=== PATIENT | female | born 1950 | race Caucasian/White ===

== ENCOUNTER 2020-07-08 12:17 | Emergency (ER) | payer MEDICARE, MEDICAID, SELFPAY ==
--- NOTE | 2020-07-08 14:44 | ED.SOB ---
HPI - SOB/Dyspnea General Chief Complaint: Dyspnea Stated Complaint: copd,sob Time Seen by Provider: 07/08/20 14:43 Source: patient and site interpreter Mode of arrival: ambulatory Limitations: no limitations History of Present Illness MD elicited complaint: shortness of breath Pertinent past history: COPD (3L NC O2 dependent) Onset (ago): week(s) (2) Timing: constant Severity: moderate Exacerbating factors: exertion and coughing Relieving factors: oxygen, rest and bronchodilators Known history of: COPD Associated symptoms: cough and wheezing Treatment prior to arrival: oxygen, bronchodilator and other (20mg prednisone) Related Data Allergies Allergy/AdvReac Type Severity Reaction Status Date / Time lisinopril [LISINOPRIL] Allergy Unknown UNK Unverified 06/11/20 19:02 Review of Systems Review of Systems: Constitutional : No Fever, No Chills ENT/Mouth : No sore throat, No Rhinorrhea, No Swallowing Difficulty Eyes: No Eye Pain, No Swelling, No Redness Cardiovascular : No Chest Pain, positive SOB, No Orthopnea, positive Edema Respiratory : positive Cough, No Sputum, positive Wheezing, positive dyspnea Gastrointestinal : No Nausea, No Vomiting, No Diarrhea, No abdominal Pain, No Hematochezia, No Melena Genitourinary : No Dysuria, No Urinary Frequency, No Hematuria Musculoskeletal : No joint pain, No Myalgias Skin : No Skin Lesions, No rash Neuro : No Weakness, No Numbness, No Dizziness, No Headache Psych : No Anxiety/Panic, No Depression All other systems reviewed and are negative PMFSH Past Medical History Medical History Asthma CHF (congestive heart failure) COPD (chronic obstructive pulmonary disease) Diabetes GERD (gastroesophageal reflux disease) HTN (hypertension) Hyperlipemia Hypothyroidism Social History Social History (Updated 07/08/20 @ 14:46 by Shabnam Ang DO) Alcohol intake: never Smoking Status: Never smoker Use of substances other than those prescribed or required for medical reasons: No Advance Directives: No Advance Directives Information Provided: No Physical Exam Vital Signs: Vital Signs: Vital Signs Temp Pulse Resp BP Pulse Ox 07/08/20 14:53 98.7 F 85 18 204/93 H 98 Body Mass Index 37.9 Appearance: Alert. Oriented X3. No acute distress. Eyes: Pupils equal, round and reactive to light. ENT: Pharynx normal. Neck: Normal inspection. Neck supple. CVS: Normal heart rate and rhythm. Pulses normal. Respiratory: No respiratory distress. Breath sounds diminished with wheezes Abdomen: Soft and nontender. Skin: Skin warm and dry. Normal skin color. Normal skin turgor. Extremities: bilateral 1+ pitting extremity edema. No calf ttp Neuro: Oriented X 3. No motor deficit. No sensory deficit. Course Course Course Narrative: patient seems improved, no hypoxia will sign out to Dr. Villalpando pending recheck and observation MDM - SOB/Dyspnea MDM Narrative Medical decision making narrative: 70 yo female COPD O2 dependent here with 2 weeks of cough, shortness of breath on 20mg prednisone daily states she is very short of breath and her transcribing machine operator sent her here, will need labs, CXR, 5mg neb, IV steroids, dispo per results and findings Lab Data Result diagrams: 07/08/20 15:26 07/08/20 15:26 Labs: Lab Results 07/08/20 07/08/20 07/08/20 Range/Units 15:26 15:26 15:26 WBC 8.2 (4.8-10.8) X10*3/uL RBC 4.95 (4.20-5.50) X10*6/uL Hgb 13.5 (12.0-16.0) g/dl Hct 44.9 (37-47) % MCV 90.7 (80-98) fL MCH 27.3 (27.0-33.0) pg MCHC 30.1 L (31.0-35.0) g/dl RDW 15.7 (11.0-16.0) % Plt Count 220 (160-400) X10*3/uL MPV 11.4 (9.4-12.3) fL Immature Gran % (Auto) 0.2 (0.0-0.4) % Neut % (Auto) 70.9 (45-73) % Lymph % (Auto) 18.6 L (20-40) % [place] % (Auto) 7.6 (2-11) % Eos % (Auto) 2.3 (0-4) % Baso % (Auto) 0.4 (0-2) % Lymph # (Auto) 1.5 (1.2-4.9) X10*3/uL [place] # (Auto) 0.6 (0.1-1.2) X10*3/uL Eos # (Auto) 0.2 (0.0-0.4) X10*3/uL Baso # (Auto) 0.0 (0.0-0.2) X10*3/uL Abs Immat Gran (auto) 0.02 (0.00-0.03) X10*3/uL Absolute Neuts (auto) 5.8 (2.0-8.3) X10*3/uL Absolute Nucleated RBC 0.000 (0.0-0.012) X10*3/uL Nucleated RBC % (auto) 0.0 (0.0-0.2) /100WBC Lactic Acid 1.0 (0.5-2.0) mmol/L Troponin I High Sens 9.6 (<3.5-17.0) ng/L B-Natriuretic Peptide 204 H (<100) pg/mL ECG Data Attestation: I personally reviewed and interpreted this ECG as follows: ECG interpretation date: 07/08/20 ECG interpretation time: 15:53 Prior ECG tracings: available for review Interpretation: Rate: 73 Rhythm: NSR Quinter: normal Normal P waves. Normal ART. Normal QRS complex. ST T wave : inverted t waves 1 AvL V6 qTC: normal prior studies: no change The study has been interpreted contemporaneously by me. .
[2020-07-08 14:53] VITALS: BP 204/93; PULSE 85; RESP 18; TEMP 37.1; O2SAT 98; BMI 37.9
--- NOTE | 2020-07-08 15:00 | ECG_ITS ---
Test Reason : SHORTNESS OF BREATH Blood Pressure : / mmHG Vent. Rate : 073 BPM Atrial Rate : 073 BPM P-R Int : 146 ms QRS Dur : 084 ms QT Int : 410 ms P-R-T Axes : -07 009 104 degrees QTc Int : 451 ms Normal sinus rhythm T wave abnormality, consider lateral ischemia Abnormal ECG When compared with ECG of 15-DEC-2019 11:00, No significant changes seen Referred By: Shabnam Ang Electronically Signed By:DORA GONZALEZ MD
--- NOTE | 2020-07-08 15:01 | XR_ITS ---
EXAMINATION: XR CHEST CLINICAL INFORMATION: Dyspnea COMPARISON: Multiple prior studies. Most recent is a Chest x-ray 12/15/2019 TECHNIQUE: Frontal portable view of the chest was obtained. 3:45 PM FINDINGS: Heart size is mildly enlarged. There are calcifications of aorta. There is mild central pulmonary vascular congestion with increased lung markings that is been seen on multiple prior exams appears chronic. There is no overt pulmonary edema. There is no pleural effusion. IMPRESSION: Cardiomegaly. Chronic mild central pulmonary vascular congestion without overt pulmonary edema.
[2020-07-08] MEDS: Albuterol Sulfate (0.083%) 2.5 MG/3 ML VIAL.NEB 5 MG INHALE (15:11)
--- NOTE | 2020-07-08 15:16 | PC.NURSE ---
resp therapy at bedside for tx, ekg completed.
[2020-07-08 15:38] LABS: MANUAL DIFF FLAG NO
[2020-07-08] MEDS: methylPREDNISolone Sod Succ/PF 125 MG/2 ML VIAL 60 MG IVPUSH (15:38)
[2020-07-08 15:41] LABS: Basophils Percent Auto 0.4 % (0-2); Eosinophils Absolute Auto 0.2 X10*3/uL (0.0-0.4); Eosinophils Percent Auto 2.3 % (0-4); Hematocrit 44.9 % (37-47); Hemoglobin 13.5 g/dl (12.0-16.0); Imm Gran Abs Auto 0.02 X10*3/uL (0.00-0.03); Imm Gran Pct Auto 0.2 % (0.0-0.4); Lymphocytes Absolute Auto 1.5 X10*3/uL (1.2-4.9); Lymphocytes Percent Auto 18.6 % (20-40); Mean Corpuscular HGB Conc 30.1 g/dl (31.0-35.0); Mean Corpuscular Hemoglobin 27.3 pg (27.0-33.0); Mean Corpuscular Volume 90.7 fL (80-98); Mean Platelet Volume 11.4 fL (9.4-12.3); Monocytes Absolute Auto 0.6 X10*3/uL (0.1-1.2); Monocytes Percent Auto 7.6 % (2-11); Neutrophils Absolute Auto 5.8 X10*3/uL (2.0-8.3); Neutrophils Percent Auto 70.9 % (45-73); Platelet Count 220 X10*3/uL (160-400); Red Blood Count 4.95 X10*6/uL (4.20-5.50); Red Cell Distribution Width 15.7 % (11.0-16.0); White Blood Count 8.2 X10*3/uL (4.8-10.8)
[2020-07-08 16:31] LABS: B Type Natriuretic Peptide 204 pg/mL (<100); Troponin-I High Sensitivity 9.6 ng/L (<3.5-17.0)
--- NOTE | 2020-07-08 17:53 | CT_ITS ---
EXAMINATION: CT ANGIOGRAM OF THE CHEST WITH CONTRAST (CT PULMONARY ANGIOGRAM FOR PE) CLINICAL INFORMATION: Left-sided back pain. Chronic obstructive pulmonary disease. COMPARISON: CXR from 07/08/2020. Chest CT from 09/05/2019. TECHNIQUE: Prior to contrast administration, noncontrast localization images were obtained. Subsequently, multidetector volumetric imaging was performed from the thoracic inlet to below the diaphragms following the administration of 71 mL Omnipaque 350 intravenous contrast. No contrast reaction reported. Sagittal, coronal, and MIP oblique sagittal reformatted images were obtained on the CT workstation, uploaded to PACS, and reviewed. This CT examination was performed using dose optimization techniques as appropriate, variously including the following: *Automated exposure control *Adjustment of mA and/or kV according to patient size (this includes techniques or standardized protocols for targeted exams where dose is matched to indication/reason for exam; i.e. extremities or head) *Use of iterative reconstruction technique DLP: Total exam dose-length product 439 mGy-cm FINDINGS: LUNGS AND PLEURA: Trachea and central airways are widely patent and normal in caliber. Mild thickening of peribronchial interstitium. Also, interlobular septal thickening is noted in the upper and lower lobes. These findings are new compared to 09/05/2019 and are consistent with mild edema. No focal consolidation. No pleural effusion or pneumothorax. Scattered opacities of subsegmental atelectasis. QUALITY OF STUDY/CONTRAST BOLUS: Poor. CARDIOVASCULAR: Cardiac chambers are normal in size. Atherosclerotic calcification of coronary arteries and thoracic aorta. No aortic aneurysm. No pericardial effusion. No large emboli are identified within the main pulmonary vessels. Peripheral vessels cannot be diagnostically evaluated due to the suboptimal contrast bolus. MEDIASTINUM/LOWER NECK: The esophagus has normal wall thickness. No mediastinal mass. The visualized portion of the thyroid gland is unremarkable. LYMPHATICS: No pathologic sized axillary, hilar or mediastinal lymph nodes. UPPER ABDOMEN: No contrast reflux into the inferior vena cava. No acute findings in the visualized portion of the upper abdomen. Mildly enlarged spleen is 14.5 cm AP dimension, unchanged compared to 09/05/2019. OSSEOUS STRUCTURES: No acute or suspicious osseous abnormality. IMPRESSION: * Mild interstitial pulmonary edema without pleural effusion. * Scattered opacities of subsegmental atelectasis in middle lobe, lingula and lower lobes. * No evidence of a large, central embolus. Due to the suboptimal contrast bolus, unable to evaluate the more peripheral pulmonary arteries. * Mild splenomegaly is stable compared to 09/05/2019. The negative test result for PE -- but suboptimal contrast bolus -- was discussed with Dr. Villalpando at 8:07 pm on 07/08/2020 and it was ascertained that the pretest probability was low, and no repeat contrast injection will be performed at this time.
--- NOTE | 2020-07-08 18:43 | PC.NURSE ---
PT PERSISTENT ABOUT HAVING SOMETHING TO EAT. PT GLUCOSE STILL PENDING, AWAITING CTA SO PROVIDER NOT INDICATING PT EATING ATT.
[2020-07-08 18:55] LABS: Anion Gap 12 (12-20); Blood Urea Nitrogen 12 mg/dL (9-16); Calcium 8.4 mg/dL (8.4-10.2); Carbon Dioxide 35 mmol/L (22-29); Chloride 97 mmol/L (96-108); Creatinine Clr Calc Pharmacy 74.6; Estimated Glomerular Filt Rate > 60; Glucose Random 335 mg/dL (60-115); Potassium 4.9 mmol/l (3.3-5.1); Sodium 139 mmol/L (135-145)
[2020-07-08] MEDS: iohexoL 350 MG/ML 100 ML INFUS..BTL IV (19:46)
[2020-07-08] MEDS: oxyCODONE HCl Immed Release 5 MG TABLET 10 MG PO (20:03)
--- NOTE | 2020-07-08 20:04 | PC.NURSE ---
Pt medicated with pain with Oxycodone per EMAR. Pt sitting upright in bed, eating/drinking. Pt aware of plan to await final results and DC home. Continue to monitor.
[2020-07-08 20:28] VITALS: BP 177/79; PULSE 104; RESP 16; O2SAT 95
== END 2020-07-08 20:37 | disposition home or self-care (01) ==
PROVIDERS: Emergency Provider Emergency Medicine; PCP Internal Medicine Geriatric Medicine
DX: J44.9 Chronic obstructive pulmonary disease, unspecified (principal); Z99.81 Dependence on supplemental oxygen; I10 Essential (primary) hypertension; Z79.899 Other long term (current) drug therapy
CPT/HCPCS: 36415; 71045; 71275; 80048; 80076; 83605; 83735; 83880; 84484; 85025; 87040; 87147; 93005; 99284; J2930

== ENCOUNTER 2020-08-11 13:16 | Outpatient (REF) | payer MEDICARE, MEDICAID, SELFPAY ==
[2020-08-11 14:28] LABS: MANUAL DIFF FLAG NO
[2020-08-11 14:34] LABS: Basophils Percent Auto 0.4 % (0-2); Eosinophils Absolute Auto 0.3 X10*3/uL (0.0-0.4); Eosinophils Percent Auto 3.4 % (0-4); Hematocrit 46.2 % (37-47); Hemoglobin 14.1 g/dl (12.0-16.0); Imm Gran Abs Auto 0.03 X10*3/uL (0.00-0.03); Imm Gran Pct Auto 0.4 % (0.0-0.4); Lymphocytes Absolute Auto 1.3 X10*3/uL (1.2-4.9); Lymphocytes Percent Auto 18.1 % (20-40); Mean Corpuscular HGB Conc 30.5 g/dl (31.0-35.0); Mean Corpuscular Volume 91.8 fL (80-98); Mean Platelet Volume 11.2 fL (9.4-12.3); Monocytes Absolute Auto 0.6 X10*3/uL (0.1-1.2); Monocytes Percent Auto 7.6 % (2-11); Neutrophils Absolute Auto 5.2 X10*3/uL (2.0-8.3); Neutrophils Percent Auto 70.1 % (45-73); Platelet Count 168 X10*3/uL (160-400); Red Blood Count 5.03 X10*6/uL (4.20-5.50); Red Cell Distribution Width 15.9 % (11.0-16.0); White Blood Count 7.4 X10*3/uL (4.8-10.8)
[2020-08-11 15:16] LABS: Alanine Aminotransferase 14 U/L (0-31); Albumin Level 3.5 g/dL (3.5-5.0); Alkaline Phosphatase 124 U/L (39-117); Aspartate Amino Transferase 17 U/L (5-31); Bilirubin Direct < 0.2 mg/dL (0.0-0.5); Bilirubin Total 0.3 mg/dL (0.0-1.0); Total Protein 6.9 g/dL (6.5-8.0)
[2020-08-11 15:19] LABS: Erythrocyte Sedimentation Rate 30 MM/HR (0-20)
[2020-08-12 09:16] LABS: EBV-NA IgG Index >600.00 U/mL; EBV-VCA IgG Ab >750.00 U/mL; EBV-VCA IgM Ab <36.00 U/mL
== END 2020-08-11 13:17 | disposition home or self-care (01) ==
LOC: HO.LAB 13:16
PROVIDERS: PCP Internal Medicine Geriatric Medicine; Referring Provider Internal Medicine Geriatric Medicine; Visit Provider Hospitalist
DX: G47.33 Obstructive sleep apnea (adult) (pediatric) (principal); R16.1 Splenomegaly, not elsewhere classified; R59.0 Localized enlarged lymph nodes; J44.9 Chronic obstructive pulmonary disease, unspecified
CPT/HCPCS: 36415; 80076; 85025; 85652; 86664; 86665; 99212

== ENCOUNTER → 2020-08-26 20:03 | Outpatient (REF) | payer MEDICARE, MEDICAID, SELFPAY | LOC: HO.SL 20:03 | PROVIDERS: Visit Provider Hospitalist | DX: G47.33 Obstructive sleep apnea (adult) (pediatric) (principal) | CPT/HCPCS: 95811 ==

== ENCOUNTER 2020-09-04 14:03 | Outpatient (REF) | payer MEDICARE, MEDICAID, SELFPAY ==
--- NOTE | 2020-09-04 14:05 | CT_ITS ---
EXAMINATION: CT HEAD WITH/WITHOUT CONTRAST CLINICAL INFORMATION: Chronic occular pain left eye. Headache COMPARISON: None TECHNIQUE: Contiguous axial imaging was performed from the skull base to vertex before and after the administration of 85 mL of Omnipaque [address] examination was performed using dose optimization techniques as appropriate, variously including the following: *Automated exposure control *Adjustment of mA and/or kV according to patient size (this includes techniques or standardized protocols for targeted exams where dose is matched to indication/reason for exam; i.e. extremities or head) *Use of iterative reconstruction technique DLP: 1591 mGy-cm FINDINGS: There is no evidence of acute intracranial hemorrhage or territorial infarction. No abnormal mass effect or midline shift is seen. There is a punctate hypodensity in right posterior parietal lobe likely focal encephalomalacia from previous intervention on axial image 21/2. Broderick to white matter differentiation is well preserved. No extra-axial fluid collections are identified. There is no abnormal enhancement. The lateral ventricles are symmetrical in size but enlarged. There is diffuse periventricular hypodensity in both cerebral hemispheres without mass effect. There is a right parietal craniotomy defect from previous intervention. The mastoid air cells and visualized portions of the paranasal sinuses are well aerated. CT/CT head/brain wo/w con IMPRESSION: No acute intracranial process seen.
[2020-09-04] MEDS: iohexoL 350 MG/ML 100 ML INFUS..BTL 85 ML IV (15:06)
--- NOTE | 2020-09-10 14:19 | MHC.HEMONC ---
CT GUIDED BX - T/C to radiology dept. @1903. I spoke w Naomi. Request for CT guided bx of L Inguinal Lymph Node. DX: Enlarged bilateral lymphnodes (these were seen on CT of Abd/Pel from [facility]. Per Dr. Taylor she has already spoken w Dr. Roman regarding this and he has reviewed CT. Per Esther Capellan, the codes are - CPT 50030 and ICD R59.9. Written order faxed to Naomi @ [phone] and entered into [employer]. Per Naomi this order will be placed in pending and will be reviewed by Vaishnavi when she returns to the office tomorrow. Written Order returned to Esther Rea for filing.
== END 2020-09-04 14:04 | disposition home or self-care (01) ==
LOC: HO.CT 14:03
PROVIDERS: Visit Provider Internal Medicine Geriatric Medicine
DX: R51.9 Headache, unspecified (principal); H57.12 Ocular pain, left eye; G89.29 Other chronic pain
CPT/HCPCS: 70470; Q9967

== ENCOUNTER 2020-09-11 13:24 | Outpatient (REF) | payer MEDICARE, MEDICAID, SELFPAY ==
--- NOTE | 2020-09-11 13:43 | XR_ITS ---
EXAMINATION: BILATERAL KNEE AND LUMBAR SPINE. CLINICAL INFORMATION: Pain. COMPARISON: None TECHNIQUE: 5 views lumbar spine 4 views each knee. FINDINGS: LUMBAR SPINE: There is normal lumbar lordosis. The vertebral heights, alignment and disc heights are normal. No visible acute fracture, dislocation or lytic process seen. There is mild ventral spondylosis of lumbar spine. There is no pars defect or listhesis. No lytic process seen. RIGHT KNEE: The tricompartment joints is maintained. No bony erosive changes seen. There is minimal superior patellar spurring and anterior superior patellar enthesophyte. The soft tissues are normal. LEFT KNEE: There is mild reduction in medial and patellofemoral compartment joint space with minimal periarticular spurring. The lateral compartment joint space is maintained. This mild suprapatellar joint effusion. XR/XR knee LT 4V IMPRESSION: Mild ventral spondylosis lumbar spine. No acute fracture, dislocation or lytic process seen. There is no spondylolisthesis or pars defect. Minimal superior patellar spurring right knee. Otherwise unremarkable. Mild degenerative changes medial and patellofemoral compartment left knee without acute fracture or dislocation. Mild suprapatellar joint effusion is noted.
--- NOTE | 2020-09-11 13:43 | XR_ITS ---
EXAMINATION: BILATERAL KNEE AND LUMBAR SPINE. CLINICAL INFORMATION: Pain. COMPARISON: None TECHNIQUE: 5 views lumbar spine 4 views each knee. FINDINGS: LUMBAR SPINE: There is normal lumbar lordosis. The vertebral heights, alignment and disc heights are normal. No visible acute fracture, dislocation or lytic process seen. There is mild ventral spondylosis of lumbar spine. There is no pars defect or listhesis. No lytic process seen. RIGHT KNEE: The tricompartment joints is maintained. No bony erosive changes seen. There is minimal superior patellar spurring and anterior superior patellar enthesophyte. The soft tissues are normal. LEFT KNEE: There is mild reduction in medial and patellofemoral compartment joint space with minimal periarticular spurring. The lateral compartment joint space is maintained. This mild suprapatellar joint effusion. XR/XR lumbar spine 4V min IMPRESSION: Mild ventral spondylosis lumbar spine. No acute fracture, dislocation or lytic process seen. There is no spondylolisthesis or pars defect. Minimal superior patellar spurring right knee. Otherwise unremarkable. Mild degenerative changes medial and patellofemoral compartment left knee without acute fracture or dislocation. Mild suprapatellar joint effusion is noted.
--- NOTE | 2020-09-11 13:43 | XR_ITS ---
EXAMINATION: BILATERAL KNEE AND LUMBAR SPINE. CLINICAL INFORMATION: Pain. COMPARISON: None TECHNIQUE: 5 views lumbar spine 4 views each knee. FINDINGS: LUMBAR SPINE: There is normal lumbar lordosis. The vertebral heights, alignment and disc heights are normal. No visible acute fracture, dislocation or lytic process seen. There is mild ventral spondylosis of lumbar spine. There is no pars defect or listhesis. No lytic process seen. RIGHT KNEE: The tricompartment joints is maintained. No bony erosive changes seen. There is minimal superior patellar spurring and anterior superior patellar enthesophyte. The soft tissues are normal. LEFT KNEE: There is mild reduction in medial and patellofemoral compartment joint space with minimal periarticular spurring. The lateral compartment joint space is maintained. This mild suprapatellar joint effusion. XR/XR knee RT 4V IMPRESSION: Mild ventral spondylosis lumbar spine. No acute fracture, dislocation or lytic process seen. There is no spondylolisthesis or pars defect. Minimal superior patellar spurring right knee. Otherwise unremarkable. Mild degenerative changes medial and patellofemoral compartment left knee without acute fracture or dislocation. Mild suprapatellar joint effusion is noted.
[2020-09-11 14:57] LABS: Anion Gap 9 (12-20); Blood Urea Nitrogen 14 mg/dL (9-16); Calcium 8.8 mg/dL (8.4-10.2); Carbon Dioxide 37 mmol/L (22-29); Chloride 101 mmol/L (96-108); Estimated Glomerular Filt Rate > 60; Glucose Random 40 mg/dL (60-115); Potassium 3.9 mmol/l (3.3-5.1); Sodium 143 mmol/L (135-145)
[2020-09-11 15:25] LABS: Erythrocyte Sedimentation Rate 30 MM/HR (0-20)
== END 2020-09-11 13:25 | disposition home or self-care (01) ==
LOC: HO.LAB 13:24
PROVIDERS: Visit Provider Internal Medicine Geriatric Medicine
DX: H57.12 Ocular pain, left eye (principal); I10 Essential (primary) hypertension; R51.9 Headache, unspecified; M25.561 Pain in right knee; M25.562 Pain in left knee; M54.5 Low back pain
CPT/HCPCS: 36415; 72110; 73564; 80048; 85652

== ENCOUNTER 2020-10-02 11:49 | Emergency (ER) | payer MEDICARE, MEDICAID, SELFPAY ==
[2020-10-02 11:53] VITALS: BP 184/77; PULSE 80; RESP 22; TEMP 36.7; O2SAT 96; BMI 37.5
--- NOTE | 2020-10-02 12:04 | XR_ITS ---
EXAMINATION: XR CHEST CLINICAL INFORMATION: Low O2. History of COPD. COMPARISON: None TECHNIQUE: Frontal view of the chest was obtained. FINDINGS: The lungs are well-expanded and clear. The heart size and pulmonary vascularity is normal. No gross bony abnormality seen. XR/XR chest 1V IMPRESSION: Unremarkable chest exam.
--- NOTE | 2020-10-02 12:21 | ED.GENADULT ---
HPI - General Adult General Chief complaint: Dyspnea Stated complaint: Hypoxia Time Seen by Provider: 10/02/20 11:54 Source: patient Mode of arrival: wheelchair Limitations: no limitations History of Present Illness HPI narrative: Patient comes to the emergency room from Dr. Taylor's office. Patient is known to have splenomegaly. Patient states she went to see Dr. Taylor this morning for follow-up with splenomegaly and for worsening right upper quadrant pain. Dr. Taylor called the emergency room, let us know that the patient's oxygen saturation was 83% on 3 L which is patient's home dose. Patient is on oxygen for COPD. On arrival to the emergency room, patient complaining of worsening right upper quadrant pain. Patient denies any trauma. Patient states she has been having increased abdominal pain over the last 4 months, but this morning was the worst day. Patient states that she does not feel short of breath or any different than any other day at this time, patient states that she had shortness of breath at Dr. Taylor office, states it was because of the pain. Patient states she has had intermittent episodes of sharp right upper quadrant pain. Patient denies nausea vomiting or diarrhea. MD complaint: Low O2, right upper quadrant pain Related Data Home Medications Medication Instructions Recorded Confirmed acetaminophen 325 mg PO Q8H PRN 07/08/20 08/11/20 albuterol sulfate 2.5 mg INHALATION Q4H PRN 07/08/20 08/11/20 albuterol sulfate [ProAir HFA] 2 puff INHALATION Q4-6H PRN 07/08/20 08/11/20 amlodipine 10 mg PO DAILY 07/08/20 08/11/20 aspirin 81 mg PO DAILY 07/08/20 08/11/20 atorvastatin 40 mg PO DAILY 07/08/20 08/11/20 fluticasone furoate-vilanterol 1 inh INHALATION DAILY 07/08/20 08/11/20 [Breo Ellipta] fluticasone propionate [Flovent 1 puff INHALATION BID 07/08/20 08/11/20 HFA] furosemide 40 mg PO Q OTHER DAY 07/08/20 08/11/20 hydralazine 100 mg PO BID 07/08/20 08/11/20 insulin glargine [Lantus Solostar 30 unit SUBCUT BID 07/08/20 08/11/20 U-100 Insulin] insulin lispro [Humalog KwikPen See Protocol SUBCUT TIDAC 07/08/20 08/11/20 Insulin] levothyroxine 100 mcg PO DAILY 07/08/20 08/11/20 losartan 50 mg PO DAILY 07/08/20 08/11/20 lubiprostone [Amitiza] 24 mcg PO BID 07/08/20 08/11/20 metformin 1,000 mg PO BID 07/08/20 08/11/20 omega-3 fatty acids [Fish Oil 1,000 mg PO DAILY 07/08/20 08/11/20 Concentrate] omeprazole 20 mg PO DAILY 07/08/20 08/11/20 oxycodone-acetaminophen 1 tab PO Q8H PRN 07/08/20 08/11/20 quetiapine 200 mg PO BEDTIME 07/08/20 08/11/20 risperidone [Risperdal] 6 mg PO BEDTIME 07/08/20 08/11/20 sumatriptan succinate 25 mg tablet 0 mg PO DIRECTED 08/11/20 08/11/20 Allergies Allergy/AdvReac Type Severity Reaction Status Date / Time lisinopril [LISINOPRIL] Allergy Severe Dizziness Verified 08/11/20 23:11 Review of Systems Review of Systems: Constitutional : No Weight loss, No Fever, No Chills, No Night Sweats, No Fatigue, No Malaise ENT/Mouth : No Hearing loss, No Ear Pain, No Nasal Congestion, No Sinus Pain, No Hoarseness, No sore throat, No Rhinorrhea, No Swallowing Difficulty Eyes: No Eye Pain, No Swelling, No Redness, No Foreign Body, No Discharge, No Vision Changes Cardiovascular : No Chest Pain, No SOB, No Dyspnea on Exertion, No Orthopnea, No Edema, No Palpitations Respiratory : No Cough, No Sputum, No Wheezing, No Smoke Exposure, No Dyspnea at this time, patient on 3 L at baseline Gastrointestinal : No Nausea, No Vomiting, No Diarrhea, No Constipation, Now complaining of worsening right upper quadrant pain, No Hematochezia, No Melena Genitourinary : no irregular bleeding, No Dysuria, No Urinary Frequency, No Hematuria, No Urinary Incontinence, No Urgency, No Flank Pain, No Urinary Flow Changes, No Hesitancy Musculoskeletal : No joint pain, No Myalgias, No Joint Swelling Skin : No Skin Lesions, No rash Neuro : No Weakness, No Numbness, No Paresthesias, No Loss of Consciousness, No Dizziness, No Headache Psych : No Anxiety/Panic, No Depression, No SI/HI/AH/VH, No Social Issues, Heme/Lymph: No Bruising, No Bleeding,No Lymphadenopathy Endocrine : No Polyuria, No Polydipsia, No Temperature Intolerance [facility] Past Medical History Medical History Asthma CHF (congestive heart failure) COPD (chronic obstructive pulmonary disease) Diabetes GERD (gastroesophageal reflux disease) HTN (hypertension) Hyperlipemia Hypothyroidism Lymphadenopathy, abdominal KATIUSKA (obstructive sleep apnea) Splenomegaly Surgical History (Updated 09/01/20 @ 14:33 by Eliceo Taylor MD) H/O section History of cholecystectomy Hx of tubal ligation Social History Social History (Updated 09/01/20 @ 14:25 by Jennifer Garcia RN) Alcohol intake: never Smoking Status: Former smoker Advance Directives: No Advance Directives Information Provided: No Physical Exam Vital Signs: Vital Signs: Last Vital Signs Temp 98.1 F 10/02/20 11:53 Pulse 80 10/02/20 11:53 Resp 22 H 10/02/20 11:53 BP 184/77 H 10/02/20 11:53 Pulse Ox 96 10/02/20 11:53 Body Mass Index 37.5 Appearance: Alert. Oriented X3. No acute distress. Eyes: Pupils equal, round and reactive to light. ENT: Pharynx normal. Neck: Normal inspection. Neck supple. No lymph nodes noted. No crepitus CVS: Normal heart rate and rhythm. Pulses normal. Normal S1 and S2 Respiratory: No respiratory distress. Mild bilateral wheezing, no crackles, on 3 L at baseline, oxygen saturation 97% Abdomen: Complaining of right upper quadrant pain on palpation Skin: Skin warm and dry. Normal skin color. Normal skin turgor. Extremities: No lower extremity edema. No lower extremity edema. No Lacerations. No Rash Neuro: Oriented X 3. No motor deficit. No sensory deficit. Moving all extermities. No slurred speech. Course Course Course Narrative: Patient's oxygen saturation remains 97% on 3 L. patient's CTA shows no PE, CT scan shows that the spleen is unremarkable. Patient feeling better, patient will be discharged home. Patient's blood sugar corrected, initially 433, now 268 Medical Decision Making Lab Data Result diagrams: 10/02/20 12:34 10/02/20 12:34 Labs: Lab Results 10/02/20 10/02/20 10/02/20 Range/Units 12:34 12:34 12:34 WBC 7.1 (4.8-10.8) X10*3/uL RBC 5.07 (4.20-5.50) X10*6/uL Hgb 14.3 (12.0-16.0) g/dl Hct 46.5 (37-47) % MCV 91.7 (80-98) fL MCH 28.2 (27.0-33.0) pg MCHC 30.8 L (31.0-35.0) g/dl RDW 14.6 (11.0-16.0) % Plt Count 201 (160-400) X10*3/uL MPV 11.2 (9.4-12.3) fL Immature Gran % (Auto) 0.3 (0.0-0.4) % Neut % (Auto) 69.5 (45-73) % Lymph % (Auto) 20.9 (20-40) % [place] % (Auto) 7.3 (2-11) % Eos % (Auto) 1.7 (0-4) % Baso % (Auto) 0.3 (0-2) % Lymph # (Auto) 1.5 (1.2-4.9) X10*3/uL [place] # (Auto) 0.5 (0.1-1.2) X10*3/uL Eos # (Auto) 0.1 (0.0-0.4) X10*3/uL Baso # (Auto) 0.0 (0.0-0.2) X10*3/uL Abs Immat Gran (auto) 0.02 (0.00-0.03) X10*3/uL Absolute Neuts (auto) 4.9 (2.0-8.3) X10*3/uL Absolute Nucleated RBC 0.000 (0.0-0.012) X10*3/uL Nucleated RBC % (auto) 0.0 (0.0-0.2) /100WBC Sodium 138 (135-145) mmol/L Potassium 4.7 (3.3-5.1) mmol/l Chloride 96 (96-108) mmol/L Carbon Dioxide 35 H (22-29) mmol/L Anion Gap 12 (12-20) BUN 13 (9-16) mg/dL Creatinine 0.78 (0.5-1.4) mg/dL Estim Creat Clear Calc 73.3 Estimated GFR > 60 POC Glucose (60-115) mg/dL Random Glucose 433 H* (60-115) mg/dL Lactic Acid (0.5-2.0) mmol/L Calcium 8.9 (8.4-10.2) mg/dL Total Bilirubin 0.3 (0.0-1.0) mg/dL Direct Bilirubin < 0.2 (0.0-0.5) mg/dL AST 13 (5-31) U/L ALT 11 (0-31) U/L Alkaline Phosphatase 121 H (39-117) U/L B-Natriuretic Peptide 663 H (<100) pg/mL Total Protein 6.5 (6.5-8.0) g/dL Albumin 3.1 L (3.5-5.0) g/dL 10/02/20 10/02/20 Range/Units 12:34 14:11 WBC (4.8-10.8) X10*3/uL RBC (4.20-5.50) X10*6/uL Hgb (12.0-16.0) g/dl Hct (37-47) % MCV (80-98) fL MCH (27.0-33.0) pg MCHC (31.0-35.0) g/dl RDW (11.0-16.0) % Plt Count (160-400) X10*3/uL MPV (9.4-12.3) fL Immature Gran % (Auto) (0.0-0.4) % Neut % (Auto) (45-73) % Lymph % (Auto) (20-40) % [place] % (Auto) (2-11) % Eos % (Auto) (0-4) % Baso % (Auto) (0-2) % Lymph # (Auto) (1.2-4.9) X10*3/uL [place] # (Auto) (0.1-1.2) X10*3/uL Eos # (Auto) (0.0-0.4) X10*3/uL Baso # (Auto) (0.0-0.2) X10*3/uL Abs Immat Gran (auto) (0.00-0.03) X10*3/uL Absolute Neuts (auto) (2.0-8.3) X10*3/uL Absolute Nucleated RBC (0.0-0.012) X10*3/uL Nucleated RBC % (auto) (0.0-0.2) /100WBC Sodium (135-145) mmol/L Potassium (3.3-5.1) mmol/l Chloride (96-108) mmol/L Carbon Dioxide (22-29) mmol/L Anion Gap (12-20) BUN (9-16) mg/dL Creatinine (0.5-1.4) mg/dL Estim Creat Clear Calc Estimated GFR POC Glucose 268 H (60-115) mg/dL Random Glucose (60-115) mg/dL Lactic Acid 0.9 (0.5-2.0) mmol/L Calcium (8.4-10.2) mg/dL Total Bilirubin (0.0-1.0) mg/dL Direct Bilirubin (0.0-0.5) mg/dL AST (5-31) U/L ALT (0-31) U/L Alkaline Phosphatase (39-117) U/L B-Natriuretic Peptide (<100) pg/mL Total Protein (6.5-8.0) g/dL Albumin (3.5-5.0) g/dL Imaging Data Chest x-ray: Radiologist's impression: The lungs are well-expanded and clear. The heart size and pulmonary vascularity is normal. No gross bony abnormality seen. XR/XR chest 1V IMPRESSION: Unremarkable chest exam. CT for PE and abdominal CT: Radiologist's impression: Chest: There is good opacification of the pulmonary arteries. No evidence of pulmonary embolism is seen. There is scarring or subsegmental atelectasis in the lingula and left lower lobe. The lungs are otherwise clear. The heart is slightly enlarged. There is no pericardial effusion. The thoracic aorta is normal in caliber. There is mild coronary artery calcification. There are no enlarged hilar or mediastinal lymph nodes. The visualized thyroid gland is unremarkable. No chest wall mass or enlarged axillary lymph nodes are seen. There is no pleural effusion or pleural thickening. There are degenerative changes of the thoracic spine. Abdomen and pelvis: The liver is unremarkable. The gallbladder is not identified. There is no biliary duct dilatation. The spleen is unremarkable. The pancreas is unremarkable. The adrenal glands and kidneys are unremarkable. The bladder is unremarkable. The uterus and adnexa are unremarkable. There is stool throughout the colon questionable for constipation. Small and large bowel is otherwise unremarkable. The appendix is not identified. There are no inflammatory changes seen in the right lower quadrant. The stomach is unremarkable. There is a small umbilical hernia containing fat. There are slightly prominent bilateral retroperitoneal pelvic lymphadenopathy and inguinal lymphadenopathy. Largest lymph node is a left external iliac lymph node measuring 1.2 x 2.5 cm. Lymph nodes have fatty samra and may be reactive. These are similar to previous exam There are small upper abdominal retroperitoneal lymph nodes. There is no ascites. There is evidence of atherosclerotic disease. No aneurysm is seen. There are mild degenerative changes of the spine and hip joints. CT/CT angio chest PE protocol IMPRESSION: Chest: No evidence of pulmonary embolism. Enlarged heart. Subsegmental atelectasis or scarring in the lingula and left lower lobe. Abdomen and pelvis: No acute findings. Stool throughout the colon questionable for constipation. Atherosclerotic disease. Prominent bilateral pelvic retroperitoneal lymph nodes and inguinal lymph nodes similar to previous exam. Discharge Plan Discharge Clinical Impression: Acute hyperglycemia Abdominal pain Qualifiers: Abdominal location: left upper quadrant Qualified Code(s): R10.12 - Left upper quadrant pain Patient Disposition: Home, Self-Care Instructions: Diabetic Hyperglycemia (ED), Chronic Abdominal Pain (ED) Additional Instructions: Please follow-up with Dr. Taylor. Please follow-up with your primary care physician tomorrow. If you have any worsening or new symptoms, please return to the emergency room or call 911 Prescriptions: No Action furosemide 40 mg Tablet 40 mg PO Q OTHER DAY RF: 0 atorvastatin 40 mg Tablet 40 mg PO DAILY RF: 0 acetaminophen 325 mg Tablet 325 mg PO Q8H PRN (Reason: Pain (Scale Score 1-3)) RF: 0 albuterol sulfate 2.5 mg /3 mL (0.083 %) Solution For Nebulization 2.5 mg INHALATION Q4H PRN (Reason: Shortness Of Breath) RF: 0 quetiapine 200 mg Tablet 200 mg PO BEDTIME RF: 0 aspirin 81 mg Tablet,Delayed Release (Dr/Ec) 81 mg PO DAILY RF: 0 risperidone [Risperdal] 3 mg Tablet 6 mg PO BEDTIME RF: 0 levothyroxine 100 mcg Tablet 100 mcg PO DAILY RF: 0 amlodipine 10 mg Tablet 10 mg PO DAILY RF: 0 hydralazine 100 mg Tablet 100 mg PO BID RF: 0 metformin 1,000 mg Tablet 1,000 mg PO BID RF: 0 oxycodone-acetaminophen 7.5-325 mg Tablet 1 tab PO Q8H PRN (Reason: Pain (Scale Score 4-6)) RF: 0 insulin lispro [Humalog KwikPen Insulin] 100 unit/mL Insulin Pen See Protocol unit SUBCUT TIDAC RF: 0 Amitiza 24 mcg Capsule 24 mcg PO BID RF: 0 Lantus Solostar U-100 Insulin 100 unit/mL (3 mL) Insulin Pen 30 unit SUBCUT BID RF: 0 losartan 50 mg Tablet 50 mg PO DAILY RF: 0 omeprazole 20 mg Capsule,Delayed Release(Dr/Ec) 20 mg PO DAILY RF: 0 omega-3 fatty acids [Fish Oil Concentrate] 1,000 mg Capsule 1,000 mg PO DAILY RF: 0 Flovent HFA 110 mcg/actuation Hfa Aerosol Inhaler 1 puff INHALATION BID RF: 0 albuterol sulfate [ProAir HFA] 90 mcg/actuation Hfa Aerosol Inhaler 2 puff INHALATION Q4-6H PRN (Reason: Shortness Of Breath) RF: 0 Breo Ellipta 100-25 mcg/dose Blister With Device 1 inh INHALATION DAILY RF: 0 sumatriptan succinate 25 mg tablet 0 mg PO DIRECTED RF: 0
--- NOTE | 2020-10-02 12:32 | CT_ITS ---
EXAMINATION: CTA CHEST and CT of the abdomen and pelvis with IV contrast CLINICAL INFORMATION: Hypoxia COMPARISON: Previous chest x-ray from earlier the same day and outside CT scan of the abdomen and pelvis from [facility] June 2020 TECHNIQUE: Axial images through the chest, abdomen and pelvis following 90 mL Omnipaque 350 intravenous contrast and oral contrast for combined CT of the chest, abdomen and pelvis. Sagittal coronal and mid reconstructions on the technologist workstation were performed. Combined dose 7 3 5 mg/cm. This CT examination was performed using dose optimization techniques as appropriate, variously including the following: *Automated exposure control *Adjustment of mA and/or kV according to patient size (this includes techniques or standardized protocols for targeted exams where dose is matched to indication/reason for exam; i.e. extremities or head) *Use of iterative reconstruction technique FINDINGS: Chest: There is good opacification of the pulmonary arteries. No evidence of pulmonary embolism is seen. There is scarring or subsegmental atelectasis in the lingula and left lower lobe. The lungs are otherwise clear. The heart is slightly enlarged. There is no pericardial effusion. The thoracic aorta is normal in caliber. There is mild coronary artery calcification. There are no enlarged hilar or mediastinal lymph nodes. The visualized thyroid gland is unremarkable. No chest wall mass or enlarged axillary lymph nodes are seen. There is no pleural effusion or pleural thickening. There are degenerative changes of the thoracic spine. Abdomen and pelvis: The liver is unremarkable. The gallbladder is not identified. There is no biliary duct dilatation. The spleen is unremarkable. The pancreas is unremarkable. The adrenal glands and kidneys are unremarkable. The bladder is unremarkable. The uterus and adnexa are unremarkable. There is stool throughout the colon questionable for constipation. Small and large bowel is otherwise unremarkable. The appendix is not identified. There are no inflammatory changes seen in the right lower quadrant. The stomach is unremarkable. There is a small umbilical hernia containing fat. There are slightly prominent bilateral retroperitoneal pelvic lymphadenopathy and inguinal lymphadenopathy. Largest lymph node is a left external iliac lymph node measuring 1.2 x 2.5 cm. Lymph nodes have fatty samra and may be reactive. These are similar to previous exam There are small upper abdominal retroperitoneal lymph nodes. There is no ascites. There is evidence of atherosclerotic disease. No aneurysm is seen. There are mild degenerative changes of the spine and hip joints. CT/CT angio chest PE protocol IMPRESSION: Chest: No evidence of pulmonary embolism. Enlarged heart. Subsegmental atelectasis or scarring in the lingula and left lower lobe. Abdomen and pelvis: No acute findings. Stool throughout the colon questionable for constipation. Atherosclerotic disease. Prominent bilateral pelvic retroperitoneal lymph nodes and inguinal lymph nodes similar to previous exam.
[2020-10-02 12:43] LABS: MANUAL DIFF FLAG NO
[2020-10-02 12:48] LABS: Basophils Percent Auto 0.3 % (0-2); Eosinophils Absolute Auto 0.1 X10*3/uL (0.0-0.4); Eosinophils Percent Auto 1.7 % (0-4); Hematocrit 46.5 % (37-47); Hemoglobin 14.3 g/dl (12.0-16.0); Imm Gran Abs Auto 0.02 X10*3/uL (0.00-0.03); Imm Gran Pct Auto 0.3 % (0.0-0.4); Lymphocytes Absolute Auto 1.5 X10*3/uL (1.2-4.9); Lymphocytes Percent Auto 20.9 % (20-40); Mean Corpuscular HGB Conc 30.8 g/dl (31.0-35.0); Mean Corpuscular Hemoglobin 28.2 pg (27.0-33.0); Mean Corpuscular Volume 91.7 fL (80-98); Mean Platelet Volume 11.2 fL (9.4-12.3); Monocytes Absolute Auto 0.5 X10*3/uL (0.1-1.2); Monocytes Percent Auto 7.3 % (2-11); Neutrophils Absolute Auto 4.9 X10*3/uL (2.0-8.3); Neutrophils Percent Auto 69.5 % (45-73); Platelet Count 201 X10*3/uL (160-400); Red Blood Count 5.07 X10*6/uL (4.20-5.50); Red Cell Distribution Width 14.6 % (11.0-16.0); White Blood Count 7.1 X10*3/uL (4.8-10.8)
[2020-10-02 13:02] LABS: Lactic Acid 0.9 mmol/L (0.5-2.0)
[2020-10-02 13:12] LABS: B Type Natriuretic Peptide 663 pg/mL (<100)
[2020-10-02] MEDS: Insulin Regular, Human 100 UNIT/ML 3 ML VIAL 10 UNIT IVPUSH (13:21)
[2020-10-02] MEDS: 0.9 % Sodium Chloride 1,000 ML 999 ML IVCONT (13:21)
[2020-10-02] MEDS: Morphine Sulfate 4 MG/ML CARTRIDGE IVPUSH (13:21)
[2020-10-02] MEDS: iohexoL 350 MG/ML 100 ML INFUS..BTL IV (13:41)
[2020-10-02 13:45] LABS: Alanine Aminotransferase 11 U/L (0-31); Albumin Level 3.1 g/dL (3.5-5.0); Alkaline Phosphatase 121 U/L (39-117); Anion Gap 12 (12-20); Aspartate Amino Transferase 13 U/L (5-31); Bilirubin Direct < 0.2 mg/dL (0.0-0.5); Bilirubin Total 0.3 mg/dL (0.0-1.0); Blood Urea Nitrogen 13 mg/dL (9-16); Calcium 8.9 mg/dL (8.4-10.2); Carbon Dioxide 35 mmol/L (22-29); Chloride 96 mmol/L (96-108); Creatinine Clr Calc Pharmacy 73.3; Estimated Glomerular Filt Rate > 60; Glucose Random 433 mg/dL (60-115); Potassium 4.7 mmol/l (3.3-5.1); Sodium 138 mmol/L (135-145); Total Protein 6.5 g/dL (6.5-8.0)
[2020-10-02 14:23] LABS: Glucose, Whole Blood 268 mg/dL (60-115)
== END 2020-10-02 15:41 | disposition home or self-care (01) ==
PROVIDERS: Emergency Provider Emergency Medicine
DX: E11.65 Type 2 diabetes mellitus with hyperglycemia (principal); R10.11 Right upper quadrant pain; R06.00 Dyspnea, unspecified; Z79.899 Other long term (current) drug therapy; Z87.891 Personal history of nicotine dependence
CPT/HCPCS: 36415; 71045; 71275; 74177; 80048; 80076; 82947; 83605; 83880; 85025; 96361; 96374; 96375; 99284; J2270; Q9967

== ENCOUNTER → 2020-10-22 10:48 | Outpatient (BNVA) | payer MEDICARE, MEDICAID, SELFPAY | PROVIDERS: PCP Internal Medicine Geriatric Medicine; Visit Provider Physician Assistant ==

== ENCOUNTER 2020-10-22 11:13 | Emergency (ER) | payer MEDICARE, MEDICAID, SELFPAY ==
[2020-10-22 11:28] VITALS: BP 184/77; PULSE 83; RESP 20; TEMP 36.9; O2SAT 96; BMI 39.1
--- NOTE | 2020-10-22 12:00 | ED.GENADULT ---
HPI - General Adult General Chief complaint: General Medical Stated complaint: HIGH BLOOD PRESSURE Time Seen by Provider: 10/22/20 11:53 Source: patient Mode of arrival: ambulatory History of Present Illness HPI narrative: 70-year-old Female with a past medical history asthma, CHF, COPD on 3 L NC, DM, GERD, HTN, HLD, hypothyroid, KATIUSKA, splenomegaly, sent in by a gastroenterology for elevated BP in office today. Reports blood pressure is elevated secondary to abdominal pain, did not take morning BP medications today. Patient admits to left-sided flank pain x a couple months, was evaluated in the ED on 10/02, had negative CTAP and CTA, was discharged to follow-up with GI. Admits pain is unchanged from then. Reports chronic SOB, and abdominal pain radiating to chest. Denies fever, chills, cough, hematuria, dysuria, headache, weakness Related Data Home Medications Medication Instructions Recorded Confirmed acetaminophen 325 mg PO Q8H PRN 07/08/20 10/06/20 albuterol sulfate 2.5 mg INHALATION Q4H PRN 07/08/20 10/06/20 albuterol sulfate [ProAir HFA] 2 puff INHALATION Q4-6H PRN 07/08/20 10/06/20 amlodipine 10 mg PO DAILY 07/08/20 10/06/20 aspirin 81 mg PO DAILY 07/08/20 10/06/20 atorvastatin 40 mg PO DAILY 07/08/20 10/06/20 fluticasone furoate-vilanterol 1 inh INHALATION DAILY 07/08/20 10/06/20 [Breo Ellipta] fluticasone propionate [Flovent 1 puff INHALATION BID 07/08/20 10/06/20 HFA] furosemide 40 mg PO Q OTHER DAY 07/08/20 10/06/20 hydralazine 100 mg PO BID 07/08/20 10/06/20 insulin glargine [Lantus Solostar 30 unit SUBCUT BID 07/08/20 10/06/20 U-100 Insulin] insulin lispro [Humalog KwikPen See Protocol SUBCUT TIDAC 07/08/20 10/06/20 Insulin] levothyroxine 100 mcg PO DAILY 07/08/20 10/06/20 losartan 50 mg PO DAILY 07/08/20 10/06/20 lubiprostone [Amitiza] 24 mcg PO BID 07/08/20 10/06/20 metformin 1,000 mg PO BID 07/08/20 10/06/20 omega-3 fatty acids [Fish Oil 1,000 mg PO DAILY 07/08/20 10/06/20 Concentrate] omeprazole 20 mg PO DAILY 07/08/20 10/06/20 oxycodone-acetaminophen 1 tab PO Q8H PRN 07/08/20 10/06/20 quetiapine 200 mg PO BEDTIME 07/08/20 10/06/20 risperidone [Risperdal] 6 mg PO BEDTIME 07/08/20 10/06/20 sumatriptan succinate 25 mg tablet 0 mg PO DIRECTED 08/11/20 08/11/20 Previous Rx's Medication Instructions Recorded dicyclomine 20 mg PO QID PRN #14 tab 10/22/20 polyethylene glycol 3350 [Miralax] 17 g PO DAILY PRN #30 ea 10/22/20 Allergies Allergy/AdvReac Type Severity Reaction Status Date / Time lisinopril [LISINOPRIL] Allergy Severe Dizziness Verified 08/11/20 23:11 Review of Systems Review of Systems: Constitutional: No Weight loss, No Fever, No Chills, No Night Sweats Cardiovascular: + Chest Pain, +chronic SOB, No Dyspnea on Exertion, No Edema Respiratory: No Cough, No Dyspnea Gastrointestinal: No Nausea, No Vomiting, No Diarrhea, No Constipation, +Abdominal pain Genitourinary: No irregular bleeding, No Dysuria, No Urinary Frequency, No Hematuria, +Flank Pain, No Urinary Flow Changes, No Hesitancy Musculoskeletal: No joint pain, No Myalgias, No Joint Swelling Skin: No Skin Lesions, No rash Neuro: No Weakness, No Numbness, No Dizziness, No Headache Yes all other systems are reviewed and are negative [facility] Past Medical History Attestation statement: The following information was validated with the patient. Medical History Asthma CHF (congestive heart failure) COPD (chronic obstructive pulmonary disease) Diabetes GERD (gastroesophageal reflux disease) HTN (hypertension) Hyperlipemia Hypothyroidism Lymphadenopathy, abdominal KATIUSKA (obstructive sleep apnea) Splenomegaly Surgical History H/O section History of cholecystectomy Hx of tubal ligation Social History Social History (Updated 09/01/20 @ 14:25 by Jennifer Garcia RN) Alcohol intake: never Smoking Status: Former smoker Smoked in Last 30 Days: No Use of substances other than those prescribed or required for medical reasons: No Advance Directives: No Advance Directives Information Provided: No Physical Exam Vital Signs: Vital Signs: Last Vital Signs Temp 98.7 F 10/22/20 13:17 Pulse 75 10/22/20 13:27 Resp 14 10/22/20 13:28 BP 184/72 H 10/22/20 13:27 Pulse Ox 100 10/22/20 13:17 Body Mass Index 39.1 Const: General: cooperative, healthy appearing, comfortable and awake Orientation/consciousness: patient oriented x3 Limitations: no limitations HENMT: Head: Yes normal to inspection Ears: hearing grossly normal bilaterally General nose exam: Normal external nose present Face and sinus: Yes normal facial exam Eyes: General: appearance normal, both eyes and all related structures EOM: EOMs intact bilaterally Neck: Neck: Yes normal visual inspection Resp: Effort & Inspection: normal respiratory effort Auscultation: clear to auscultation bilaterally, no rhonchi and no wheezes Cardio: Rate: regular rate Heart sounds: S1 normal heart sound present and S2 normal heart sound present GI: Inspection: Yes normal to inspection Palpation (GI): Soft to palpation, Tenderness to palpation present (GI) in the RUQ, no guarding and not rigid : General: Yes CVA tenderness on the left Skin: Rashes: no rashes Wounds: no wounds Neuro: General: patient oriented x3, tone normal and moves all extremities Cognition (Neuro): normal cognition Extrem: General: Yes normal to inspection Course Course Course Narrative: Labs at patient's baseline. Glucose 242, no anion gap. Troponin 36.2 > will obtain 3 hour repeat. BNP chronically elevated US abdomen complete IMPRESSION: Borderline enlarged spleen. No focal lesion. When compared to the prior CT, this does not appear to be abnormally enlarged. Otherwise, unremarkable abdominal ultrasound. 1541- XR KUB IMPRESSION: Nonobstructive bowel gas pattern. Moderate colonic stool burden. Repeat troponin equivocal, VT unlikely. Results discussed with patient with motor brakeman. Discussion needs to follow up with Gastroenterology for further evaluation of her abdominal pain. She verbalized understanding and feels safe for discharge home Medical Decision Making [facility] Narrative Medical decision making narrative: 70-year-old Female with a past medical history asthma, CHF, COPD on 3 L NC, DM, GERD, HTN, HLD, hypothyroid, KATIUSKA, splenomegaly, sent in by a gastroenterology for elevated BP in office today. On exam mildly hypertensive 184/77, appears in pain, physical exam as above. Low concern for hypertensive urgency/emergency, elevated BP likely from not taking BP medications/pain. Of note patient seen in ED on 10/02 for similar symptoms, had full workup that did not find acute pathology explaining patient's pain. Concern for UTI/pyelo or renal stone vs GERD. Unlikely PE with recent negative CTA or diverticulitis Plan: EKG, labs, UA, abdomen ultrasound, pain medication, re-evaluate Lab Data Result diagrams: 10/22/20 13:05 10/22/20 13:05 Labs: Lab Results 10/22/20 10/22/20 10/22/20 Range/Units 13:05 13:05 13:05 WBC 6.6 (4.8-10.8) X10*3/uL RBC 4.40 (4.20-5.50) X10*6/uL Hgb 12.5 (12.0-16.0) g/dl Hct 41.6 (37-47) % MCV 94.5 (80-98) fL MCH 28.4 (27.0-33.0) pg MCHC 30.0 L (31.0-35.0) g/dl RDW 15.1 (11.0-16.0) % Plt Count 187 (160-400) X10*3/uL MPV 11.3 (9.4-12.3) fL Immature Gran % (Auto) 0.5 H (0.0-0.4) % Neut % (Auto) 68.9 (45-73) % Lymph % (Auto) 20.6 (20-40) % [place] % (Auto) 7.1 (2-11) % Eos % (Auto) 2.6 (0-4) % Baso % (Auto) 0.3 (0-2) % Lymph # (Auto) 1.4 (1.2-4.9) X10*3/uL [place] # (Auto) 0.5 (0.1-1.2) X10*3/uL Eos # (Auto) 0.2 (0.0-0.4) X10*3/uL Baso # (Auto) 0.0 (0.0-0.2) X10*3/uL Abs Immat Gran (auto) 0.03 (0.00-0.03) X10*3/uL Absolute Neuts (auto) 4.6 (2.0-8.3) X10*3/uL Absolute Nucleated RBC 0.000 (0.0-0.012) X10*3/uL Nucleated RBC % (auto) 0.0 (0.0-0.2) /100WBC Hold Blue Top SEE NOTE Sodium 140 (135-145) mmol/L Potassium 4.5 (3.3-5.1) mmol/l Chloride 95 L (96-108) mmol/L Carbon Dioxide 39 H (22-29) mmol/L Anion Gap 11 L (12-20) BUN 10 (9-16) mg/dL Creatinine 0.70 (0.5-1.4) mg/dL Estim Creat Clear Calc 90.0 Estimated GFR > 60 Random Glucose 242 H D (60-115) mg/dL Calcium 8.6 (8.4-10.2) mg/dL Magnesium 1.8 (1.6-2.6) mg/dL Total Bilirubin 0.6 (0.0-1.0) mg/dL Direct Bilirubin 0.2 (0.0-0.5) mg/dL AST 16 (5-31) U/L ALT 20 (0-31) U/L Alkaline Phosphatase 122 H (39-117) U/L Troponin I High Sens (<3.5-17.0) ng/L B-Natriuretic Peptide (<100) pg/mL Total Protein 6.8 (6.5-8.0) g/dL Albumin 3.2 L (3.5-5.0) g/dL Lipase 25 (8-78) U/L Urine Color Urine Appearance Urine pH (5.0-8.0) Ur Specific [place] (1.005-1.025) Urine Protein (NEG-TRACE) MG/DL Urine Glucose (UA) (NEG) MG/DL Urine Ketones (NEG) MG/DL Urine Blood (NEG) Urine Nitrite (NEG) Ur Leukocyte Esterase (NEG) Urine RBC (0) /HPF Urine WBC (0-4) /HPF Ur Squamous Epith Cells /LPF Urine Bacteria /LPF 10/22/20 10/22/20 10/22/20 Range/Units 13:05 15:43 15:46 WBC (4.8-10.8) X10*3/uL RBC (4.20-5.50) X10*6/uL Hgb (12.0-16.0) g/dl Hct (37-47) % MCV (80-98) fL MCH (27.0-33.0) pg MCHC (31.0-35.0) g/dl RDW (11.0-16.0) % Plt Count (160-400) X10*3/uL MPV (9.4-12.3) fL Immature Gran % (Auto) (0.0-0.4) % Neut % (Auto) (45-73) % Lymph % (Auto) (20-40) % [place] % (Auto) (2-11) % Eos % (Auto) (0-4) % Baso % (Auto) (0-2) % Lymph # (Auto) (1.2-4.9) X10*3/uL [place] # (Auto) (0.1-1.2) X10*3/uL Eos # (Auto) (0.0-0.4) X10*3/uL Baso # (Auto) (0.0-0.2) X10*3/uL Abs Immat Gran (auto) (0.00-0.03) X10*3/uL Absolute Neuts (auto) (2.0-8.3) X10*3/uL Absolute Nucleated RBC (0.0-0.012) X10*3/uL Nucleated RBC % (auto) (0.0-0.2) /100WBC Hold Blue Top Sodium (135-145) mmol/L Potassium (3.3-5.1) mmol/l Chloride (96-108) mmol/L Carbon Dioxide (22-29) mmol/L Anion Gap (12-20) BUN (9-16) mg/dL Creatinine (0.5-1.4) mg/dL Estim Creat Clear Calc Estimated GFR Random Glucose (60-115) mg/dL Calcium (8.4-10.2) mg/dL Magnesium (1.6-2.6) mg/dL Total Bilirubin (0.0-1.0) mg/dL Direct Bilirubin (0.0-0.5) mg/dL AST (5-31) U/L ALT (0-31) U/L Alkaline Phosphatase (39-117) U/L Troponin I High Sens 36.2 H D 35.9 H (<3.5-17.0) ng/L B-Natriuretic Peptide 276 H (<100) pg/mL Total Protein (6.5-8.0) g/dL Albumin (3.5-5.0) g/dL Lipase (8-78) U/L Urine Color YELLOW Urine Appearance CLEAR Urine pH 5.5 (5.0-8.0) Ur Specific [place] >= 1.030 H (1.005-1.025) Urine Protein 2+ H (NEG-TRACE) MG/DL Urine Glucose (UA) 250 H (NEG) MG/DL Urine Ketones NEG (NEG) MG/DL Urine Blood NEG (NEG) Urine Nitrite NEG (NEG) Ur Leukocyte Esterase NEG (NEG) Urine RBC 0 (0) /HPF Urine WBC 1-4 (0-4) /HPF Ur Squamous Epith Cells 2+ /LPF Urine Bacteria NONE /LPF ECG Data Attestation: I personally reviewed and interpreted this ECG as follows: Prior ECG tracings: available for review Interpretation: EKG normal sinus rhythm. Rate of 73. New T-wave inversions in V4 and V5. Old T-wave inversions in leads 1, 2, and aVL Discharge Plan Discharge Clinical Impression: Abdominal pain Patient Disposition: Home, Self-Care Instructions: Abdominal Pain (ED) Additional Instructions: Your blood work is reassuring. Your ultrasound did not show anything new. Your x-ray showed constipation, but no obstruction. Relax will help with her stool burden. You need to follow-up with a chief client officer specialist for evaluation of your abdominal pain. If it persists or worsens, becomes unbearable, your unable to eat or drink return to the ED. continue to take home prescribed medication, do not miss doses MiraLax to help with her constipation. Bentyl help with fair abdominal cramping, take both as needed Brooks an?lisis de jim es reconfortante. Brooks ultrasonido no mostr? nada nuevo. Brooks radiograf?a mostr? estre?imiento, hai no obstrucci?n. Relax le ayudar? con la carga de delmar heces. Debe hacer un seguimiento con un gastroenter?logo para evaluar brooks dolor abdominal. Si persiste o empeora, se vuelve insoportable, brooks incapacidad para comer o beber regresa al servicio de urgencias. contin?e llev?ndose a casa los medicamentos recetados, no se pierda dosis MiraLax para ayudar con brooks estre?imiento. Bentyl ayuda con los calambres abdominales justos, tome ambos seg?n sea necesario Prescriptions: New polyethylene glycol 3350 [Miralax] 17 gram powder in packet 17 g PO DAILY PRN (Reason: constipation) Qty: 30 RF: 0 dicyclomine 20 mg tablet 20 mg PO QID PRN (Reason: abdominal pain) Qty: 14 RF: 0 No Action furosemide 40 mg Tablet 40 mg PO Q OTHER DAY RF: 0 atorvastatin 40 mg Tablet 40 mg PO DAILY RF: 0 acetaminophen 325 mg Tablet 325 mg PO Q8H PRN (Reason: Pain (Scale Score 1-3)) RF: 0 albuterol sulfate 2.5 mg /3 mL (0.083 %) Solution For Nebulization 2.5 mg INHALATION Q4H PRN (Reason: Shortness Of Breath) RF: 0 quetiapine 200 mg Tablet 200 mg PO BEDTIME RF: 0 aspirin 81 mg Tablet,Delayed Release (Dr/Ec) 81 mg PO DAILY RF: 0 risperidone [Risperdal] 3 mg Tablet 6 mg PO BEDTIME RF: 0 levothyroxine 100 mcg Tablet 100 mcg PO DAILY RF: 0 amlodipine 10 mg Tablet 10 mg PO DAILY RF: 0 hydralazine 100 mg Tablet 100 mg PO BID RF: 0 metformin 1,000 mg Tablet 1,000 mg PO BID RF: 0 oxycodone-acetaminophen 7.5-325 mg Tablet 1 tab PO Q8H PRN (Reason: Pain (Scale Score 4-6)) RF: 0 insulin lispro [Humalog KwikPen Insulin] 100 unit/mL Insulin Pen See Protocol unit SUBCUT TIDAC RF: 0 Amitiza 24 mcg Capsule 24 mcg PO BID RF: 0 Lantus Solostar U-100 Insulin 100 unit/mL (3 mL) Insulin Pen 30 unit SUBCUT BID RF: 0 losartan 50 mg Tablet 50 mg PO DAILY RF: 0 omeprazole 20 mg Capsule,Delayed Release(Dr/Ec) 20 mg PO DAILY RF: 0 omega-3 fatty acids [Fish Oil Concentrate] 1,000 mg Capsule 1,000 mg PO DAILY RF: 0 Flovent HFA 110 mcg/actuation Hfa Aerosol Inhaler 1 puff INHALATION BID RF: 0 albuterol sulfate [ProAir HFA] 90 mcg/actuation Hfa Aerosol Inhaler 2 puff INHALATION Q4-6H PRN (Reason: Shortness Of Breath) RF: 0 Breo Ellipta 100-25 mcg/dose Blister With Device 1 inh INHALATION DAILY RF: 0 sumatriptan succinate 25 mg tablet 0 mg PO DIRECTED RF: 0 Referrals: Tisha,MD Chucky [Primary Care Provider] - 2 days Alexander Chavez [Physician] - 2 days
--- NOTE | 2020-10-22 12:11 | ECG_ITS ---
Test Reason : SOB Blood Pressure : / mmHG Vent. Rate : 073 BPM Atrial Rate : 073 BPM P-R Int : 146 ms QRS Dur : 082 ms QT Int : 404 ms P-R-T Axes : 031 018 161 degrees QTc Int : 445 ms Normal sinus rhythm Septal infarct , age undetermined T wave abnormality, consider lateral ischemia Abnormal ECG When compared with ECG of 08-JUL-2020 15:13, No significant change was found Referred By: Dacia Mahan Electronically Signed By:Alan Correia
--- NOTE | 2020-10-22 12:13 | US_ITS ---
EXAMINATION: US ABDOMEN COMPLETE CLINICAL INFORMATION: Left flank pain. COMPARISON: CT 10/02/2020 TECHNIQUE: Real-time imaging of the abdominal viscera. FINDINGS: PANCREAS: Normal. ABDOMINAL AORTA: The proximal, mid, and distal segments are normal in caliber. INFERIOR VENA CAVA: Visualized portions are normal. LIVER: Normal. The liver is normal in size. The liver contour is normal. Parenchymal echogenicity is normal. No focal hepatic lesion. There is no intrahepatic biliary duct dilatation seen. GALLBLADDER: Surgically absent. COMMON BILE DUCT: Normal in caliber measuring 0.7 cm in diameter. RIGHT KIDNEY: Normal. No hydronephrosis. No renal calculi or focal parenchymal lesions. The kidney measures 10.3 cm in maximum dimension. LEFT KIDNEY: Normal. No hydronephrosis. No renal calculi or focal parenchymal lesions. The kidney measures 12 cm in maximum dimension. SPLEEN: Borderline enlarged. The spleen measures 14 cm in maximum dimension. FREE FLUID: None. US/US abdomen complete IMPRESSION: Borderline enlarged spleen. No focal lesion. When compared to the prior CT, this does not appear to be abnormally enlarged. Otherwise, unremarkable abdominal ultrasound.
--- NOTE | 2020-10-22 12:30 | PC.NURSE ---
pt's daughter kalen ([phone]) [place] [facility] [place]'s status.
[2020-10-22 13:12] LABS: MANUAL DIFF FLAG NO
[2020-10-22 13:15] LABS: Basophils Percent Auto 0.3 % (0-2); Eosinophils Absolute Auto 0.2 X10*3/uL (0.0-0.4); Eosinophils Percent Auto 2.6 % (0-4); Hematocrit 41.6 % (37-47); Hemoglobin 12.5 g/dl (12.0-16.0); Imm Gran Abs Auto 0.03 X10*3/uL (0.00-0.03); Imm Gran Pct Auto 0.5 % (0.0-0.4); Lymphocytes Absolute Auto 1.4 X10*3/uL (1.2-4.9); Lymphocytes Percent Auto 20.6 % (20-40); Mean Corpuscular Hemoglobin 28.4 pg (27.0-33.0); Mean Corpuscular Volume 94.5 fL (80-98); Mean Platelet Volume 11.3 fL (9.4-12.3); Monocytes Absolute Auto 0.5 X10*3/uL (0.1-1.2); Monocytes Percent Auto 7.1 % (2-11); Neutrophils Absolute Auto 4.6 X10*3/uL (2.0-8.3); Neutrophils Percent Auto 68.9 % (45-73); Platelet Count 187 X10*3/uL (160-400); Red Cell Distribution Width 15.1 % (11.0-16.0); White Blood Count 6.6 X10*3/uL (4.8-10.8)
[2020-10-22 13:17] VITALS: BP 184/72; PULSE 74; RESP 14; TEMP 37.1; O2SAT 100
[2020-10-22 13:27] VITALS: BP 184/72; PULSE 75
[2020-10-22] MEDS: carvediloL 6.25 MG TABLET PO (13:27)
[2020-10-22 13:28] VITALS: RESP 14
[2020-10-22] MEDS: Morphine Sulfate 2 MG/ML CARTRIDGE IVPUSH (13:28)
[2020-10-22 13:44] LABS: Alanine Aminotransferase 20 U/L (0-31); Albumin Level 3.2 g/dL (3.5-5.0); Alkaline Phosphatase 122 U/L (39-117); Anion Gap 11 (12-20); Aspartate Amino Transferase 16 U/L (5-31); Bilirubin Direct 0.2 mg/dL (0.0-0.5); Bilirubin Total 0.6 mg/dL (0.0-1.0); Blood Urea Nitrogen 10 mg/dL (9-16); Calcium 8.6 mg/dL (8.4-10.2); Carbon Dioxide 39 mmol/L (22-29); Chloride 95 mmol/L (96-108); Estimated Glomerular Filt Rate > 60; Glucose Random 242 mg/dL (60-115); Lipase 25 U/L (8-78); Magnesium 1.8 mg/dL (1.6-2.6); Potassium 4.5 mmol/l (3.3-5.1); Sodium 140 mmol/L (135-145); Total Protein 6.8 g/dL (6.5-8.0)
[2020-10-22 14:00] LABS: B Type Natriuretic Peptide 276 pg/mL (<100); Troponin-I High Sensitivity 36.2 ng/L (<3.5-17.0)
--- NOTE | 2020-10-22 14:22 | XR_ITS ---
EXAMINATION: XR ABDOMEN KUB CLINICAL INDICATION: Rule out small bowel obstruction COMPARISON: None TECHNIQUE: AP view of the abdomen. FINDINGS: Nonobstructive bowel gas pattern. No dilated loops of bowel. Gas and stool throughout the colon with moderate stool burden. Stool is mostly present in the right hemicolon. The visualized left lung base is clear. No suspicious calcifications. Mild degenerative changes in the spine. Soft tissue calcification adjacent to the right femoral lesser trochanter. XR/XR KUB IMPRESSION: Nonobstructive bowel gas pattern. Moderate colonic stool burden.
[2020-10-22] MEDS: Ketorolac Tromethamine 15 MG/ML VIAL IVPUSH (15:58)
[2020-10-22 16:00] LABS: Glucose Urine UA 250 MG/DL (NEG); Leukocyte Esterase Urine NEG (NEG); Nitrite Urine NEG (NEG); PH 5.5 (5.0-8.0); Specific Gravity - Urine >= 1.030 (1.005-1.025); Urine Blood NEG (NEG); Urine Ketones NEG (NEG); Urine Protein 2+ MG/DL (NEG-TRACE)
[2020-10-22 16:01] LABS: Appearance Urine CLEAR; Color Urine YELLOW
[2020-10-22 16:10] LABS: RBC Urine 0 /HPF (0); Squamous Epithelial Cell Urine 2+ /LPF
[2020-10-22 16:32] LABS: Troponin-I High Sensitivity 35.9 ng/L (<3.5-17.0)
[2020-10-22 16:48] VITALS: BP 164/66; PULSE 67; RESP 18; TEMP 36.7; O2SAT 98
== END 2020-10-22 17:03 | disposition home or self-care (01) ==
PROVIDERS: Physician Assistant; Emergency Provider Emergency Medicine; PCP Internal Medicine Geriatric Medicine
DX: R10.9 Unspecified abdominal pain (principal); I11.0 Hypertensive heart disease with heart failure; I50.9 Heart failure, unspecified; E11.9 Type 2 diabetes mellitus without complications; J44.9 Chronic obstructive pulmonary disease, unspecified; K21.9 Gastro-esophageal reflux disease without esophagitis; Z79.4 Long term (current) use of insulin; Z79.899 Other long term (current) drug therapy
CPT/HCPCS: 36415; 74018; 76700; 80048; 80076; 81001; 81003; 83690; 83735; 83880; 84484; 85025; 93005; 96374; 96375; 99284; J1885; J2270

== ENCOUNTER → 2020-10-27 14:24 | Outpatient (BNVA) | payer MEDICARE, MEDICAID, SELFPAY | PROVIDERS: PCP Internal Medicine Geriatric Medicine; Visit Provider Physician Assistant | DX: Z13.89 Encounter for screening for other disorder (principal) | CPT/HCPCS: Q3014 ==

== ENCOUNTER → 2020-11-23 13:14 | Outpatient (BNVA) | payer MEDICARE, MEDICAID, SELFPAY | PROVIDERS: PCP Internal Medicine Geriatric Medicine; Visit Provider Hospitalist | DX: G47.33 Obstructive sleep apnea (adult) (pediatric) (principal); J45.40 Moderate persistent asthma, uncomplicated; R59.0 Localized enlarged lymph nodes | CPT/HCPCS: 99212 ==

== ENCOUNTER 2021-01-15 16:20 | Emergency (ER) | payer MEDICARE, MEDICAID, SELFPAY ==
--- NOTE | ~2021-01-15 | XR_ITS ---
EXAMINATION: XR CHEST CLINICAL INFORMATION: Pneumonia. COMPARISON: Chest CT and CXR from 10/02/2020. TECHNIQUE: Frontal view of the chest was obtained. FINDINGS: Lungs are well expanded. There appears to be chronic, mild thickening of bronchial arreola. There is a new streaky opacity from atelectasis or infectious infiltrate in the left upper lobe. No pleural effusion or pneumothorax. Cardiac silhouette is normal in size for an AP portable chest radiograph. The hilar contours are normal. The visualized bones are intact. XR/XR chest 1V IMPRESSION: Linear, streaky opacity from atelectasis or infectious infiltrate is present in the left upper lobe.
[2021-01-15 17:49] VITALS: BP 202/82; PULSE 76; RESP 18; TEMP 37.1; O2SAT 98; BMI 36.6
--- NOTE | 2021-01-15 17:54 | ED_ITS ---
HPI - General Adult General Chief complaint: Abdominal Pain Stated complaint: diff breathing Time Seen by Provider: 01/15/21 17:53 Source: patient and family Mode of arrival: ambulatory Limitations: no limitations History of Present Illness HPI narrative: Patient history of COPD sleep apnea on home oxygen and CPAP [place] at home was admitted to [facility] on 01/12 for pneumonia? and [place] [id number] started on Zosyn patient was getting better last night patient was given Seroquel became obtunded had to be placed on BiPAP in ICU. patient family was not happy and brought the patient against medical advise at this time patient is alert awake x3 on 2 L of oxygen saturating 98% has received her Zosyn morning labs done today showed WBC count of 12.1 hemoglobin 14 creatinine 0.9 BUN 43. Patient had ABG done at 01:00 last night which showed pH of 7.15 pCO2 was more than 106 PO2 of 78 patient was transferred to ICU until morning for hypercapnia Related Data Home Medications Medication Instructions Recorded Confirmed acetaminophen 325 mg PO Q8H PRN 07/08/20 11/23/20 albuterol sulfate 2.5 mg INHALATION Q4H PRN 07/08/20 11/23/20 albuterol sulfate [ProAir HFA] 2 puff INHALATION Q4-6H PRN 07/08/20 11/23/20 amlodipine 10 mg PO DAILY 07/08/20 11/23/20 aspirin 81 mg PO DAILY 07/08/20 11/23/20 atorvastatin 40 mg PO DAILY 07/08/20 11/23/20 fluticasone furoate-vilanterol 1 inh INHALATION DAILY 07/08/20 11/23/20 [Breo Ellipta] fluticasone propionate [Flovent 1 puff INHALATION BID 07/08/20 11/23/20 HFA] furosemide 40 mg PO Q OTHER DAY 07/08/20 11/23/20 hydralazine 100 mg PO BID 07/08/20 11/23/20 insulin glargine [Lantus Solostar 30 unit SUBCUT BID 07/08/20 11/23/20 U-100 Insulin] insulin lispro [Humalog KwikPen See Protocol SUBCUT TIDAC 07/08/20 11/23/20 Insulin] levothyroxine 100 mcg PO DAILY 07/08/20 11/23/20 losartan 50 mg PO DAILY 07/08/20 11/23/20 lubiprostone [Amitiza] 24 mcg PO BID 07/08/20 11/23/20 metformin 1,000 mg PO BID 07/08/20 11/23/20 omega-3 fatty acids [Fish Oil 1,000 mg PO DAILY 07/08/20 11/23/20 Concentrate] omeprazole 20 mg PO DAILY 07/08/20 11/23/20 oxycodone-acetaminophen 1 tab PO Q8H PRN 07/08/20 11/23/20 quetiapine 200 mg PO BEDTIME 07/08/20 11/23/20 risperidone [Risperdal] 6 mg PO BEDTIME 07/08/20 11/23/20 sumatriptan succinate 25 mg tablet 0 mg PO DIRECTED 08/11/20 11/23/20 Previous Rx's Medication Instructions Recorded dicyclomine 20 mg PO QID PRN #14 tab 10/22/20 polyethylene glycol 3350 [Miralax] 17 g PO DAILY PRN #30 ea 10/22/20 simethicone [Phazyme] 180 mg PO BID PRN #60 cap 11/10/20 amoxicillin-pot clavulanate 1 tab PO BID #20 tab 01/15/21 [Augmentin] cefpodoxime 200 mg PO BID #20 tab 01/15/21 Allergies Allergy/AdvReac Type Severity Reaction Status Date / Time lisinopril [LISINOPRIL] Allergy Severe Dizziness Verified 11/23/20 16:59 Review of Systems Review of Systems: Constitutional : No Weight loss, No Fever, No Chills ENT/Mouth : No sore throat, No Rhinorrhea Eyes: No Eye Pain, No Swelling Cardiovascular : No Chest Pain, no palpitations Respiratory : No Cough, No Sputum, no shortness of breath Gastrointestinal : no Nausea, No Vomiting, No Diarrhea, + abdominal Pain, no black stools Genitourinary : No Dysuria, No Urinary Frequency Musculoskeletal : No joint pain, No Myalgias, No Joint Swelling Skin : No Skin Lesions, No rash Neuro : No Weakness, No Numbness, No Dizziness, No Headache Psych : No Anxiety/Panic, No Depression Heme/Lymph: No Bruising, No Lymphadenopathy Endocrine : No Polyuria, No Polydipsia All other systems reviewed and are negative [facility] Past Medical History Medical History Asthma CHF (congestive heart failure) Chronic constipation COPD (chronic obstructive pulmonary disease) Diabetes GERD (gastroesophageal reflux disease) HTN (hypertension) Hyperlipemia Hypothyroidism Lymphadenopathy, abdominal [place]KA (obstructive sleep apnea) Sleep apnea Splenomegaly Surgical History H/O section History of cholecystectomy Hx of tubal ligation Social History Social History Household Members: None Alcohol intake: never Smoking Status: Never smoker Use of substances other than those prescribed or required for medical reasons: No Advance Directives: No Advance Directives Information Provided: Yes Current occupational status: disabled Physical Exam Vital Signs: Vital Signs: Last Vital Signs Temp 98.9 F 01/15/21 17:55 Pulse 78 01/15/21 20:13 Resp 16 01/15/21 20:13 BP 205/75 H 01/15/21 20:13 Pulse Ox 98 01/15/21 20:13 Oxygen Flow Rate 2 01/15/21 17:55 Body Mass Index 40.3 Appearance: Alert. Oriented X3. No acute distress. Eyes: Pupils equal, round and reactive to light. ENT: Pharynx normal. Neck: Normal inspection. Neck supple. CVS: Normal heart rate and rhythm. Pulses normal. Respiratory: No respiratory distress. Prolonged expiration occasional basal crackles Abdomen: Soft and nontender. Bowel sounds are present, no mass palpable, no CVA tenderness Skin: Skin warm and dry. Normal skin color. Normal skin turgor. Extremities: No lower extremity edema. No calf tenderness Neuro: Oriented X 3. No motor deficit. No sensory deficit. Medical Decision Making MDM Narrative Medical decision making narrative: Patient with left pneumonia with UTI with Gram-negative bacteremia growing H influenzae and Klebsiella sensitive to cephalosporins repeat blood culture on 01/13 was negative patient is afebrile now WBC count 10.9 urine is not infected chest x-ray without any significant infiltrate patient has stable vitals at this time patient family would like to take the patient home will continue on antibiotics cefpodoxime and Augmentin a dvised to follow-up with PCP and report to the ER if not feeling better Lab Data Lab results reviewed: Yes I reviewed the patient's lab results. Result diagrams: 01/15/21 18:19 01/15/21 18:19 Labs: Lab Results 01/15/21 01/15/21 01/15/21 Range/Units 18:19 18:19 18:20 WBC 10.9 H (4.8-10.8) X10*3/uL RBC 4.69 (4.20-5.50) X10*6/uL Hgb 13.1 (12.0-16.0) g/dl Hct 44.7 (37-47) % MCV 95.3 (80-98) fL MCH 27.9 (27.0-33.0) pg MCHC 29.3 L (31.0-35.0) g/dl RDW 17.4 H (11.0-16.0) % Plt Count 177 (160-400) X10*3/uL MPV 11.3 (9.4-12.3) fL Immature Gran % (Auto) 0.5 H (0.0-0.4) % Neut % (Auto) 92.1 H (45-73) % Lymph % (Auto) 3.5 L (20-40) % [place] % (Auto) 3.8 (2-11) % Eos % (Auto) 0.0 (0-4) % Baso % (Auto) 0.1 (0-2) % Lymph # (Auto) 0.4 L (1.2-4.9) X10*3/uL [place] # (Auto) 0.4 (0.1-1.2) X10*3/uL Eos # (Auto) 0.0 (0.0-0.4) X10*3/uL Baso # (Auto) 0.0 (0.0-0.2) X10*3/uL Abs Immat Gran (auto) 0.06 H (0.00-0.03) X10*3/uL Absolute Neuts (auto) 10.1 H (2.0-8.3) X10*3/uL Absolute Nucleated RBC 0.000 (0.0-0.012) X10*3/uL Nucleated RBC % (auto) 0.0 (0.0-0.2) /100WBC Smear Tech's Comments VERIFIED VBG pH 7.45 H (7.32-7.43) VBG pCO2 55 mmHg VBG pO2 109 mmHg VBG HCO3 39 H (22-26) mmol/L VBG O2 Saturation 99.0 % VBG Base Excess 13.0 mmol/L Sodium 139 (135-145) mmol/L Potassium 5.1 (3.3-5.1) mmol/L Chloride 97 (96-108) mmol/L Carbon Dioxide 35 H (22-29) mmol/L Anion Gap 12 (12-20) BUN 37 H D (9-16) mg/dL Creatinine 1.41 H (0.5-1.4) mg/dL Estim Creat Clear Calc 41.6 Estimated GFR 37 POC Glucose (60-115) mg/dL Random Glucose 475 H* (60-115) mg/dL Calcium 8.5 D (8.4-10.2) mg/dL Urine Color Urine Appearance Urine pH (5.0-8.0) Ur Specific [place] (1.005-1.025) Urine Protein (NEG-TRACE) MG/DL Urine Glucose (UA) (NEG) MG/DL Urine Ketones (NEG) MG/DL Urine Blood (NEG) Urine Nitrite (NEG) Ur Leukocyte Esterase (NEG) Urine RBC (0) /HPF Urine WBC (0-4) /HPF Ur Squamous Epith Cells /LPF Urine Bacteria /LPF 01/15/21 01/15/21 Range/Units 19:15 20:47 WBC (4.8-10.8) X10*3/uL RBC (4.20-5.50) X10*6/uL Hgb (12.0-16.0) g/dl Hct (37-47) % MCV (80-98) fL MCH (27.0-33.0) pg MCHC (31.0-35.0) g/dl RDW (11.0-16.0) % Plt Count (160-400) X10*3/uL MPV (9.4-12.3) fL Immature Gran % (Auto) (0.0-0.4) % Neut % (Auto) (45-73) % Lymph % (Auto) (20-40) % [place] % (Auto) (2-11) % Eos % (Auto) (0-4) % Baso % (Auto) (0-2) % Lymph # (Auto) (1.2-4.9) X10*3/uL [place] # (Auto) (0.1-1.2) X10*3/uL Eos # (Auto) (0.0-0.4) X10*3/uL Baso # (Auto) (0.0-0.2) X10*3/uL Abs Immat Gran (auto) (0.00-0.03) X10*3/uL Absolute Neuts (auto) (2.0-8.3) X10*3/uL Absolute Nucleated RBC (0.0-0.012) X10*3/uL Nucleated RBC % (auto) (0.0-0.2) /100WBC Smear Tech's Comments VBG pH (7.32-7.43) VBG pCO2 mmHg VBG pO2 mmHg VBG HCO3 (22-26) mmol/L VBG O2 Saturation % VBG Base Excess mmol/L Sodium (135-145) mmol/L Potassium (3.3-5.1) mmol/L Chloride (96-108) mmol/L Carbon Dioxide (22-29) mmol/L Anion Gap (12-20) BUN (9-16) mg/dL Creatinine (0.5-1.4) mg/dL Estim Creat Clear Calc Estimated GFR POC Glucose 372 H* (60-115) mg/dL Random Glucose (60-115) mg/dL Calcium (8.4-10.2) mg/dL Urine Color YELLOW Urine Appearance CLEAR Urine pH 5.5 (5.0-8.0) Ur Specific [place] 1.010 (1.005-1.025) Urine Protein 1+ H (NEG-TRACE) MG/DL Urine Glucose (UA) 500 H (NEG) MG/DL Urine Ketones NEG (NEG) MG/DL Urine Blood 1+ H (NEG) Urine Nitrite NEG (NEG) Ur Leukocyte Esterase NEG (NEG) Urine RBC 0-2 (0) /HPF Urine WBC 0-2 (0-4) /HPF Ur Squamous Epith Cells TRACE /LPF Urine Bacteria NONE /LPF Discharge Plan Discharge Clinical Impression: Urinary tract infection, Pneumonia Patient Disposition: Home, Self-Care Instructions: Bacterial Pneumonia (ED), Urinary Tract Infection in Older Adults (ED) Additional Instructions: Continue antibiotics as prescribed. Use CPAP machine the night Drink plenty of fluids. Report to the ER if high fever not feeling good Prescriptions: New cefpodoxime 200 mg tablet 200 mg PO BID Qty: 20 RF: 0 amoxicillin-pot clavulanate [Augmentin] 875-125 mg tablet 1 tab PO BID Qty: 20 RF: 0 No Action polyethylene glycol 3350 [Miralax] 17 gram powder in packet 17 g PO DAILY PRN (Reason: constipation) Qty: 30 RF: 0 dicyclomine 20 mg tablet 20 mg PO QID PRN (Reason: abdominal pain) Qty: 14 RF: 0 furosemide 40 mg Tablet 40 mg PO Q OTHER DAY RF: 0 atorvastatin 40 mg Tablet 40 mg PO DAILY RF: 0 acetaminophen 325 mg Tablet 325 mg PO Q8H PRN (Reason: Pain (Scale Score 1-3)) RF: 0 albuterol sulfate 2.5 mg /3 mL (0.083 %) Solution For Nebulization 2.5 mg INHALATION Q4H PRN (Reason: Shortness Of Breath) RF: 0 quetiapine 200 mg Tablet 200 mg PO BEDTIME RF: 0 aspirin 81 mg Tablet,Delayed Release (Dr/Ec) 81 mg PO DAILY RF: 0 risperidone [Risperdal] 3 mg Tablet 6 mg PO BEDTIME RF: 0 levothyroxine 100 mcg Tablet 100 mcg PO DAILY RF: 0 amlodipine 10 mg Tablet 10 mg PO DAILY RF: 0 hydralazine 100 mg Tablet 100 mg PO BID RF: 0 metformin 1,000 mg Tablet 1,000 mg PO BID RF: 0 oxycodone-acetaminophen 7.5-325 mg Tablet 1 tab PO Q8H PRN (Reason: Pain (Scale Score 4-6)) RF: 0 insulin lispro [Humalog KwikPen Insulin] 100 unit/mL Insulin Pen See Protocol unit SUBCUT TIDAC RF: 0 lubiprostone [Amitiza] 24 mcg Capsule 24 mcg PO BID RF: 0 Lantus Solostar U-100 Insulin 100 unit/mL (3 mL) Insulin Pen 30 unit SUBCUT BID RF: 0 losartan 50 mg Tablet 50 mg PO DAILY RF: 0 omeprazole 20 mg Capsule,Delayed Release(Dr/Ec) 20 mg PO DAILY RF: 0 omega-3 fatty acids [Fish Oil Concentrate] 1,000 mg Capsule 1,000 mg PO DAILY RF: 0 Flovent HFA 110 mcg/actuation Hfa Aerosol Inhaler 1 puff INHALATION BID RF: 0 albuterol sulfate [ProAir HFA] 90 mcg/actuation Hfa Aerosol Inhaler 2 puff INHALATION Q4-6H PRN (Reason: Shortness Of Breath) RF: 0 Breo Ellipta 100-25 mcg/dose Blister With Device 1 inh INHALATION DAILY RF: 0 simethicone [Phazyme] 180 mg Capsule 180 mg PO BID PRN (Reason: Gastrointestinal Spasms Or Cramping) Qty: 60 RF: 3 sumatriptan succinate 25 mg tablet 0 mg PO DIRECTED RF: 0 Interventions: ED Discharge Assessment Last Done: 01/15/21 22:28 Discharge Date/Time: 01/15/21 22:30
[2021-01-15 17:55] VITALS: BP 197/67; PULSE 74; RESP 18; TEMP 37.2; O2SAT 98; BMI 40.3
[2021-01-15 18:24] LABS: Venous Blood Gas Refer to POC result
[2021-01-15 18:27] LABS: VBG HCO3 39 mmol/L (22-26); VBG pCO2 55 mmHg; VBG pH 7.45 (7.32-7.43); VBG pO2 109 mmHg
[2021-01-15 18:34] LABS: Basophils Percent Auto 0.1 % (0-2); Hematocrit 44.7 % (37-47); Hemoglobin 13.1 g/dl (12.0-16.0); Imm Gran Abs Auto 0.06 X10*3/uL (0.00-0.03); Imm Gran Pct Auto 0.5 % (0.0-0.4); Lymphocytes Absolute Auto 0.4 X10*3/uL (1.2-4.9); Lymphocytes Percent Auto 3.5 % (20-40); MANUAL DIFF FLAG SCAN; Mean Corpuscular HGB Conc 29.3 g/dl (31.0-35.0); Mean Corpuscular Hemoglobin 27.9 pg (27.0-33.0); Mean Corpuscular Volume 95.3 fL (80-98); Mean Platelet Volume 11.3 fL (9.4-12.3); Monocytes Absolute Auto 0.4 X10*3/uL (0.1-1.2); Monocytes Percent Auto 3.8 % (2-11); Neutrophils Absolute Auto 10.1 X10*3/uL (2.0-8.3); Neutrophils Percent Auto 92.1 % (45-73); Platelet Count 177 X10*3/uL (160-400); Red Blood Count 4.69 X10*6/uL (4.20-5.50); Red Cell Distribution Width 17.4 % (11.0-16.0); SCAN SMEAR FLAG 1; White Blood Count 10.9 X10*3/uL (4.8-10.8)
[2021-01-15 18:56] LABS: Anion Gap 12 (12-20); Blood Urea Nitrogen 37 mg/dL (9-16); Calcium 8.5 mg/dL (8.4-10.2); Carbon Dioxide 35 mmol/L (22-29); Chloride 97 mmol/L (96-108); Creatinine Clr Calc Pharmacy 41.6; Estimated Glomerular Filt Rate 37; Glucose Random 475 mg/dL (60-115); Potassium 5.1 mmol/L (3.3-5.1); SLIDE REVIEW VERIFIED; Sodium 139 mmol/L (135-145)
[2021-01-15 19:33] LABS: Glucose Urine UA 500 MG/DL (NEG); Leukocyte Esterase Urine NEG (NEG); Nitrite Urine NEG (NEG); PH 5.5 (5.0-8.0); Urine Blood 1+ (NEG); Urine Ketones NEG (NEG); Urine Protein 1+ MG/DL (NEG-TRACE)
[2021-01-15 19:34] LABS: Appearance Urine CLEAR; Color Urine YELLOW
[2021-01-15 19:45] LABS: RBC Urine 0-2 /HPF (0); WBC Urine 0-2 /HPF (0-4)
[2021-01-15 19:46] LABS: Squamous Epithelial Cell Urine TRACE /LPF
[2021-01-15] MEDS: Insulin Lispro 100 UNIT/ML 3 ML VIAL 14 UNIT SUBCUT (20:00)
[2021-01-15 20:13] VITALS: BP 205/75; PULSE 78; RESP 16; O2SAT 98
[2021-01-15 20:50] LABS: Glucose, Whole Blood 372 mg/dL (60-115)
[2021-01-15] MEDS: Piperacillin Sodium/Tazobactam 3.375 GM in 0.9 % Sodium Chloride 50 ML IV (21:29)
== END 2021-01-15 22:30 | disposition home or self-care (01) ==
PROVIDERS: Emergency Provider Internal Medicine; PCP Internal Medicine Geriatric Medicine
DX: J15.9 Unspecified bacterial pneumonia (principal); R78.81 Bacteremia; N39.0 Urinary tract infection, site not specified; I11.0 Hypertensive heart disease with heart failure; I50.9 Heart failure, unspecified; E11.9 Type 2 diabetes mellitus without complications; J44.9 Chronic obstructive pulmonary disease, unspecified; K21.9 Gastro-esophageal reflux disease without esophagitis; E78.5 Hyperlipidemia, unspecified; Z79.899 Other long term (current) drug therapy; Z79.4 Long term (current) use of insulin; Z79.02 Long term (current) use of antithrombotics/antiplatelets; Z79.82 Long term (current) use of aspirin; Z90.49 Acquired absence of other specified parts of digestive tract
CPT/HCPCS: 36415; 71045; 80048; 81001; 82947; 85025; 96365; 99284; 99285; J2543

== ENCOUNTER 2021-01-30 09:04 | Emergency (ER) | payer MEDICARE, MEDICAID, SELFPAY ==
--- NOTE | ~2021-01-30 | CT_ITS ---
EXAMINATION: CT HEAD WITHOUT CONTRAST CLINICAL INFORMATION: Lump on head. COMPARISON: CT scan of the head 09/04/2020. TECHNIQUE: Contiguous axial imaging was performed from the skull base to vertex without intravenous administration of contrast. This CT examination was performed using dose optimization techniques as appropriate, variously including the following: *Automated exposure control *Adjustment of mA and/or kV according to patient size (this includes techniques or standardized protocols for targeted exams where dose is matched to indication/reason for exam; i.e. extremities or head) *Use of iterative reconstruction technique DLP: 1784 mGy-cm (including abdomen and pelvis) FINDINGS: There are chronic postoperative changes of a right parietal craniectomy and cranioplasty reconstruction of the calvarial defect. There is a small suspected hematoma involving the left parietal scalp near the vertex best illustrated on axial image 8 of 34 series 5. There is a small focus of cortical encephalomalacia involving the right parietal lobe. Broderick-white matter differentiation is otherwise preserved and there is no evidence of acute territorial infarct. The skull base is intact. No mastoid or middle ear effusion. No active paranasal sinus disease. CT/CT head/brain wo con IMPRESSION: There is a small suspected hematoma involving the left parietal scalp near the vertex. This finding is new when compared to recent prior CT imaging from 09/04/2020. Chronic changes a right parietal craniectomy are noted. There is a small focus of cortical encephalomalacia underneath the craniotomy site. Otherwise no acute intracranial finding. No evidence of acute territorial infarct or hemorrhage.
--- NOTE | ~2021-01-30 | CT_ITS ---
EXAMINATION: CT ABDOMEN AND PELVIS WITH CONTRAST CLINICAL INFORMATION: Nausea, vomiting and abdominal pain COMPARISON: CT abdomen and pelvis with contrast 10/02/2020 TECHNIQUE: Multidetector volumetric images were obtained from the superior aspect of the liver through the pubic symphysis following administration 85 mL of Omnipaque 350 intravenous contrast. Sagittal and coronal reformatted images were obtained on the technologist's workstation. Oral contrast: No This CT examination was performed using dose optimization techniques as appropriate, variously including the following: *Automated exposure control *Adjustment of mA and/or kV according to patient size (this includes techniques or standardized protocols for targeted exams where dose is matched to indication/reason for exam; i.e. extremities or head) *Use of iterative reconstruction technique DLP: 1784 mGy-cm FINDINGS: LUNG BASES: Minimal atelectatic changes seen in both lung bases. LIVER, GALLBLADDER, AND BILIARY TREE: The liver is normal in size, shape, and mildly attenuated. No focal hepatic lesion or biliary ductal dilatation is present. The gallbladder is not visualized. It is contracted or surgically removed. PANCREAS: Unremarkable. SPLEEN: Unremarkable. ADRENAL GLANDS: Unremarkable. KIDNEYS AND URETERS: The kidneys are normal in size, shape, and attenuation. No hydronephrosis, hydroureter, or calculi seen. No perinephric stranding. There is a punctate hypodensity in the upper pole left kidney. BLADDER: Unremarkable. GASTROINTESTINAL TRACT: There is scattered stool, gas seen in the colon without distention. The small bowel loops are normal caliber. No inflammatory process seen in the abdomen. ABDOMINAL WALL: There is mild abdominal wall edema. A small umbilical hernia containing fat is noted. LYMPH NODES: Normal. VASCULAR: There is atherosclerotic calcification of abdominal aorta without aneurysmal dilatation. PELVIC VISCERA: Unremarkable. OSSEOUS STRUCTURES: No lytic or sclerotic process seen. CT/CT abdomen pelvis w con IMPRESSION: No acute intra-abdominal process seen Mild constipation. The gallbladder is not visualized likely contracted or removed. The appendix has been surgically removed. Small umbilical hernia containing fat.
--- NOTE | ~2021-01-30 | XR_ITS ---
EXAMINATION: XR CHEST CLINICAL INFORMATION: Lump on the head/chest discomfort. COMPARISON: None TECHNIQUE: 2 views of the chest were obtained. FINDINGS: The lungs are somewhat expanded with prominent interstitial markings but no infiltrate. Previously seen left basilar infiltrate has resolved. Heart size and pulmonary vascularity is normal. No pleural pleural effusion seen. There is mild spondylosis dorsal spine. No lytic process. XR/XR chest 2V IMPRESSION: No acute pneumonic process. Mild prominence of interstitial markings. Previously visualized left upper lobe infiltrate has resolved.
[2021-01-30 09:13] VITALS: BP 154/63; PULSE 68; RESP 18; TEMP 37.2; O2SAT 100; BMI 40.2
[2021-01-30 09:28] VITALS: BP 167/62; PULSE 69
[2021-01-30 09:30] VITALS: BP 155/65; PULSE 70
[2021-01-30 09:31] VITALS: BP 161/66; PULSE 71
--- NOTE | 2021-01-30 09:45 | ECG_ITS ---
Test Reason : DIZZINESS Blood Pressure : / mmHG Vent. Rate : 068 BPM Atrial Rate : 068 BPM P-R Int : 154 ms QRS Dur : 082 ms QT Int : 436 ms P-R-T Axes : 037 008 162 degrees QTc Int : 463 ms Normal sinus rhythm T wave abnormality, consider lateral ischemia Abnormal ECG When compared with ECG of 22-OCT-2020 13:07, No significant change was found Referred By: Marly Charles Electronically Signed By:MARLENE BARRON
--- NOTE | 2021-01-30 09:50 | ED_ITS ---
HPI - Dizziness General Chief Complaint: Dizziness Stated Complaint: headache Time Seen by Provider: 01/30/21 09:09 Source: patient and family Mode of arrival: ambulatory Limitations: language barrier (Kyrgyz-speaking) History of Present Illness HPI Narrative: 71-year-old female with a past medical history of asthma, COPD on 3 L of nasal cannula oxygen, CHF, diabetes, hypertension, hyperlipidemia, hypothyroidism, GERD, obstructive sleep apnea, splenomegaly who was recently admitted at [facility] on 01/12/2021 for pneumonia/sepsis/UTI then left against medical advice and was seen here and her and the family decided they wanted to be discharged and continue antibiotics while at home presenting to the ED today with complaints of a lump to the back of her head that is painful that she noticed approximately 3 days with associated dizziness. Reports she does not remember injuring her head where she has the lump. She denies any falls. She also reports that she has has had bilious nausea/vomiting with associated abdominal pain. Also reports anterior chest wall discomfort for the past 3 days as well. Denies any falls, fevers, headaches, changes in vision, black or bloody emesis, worsening shortness of breath from her baseline, needing to increase her nasal cannula oxygen, back pain, constipation, diarrhea, black or bloody stools, hematuria, abnormal vaginal discharge, dysuria, palpitations or any other symptoms at this time. Related Data Home Medications Medication Instructions Recorded Confirmed acetaminophen 325 mg PO Q8H PRN 07/08/20 11/23/20 albuterol sulfate 2.5 mg INHALATION Q4H PRN 07/08/20 11/23/20 albuterol sulfate [ProAir HFA] 2 puff INHALATION Q4-6H PRN 07/08/20 11/23/20 amlodipine 10 mg PO DAILY 07/08/20 11/23/20 aspirin 81 mg PO DAILY 07/08/20 11/23/20 atorvastatin 40 mg PO DAILY 07/08/20 11/23/20 fluticasone furoate-vilanterol 1 inh INHALATION DAILY 07/08/20 11/23/20 [Breo Ellipta] fluticasone propionate [Flovent 1 puff INHALATION BID 07/08/20 11/23/20 HFA] furosemide 40 mg PO Q OTHER DAY 07/08/20 11/23/20 hydralazine 100 mg PO BID 07/08/20 11/23/20 insulin glargine [Lantus Solostar 30 unit SUBCUT BID 07/08/20 11/23/20 U-100 Insulin] insulin lispro [Humalog KwikPen See Protocol SUBCUT TIDAC 07/08/20 11/23/20 Insulin] levothyroxine 100 mcg PO DAILY 07/08/20 11/23/20 losartan 50 mg PO DAILY 07/08/20 11/23/20 lubiprostone [Amitiza] 24 mcg PO BID 07/08/20 11/23/20 metformin 1,000 mg PO BID 07/08/20 11/23/20 omega-3 fatty acids [Fish Oil 1,000 mg PO DAILY 07/08/20 11/23/20 Concentrate] omeprazole 20 mg PO DAILY 07/08/20 11/23/20 oxycodone-acetaminophen 1 tab PO Q8H PRN 07/08/20 11/23/20 quetiapine 200 mg PO BEDTIME 07/08/20 11/23/20 risperidone [Risperdal] 6 mg PO BEDTIME 07/08/20 11/23/20 sumatriptan succinate 25 mg tablet 0 mg PO DIRECTED 08/11/20 11/23/20 Previous Rx's Medication Instructions Recorded dicyclomine 20 mg PO QID PRN #14 tab 10/22/20 polyethylene glycol 3350 [Miralax] 17 g PO DAILY PRN #30 ea 10/22/20 simethicone [Phazyme] 180 mg PO BID PRN #60 cap 11/10/20 amoxicillin-pot clavulanate 1 tab PO BID #20 tab 01/15/21 [Augmentin] cefpodoxime 200 mg PO BID #20 tab 01/15/21 lubiprostone [Amitiza] 24 mcg PO DAILY #20 cap 01/30/21 tramadol 50 mg PO BID PRN #14 tab 01/30/21 Allergies Allergy/AdvReac Type Severity Reaction Status Date / Time lisinopril [LISINOPRIL] Allergy Severe Dizziness Verified 11/23/20 16:59 Review of Systems Review of Systems: Constitutional : No Weight loss, No Fever, No Chills, No Night Sweats, No Fatigue, No Malaise ENT/Mouth : No Hearing loss, No Ear Pain, No Nasal Congestion, No Sinus Pain, No Hoarseness, No sore throat, No Rhinorrhea, No Swallowing Difficulty Eyes: No Eye Pain, No Swelling, No Redness, No Foreign Body, No Discharge, No Vision Changes Cardiovascular : Positive Chest Pain, No SOB, No Dyspnea on Exertion, No Orthopnea, No Edema, No Palpitations Respiratory : No Cough, No Sputum, No Wheezing, No Smoke Exposure, No Dyspnea Gastrointestinal : Positive nausea/vomiting, positive abdominal pain, No Diarrhea, No Constipation, No Hematochezia, No Melena Genitourinary : no irregular bleeding, No Dysuria, No Urinary Frequency, No Hematuria, No Urinary Incontinence, No Urgency, No Flank Pain, No Urinary Flow Changes, No Hesitancy Musculoskeletal : Positive Lump to scalp, No joint pain, No Myalgias, No Joint Swelling Skin : No Skin Lesions, No rash Neuro : Positive dizziness, No Weakness, No Numbness, No Paresthesias, No Loss of Consciousness, No Headache Psych : No Anxiety/Panic, No Depression, No SI/HI/AH/VH, No Social Issues, Heme/Lymph: No Bruising, No Bleeding,No Lymphadenopathy Endocrine : No Polyuria, No Polydipsia, No Temperature Intolerance Yes all other systems are reviewed and are negative [facility] Past Medical History Attestation statement: The following information was validated with the patient. Medical History Asthma CHF (congestive heart failure) Chronic constipation COPD (chronic obstructive pulmonary disease) Diabetes GERD (gastroesophageal reflux disease) HTN (hypertension) Hyperlipemia Hypothyroidism Lymphadenopathy, abdominal KATIUSKA (obstructive sleep apnea) Sleep apnea Splenomegaly Surgical History H/O section History of cholecystectomy Hx of tubal ligation Social History Social History Household Members: None Alcohol intake: never Smoking Status: Never smoker Advance Directives: No Advance Directives Information Provided: No Current occupational status: disabled Physical Exam Vital Signs: Vital Signs: Last Vital Signs Temp 98.9 F 01/30/21 14:24 Pulse 71 01/30/21 14:24 Resp 18 01/30/21 14:24 BP 189/79 H 01/30/21 14:24 Pulse Ox 100 01/30/21 14:24 Oxygen Flow Rate 3 01/30/21 09:13 Body Mass Index 40.2 Vital signs have been reviewed as normal and appeared to be correct. Blood pressure hypertensive at 154/63. Heart rate normal. Respiration rate normal. Temperature normal. Oxygen saturation normal. Appearance: Alert. Oriented X3. No acute distress. Head: Normal external exam. Normocephalic. Atraumatic. Able to rotate head bilaterally. Eyes: PERRLA. EOMI. No nystagmus noted. Conjunctiva and sclera normal. Eyelids normal. Corneal reflex normal. ENT: EAC normal. TM's Normal. Hearing normal. Pharynx normal. Uvula midline. tongue midline. Moist mucous membranes. No trismus noted. No drooling noted. No muffled voice noted. No nystagmus noted. Neck: Normal inspection. Neck supple. FROM. No adenopathy. Trachea midline. Thyroid Normal. No meningeal signs. No neck mass noted. CVS: Normal heart rate and rhythm. Heart sound normal. No murmurs noted. Pulses normal throughout. Respiratory: No respiratory distress. Painless inspiration. Breath sounds normal. No wheezes/rales/rhonchi noted. Chest nontender. No accessory muscle usage noted or decreased air movement noted. Abdomen: Soft and mild tenderness to palpation diffusely. Bowel sounds normal in all 4 quadrants. No distention noted. No organomegaly noted. No visible injury noted. Back: No CVA tenderness. Full range of motion noted. Skin: Skin warm and dry. Normal skin color. Normal skin turgor. No rashes/lesions/lacerations noted. Extremities: Patient with bilateral pitting edema. No calf tenderness is noted. No signs of infection of lower extremity noted. Extremities exhibit normal range of motion. Extremities nontender. Able to shrug shoulders bilaterally and keep up against resistance. Neuro: Oriented X 3. No motor deficit. No sensory deficit. Reflexes normal. Moving all extremities. No focal motor deficits. Cranial nerves II-XI intact bilaterally. Facial strength normal. Normal cognition. Speech normal. Gait normal. Strength 5/5 throughout. No pronator drift. No tremor noted. No fasciculations noted. No rigidity noted. Muscle tone normal throughout. No asterixis noted. [id number] test normal. Heel to wolfe test normal. Tandem gait normal. Does not sway with eyes open. Romberg test negative. Rapid alternating movement upper extremity normal. Rapid alternating movement lower extremity normal. Hand drop from overhead Misses face. NIHSS score 0. NIH Stroke Scale Internal: Initial- Upon Arrival Time: 09:45 Level of Consciousness: Alert Level of Consciousness Questions: Answers both questions correctly Level of Consciousness Commands: Performs both tasks correctly Best Gaze: Normal Visual: No visual loss Facial Palsy: Normal Motor Arm (Right): No drift Motor Arm (Left): No drift Motor Leg (Right): No drift Motor Leg (Left): No drift Limb Ataxia: Absent Sensory: Normal Best Language: No aphasia Dysarthia: Normal Extinction and Inattention: No abnormality Score: 0 Course Course Course Narrative: 14:50am - labs reviewed and patient with mild elevation in AST/ALT/alkaline phosphate at 60/81/166. Troponin elevated at 10.6-delta or repeat after 3 hours was 12.2. BNP is 424 although this is similar and improved when compared to prior. All other labs are within normal limits. UA with 2+ protein otherwise no evidence of UTI. Patient negative for COVID/RSV/flu. CT scan of brain revealed small suspected hematoma otherwise no other acute processes were noted. CT scan of abdomen pelvis revealed chronic changes no acute processes are noted. EKG was normal sinus rhythm it is similar when compared to prior. Chest x-ray negative for any acute processes and the pneumonia she had was resolved. - therefore I performed a needle aspiration to the left parietal scalp possible hematoma and no purulent drainage was noted only blood therefore most likely with hematoma. - will DC home with constipation medications and symptomatic treatment instructions return if any new or worsening symptoms to follow up with primary care provider. Patient understands agrees with this plan. MDM - Dizziness MDM Narrative Medical decision making narrative: 9:45am - 71-year-old female with a past medical history of asthma, COPD on 3 L of nasal cannula oxygen, CHF, diabetes, hypertension, hyperlipidemia, hypothyroidism, GERD, obstructive sleep apnea, splenomegaly who was recently admitted at [facility] on 01/12/2021 for pneumonia/sepsis/UTI then left against medical advice and was seen here and her and the family decided they wanted to be discharged and continue antibiotics while at home presenting to the ED today with complaints of a lump to the back of her head that is painful that she noticed approximately 3 days with associated dizziness. Reports she does not remember injuring her head where she has the lump. She denies any falls. She also reports that she has has had bilious nausea/vomiting with associated abdominal pain. Also reports anterior chest wall discomfort for the past 3 days as well. - on exam patient is alert and oriented x3. Not in any acute distress. Vital signs reviewed and patient mildly hypertensive at 154/63 otherwise all other vitals are within normal limits. Patient does not have any focal neuro deficits noted. She is not a tPA candidate as she has non disabling symptoms and her symptoms started approximately 3 days ago and has been constant. Lungs clear to auscultation. CV RRR. Mild tenderness to palpation diffusely throughout the a bdomen no point tenderness is noted. No CVA tenderness is noted. Patient with bilateral pitting edema of lower extremity. No calf tenderness is noted. +2 distal pedal pulses. - Plan: Labs, EKG, CT scan of brain, chest x-ray, CT scan of abdomen and pelvis with IV contrast then re-evaluate. Medical Records Attestation: I reviewed the patient's medical records. Lab Data Attestation: I reviewed the patient's lab results. Result diagrams: 01/30/21 10:16 01/30/21 11:16 Labs: Lab Results 01/30/21 01/30/21 01/30/21 Range/Units 10:16 10:16 10:16 WBC 7.8 (4.8-10.8) X10*3/uL RBC 4.17 L (4.20-5.50) X10*6/uL Hgb 11.7 L (12.0-16.0) g/dl Hct 38.1 (37-47) % MCV 91.4 (80-98) fL MCH 28.1 (27.0-33.0) pg MCHC 30.7 L (31.0-35.0) g/dl RDW 16.7 H (11.0-16.0) % Plt Count 260 D (160-400) X10*3/uL MPV 11.9 (9.4-12.3) fL Immature Gran % (Auto) 0.4 (0.0-0.4) % Neut % (Auto) 68.5 (45-73) % Lymph % (Auto) 19.2 L (20-40) % Crockett % (Auto) 10.1 (2-11) % Eos % (Auto) 1.5 (0-4) % Baso % (Auto) 0.3 (0-2) % Lymph # (Auto) 1.5 (1.2-4.9) X10*3/uL [place]ckett # (Auto) 0.8 (0.1-1.2) X10*3/uL Eos # (Auto) 0.1 (0.0-0.4) X10*3/uL Baso # (Auto) 0.0 (0.0-0.2) X10*3/uL Abs Immat Gran (auto) 0.03 (0.00-0.03) X10*3/uL Absolute Neuts (auto) 5.4 (2.0-8.3) X10*3/uL Absolute Nucleated RBC 0.000 (0.0-0.012) X10*3/uL Nucleated RBC % (auto) 0.0 (0.0-0.2) /100WBC PT Cancelled 13.2 H INR Cancelled 1.1 APTT 32.9 (24.1-38.0) SEC Sodium (135-145) mmol/L Potassium (3.3-5.1) mmol/L Chloride (96-108) mmol/L Carbon Dioxide (22-29) mmol/L Anion Gap (12-20) BUN (9-16) mg/dL Creatinine (0.5-1.4) mg/dL Estim Creat Clear Calc Estimated GFR POC Glucose (60-115) mg/dL Random Glucose (60-115) mg/dL Calcium (8.4-10.2) mg/dL Magnesium (1.6-2.6) mg/dL Total Bilirubin (0.0-1.0) mg/dL AST (5-31) U/L ALT (0-31) U/L Alkaline Phosphatase (39-117) U/L Troponin I High Sens (<3.5-17.0) ng/L B-Natriuretic Peptide (<100) pg/mL Total Protein (6.5-8.0) g/dL Albumin (3.5-5.0) g/dL Lipase (8-78) U/L Urine Color Urine Appearance Urine pH (5.0-8.0) Ur Specific [place] (1.005-1.025) Urine Protein (NEG-TRACE) MG/DL Urine Glucose (UA) (NEG) MG/DL Urine Ketones (NEG) MG/DL Urine Blood (NEG) Urine Nitrite (NEG) Ur Leukocyte Esterase (NEG) Urine RBC (0) /HPF Urine WBC (0-4) /HPF Ur Squamous Epith Cells /LPF Urine Bacteria /LPF Coronavirus (PCR) (Negative) Influenza Type A (PCR) (Negative) Influenza Type B (PCR) (Negative) RSV RNA Qual (PCR) (Negative) 01/30/21 01/30/21 01/30/21 Range/Units 10:16 10:16 11:16 WBC (4.8-10.8) X10*3/uL RBC (4.20-5.50) X10*6/uL Hgb (12.0-16.0) g/dl Hct (37-47) % MCV (80-98) fL MCH (27.0-33.0) pg MCHC (31.0-35.0) g/dl RDW (11.0-16.0) % Plt Count (160-400) X10*3/uL MPV (9.4-12.3) fL Immature Gran % (Auto) (0.0-0.4) % Neut % (Auto) (45-73) % Lymph % (Auto) (20-40) % Crockett % (Auto) (2-11) % Eos % (Auto) (0-4) % Baso % (Auto) (0-2) % Lymph # (Auto) (1.2-4.9) X10*3/uL [place]ett # (Auto) (0.1-1.2) X10*3/uL Eos # (Auto) (0.0-0.4) X10*3/uL Baso # (Auto) (0.0-0.2) X10*3/uL Abs Immat Gran (auto) (0.00-0.03) X10*3/uL Absolute Neuts (auto) (2.0-8.3) X10*3/uL Absolute Nucleated RBC (0.0-0.012) X10*3/uL Nucleated RBC % (auto) (0.0-0.2) /100WBC PT INR APTT (24.1-38.0) SEC Sodium (135-145) mmol/L Potassium (3.3-5.1) mmol/L Chloride (96-108) mmol/L Carbon Dioxide (22-29) mmol/L Anion Gap (12-20) BUN (9-16) mg/dL Creatinine (0.5-1.4) mg/dL Estim Creat Clear Calc Estimated GFR POC Glucose (60-115) mg/dL Random Glucose (60-115) mg/dL Calcium (8.4-10.2) mg/dL Magnesium 2.0 (1.6-2.6) mg/dL Total Bilirubin (0.0-1.0) mg/dL AST (5-31) U/L ALT (0-31) U/L Alkaline Phosphatase (39-117) U/L Troponin I High Sens 10.6 D (<3.5-17.0) ng/L B-Natriuretic Peptide 424 H (<100) pg/mL Total Protein (6.5-8.0) g/dL Albumin (3.5-5.0) g/dL Lipase (8-78) U/L Urine Color Urine Appearance Urine pH (5.0-8.0) Ur Specific [place] (1.005-1.025) Urine Protein (NEG-TRACE) MG/DL Urine Glucose (UA) (NEG) MG/DL Urine Ketones (NEG) MG/DL Urine Blood (NEG) Urine Nitrite (NEG) Ur Leukocyte Esterase (NEG) Urine RBC (0) /HPF Urine WBC (0-4) /HPF Ur Squamous Epith Cells /LPF Urine Bacteria /LPF Coronavirus (PCR) NEGATIVE (Negative) Influenza Type A (PCR) NEGATIVE (Negative) Influenza Type B (PCR) NEGATIVE (Negative) RSV RNA Qual (PCR) NEGATIVE (Negative) 01/30/21 01/30/21 01/30/21 Range/Units 11:16 11:16 13:11 WBC (4.8-10.8) X10*3/uL RBC (4.20-5.50) X10*6/uL Hgb (12.0-16.0) g/dl Hct (37-47) % MCV (80-98) fL MCH (27.0-33.0) pg MCHC (31.0-35.0) g/dl RDW (11.0-16.0) % Plt Count (160-400) X10*3/uL MPV (9.4-12.3) fL Immature Gran % (Auto) (0.0-0.4) % Neut % (Auto) (45-73) % Lymph % (Auto) (20-40) % Crockett % (Auto) (2-11) % Eos % (Auto) (0-4) % Baso % (Auto) (0-2) % Lymph # (Auto) (1.2-4.9) X10*3/uL [place] # (Auto) (0.1-1.2) X10*3/uL Eos # (Auto) (0.0-0.4) X10*3/uL Baso # (Auto) (0.0-0.2) X10*3/uL Abs Immat Gran (auto) (0.00-0.03) X10*3/uL Absolute Neuts (auto) (2.0-8.3) X10*3/uL Absolute Nucleated RBC (0.0-0.012) X10*3/uL Nucleated RBC % (auto) (0.0-0.2) /100WBC PT INR APTT (24.1-38.0) SEC Sodium 136 (135-145) mmol/L Potassium 4.4 (3.3-5.1) mmol/L Chloride 97 (96-108) mmol/L Carbon Dioxide 33 H (22-29) mmol/L Anion Gap 10 L (12-20) BUN 12 D (9-16) mg/dL Creatinine 0.71 (0.5-1.4) mg/dL Estim Creat Clear Calc 82.5 Estimated GFR > 60 POC Glucose 157 H (60-115) mg/dL Random Glucose 169 H D (60-115) mg/dL Calcium 8.8 (8.4-10.2) mg/dL Magnesium (1.6-2.6) mg/dL Total Bilirubin 0.4 (0.0-1.0) mg/dL AST 60 H (5-31) U/L ALT 81 H (0-31) U/L Alkaline Phosphatase 166 H D (39-117) U/L Troponin I High Sens (<3.5-17.0) ng/L B-Natriuretic Peptide (<100) pg/mL Total Protein 7.2 (6.5-8.0) g/dL Albumin 3.2 L (3.5-5.0) g/dL Lipase 38 (8-78) U/L Urine Color YELLOW Urine Appearance HAZY Urine pH 6.0 (5.0-8.0) Ur Specific [place] 1.025 (1.005-1.025) Urine Protein 2+ H (NEG-TRACE) MG/DL Urine Glucose (UA) NEG (NEG) MG/DL Urine Ketones NEG (NEG) MG/DL Urine Blood 1+ H (NEG) Urine Nitrite NEG (NEG) Ur Leukocyte Esterase NEG (NEG) Urine RBC 1-4 (0) /HPF Urine WBC 0-2 (0-4) /HPF Ur Squamous Epith Cells 3+ /LPF Urine Bacteria NONE /LPF Coronavirus (PCR) (Negative) Influenza Type A (PCR) (Negative) Influenza Type B (PCR) (Negative) RSV RNA Qual (PCR) (Negative) 01/30/21 Range/Units 13:25 WBC (4.8-10.8) X10*3/uL RBC (4.20-5.50) X10*6/uL Hgb (12.0-16.0) g/dl Hct (37-47) % MCV (80-98) fL MCH (27.0-33.0) pg MCHC (31.0-35.0) g/dl RDW (11.0-16.0) % Plt Count (160-400) X10*3/uL MPV (9.4-12.3) fL Immature Gran % (Auto) (0.0-0.4) % Neut % (Auto) (45-73) % Lymph % (Auto) (20-40) % Crockett % (Auto) (2-11) % Eos % (Auto) (0-4) % Baso % (Auto) (0-2) % Lymph # (Auto) (1.2-4.9) X10*3/uL [place] # (Auto) (0.1-1.2) X10*3/uL Eos # (Auto) (0.0-0.4) X10*3/uL Baso # (Auto) (0.0-0.2) X10*3/uL Abs Immat Gran (auto) (0.00-0.03) X10*3/uL Absolute Neuts (auto) (2.0-8.3) X10*3/uL Absolute Nucleated RBC (0.0-0.012) X10*3/uL Nucleated RBC % (auto) (0.0-0.2) /100WBC PT INR APTT (24.1-38.0) SEC Sodium (135-145) mmol/L Potassium (3.3-5.1) mmol/L Chloride (96-108) mmol/L Carbon Dioxide (22-29) mmol/L Anion Gap (12-20) BUN (9-16) mg/dL Creatinine (0.5-1.4) mg/dL Estim Creat Clear Calc Estimated GFR POC Glucose (60-115) mg/dL Random Glucose (60-115) mg/dL Calcium (8.4-10.2) mg/dL Magnesium (1.6-2.6) mg/dL Total Bilirubin (0.0-1.0) mg/dL AST (5-31) U/L ALT (0-31) U/L Alkaline Phosphatase (39-117) U/L Troponin I High Sens 12.2 (<3.5-17.0) ng/L B-Natriuretic Peptide (<100) pg/mL Total Protein (6.5-8.0) g/dL Albumin (3.5-5.0) g/dL Lipase (8-78) U/L Urine Color Urine Appearance Urine pH (5.0-8.0) Ur Specific [place] (1.005-1.025) Urine Protein (NEG-TRACE) MG/DL Urine Glucose (UA) (NEG) MG/DL Urine Ketones (NEG) MG/DL Urine Blood (NEG) Urine Nitrite (NEG) Ur Leukocyte Esterase (NEG) Urine RBC (0) /HPF Urine WBC (0-4) /HPF Ur Squamous Epith Cells /LPF Urine Bacteria /LPF Coronavirus (PCR) (Negative) Influenza Type A (PCR) (Negative) Influenza Type B (PCR) (Negative) RSV RNA Qual (PCR) (Negative) Imaging Data Chest x-ray: Attestation: I personally reviewed and interpreted this imaging study as follows: Radiologist's impression: FINDINGS: The lungs are somewhat expanded with prominent interstitial markings but no infiltrate. Previously seen left basilar infiltrate has resolved. Heart size and pulmonary vascularity is normal. No pleural pleural effusion seen. There is mild spondylosis dorsal spine. No lytic process. XR/XR chest 2V IMPRESSION: No acute pneumonic process. Mild prominence of interstitial markings. Previously visualized left upper lobe infiltrate has resolved. CT scan of brain without contrast: Attestation: I personally reviewed and interpreted this imaging study as follows: Radiologist's impression: FINDINGS: There are chronic postoperative changes of a right parietal craniectomy and cranioplasty reconstruction of the calvarial defect. There is a small suspected hematoma involving the left parietal scalp near the vertex best illustrated on axial image 8 of 34 series 5. There is a small focus of cortical encephalomalacia involving the right parietal lobe. Broderick-white matter differentiation is otherwise preserved and there is no evidence of acute territorial infarct. The skull base is intact. No mastoid or middle ear effusion. No active paranasal sinus disease. CT/CT head/brain wo con IMPRESSION: There is a small suspected hematoma involving the left parietal scalp near the vertex. This finding is new when compared to recent prior CT imaging from 09/04/2020. Chronic changes a right parietal craniectomy are noted. There is a small focus of cortical encephalomalacia underneath the craniotomy site. Otherwise no acute intracranial finding. No evidence of acute territorial infarct or hemorrhage. CT scan of abdomen and pelvis with IV contrast: Attestation: I personally reviewed and interpreted this imaging study as follows: Radiologist's impression: FINDINGS: LUNG BASES: Minimal atelectatic changes seen in both lung bases. LIVER, GALLBLADDER, AND BILIARY TREE: The liver is normal in size, shape, and mildly attenuated. No focal hepatic lesion or biliary ductal dilatation is present. The gallbladder is not visualized. It is contracted or surgically removed. PANCREAS: Unremarkable. SPLEEN: Unremarkable. ADRENAL GLANDS: Unremarkable. KIDNEYS AND URETERS: The kidneys are normal in size, shape, and attenuation. No hydronephrosis, hydroureter, or calculi seen. No perinephric stranding. There is a punctate hypodensity in the upper pole left kidney. BLADDER: Unremarkable. GASTROINTESTINAL TRACT: There is scattered stool, gas seen in the colon without distention. The small bowel loops are normal caliber. No inflammatory process seen in the abdomen. ABDOMINAL WALL: There is mild abdominal wall edema. A small umbilical hernia containing fat is noted. LYMPH NODES: Normal. VASCULAR: There is atherosclerotic calcification of abdominal aorta without aneurysmal dilatation. PELVIC VISCERA: Unremarkable. OSSEOUS STRUCTURES: No lytic or sclerotic process seen. CT/CT abdomen pelvis w con IMPRESSION: No acute intra-abdominal process seen Mild constipation. The gallbladder is not visualized likely contracted or removed. The appendix has been surgically removed. Small umbilical hernia containing fat. ECG Data Attestation: I personally reviewed and interpreted this ECG as follows: ECG interpretation date: 01/30/21 Interpretation: Normal sinus rhythm with ventricular rate of 68 with nonspecific T-wave abnormalities no acute ischemic changes are noted at this time. Similar when compared to prior EKG 10/22/2020 Critical Care Time Critical Care Time Critical Care Time: Yes Total Critical Care Time: 60 Attestation: I personally attest to this time spent taking care of the patient Discharge Plan Discharge Clinical Impression: Hematoma of left parietal scalp, Constipation, Hernia, umbilical Patient Disposition: Home, Self-Care Instructions: Constipation (ED), Umbilical Hernia (ED), Hematoma (ED) Prescriptions: New tramadol 50 mg tablet 50 mg PO BID PRN (Reason: pain) Qty: 14 RF: 0 lubiprostone [Amitiza] 24 mcg capsule 24 mcg PO DAILY Qty: 20 RF: 0 No Action polyethylene glycol 3350 [Miralax] 17 gram powder in packet 17 g PO DAILY PRN (Reason: constipation) Qty: 30 RF: 0 dicyclomine 20 mg tablet 20 mg PO QID PRN (Reason: abdominal pain) Qty: 14 RF: 0 furosemide 40 mg Tablet 40 mg PO Q OTHER DAY RF: 0 atorvastatin 40 mg Tablet 40 mg PO DAILY RF: 0 acetaminophen 325 mg Tablet 325 mg PO Q8H PRN (Reason: Pain (Scale Score 1-3)) RF: 0 albuterol sulfate 2.5 mg /3 mL (0.083 %) Solution For Nebulization 2.5 mg INHALATION Q4H PRN (Reason: Shortness Of Breath) RF: 0 quetiapine 200 mg Tablet 200 mg PO BEDTIME RF: 0 aspirin 81 mg Tablet,Delayed Release (Dr/Ec) 81 mg PO DAILY RF: 0 risperidone [Risperdal] 3 mg Tablet 6 mg PO BEDTIME RF: 0 levothyroxine 100 mcg Tablet 100 mcg PO DAILY RF: 0 amlodipine 10 mg Tablet 10 mg PO DAILY RF: 0 hydralazine 100 mg Tablet 100 mg PO BID RF: 0 metformin 1,000 mg Tablet 1,000 mg PO BID RF: 0 oxycodone-acetaminophen 7.5-325 mg Tablet 1 tab PO Q8H PRN (Reason: Pain (Scale Score 4-6)) RF: 0 insulin lispro [Humalog KwikPen Insulin] 100 unit/mL Insulin Pen See Protocol unit SUBCUT TIDAC RF: 0 lubiprostone [Amitiza] 24 mcg Capsule 24 mcg PO BID RF: 0 Lantus Solostar U-100 Insulin 100 unit/mL (3 mL) Insulin Pen 30 unit SUBCUT BID RF: 0 losartan 50 mg Tablet 50 mg PO DAILY RF: 0 omeprazole 20 mg Capsule,Delayed Release(Dr/Ec) 20 mg PO DAILY RF: 0 omega-3 fatty acids [Fish Oil Concentrate] 1,000 mg Capsule 1,000 mg PO DAILY RF: 0 Flovent HFA 110 mcg/actuation Hfa Aerosol Inhaler 1 puff INHALATION BID RF: 0 albuterol sulfate [ProAir HFA] 90 mcg/actuation Hfa Aerosol Inhaler 2 puff INHALATION Q4-6H PRN (Reason: Shortness Of Breath) RF: 0 Breo Ellipta 100-25 mcg/dose Blister With Device 1 inh INHALATION DAILY RF: 0 simethicone [Phazyme] 180 mg Capsule 180 mg PO BID PRN (Reason: Gastrointestinal Spasms Or Cramping) Qty: 60 RF: 3 cefpodoxime 200 mg tablet 200 mg PO BID Qty: 20 RF: 0 amoxicillin-pot clavulanate [Augmentin] 875-125 mg tablet 1 tab PO BID Qty: 20 RF: 0 sumatriptan succinate 25 mg tablet 0 mg PO DIRECTED RF: 0 Referrals: Chris Mnedoza MD [Physician] - 2 days (You can follow-up outpatient for your umbilical hernia) Name,MD Chucky [Primary Care Provider] - 2 days Print Language: Kyrgyz
--- NOTE | 2021-01-30 10:21 | PC.NURSE ---
Orthos, EKG, and labs obtained. IV inserted. Pt awaiting imaging studies
[2021-01-30 10:23] LABS: MANUAL DIFF FLAG NO
[2021-01-30 10:32] LABS: INTERNATIONAL NORM RATIO 1.1 (0.9-1.1); Prothrombin Time 13.2 SEC (10.8-13.0)
[2021-01-30 10:35] LABS: Partial Thromboplastin Time 32.9 SEC (24.1-38.0)
[2021-01-30 10:39] LABS: Basophils Percent Auto 0.3 % (0-2); Eosinophils Absolute Auto 0.1 X10*3/uL (0.0-0.4); Eosinophils Percent Auto 1.5 % (0-4); Hematocrit 38.1 % (37-47); Hemoglobin 11.7 g/dl (12.0-16.0); Imm Gran Abs Auto 0.03 X10*3/uL (0.00-0.03); Imm Gran Pct Auto 0.4 % (0.0-0.4); Lymphocytes Absolute Auto 1.5 X10*3/uL (1.2-4.9); Lymphocytes Percent Auto 19.2 % (20-40); Mean Corpuscular HGB Conc 30.7 g/dl (31.0-35.0); Mean Corpuscular Hemoglobin 28.1 pg (27.0-33.0); Mean Corpuscular Volume 91.4 fL (80-98); Mean Platelet Volume 11.9 fL (9.4-12.3); Monocytes Absolute Auto 0.8 X10*3/uL (0.1-1.2); Monocytes Percent Auto 10.1 % (2-11); Neutrophils Absolute Auto 5.4 X10*3/uL (2.0-8.3); Neutrophils Percent Auto 68.5 % (45-73); Platelet Count 260 X10*3/uL (160-400); Red Blood Count 4.17 X10*6/uL (4.20-5.50); Red Cell Distribution Width 16.7 % (11.0-16.0); White Blood Count 7.8 X10*3/uL (4.8-10.8)
[2021-01-30 11:07] LABS: Influenza A PCR NEGATIVE (Negative); Influenza B PCR NEGATIVE (Negative); Resp Syncy Virus RNA Qual PCR NEGATIVE (Negative); SARS COV2 PCR INHOUSE NEGATIVE (Negative)
[2021-01-30 11:16] LABS: B Type Natriuretic Peptide 424 pg/mL (<100); Troponin-I High Sensitivity 10.6 ng/L (<3.5-17.0)
[2021-01-30 11:30] LABS: Glucose Urine UA NEG (NEG); Leukocyte Esterase Urine NEG (NEG); Nitrite Urine NEG (NEG); Specific Gravity - Urine 1.025 (1.005-1.025); Urine Blood 1+ (NEG); Urine Ketones NEG (NEG); Urine Protein 2+ MG/DL (NEG-TRACE)
[2021-01-30 11:31] LABS: Appearance Urine HAZY; Color Urine YELLOW
[2021-01-30 11:39] LABS: Squamous Epithelial Cell Urine 3+ /LPF; WBC Urine 0-2 /HPF (0-4)
[2021-01-30 11:47] LABS: Alanine Aminotransferase 81 U/L (0-31); Albumin Level 3.2 g/dL (3.5-5.0); Alkaline Phosphatase 166 U/L (39-117); Anion Gap 10 (12-20); Aspartate Amino Transferase 60 U/L (5-31); Bilirubin Total 0.4 mg/dL (0.0-1.0); Blood Urea Nitrogen 12 mg/dL (9-16); Calcium 8.8 mg/dL (8.4-10.2); Carbon Dioxide 33 mmol/L (22-29); Chloride 97 mmol/L (96-108); Creatinine Clr Calc Pharmacy 82.5; Estimated Glomerular Filt Rate > 60; Glucose Random 169 mg/dL (60-115); Potassium 4.4 mmol/L (3.3-5.1); Sodium 136 mmol/L (135-145); Total Protein 7.2 g/dL (6.5-8.0)
[2021-01-30 12:17] LABS: Lipase 38 U/L (8-78)
[2021-01-30] MEDS: iohexoL 350 MG/ML 100 ML INFUS..BTL IV (13:10)
[2021-01-30 13:15] LABS: Glucose, Whole Blood 157 mg/dL (60-115)
[2021-01-30 13:20] VITALS: BP 153/51; PULSE 67; RESP 18; TEMP 36.4; O2SAT 100
--- NOTE | 2021-01-30 13:24 | PC.NURSE ---
Pt resting in bed. VSS. Repeat troponin being drawn at this time.
[2021-01-30 13:55] LABS: Troponin-I High Sensitivity 12.2 ng/L (<3.5-17.0)
[2021-01-30 14:24] VITALS: BP 189/79; PULSE 71; RESP 18; TEMP 37.2; O2SAT 100
== END 2021-01-30 15:10 | disposition home or self-care (01) ==
PROVIDERS: Physician Assistant Medical; Emergency Provider Emergency Medicine; PCP Internal Medicine Geriatric Medicine
DX: S00.03XA Contusion of scalp, initial encounter (principal); X58.XXXA Exposure to other specified factors, initial encounter; K59.00 Constipation, unspecified; K42.9 Umbilical hernia without obstruction or gangrene; Z20.822 Contact with and (suspected) exposure to COVID-19; I11.0 Hypertensive heart disease with heart failure; I50.9 Heart failure, unspecified; E78.5 Hyperlipidemia, unspecified; J44.9 Chronic obstructive pulmonary disease, unspecified; Y93.9 Activity, unspecified; Y92.9 Unspecified place or not applicable; Y99.9 Unspecified external cause status; Z99.81 Dependence on supplemental oxygen; Z87.01 Personal history of pneumonia (recurrent); Z87.440 Personal history of urinary (tract) infections; Z79.899 Other long term (current) drug therapy; Z79.82 Long term (current) use of aspirin; Z79.02 Long term (current) use of antithrombotics/antiplatelets; Z79.4 Long term (current) use of insulin; Z90.49 Acquired absence of other specified parts of digestive tract; Z98.51 Tubal ligation status
CPT/HCPCS: 0241U; 36415; 70450; 71046; 74177; 80053; 81001; 82947; 83690; 83735; 83880; 84484; 85025; 85610; 85730; 93005; 99284; 99291; Q9967

== ENCOUNTER → 2021-02-02 13:52 | Outpatient (BNVA) | payer OTHER, SELFPAY | PROVIDERS: PCP Internal Medicine Geriatric Medicine; Visit Provider Hospitalist ==

== ENCOUNTER 2021-02-11 18:33 | Emergency (ER) | payer MEDICARE, SELFPAY ==
--- NOTE | ~2021-02-11 | XR_ITS ---
EXAMINATION: XR HIP, RIGHT CLINICAL INFORMATION: Pain COMPARISON: None TECHNIQUE: AP upright, AP supine, and frog-leg lateral views of the right hip. FINDINGS: Both femoral heads are well-seated within their respected acetabula. There is no evidence for acute fracture or dislocation. Well-corticated ossification medial to the lesser trochanter of the right hip is incidentally noted and seen in the prior CT scan as well. Extensive vascular calcification noted. Unremarkable bowel gas pattern XR/XR hip RT w PEL1V IMPRESSION: Chronic appearing changes but no acute fracture or dislocation.
--- NOTE | ~2021-02-11 | US_ITS ---
EXAMINATION: US VENOUS ULTRASOUND WITH DOPPLER LOWER EXTREMITY, RIGHT CLINICAL INFORMATION: Pain and swelling COMPARISON: None TECHNIQUE: Ultrasound of the deep veins is performed from the hip to the calf with compression sonography and color and pulse Doppler assessment. Spectral analysis with color-flow imaging is performed. FINDINGS: There is normal venous compression and respiratory variation and augmented flow. The visualized common femoral vein, superficial femoral vein, profunda femoral vein, popliteal vein, and the trifurcation region shows no evidence of deep venous thrombosis. There is no significant popliteal fossa cyst. If the patient's symptoms persist, followup ultrasound in 5 days 7 days might be of value to exclude proximal propagation from a non-visualized calf vein. US/US venous duplex LE RT IMPRESSION: No DVT demonstrated in the right lower extremity.
[2021-02-11 18:43] VITALS: BP 180/58; PULSE 92; RESP 16; TEMP 37.1; O2SAT 96; BMI 36.3
[2021-02-11 21:25] VITALS: BP 175/73; PULSE 87; RESP 17; TEMP 36.9; O2SAT 97
--- NOTE | 2021-02-11 21:37 | ED_ITS ---
HPI - General Adult General Chief complaint: General Medical Stated complaint: leg pain Time Seen by Provider: 02/11/21 21:21 Source: patient Mode of arrival: other Limitations: no limitations History of Present Illness HPI narrative: Patient comes to emergency room complaining right-sided hip pain. Patient states the pain started 5 days ago, states that throughout the last 5 days, the pain has worsened. Today the pain is throughout his whole leg. Patient states that her feet feel numb tingly, states she is known to have neuropathy but the pain is getting worse. Patient states that the pain is much worse whenever she abducts her legs. Related Data Home Medications Medication Instructions Recorded Confirmed acetaminophen 325 mg PO Q8H PRN 07/08/20 02/03/21 albuterol sulfate 2.5 mg INHALATION Q4H PRN 07/08/20 02/03/21 albuterol sulfate [ProAir HFA] 2 puff INHALATION Q4-6H PRN 07/08/20 02/03/21 amlodipine 10 mg PO DAILY 07/08/20 02/03/21 aspirin 81 mg PO DAILY 07/08/20 02/03/21 atorvastatin 40 mg PO DAILY 07/08/20 02/03/21 fluticasone furoate-vilanterol 1 inh INHALATION DAILY 07/08/20 02/03/21 [Breo Ellipta] fluticasone propionate [Flovent 1 puff INHALATION BID 07/08/20 02/03/21 HFA] furosemide 40 mg PO Q OTHER DAY 07/08/20 02/03/21 hydralazine 100 mg PO BID 07/08/20 02/03/21 insulin glargine [Lantus Solostar 30 unit SUBCUT BID 07/08/20 02/03/21 U-100 Insulin] insulin lispro [Humalog KwikPen See Protocol SUBCUT TIDAC 07/08/20 02/03/21 Insulin] levothyroxine 100 mcg PO DAILY 07/08/20 02/03/21 losartan 50 mg PO DAILY 07/08/20 02/03/21 lubiprostone [Amitiza] 24 mcg PO BID 07/08/20 02/03/21 metformin 1,000 mg PO BID 07/08/20 02/03/21 omega-3 fatty acids [Fish Oil 1,000 mg PO DAILY 07/08/20 02/03/21 Concentrate] omeprazole 20 mg PO DAILY 07/08/20 02/03/21 oxycodone-acetaminophen 1 tab PO Q8H PRN 07/08/20 02/03/21 quetiapine 200 mg PO BEDTIME 07/08/20 02/03/21 risperidone [Risperdal] 6 mg PO BEDTIME 07/08/20 02/03/21 sumatriptan succinate 25 mg tablet 0 mg PO DIRECTED 08/11/20 02/05/21 prednisone 20 mg PO BID 02/05/21 02/05/21 Previous Rx's Medication Instructions Recorded dicyclomine 20 mg PO QID PRN #14 tab 10/22/20 polyethylene glycol 3350 [Miralax] 17 g PO DAILY PRN #30 ea 10/22/20 simethicone [Phazyme] 180 mg PO BID PRN #60 cap 11/10/20 amoxicillin-pot clavulanate 1 tab PO BID #20 tab 01/15/21 [Augmentin] cefpodoxime 200 mg PO BID #20 tab 01/15/21 lubiprostone [Amitiza] 24 mcg PO DAILY #20 cap 01/30/21 doxycycline hyclate 100 mg capsule 100 mg PO BID 10 Days #20 cap 02/02/21 ibuprofen 400 mg PO TID PRN #10 tab 02/11/21 prednisone 20 mg PO DAILY #5 tab 02/11/21 Allergies Allergy/AdvReac Type Severity Reaction Status Date / Time lisinopril [LISINOPRIL] Allergy Severe Dizziness Verified 02/03/21 20:20 Review of Systems Review of Systems: Constitutional : No Weight loss, No Fever, No Chills, No Night Sweats, No Fatigue, No Malaise ENT/Mouth : No Hearing loss, No Ear Pain, No Nasal Congestion, No Sinus Pain, No Hoarseness, No sore throat, No Rhinorrhea, No Swallowing Difficulty Eyes: No Eye Pain, No Swelling, No Redness, No Foreign Body, No Discharge, No Vision Changes Cardiovascular : No Chest Pain, No SOB, No Dyspnea on Exertion, No Orthopnea, No Edema, No Palpitations Respiratory : No Cough, No Sputum, No Wheezing, No Smoke Exposure, No Dyspnea Gastrointestinal : No Nausea, No Vomiting, No Diarrhea, No Constipation, No abdominal Pain, No Hematochezia, No Melena Genitourinary : no irregular bleeding, No Dysuria, No Urinary Frequency, No Hematuria, No Urinary Incontinence, No Urgency, No Flank Pain, No Urinary Flow Changes, No Hesitancy Musculoskeletal complaining of right-sided hip pain and right lower extremity pain Skin : No Skin Lesions, No rash Neuro : No Weakness, No Numbness, No Paresthesias, No Loss of Consciousness, No Dizziness, No Headache Psych : No Anxiety/Panic, No Depression, No SI/HI/AH/VH, No Social Issues, Heme/Lymph: No Bruising, No Bleeding,No Lymphadenopathy Endocrine : No Polyuria, No Polydipsia, No Temperature Intolerance [facility] Past Medical History Medical History Asthma CHF (congestive heart failure) Chronic constipation Chronic respiratory failure COPD (chronic obstructive pulmonary disease) Diabetes GERD (gastroesophageal reflux disease) HTN (hypertension) Hyperlipemia Hypothyroidism Lymphadenopathy, abdominal KATIUSKA (obstructive sleep apnea) KATIUSKA on CPAP Sleep apnea Splenomegaly Surgical History H/O section History of cholecystectomy Hx of tubal ligation Social History Social History Household Members: None Alcohol intake: never Smoking Status: Never smoker Advance Directives: No Advance Directives Information Provided: Yes Current occupational status: disabled Physical Exam Vital Signs: Vital Signs: Last Vital Signs Temp 98.4 F 02/11/21 21:25 Pulse 87 02/11/21 21:25 Resp 17 02/11/21 21:25 BP 175/73 H 02/11/21 21:25 Pulse Ox 97 02/11/21 21:25 Oxygen Flow Rate 3 02/11/21 18:43 Body Mass Index 36.3 Appearance: Alert. Oriented X3. No acute distress. Eyes: Pupils equal, round and reactive to light. ENT: Pharynx normal. Neck: Normal inspection. Neck supple. No lymph nodes noted. No crepitus CVS: Normal heart rate and rhythm. Pulses normal. Normal S1 and S2 Respiratory: No respiratory distress. Breath sounds normal mild bilateral wheezing, good air movement, on 2 L of oxygen. No rales Abdomen: Soft and nontender. No rigidity. No distention. good BS x4 Skin: Skin warm and dry. Normal skin color. Normal skin turgor. Extremities: +1 bilateral nonpitting edema, pain to palpation on the entire left leg, pain in the hip with flexion and extension Neuro: Oriented X 3. No motor deficit. No sensory deficit. Moving all extermities. No slurred speech. Patient is ambulatory, came in walking, uses a walker at baseline Course Course Course Narrative: I discussed the ultrasound and the x-rays with the patient, no acute findings. Patient requesting ibuprofen/prednisone for outpatient treatment. Patient will follow-up with her primary care physician. Medical Decision Making Imaging Data Venous US: Radiologist's impression: There is normal venous compression and respiratory variation and augmented flow. The visualized common femoral vein, superficial femoral vein, profunda femoral vein, popliteal vein, and the trifurcation region shows no evidence of deep venous thrombosis. There is no significant popliteal fossa cyst. If the patient's symptoms persist, followup ultrasound in 5 days 7 days might be of value to exclude proximal propagation from a non-visualized calf vein. US/US venous duplex LE RT IMPRESSION: No DVT demonstrated in the right lower extremity. Hip pain: Radiologist's impression: Both femoral heads are well-seated within their respected acetabula. There is no evidence for acute fracture or dislocation. Well-corticated ossification medial to the lesser trochanter of the right hip is incidentally noted and seen in the prior CT scan as well. Extensive vascular calcification noted. Unremarkable bowel gas pattern XR/XR hip RT w PEL1V IMPRESSION: Chronic appearing changes but no acute fracture or dislocation. Discharge Plan Discharge Clinical Impression: Hip pain, right, Leg pain, right Patient Disposition: Home, Self-Care Instructions: Hip Pain (ED) Additional Instructions: Please follow-up with your primary care physician tomorrow. If you have any worsening or new symptoms, please return to the emergency room or call 911 Prescriptions: New ibuprofen 400 mg tablet 400 mg PO TID PRN (Reason: pain) Qty: 10 RF: 0 prednisone 20 mg tablet 20 mg PO DAILY Qty: 5 RF: 0 No Action polyethylene glycol 3350 [Miralax] 17 gram powder in packet 17 g PO DAILY PRN (Reason: constipation) Qty: 30 RF: 0 dicyclomine 20 mg tablet 20 mg PO QID PRN (Reason: abdominal pain) Qty: 14 RF: 0 furosemide 40 mg Tablet 40 mg PO Q OTHER DAY RF: 0 atorvastatin 40 mg Tablet 40 mg PO DAILY RF: 0 acetaminophen 325 mg Tablet 325 mg PO Q8H PRN (Reason: Pain (Scale Score 1-3)) RF: 0 albuterol sulfate 2.5 mg /3 mL (0.083 %) Solution For Nebulization 2.5 mg INHALATION Q4H PRN (Reason: Shortness Of Breath) RF: 0 quetiapine 200 mg Tablet 200 mg PO BEDTIME RF: 0 aspirin 81 mg Tablet,Delayed Release (Dr/Ec) 81 mg PO DAILY RF: 0 risperidone [Risperdal] 3 mg Tablet 6 mg PO BEDTIME RF: 0 levothyroxine 100 mcg Tablet 100 mcg PO DAILY RF: 0 amlodipine 10 mg Tablet 10 mg PO DAILY RF: 0 hydralazine 100 mg Tablet 100 mg PO BID RF: 0 metformin 1,000 mg Tablet 1,000 mg PO BID RF: 0 oxycodone-acetaminophen 7.5-325 mg Tablet 1 tab PO Q8H PRN (Reason: Pain (Scale Score 4-6)) RF: 0 insulin lispro [Humalog KwikPen Insulin] 100 unit/mL Insulin Pen See Protocol unit SUBCUT TIDAC RF: 0 lubiprostone [Amitiza] 24 mcg Capsule 24 mcg PO BID RF: 0 Lantus Solostar U-100 Insulin 100 unit/mL (3 mL) Insulin Pen 30 unit SUBCUT BID RF: 0 losartan 50 mg Tablet 50 mg PO DAILY RF: 0 omeprazole 20 mg Capsule,Delayed Release(Dr/Ec) 20 mg PO DAILY RF: 0 omega-3 fatty acids [Fish Oil Concentrate] 1,000 mg Capsule 1,000 mg PO DAILY RF: 0 Flovent HFA 110 mcg/actuation Hfa Aerosol Inhaler 1 puff INHALATION BID RF: 0 albuterol sulfate [ProAir HFA] 90 mcg/actuation Hfa Aerosol Inhaler 2 puff INHALATION Q4-6H PRN (Reason: Shortness Of Breath) RF: 0 Breo Ellipta 100-25 mcg/dose Blister With Device 1 inh INHALATION DAILY RF: 0 simethicone [Phazyme] 180 mg Capsule 180 mg PO BID PRN (Reason: Gastrointestinal Spasms Or Cramping) Qty: 60 RF: 3 prednisone 20 mg Tablet 20 mg PO BID RF: 0 cefpodoxime 200 mg tablet 200 mg PO BID Qty: 20 RF: 0 amoxicillin-pot clavulanate [Augmentin] 875-125 mg tablet 1 tab PO BID Qty: 20 RF: 0 lubiprostone [Amitiza] 24 mcg capsule 24 mcg PO DAILY Qty: 20 RF: 0 sumatriptan succinate 25 mg tablet 0 mg PO DIRECTED RF: 0 doxycycline hyclate 100 mg capsule 100 mg PO BID 10 Days Qty: 20 RF: 0
== END 2021-02-11 23:00 | disposition home or self-care (01) ==
PROVIDERS: Emergency Provider Emergency Medicine; PCP Internal Medicine Geriatric Medicine
DX: M25.551 Pain in right hip (principal); M79.604 Pain in right leg; R60.0 Localized edema; R20.0 Anesthesia of skin; E11.9 Type 2 diabetes mellitus without complications; I11.0 Hypertensive heart disease with heart failure; I50.9 Heart failure, unspecified; E78.5 Hyperlipidemia, unspecified; Z79.02 Long term (current) use of antithrombotics/antiplatelets; Z79.4 Long term (current) use of insulin; Z79.899 Other long term (current) drug therapy
CPT/HCPCS: 73502; 93971; 99283; 99284

== ENCOUNTER 2021-03-15 10:08 | Inpatient (IN) | payer MEDICARE, MEDICAID, SELFPAY ==
[2021-03-15] VITALS (8 sets, daily range): BP systolic 160–200; BP diastolic 64–87; PULSE 73–90; RESP 18; TEMP 36.8–37; O2SAT 94–99; BMI 38.9; BMI 40.3
--- NOTE | ~2021-03-15 | XR_ITS ---
EXAMINATION: XR HIP, RIGHT CLINICAL INFORMATION: Right hip pain COMPARISON: CT of abdomen and pelvis 03/15/2021, 01/30/2021, 07/23/2020 TECHNIQUE: Two views of the right hip. FINDINGS: There is a focal radiolucent lesion involving the inferior pubic ramus measuring about 1 cm in diameter. This is a healing fracture with callus formation. This is better seen on the CT study. No fracture or dislocation of the femur. There is a small spur of the acetabulum at the superior lateral acetabular rim. There is a soft tissue calcification inferior to the right hip measuring about 3 cm. This may be posttraumatic, myositis ossificans. This is unchanged since CAT scan 07/23/2020 There are vascular calcifications in the thigh. XR/XR hip RT min 2V IMPRESSION: 1. Healing right inferior pubic ramus fracture. 2. No acute osseous abnormality.
--- NOTE | ~2021-03-15 | XR_ITS ---
EXAMINATION: XR CHEST CLINICAL INFORMATION: Dyspnea. COMPARISON: Chest 01/30/2021. TECHNIQUE: Frontal view of the chest was obtained. FINDINGS: The lungs are fairly well expanded without acute consolidation. Heart size is borderline normal. There is prominent interstitial markings in both lungs. No pleural effusion. The heart size and pulmonary vascularity is normal. There is mild spondylosis dorsal spine. No lytic process. XR/XR chest 1V IMPRESSION: Cardiomegaly with mild prominence of interstitial markings question pneumonitis versus scarring. Similar findings were seen on previous exam 01/30/2021. Heart size is borderline normal.
--- NOTE | ~2021-03-15 | CT_ITS ---
EXAMINATION: CT ABDOMEN AND PELVIS WITHOUT CONTRAST CLINICAL INFORMATION: Lower quadrant pain and right-sided pain. COMPARISON: Radiographs right hip 02/11/2021, right lower extremity venous ultrasound 02/11/2021, CT abdomen and pelvis with contrast 01/30/2021 TECHNIQUE: Multidetector volumetric imaging was performed from the superior aspect of the liver through the pubic symphysis. Sagittal and coronal reformatted images were obtained on the technologist's workstation. No oral or intravenous contrast. This CT examination was performed using dose optimization techniques as appropriate, variously including the following: *Automated exposure control *Adjustment of mA and/or kV according to patient size (this includes techniques or standardized protocols for targeted exams where dose is matched to indication/reason for exam; i.e. extremities or head) *Use of iterative reconstruction technique DLP: 840 mGy-cm FINDINGS: LUNG BASES: The visualized lung bases are unremarkable. LIVER, GALLBLADDER, AND BILIARY TREE: The liver is normal in size and smooth in contour. No focal hepatic parenchymal lesion or intrahepatic ductal dilatation. Gallbladder not visualized. Gallbladder not seen on prior exam as well. Common duct stable 1.0 cm diameter, normal for a postcholecystectomy patient. No visible ductal calculus. PANCREAS: Unremarkable. SPLEEN: Homogeneous, sagittal dimension stable at 15.2 cm. ADRENAL GLANDS: Unremarkable. KIDNEYS AND URETERS: The kidneys are normal in size, shape, and attenuation. No hydronephrosis, hydroureter, or calculi seen. No perinephric stranding. BLADDER: Mild uniform bladder thickening which may be related to underdistention. No focal thickening or bladder calculus or debris. GASTROINTESTINAL TRACT: No bowel obstruction or focal inflammatory changes in bowel or mesentery. Appendix not visualized. No inflammatory changes around the terminal ileum or cecum. No ascites or fluid collection. No pneumatosis or free air. ABDOMINAL WALL: Small stable fat-containing umbilical hernia under 3 cm. Mild circumferential edema are in the subcutaneous soft tissues. No fluid collection. LYMPH NODES: Normal. VASCULAR: Unremarkable. PELVIC VISCERA: Unremarkable. OSSEOUS STRUCTURES: Unremarkable. CT/CT abdomen pelvis wo con IMPRESSION: 1. Generalized circumferential subcutaneous edema/anasarca. No ascites or fluid collection. 2. No inflammatory changes in bowel or mesentery. 3. Gallbladder not visualized, similar to prior exam. Common duct stable. No intrahepatic ductal dilatation. 4. No hydronephrosis, calculi, or perinephric stranding. Mild bladder wall thickening likely related to underdistention.
--- NOTE | ~2021-03-15 | XR_ITS ---
EXAMINATION: XR KNEE, RIGHT CLINICAL INFORMATION: Right hip pain COMPARISON: None TECHNIQUE: Four views of the right knee. FINDINGS: Bones and soft tissues are normal. No fracture or joint effusion. Alignment is anatomic. Joint spaces are well maintained. No abnormal soft tissue calcification. XR/XR knee RT 3V IMPRESSION: Normal right knee.
--- NOTE | 2021-03-15 10:21 | ED_ITS ---
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 Mode of arrival: ambulatory Limitations: no limitations History of Present Illness HPI Narrative: 71 yo female hx of COPD and asthma KATIUSKA on CPAP and home O2, CHF on lasix, diabetes, HTN, HLD reports compliance with her medications c/o LE swelling, pain, chest pain, [place] and orthopnea since yesterday, no increased salt this weekend, no other changes per her report, also notes her abdomen feels tight and painful with some nausea MD elicited complaint: shortness of breath and chest pain Pertinent past history: COPD, asthma, congestive heart failure and diabetes Onset (ago): day(s) (1) Timing: constant and progressively worsening Severity: moderate Exacerbating factors: lying flat, exertion and coughing Relieving factors: oxygen, rest and upright position Associated symptoms: chest pain, cough, nausea/vomiting and abdominal pain Treatment prior to arrival: oxygen Related Data Home Medications Medication Instructions Recorded Confirmed acetaminophen 325 mg PO Q8H PRN 07/08/20 03/15/21 albuterol sulfate 2.5 mg INHALATION Q4H PRN 07/08/20 03/15/21 albuterol sulfate [ProAir HFA] 2 puff INHALATION Q4-6H PRN 07/08/20 03/15/21 amlodipine 10 mg PO DAILY 07/08/20 03/15/21 aspirin 81 mg PO DAILY 07/08/20 03/15/21 atorvastatin 40 mg PO DAILY 07/08/20 03/15/21 fluticasone furoate-vilanterol 1 inh INHALATION DAILY 07/08/20 02/03/21 [Breo Ellipta] fluticasone propionate [Flovent 1 puff INHALATION BID 07/08/20 02/03/21 HFA] furosemide 40 mg PO DAILY 07/08/20 03/15/21 hydralazine 100 mg PO TID 07/08/20 03/15/21 insulin glargine [Lantus Solostar 30 unit SUBCUT BEDTIME 07/08/20 03/15/21 U-100 Insulin] insulin lispro [Humalog KwikPen See Protocol SUBCUT TIDAC 07/08/20 03/15/21 Insulin] levothyroxine 100 mcg PO DAILY 07/08/20 03/15/21 losartan 50 mg PO DAILY 07/08/20 02/03/21 lubiprostone [Amitiza] 24 mcg PO BID 07/08/20 03/15/21 metformin 1,000 mg PO BID 07/08/20 03/15/21 omega-3 fatty acids [Fish Oil 1,000 mg PO DAILY 07/08/20 03/15/21 Concentrate] omeprazole 20 mg PO DAILY 07/08/20 02/03/21 quetiapine 200 mg PO BEDTIME 07/08/20 03/15/21 sumatriptan succinate 25 mg tablet 0 mg PO DIRECTED 08/11/20 03/15/21 gabapentin 100 mg PO TID 03/15/21 03/15/21 oxycodone-acetaminophen 1 tab PO TID PRN 03/15/21 03/15/21 Previous Rx's Medication Instructions Recorded polyethylene glycol 3350 [Miralax] 17 g PO DAILY PRN #30 ea 10/22/20 ibuprofen 400 mg PO TID PRN #10 tab 02/11/21 Allergies Allergy/AdvReac Type Severity Reaction Status Date / Time lisinopril [LISINOPRIL] Allergy Severe Dizziness Verified 02/03/21 20:20 Review of Systems Review of Systems: Constitutional : No Fever, No Chills ENT/Mouth : No sore throat, No Rhinorrhea, No Swallowing Difficulty Eyes: No Eye Pain, No Swelling, No Redness Cardiovascular : pos Chest Pain, positive SOB, No Orthopnea, positive Edema Respiratory : pos Cough, No Sputum, No Wheezing, positive dyspnea Gastrointestinal : pos Nausea, No Vomiting, No Diarrhea, pos abdominal Pain, No Hematochezia, No Melena Genitourinary : No Dysuria, No Urinary Frequency, No Hematuria Musculoskeletal : No joint pain, No Myalgias Skin : No Skin Lesions, No rash Neuro : No Weakness, No Numbness, No Dizziness, No Headache Psych : No Anxiety/Panic, No Depression Heme/Lymph: No Bruising, No Lymphadenopathy Endocrine : No Polyuria, No Polydipsia All other systems reviewed and are negative [facility] Past Medical History Attestation statement: The following information was validated with the patient. Medical History Asthma CHF (congestive heart failure) Chronic constipation Chronic respiratory failure COPD (chronic obstructive pulmonary disease) Diabetes GERD (gastroesophageal reflux disease) HTN (hypertension) Hyperlipemia Hypothyroidism Lymphadenopathy, abdominal KATIUSKA (obstructive sleep apnea) KATIUSKA on CPAP Sleep apnea Splenomegaly Surgical History H/O section History of cholecystectomy Hx of tubal ligation Social History Social History (Updated 03/15/21 @ 10:36 by Shabnam Ang DO) Household Members: None Alcohol intake: never Patient Tobacco Use Status: Former Tobacco user Advance Directives: No Advance Directives Information Provided: Yes Current occupational status: disabled Physical Exam Vital Signs: Vital Signs: Last Vital Signs Temp 98.5 F 03/15/21 10:23 Pulse 76 03/15/21 12:06 Resp 18 03/15/21 12:06 BP 183/74 H 03/15/21 12:06 Pulse Ox 98 03/15/21 12:06 Oxygen Flow Rate 3 03/15/21 10:23 Body Mass Index 38.9 Appearance: Alert. Oriented X3. No acute distress. Eyes: Pupils equal, round and reactive to light. ENT: Pharynx normal. Neck: Normal inspection. Neck supple. CVS: Normal heart rate and rhythm. Pulses normal. Respiratory: No respiratory distress. Breath sounds wheezes in upper back, diminished with rales in bases Abdomen: Soft and distended with pitting edema and mild ttp in epigastric area no rebound or guarding Skin: Skin warm and dry. Normal skin color. Normal skin turgor. Extremities: 3 to 3+ pitting lower extremity edema up to thighs into abdomen. No calf ttp Neuro: Oriented X 3. No motor deficit. No sensory deficit. Course Course Course Narrative: plan to admit for CHF and IV diuresis MDM - SOB/Dyspnea MDM Narrative Medical decision making narrative: 71 yo female hx of COPD and asthma KATIUSKA on CPAP and home O2, CHF on lasix, diabetes, HTN, HLD reports compliance with her medications c/o LE swelling, pain, chest pain, [place] and orthopnea since yesterday, no increased salt this weekend, no other changes per her report, also notes her abdomen feels tight and painful with some nausea at this time will need labs, CT scan of abdomen for obstruction, neb treatment and steroids for asthma, the patient is also fluid overloaded with anasarca IV lasix and chu ordered, suspect she is in CHF exacerbation at this time, likely admit Lab Data Result diagrams: 03/15/21 10:43 03/15/21 10:43 Labs: Lab Results 03/15/21 03/15/21 03/15/21 Range/Units 10:43 10:43 10:43 WBC 9.6 (4.8-10.8) X10*3/uL RBC 4.35 (4.20-5.50) X10*6/uL Hgb 12.6 (12.0-16.0) g/dl Hct 42.1 (37-47) % MCV 96.8 (80-98) fL MCH 29.0 (27.0-33.0) pg MCHC 29.9 L (31.0-35.0) g/dl RDW 15.9 (11.0-16.0) % Plt Count 167 (160-400) X10*3/uL MPV 11.6 (9.4-12.3) fL Immature Gran % (Auto) 0.4 (0.0-0.4) % Neut % (Auto) 75.3 H (45-73) % Lymph % (Auto) 14.3 L (20-40) % [place] % (Auto) 8.1 (2-11) % Eos % (Auto) 1.6 (0-4) % Baso % (Auto) 0.3 (0-2) % Lymph # (Auto) 1.4 (1.2-4.9) X10*3/uL [place] # (Auto) 0.8 (0.1-1.2) X10*3/uL Eos # (Auto) 0.2 (0.0-0.4) X10*3/uL Baso # (Auto) 0.0 (0.0-0.2) X10*3/uL Abs Immat Gran (auto) 0.04 H (0.00-0.03) X10*3/uL Absolute Neuts (auto) 7.3 (2.0-8.3) X10*3/uL Absolute Nucleated RBC 0.000 (0.0-0.012) X10*3/uL Nucleated RBC % (auto) 0.0 (0.0-0.2) /100WBC PT (10.8-13.0) SEC INR (0.9-1.1) APTT (24.1-38.0) SEC Sodium 143 (135-145) mmol/L Potassium 4.4 (3.3-5.1) mmol/L Chloride 99 (96-108) mmol/L Carbon Dioxide 39 H (22-29) mmol/L Anion Gap 9 L (12-20) BUN 15 (9-16) mg/dL Creatinine 0.73 (0.5-1.4) mg/dL Estim Creat Clear Calc 81.9 Estimated GFR > 60 Random Glucose 116 H D (60-115) mg/dL Calcium 8.8 (8.4-10.2) mg/dL Magnesium (1.6-2.6) mg/dL Total Bilirubin (0.0-1.0) mg/dL Direct Bilirubin (0.0-0.5) mg/dL AST (5-31) U/L ALT (0-31) U/L Alkaline Phosphatase (39-117) U/L Troponin I High Sens (<3.5-17.0) ng/L B-Natriuretic Peptide 549 H (<100) pg/mL Total Protein (6.5-8.0) g/dL Albumin (3.5-5.0) g/dL Lipase (8-78) U/L COVID-19 (ABHI) (Negative) COVID-19 Clin Com 03/15/21 03/15/21 03/15/21 Range/Units 10:43 10:43 10:43 WBC (4.8-10.8) X10*3/uL RBC (4.20-5.50) X10*6/uL Hgb (12.0-16.0) g/dl Hct (37-47) % MCV (80-98) fL MCH (27.0-33.0) pg MCHC (31.0-35.0) g/dl RDW (11.0-16.0) % Plt Count (160-400) X10*3/uL MPV (9.4-12.3) fL Immature Gran % (Auto) (0.0-0.4) % Neut % (Auto) (45-73) % Lymph % (Auto) (20-40) % [place] % (Auto) (2-11) % Eos % (Auto) (0-4) % Baso % (Auto) (0-2) % Lymph # (Auto) (1.2-4.9) X10*3/uL [place] # (Auto) (0.1-1.2) X10*3/uL Eos # (Auto) (0.0-0.4) X10*3/uL Baso # (Auto) (0.0-0.2) X10*3/uL Abs Immat Gran (auto) (0.00-0.03) X10*3/uL Absolute Neuts (auto) (2.0-8.3) X10*3/uL Absolute Nucleated RBC (0.0-0.012) X10*3/uL Nucleated RBC % (auto) (0.0-0.2) /100WBC PT 13.5 H (10.8-13.0) SEC INR 1.1 (0.9-1.1) APTT 32.6 (24.1-38.0) SEC Sodium (135-145) mmol/L Potassium (3.3-5.1) mmol/L Chloride (96-108) mmol/L Carbon Dioxide (22-29) mmol/L Anion Gap (12-20) BUN (9-16) mg/dL Creatinine (0.5-1.4) mg/dL Estim Creat Clear Calc Estimated GFR Random Glucose (60-115) mg/dL Calcium (8.4-10.2) mg/dL Magnesium 1.9 (1.6-2.6) mg/dL Total Bilirubin 0.4 (0.0-1.0) mg/dL Direct Bilirubin 0.2 (0.0-0.5) mg/dL AST 41 H D (5-31) U/L ALT 43 H (0-31) U/L Alkaline Phosphatase 133 H (39-117) U/L Troponin I High Sens (<3.5-17.0) ng/L B-Natriuretic Peptide (<100) pg/mL Total Protein 6.6 (6.5-8.0) g/dL Albumin 3.4 L (3.5-5.0) g/dL Lipase 73 (8-78) U/L COVID-19 (ABHI) Negative (Negative) COVID-19 Clin Com See Note 03/15/21 Range/Units 10:43 WBC (4.8-10.8) X10*3/uL RBC (4.20-5.50) X10*6/uL Hgb (12.0-16.0) g/dl Hct (37-47) % MCV (80-98) fL MCH (27.0-33.0) pg MCHC (31.0-35.0) g/dl RDW (11.0-16.0) % Plt Count (160-400) X10*3/uL MPV (9.4-12.3) fL Immature Gran % (Auto) (0.0-0.4) % Neut % (Auto) (45-73) % Lymph % (Auto) (20-40) % [place] % (Auto) (2-11) % Eos % (Auto) (0-4) % Baso % (Auto) (0-2) % Lymph # (Auto) (1.2-4.9) X10*3/uL [place] # (Auto) (0.1-1.2) X10*3/uL Eos # (Auto) (0.0-0.4) X10*3/uL Baso # (Auto) (0.0-0.2) X10*3/uL Abs Immat Gran (auto) (0.00-0.03) X10*3/uL Absolute Neuts (auto) (2.0-8.3) X10*3/uL Absolute Nucleated RBC (0.0-0.012) X10*3/uL Nucleated RBC % (auto) (0.0-0.2) /100WBC PT (10.8-13.0) SEC INR (0.9-1.1) APTT (24.1-38.0) SEC Sodium (135-145) mmol/L Potassium (3.3-5.1) mmol/L Chloride (96-108) mmol/L Carbon Dioxide (22-29) mmol/L Anion Gap (12-20) BUN (9-16) mg/dL Creatinine (0.5-1.4) mg/dL Estim Creat Clear Calc Estimated GFR Random Glucose (60-115) mg/dL Calcium (8.4-10.2) mg/dL Magnesium (1.6-2.6) mg/dL Total Bilirubin (0.0-1.0) mg/dL Direct Bilirubin (0.0-0.5) mg/dL AST (5-31) U/L ALT (0-31) U/L Alkaline Phosphatase (39-117) U/L Troponin I High Sens 12.9 (<3.5-17.0) ng/L B-Natriuretic Peptide (<100) pg/mL Total Protein (6.5-8.0) g/dL Albumin (3.5-5.0) g/dL Lipase (8-78) U/L COVID-19 (ABHI) (Negative) COVID-19 Clin Com ECG Data Attestation: I personally reviewed and interpreted this ECG as follows: ECG interpretation date: 03/15/21 ECG interpretation time: 10:33 Interpretation: Rate: 78 Rhythm: NSR [place]: normal Normal P waves. Normal ART. Normal QRS complex. ST T wave : t wave inversions I and aVL, II, V3-V6 no MARIA R elevation qTC: normal prior studies: no change from January 2021 The study has been interpreted contemporaneously by me. . Discharge Plan Discharge Clinical Impression: Asthma, CHF (congestive heart failure) Patient Disposition: Admitted As Inpatient Prescriptions: No Action polyethylene glycol 3350 [Miralax] 17 gram powder in packet 17 g PO DAILY PRN (Reason: constipation) Qty: 30 RF: 0 oxycodone-acetaminophen 7.5-325 mg Tablet 1 tab PO TID PRN (Reason: Pain (Scale Score 4-6)) RF: 0 gabapentin 100 mg Capsule 100 mg PO TID RF: 0 furosemide 40 mg Tablet 40 mg PO DAILY RF: 0 atorvastatin 40 mg Tablet 40 mg PO DAILY RF: 0 acetaminophen 325 mg Tablet 325 mg PO Q8H PRN (Reason: Pain (Scale Score 1-3)) RF: 0 albuterol sulfate 2.5 mg /3 mL (0.083 %) Solution For Nebulization 2.5 mg INHALATION Q4H PRN (Reason: Shortness Of Breath) RF: 0 quetiapine 200 mg Tablet 200 mg PO BEDTIME RF: 0 aspirin 81 mg Tablet,Delayed Release (Dr/Ec) 81 mg PO DAILY RF: 0 levothyroxine 100 mcg Tablet 100 mcg PO DAILY RF: 0 amlodipine 10 mg Tablet 10 mg PO DAILY RF: 0 hydralazine 100 mg Tablet 100 mg PO TID RF: 0 metformin 1,000 mg Tablet 1,000 mg PO BID RF: 0 insulin lispro [Humalog KwikPen Insulin] 100 unit/mL Insulin Pen See Protocol unit SUBCUT TIDAC RF: 0 lubiprostone [Amitiza] 24 mcg Capsule 24 mcg PO BID RF: 0 Lantus Solostar U-100 Insulin 100 unit/mL (3 mL) Insulin Pen 30 unit SUBCUT BEDTIME RF: 0 losartan 50 mg Tablet 50 mg PO DAILY RF: 0 omeprazole 20 mg Capsule,Delayed Release(Dr/Ec) 20 mg PO DAILY RF: 0 omega-3 fatty acids [Fish Oil Concentrate] 1,000 mg Capsule 1,000 mg PO DAILY RF: 0 Flovent HFA 110 mcg/actuation Hfa Aerosol Inhaler 1 puff INHALATION BID RF: 0 albuterol sulfate [ProAir HFA] 90 mcg/actuation Hfa Aerosol Inhaler 2 puff INHALATION Q4-6H PRN (Reason: Shortness Of Breath) RF: 0 Breo Ellipta 100-25 mcg/dose Blister With Device 1 inh INHALATION DAILY RF: 0 ibuprofen 400 mg tablet 400 mg PO TID PRN (Reason: pain) Qty: 10 RF: 0 sumatriptan succinate 25 mg tablet 0 mg PO DIRECTED RF: 0
--- NOTE | 2021-03-15 10:26 | ECG_ITS ---
Test Reason : CHEST PAIN Blood Pressure : / mmHG Vent. Rate : 078 BPM Atrial Rate : 078 BPM P-R Int : 134 ms QRS Dur : 080 ms QT Int : 374 ms P-R-T Axes : 047 013 149 degrees QTc Int : 426 ms Normal sinus rhythm T wave abnormality, consider lateral ischemia Abnormal ECG When compared with ECG of 30-JAN-2021 09:50, No significant change was found Referred By: Shabnam Ang Electronically Signed By:Alan Correia
[2021-03-15] MEDS: Albuterol Sulfate (0.083%) 2.5 MG/3 ML VIAL.NEB INHALE (10:41)
[2021-03-15 10:52] LABS: Basophils Percent Auto 0.3 % (0-2); Eosinophils Absolute Auto 0.2 X10*3/uL (0.0-0.4); Eosinophils Percent Auto 1.6 % (0-4); Hematocrit 42.1 % (37-47); Hemoglobin 12.6 g/dl (12.0-16.0); Imm Gran Abs Auto 0.04 X10*3/uL (0.00-0.03); Imm Gran Pct Auto 0.4 % (0.0-0.4); Lymphocytes Absolute Auto 1.4 X10*3/uL (1.2-4.9); Lymphocytes Percent Auto 14.3 % (20-40); MANUAL DIFF FLAG NO; Mean Corpuscular HGB Conc 29.9 g/dl (31.0-35.0); Mean Corpuscular Volume 96.8 fL (80-98); Mean Platelet Volume 11.6 fL (9.4-12.3); Monocytes Absolute Auto 0.8 X10*3/uL (0.1-1.2); Monocytes Percent Auto 8.1 % (2-11); Neutrophils Absolute Auto 7.3 X10*3/uL (2.0-8.3); Neutrophils Percent Auto 75.3 % (45-73); Platelet Count 167 X10*3/uL (160-400); Red Blood Count 4.35 X10*6/uL (4.20-5.50); Red Cell Distribution Width 15.9 % (11.0-16.0); White Blood Count 9.6 X10*3/uL (4.8-10.8)
[2021-03-15 11:08] LABS: INTERNATIONAL NORM RATIO 1.1 (0.9-1.1); Prothrombin Time 13.5 SEC (10.8-13.0)
[2021-03-15 11:09] LABS: COVID-19 Test Negative (Negative)
[2021-03-15 11:11] LABS: Partial Thromboplastin Time 32.6 SEC (24.1-38.0)
[2021-03-15 11:19] LABS: Alanine Aminotransferase 43 U/L (0-31); Albumin Level 3.4 g/dL (3.5-5.0); Alkaline Phosphatase 133 U/L (39-117); Aspartate Amino Transferase 41 U/L (5-31); Bilirubin Direct 0.2 mg/dL (0.0-0.5); Bilirubin Total 0.4 mg/dL (0.0-1.0); Lipase 73 U/L (8-78); Magnesium 1.9 mg/dL (1.6-2.6); Total Protein 6.6 g/dL (6.5-8.0)
[2021-03-15 11:21] LABS: Blood Urea Nitrogen 15 mg/dL (9-16); Calcium 8.8 mg/dL (8.4-10.2); Creatinine Clr Calc Pharmacy 81.9; Estimated Glomerular Filt Rate > 60; Glucose Random 116 mg/dL (60-115); Troponin-I High Sensitivity 12.9 ng/L (<3.5-17.0)
[2021-03-15 11:32] LABS: Anion Gap 9 (12-20); B Type Natriuretic Peptide 549 pg/mL (<100); Carbon Dioxide 39 mmol/L (22-29); Chloride 99 mmol/L (96-108); Potassium 4.4 mmol/L (3.3-5.1); Sodium 143 mmol/L (135-145)
[2021-03-15] MEDS: oxyCODONE HCl Immed Release 5 MG TABLET PO (11:45)
[2021-03-15] MEDS: methylPREDNISolone Sod Succ 125 MG/2 ML VIAL IVPUSH (11:45)
[2021-03-15] MEDS: Furosemide 40 MG/4 ML VIAL IVPUSH ×2 (11:45→17:32)
[2021-03-15] MEDS: Nitroglycerin 2 % Oint 1 GM Packet 0.5 INCH TRANSDERMA (12:57)
--- NOTE | 2021-03-15 15:25 | HE.PHANOTE ---
MED REC COMPLETE. ONE ISSUE, THE PATIENT HAS NOT FILLED CARVEDILOL IN A LONG TIME, HOWEVER IT IS LISTED ON HER DOCTORS OFFICE NOTE. i DID NOT INCLUDE IT IN HER MED LIST
--- NOTE | 2021-03-15 16:52 | P.HPHOSP_ITS ---
History of Present Illness Date of Service: 03/15/21 Chief Complaint: dyspnea History taken in [place]ese from this patient, who is a 71 yo F with hx of HFpEF [grade 2 diastolic dysfunction on TTE 07/05/19], asthma/COPD and KATIUSKA with chronic hypoxia on home O2 [2L via NC], HTN, HLD, DM2, and hypothyroidism who comes in to the ED with worsening dyspnea for the past week or so. She notes vague chest discomfort. She also complaints of leg and abdominal swelling that is somewhat painful. She notes a nearly 30 pound weight gain over the last 32 months. She endorses orthopnea and exertional dyspnea. She endorses some wheezing. She denies fever, cough, or sputum production. She denies medication non-compliance or dietary indiscretions. She also notes approximately 1 week history of R lateral hip pain. In the ED, she was given 40 mg of IV furosemide and a Guerrero catheter was placed. She was also given a 2.5 mg albuterol nebulization along with 125 mg of IV methylprednisolone. CXR showed cardiomegaly with interstitial prominence. EKG showed NSR with T wave inversions that were present on prior EKG in January. Initial hs-Tn-I was 12.[address] of the abdomen and pelvis showed generalized anasarca. Review of Systems Review of Systems: Yes all other systems are reviewed and are negative [facility] Medical History Asthma CHF (congestive heart failure) Chronic constipation Chronic respiratory failure COPD (chronic obstructive pulmonary disease) Diabetes GERD (gastroesophageal reflux disease) HTN (hypertension) Hyperlipemia Hypothyroidism Lymphadenopathy, abdominal KATIUSKA (obstructive sleep apnea) KATIUSKA on CPAP Sleep apnea Splenomegaly Pertinent family history: HTN Surgical History H/O section History of cholecystectomy Hx of tubal ligation Social History Household Members: None Alcohol intake: never Patient Tobacco Use Status: Former Tobacco user Advance Directives: No Advance Directives Information Provided: Yes Current occupational status: disabled Meds Allergies Allergy/AdvReac Type Severity Reaction Status Date / Time lisinopril [LISINOPRIL] Allergy Severe Dizziness Verified 02/03/21 20:20 Active Medications: Current Medications Generic Name Dose Route Start Last Admin Trade Name [place] PRN Reason Stop Dose Admin Acetaminophen 650 mg 03/15/21 16:38 Acetaminophen 325 Mg Tablet PO Q6H PRN Pain, Mild (Pain Scale 1-3) Al Hydroxide/Mg Hydroxide 30 ml 03/15/21 16:38 Magnesium Hydrox/Alum Hydrox 30 Ml Oral.Susp PO Q4H PRN Heartburn/Nausea Albuterol Sulfate 2.5 mg 03/15/21 16:44 Albuterol Sulfate (0.083%) 2.5 Mg/3 Ml Vial.Neb INHALE Q4H PRN Shortness Of Breath Albuterol Sulfate 2 puff 03/15/21 16:44 Albuterol Sulfate 90 Mcg 8 Gm Inhaler INHALE Q4H PRN Shortness Of Breath Amlodipine Besylate 10 mg 03/16/21 09:00 Amlodipine Besylate 10 Mg Tablet PO DAILY [facility] Protocol Aspirin 81 mg 03/16/21 09:00 Aspirin Enteric Coated 81 Mg Tablet.Dr PO DAILY [facility] Atorvastatin Calcium 40 mg 03/16/21 09:00 Atorvastatin Calcium 40 Mg Tablet PO DAILY [facility] Docusate Sodium 100 mg 03/15/21 16:38 Docusate Sodium 100 Mg Capsule PO BID PRN constipation Enoxaparin Sodium 40 mg 03/15/21 16:45 Enoxaparin Sodium 40 Mg/0.4 Ml Syringe SUBCUT Q24H [facility] Fluticasone/Vilanterol 1 puff 03/16/21 09:00 Fluticasone/Vilanterol 100/25 Blst.W.Dev INHALE DAILY [facility] Gabapentin 100 mg 03/15/21 21:00 Gabapentin 100 Mg Capsule PO TID [facility] Hydralazine HCl 100 mg 03/15/21 21:00 Hydralazine Hcl 50 Mg Tablet PO TID [facility] Protocol Insulin Glargine 30 unit 03/15/21 21:00 Insulin Glargine,Hum.Rec.Anlog 100 Unit/Ml 10 Ml Vial SUBCUT BEDTIME [facility] Insulin Human Lispro 0 unit 03/16/21 07:30 Insulin Lispro 100 Unit/Ml 3 Ml Vial SUBCUT TIDAC [facility] Protocol Levothyroxine Sodium 100 mcg 03/16/21 09:00 Levothyroxine Sodium 100 Mcg Tablet PO DAILY [facility] Non-Formulary Medication 1 tab 03/15/21 16:44 Oxycodone-Acetaminophen PO TID PRN Pain (Scale Score 4-6) Ondansetron HCl 4 mg 03/15/21 16:38 Ondansetron Hcl 4 Mg/2 Ml Vial IVPUSH Q8H PRN Nausea and Vomiting Pharmacy Consult 1 each 03/15/21 10:26 Consult Rx Perform Med Rec MISCELLANE ONCE PRN Consult order Polyethylene Glycol 17 gm 03/15/21 16:44 Polyethylene Glycol 3350 17 Gm Powd.Pack PO DAILY PRN constipation Risperidone 1 mg 03/15/21 21:00 Risperidone 1 Mg Tablet PO BEDTIME [facility] Sodium Chloride 3 ml 03/16/21 00:00 0.9 % Sodium Chloride Flush 3 Ml [facility] Medication Instructions Recorded Confirmed Last Taken Type acetaminophen 325 mg PO Q8H PRN 07/08/20 03/15/21 Unknown History albuterol sulfate 2.5 mg INHALATION Q4H PRN 07/08/20 03/15/21 Unknown History albuterol sulfate [ProAir HFA] 2 puff INHALATION Q4-6H PRN 07/08/20 03/15/21 Unknown History amlodipine 10 mg PO DAILY 07/08/20 03/15/21 Unknown History aspirin 81 mg PO DAILY 07/08/20 03/15/21 Unknown History atorvastatin 40 mg PO DAILY 07/08/20 03/15/21 Unknown History fluticasone furoate-vilanterol 1 inh INHALATION DAILY 07/08/20 03/15/21 Unknown History [Breo Ellipta] fluticasone propionate [Flovent 1 puff INHALATION BID 07/08/20 03/15/21 Unknown History HFA] furosemide 40 mg PO DAILY 07/08/20 03/15/21 Unknown History hydralazine 100 mg PO TID 07/08/20 03/15/21 Unknown History insulin glargine [Lantus Solostar 30 unit SUBCUT BEDTIME 07/08/20 03/15/21 03/14/21 History U-100 Insulin] insulin lispro [Humalog KwikPen See Protocol SUBCUT TIDAC 07/08/20 03/15/21 Unknown History Insulin] levothyroxine 100 mcg PO DAILY 07/08/20 03/15/21 Unknown History lubiprostone [Amitiza] 24 mcg PO BID 07/08/20 03/15/21 Unknown History metformin 1,000 mg PO BID 07/08/20 03/15/21 Unknown History omega-3 fatty acids [Fish Oil 1,000 mg PO DAILY 07/08/20 03/15/21 Unknown History Concentrate] quetiapine 200 mg PO BEDTIME 07/08/20 03/15/21 Unknown History sumatriptan succinate 25 mg tablet 0 mg PO DIRECTED 08/11/20 03/15/21 Unknown History gabapentin 100 mg PO TID 03/15/21 03/15/21 Unknown History oxycodone-acetaminophen 1 tab PO TID PRN 03/15/21 03/15/21 Unknown History risperidone [Risperdal] 1 mg PO BEDTIME 03/15/21 03/15/21 Unknown History Physical Exam Vital Signs and Narrative: Vital Signs: Last Vital Signs Temp 98.6 F 03/15/21 15:11 Pulse 73 03/15/21 15:11 Resp 18 03/15/21 15:11 BP 182/70 H 03/15/21 15:11 Pulse Ox 97 03/15/21 15:11 Oxygen Flow Rate 3 03/15/21 10:23 Body Mass Index 38.9 Gen: in no acute distress HEENT: sclera anicteric, moist mucus membranes Neck: supple Lungs: diminished bilaterally, no wheezing present Heart: regular rate and rhythm, no murmurs, JVD present Abd: obese, edematous, mildly tender, no rebound/guarding : Guerrero draining clear urine Ext: 2+ pitting edema bilateral legs Skin: warm/well-perfused Neuro: alert and oriented x3, no focal findings Psych: appropriate affect Results Labs CBC and Chem 7: 03/15/21 10:43 03/15/21 10:43 Labs: Laboratory Results - last 24 hr 03/15/21 03/15/21 03/15/21 10:43 10:43 10:43 MCV 96.8 MCH 29.0 MCHC 29.9 L RDW 15.9 Plt Count 167 MPV 11.6 Immature Gran % (Auto) 0.4 Neut % (Auto) 75.3 H Lymph % (Auto) 14.3 L [place] % (Auto) 8.1 Eos % (Auto) 1.6 Baso % (Auto) 0.3 Lymph # (Auto) 1.4 [place] # (Auto) 0.8 Eos # (Auto) 0.2 Baso # (Auto) 0.0 Abs Immat Gran (auto) 0.04 H Absolute Neuts (auto) 7.3 Absolute Nucleated RBC 0.000 Nucleated RBC % (auto) 0.0 PT INR APTT Anion Gap 9 L Estim Creat Clear Calc 81.9 Estimated GFR > 60 Random Glucose 116 H D Calcium 8.8 Magnesium Total Bilirubin Direct Bilirubin AST ALT Alkaline Phosphatase Troponin I High Sens B-Natriuretic Peptide 549 H Total Protein Albumin Lipase COVID-19 (ABHI) COVID-19 Clin Com 03/15/21 03/15/21 03/15/21 10:43 10:43 10:43 MCV MCH MCHC RDW Plt Count MPV Immature Gran % (Auto) Neut % (Auto) Lymph % (Auto) [place] % (Auto) Eos % (Auto) Baso % (Auto) Lymph # (Auto) [place] # (Auto) Eos # (Auto) Baso # (Auto) Abs Immat Gran (auto) Absolute Neuts (auto) Absolute Nucleated RBC Nucleated RBC % (auto) PT 13.5 H INR 1.1 APTT 32.6 Anion Gap Estim Creat Clear Calc Estimated GFR Random Glucose Calcium Magnesium 1.9 Total Bilirubin 0.4 Direct Bilirubin 0.2 AST 41 H D ALT 43 H Alkaline Phosphatase 133 H Troponin I High Sens B-Natriuretic Peptide Total Protein 6.6 Albumin 3.4 L Lipase 73 COVID-19 (ABHI) Negative COVID-19 Clin Com See Note 03/15/21 10:43 MCV MCH MCHC RDW Plt Count MPV Immature Gran % (Auto) Neut % (Auto) Lymph % (Auto) [place] % (Auto) Eos % (Auto) Baso % (Auto) Lymph # (Auto) [place] # (Auto) Eos # (Auto) Baso # (Auto) Abs Immat Gran (auto) Absolute Neuts (auto) Absolute Nucleated RBC Nucleated RBC % (auto) PT INR APTT Anion Gap Estim Creat Clear Calc Estimated GFR Random Glucose Calcium Magnesium Total Bilirubin Direct Bilirubin AST ALT Alkaline Phosphatase Troponin I High Sens 12.9 B-Natriuretic Peptide Total Protein Albumin Lipase COVID-19 (ABHI) COVID-19 Clin Com Imaging Radiologist's Impressions: Impressions Abdomen/Pelvis CT 03/15/21 10:26 IMPRESSION: 1. Generalized circumferential subcutaneous edema/anasarca. No ascites or fluid collection. 2. No inflammatory changes in bowel or mesentery. 3. Gallbladder not visualized, similar to prior exam. Common duct stable. No intrahepatic ductal dilatation. 4. No hydronephrosis, calculi, or perinephric stranding. Mild bladder wall thickening likely related to underdistention. Chest X-Ray 03/15/21 10:27 IMPRESSION: Cardiomegaly with mild prominence of interstitial markings question pneumonitis versus scarring. Similar findings were seen on previous exam 01/30/2021. Heart size is borderline normal. Assessment and Plan (1) Acute exacerbation of CHF (congestive heart failure): Status: Acute 71 yo F with hx of HFpEF [grade 2 diastolic dysfunction on TTE 07/05/19], asthma/COPD and KATIUSKA with chronic hypoxia on home O2 [2L via [place]], HTN, HLD, DM2 and hypothyroidism presenting with subacute chest discomfort, exertional dyspnea, and orthopnea along with 30 lb weight gain over the last 2 months, likely due to decompensated heart failure. # ADHF # acute/chronic HFpEF - admit to [facility], consult Cardiology, obtain updated TTE, diurese with IV furosemide 40 mg bid, monitor I/O + daily weights + BNP + BMP + Mg, restrict sodium - repeat hs-Tn-I though likely indeterminate range due to CHF # R hip pain - plain films of hip + knee # HTN - continue amlodipine + hydralazine # HLD - continue atorvastatin # COPD/asthma overlap - continue ICS/LABA, prn FATNASMA. I do not believe she is having an acute exacerbation; her dyspnea is due to the CHF # DM2 - basal/bolus insulin # hypothyroidism - continue LT4 # chronic constipation - lubiprostone, bowel regimen # VTE ppx - LMWH + SCDs # code - FULL Quality Stroke Does the patient have a stroke diagnosis?: No VTE Prior VTE?: No VTE Risk Level:: Medical - moderate - high VTE Device Contraindication: N/A - Device Ordered VTE Drug Contraindication: N/A - Med Ordered
[2021-03-15] MEDS: Enoxaparin Sodium 40 MG/0.4 ML SYRINGE SUBCUT (17:32)
[2021-03-15] MEDS: polyethylene glycoL 3350 17 GM POWD.PACK PO (17:32)
[2021-03-15 18:07] LABS: Troponin-I High Sensitivity 10.6 ng/L (<3.5-17.0)
[2021-03-15] MEDS: Gabapentin 100 MG CAPSULE PO (20:34)
[2021-03-15] MEDS: Insulin Glargine,Hum.rec.anlog 100 UNIT/ML 10 ML VIAL 30 UNIT SUBCUT (20:34)
[2021-03-15] MEDS: risperiDONE 1 MG TABLET PO (20:34)
[2021-03-15] MEDS: Sennosides 8.6 MG TABLET 17.2 MG PO (20:34)
[2021-03-15] MEDS: Insulin Lispro 100 UNIT/ML 3 ML VIAL SUBCUT (20:35)
[2021-03-15] MEDS: hydrALAZINE HCl 50 MG TABLET 100 MG PO (20:35)
[2021-03-15] MEDS: 0.9 % Sodium Chloride Flush 3 ML SYRINGE IVFLUSH (20:35)
[2021-03-15 20:36] LABS: Glucose, Whole Blood 567 mg/dL (60-115)
[2021-03-15 20:36] LABS: Glucose, Whole Blood 578 mg/dL (60-115)
[2021-03-15 21:45] LABS: Blood Urea Nitrogen 25 mg/dL (9-16); Calcium 8.9 mg/dL (8.4-10.2); Estimated Glomerular Filt Rate 44
[2021-03-15 21:57] LABS: Anion Gap 17 (12-20); Carbon Dioxide 34 mmol/L (22-29); Chloride 89 mmol/L (96-108); Potassium 5.2 mmol/L (3.3-5.1); Sodium 135 mmol/L (135-145)
[2021-03-15 22:00] LABS: Glucose Random 669 mg/dL (60-115)
[2021-03-15 22:08] LABS: Glucose, Whole Blood 518 mg/dL (60-115)
[2021-03-15] MEDS: Insulin Regular, Human 100 UNIT/ML 3 ML VIAL IVPUSH (23:14)
[2021-03-16] VITALS (11 sets, daily range): BP systolic 112–169; BP diastolic 48–87; PULSE 70–91; RESP 12–22; TEMP 36.4–37.1; O2SAT 90–98; BMI 40.1
[2021-03-16 00:27] LABS: Glucose, Whole Blood 481 mg/dL (60-115)
[2021-03-16] MEDS: Insulin Regular, Human 100 UNIT/ML 3 ML VIAL IVPUSH (00:58)
[2021-03-16 02:09] LABS: Glucose, Whole Blood 381 mg/dL (60-115)
[2021-03-16 02:38] LABS: Glucose, Whole Blood 338 mg/dL (60-115)
--- NOTE | 2021-03-16 02:41 | PC.NURSE ---
Pt [address] Muller notified. 10 units humalog and 30 units lantus ordered and administered. Poc rechecked q2hr still above 400, 5 units regular insulin administered x2. Last poc [phone]. No new orders at this time.
[2021-03-16] MEDS: Levothyroxine Sodium 100 MCG TABLET PO (05:20)
[2021-03-16 07:22] LABS: B Type Natriuretic Peptide 691 pg/mL (<100)
--- NOTE | 2021-03-16 07:30 | CA_ITS ---
Transthoracic Echocardiogram Patient (Last, First, Middle): Lulu Chavez, Gender: Female Date of : 1950 Age: 71 Procedure Date: 03/16/2021 Procedure Type: Transthoracic Echocardiogram [place] [facility] [place] Height: 160.02 cm Weight: 102.51 kg BSA: 2.04 m2 Heart Rate: bpm BP: 151 / 67 mmHg Event Host: Referring MD: Grover Priest MD Symptoms: ADHF Study Quality: Good ECG Rhythm: Sinus Conclusions: - Normal left ventricular size and systolic function. - There is a flattened septum in diastole ( D shaped left ventricle) consistent with right ventricular volume overload. - E/E prime ratio is >15, consistent with elevated filling pressures. - There is moderate to severe left ventricular wall thickness. - Moderately increased right ventricular cavity size. There is mildly decreased right ventricular systolic function. - There is moderate tricuspid valve regurgitation. Significantly elevated right atrial pressure. Severe pulmonary hypertension is present. Findings Left Ventricle Normal left ventricular size and systolic function. The visually estimated ejection fraction is between 60-65%. There is no evidence of regional wall motion abnormalities. There is a flattened septum in diastole ( D shaped left ventricle) consistent with right ventricular volume overload. Abnormal diastolic function is noted. Spectral Doppler is indicative of a pseudonormal filling pattern. E/E prime ratio is >15, consistent with elevated filling pressures. There is moderate to severe left ventricular wall thickness. Right Ventricle Moderately increased right ventricular cavity size. There is mildly decreased right ventricular systolic function. Atria The left atrium is moderately dilated. Aortic Valve The aortic valve was not well visualized. Mitral Valve Normal mitral valve structure and function. There is trace mitral valve regurgitation. There is no mitral valve stenosis. Pulmonic Valve Normal pulmonic valve structure and function. There is trace pulmonic valve regurgitation. Tricuspid Valve There is moderate tricuspid valve regurgitation. Significantly elevated right atrial pressure. Severe pulmonary hypertension is present. Great Vessels There is mild dilatation of the ascending aorta. Venous The inferior vena cava is dilated and does not collapse with inspiration. Pericardium/Pleural There is no evidence of pericardial effusion. Prior Study Comparison Significant changes compared to prior study dated: 07/06/2019. Moderately dilated RV, moderate TR, severely elevated RA pressures, severe pulmonary hypertension. Measurements 2D Linear Measurements IVSd: 1.44 0.6-0.9/0.6-1.0 cm LVIDd: 4.30 3.9-5.3/4.2-5.9 cm LVIDd Index: 2.11 2.4-3.2/2.2-3.1 cm/m2 LVIDs: 2.72 2.0-3.6 cm LVPWd: 1.36 0.7-1.1 cm Ao Root: 3.10 2.1-3.5 cm LA Diam: 3.80 2.7-3.8/3.0-4.0 cm LAIDs Index: 1.86 1.5-2.3 cm/m2 LV Mass: 289.54 67-162/88-224 g LV Mass Index: 141.93 43-95/49-115 g/m2 LVOT Diam: 2.00 3.0+(-)1.3 cm 2D Systolic Function EF 4C: 60.70 >55% EF 2C: 44.00 >55% Mitral Valve MV Pk E: 1.18 MV PK A: 0.98 MV Decel Time: 207.00 E/A: 1.20 E'Lateral: 10.20 E'Medial: 4.68 E/E' Med: 25.20 E/E' Lat: 11.60 PHT: 61.00 MVA PHT: 3.61 Decel Bell: 5.69 Aortic Valve AoV Pk Felix: 1.46 AoV Mn Felix: 1.00 AoV VTI: 0.38 AoV Pk Grad: 9.00 Aov Mn Grad: 5.00 HOMER Cont.VTI: 1.91 LVOT LVOT Pk Felix: 0.86 LVOT Mn Felix: 0.54 LVOT VTI: 0.23 LVOT Pk Grad: 3.00 LVOT Mn Grad: 1.00 LVOT Diam: 2.00 LVOT Area: 3.14 Diastolic Function MV Pk E: 1.18 MV Pk A: 0.98 E/A: 1.20 E'Medial: 4.68 E/E' Med: 25.20 E' Laterial: 10.20 E/E' Lat: 11.60 Tricuspid Valve TR Pk Felix: 3.45 TR Pk Grad: 48.00 RA Press: 15.00 RVSP: 65.00 Great Vessels Aorta Ao Root-2D: 3.10 2.0-3.7 cm Ao Asc: 3.40 2.1-3.4 cm Pulmonary Valve PV Pk Felix: 0.92 Peak PV Grad: 3.00 Updated in Other Vendor System with Status of Final Alan Correia MD electronically signed on 03/16/2021 1:37:13 PM with status of Final
[2021-03-16 07:35] LABS: Anion Gap 15 (12-20); Blood Urea Nitrogen 27 mg/dL (9-16); Calcium 8.8 mg/dL (8.4-10.2); Carbon Dioxide 34 mmol/L (22-29); Chloride 92 mmol/L (96-108); Estimated Glomerular Filt Rate > 60; Glucose Random 405 mg/dL (60-115); Magnesium 1.9 mg/dL (1.6-2.6); Potassium 4.8 mmol/L (3.3-5.1); Sodium 136 mmol/L (135-145)
[2021-03-16] MEDS: Insulin Lispro 100 UNIT/ML 3 ML VIAL SUBCUT ×3 (07:45→20:14)
[2021-03-16 07:55] LABS: Glucose, Whole Blood 357 mg/dL (60-115)
[2021-03-16 08:34] LABS: Acetone, serum QL Negative (Negative)
--- NOTE | 2021-03-16 08:48 | MHC.CM.PN ---
CM met with Patient at bedside and also spoke with Patient's Daughter/HCP/Nini @ [phone] (Patient was receiving care)and addressed IMM,providing them with the original and placing a copy on the chart.Patient lives alone in an apartment with daily family support, O2 from [facility] and 40 hours/week of [facility] services. Patient has a cane and is being fitted for a w/c. Patient's goal for dc is to return home/resume services and CM has initiated and will follow for dc planning. PCP is Dr. Chucky Giles.
[2021-03-16] MEDS: amLODIPine Besylate 10 MG TABLET PO (08:56)
[2021-03-16] MEDS: Gabapentin 100 MG CAPSULE PO ×3 (08:56→20:15)
[2021-03-16] MEDS: Aspirin Enteric Coated 81 MG TABLET.DR PO (08:56)
[2021-03-16] MEDS: hydrALAZINE HCl 50 MG TABLET 100 MG PO ×3 (08:56→20:17)
[2021-03-16] MEDS: Furosemide 40 MG/4 ML VIAL IVPUSH ×2 (08:57→17:01)
[2021-03-16] MEDS: 0.9 % Sodium Chloride Flush 3 ML SYRINGE IVFLUSH ×3 (08:57→20:15)
[2021-03-16] MEDS: polyethylene glycoL 3350 17 GM POWD.PACK PO (09:01)
[2021-03-16] MEDS: Fluticasone/Vilanterol 100/25 BLST.W.DEV 1 PUFF INHALE (09:12)
[2021-03-16 11:30] LABS: Glucose, Whole Blood 298 mg/dL (60-115)
--- NOTE | 2021-03-16 12:00 | P.CONCA_ITS ---
History of Present Illness History of Present Illness Date of Service: 03/16/21 Requesting physician: Grover Priest Chief complaint: CHF Exac Narrative: 71-year-old female with background history of diastolic heart failure, asthma/COPD and obstructive sleep apnea. She has hypertension, hyperlipidemia, diabetes and hypothyroidism. She is presenting with shortness of breath and weight gain. She is complaining of lower extremity edema and abdominal distension. At the time of interview she was very sleepy and seemed encephalopathic. She was unable to continue the conversation without going back to sleep after few seconds. She had asterixis on exam. History was somewhat limited despite using the financial service rep. [facility] Past Medical History Medical History Asthma CHF (congestive heart failure) Chronic constipation Chronic respiratory failure COPD (chronic obstructive pulmonary disease) Diabetes GERD (gastroesophageal reflux disease) HTN (hypertension) Hyperlipemia Hypothyroidism Lymphadenopathy, abdominal KATIUSKA (obstructive sleep apnea) KATIUSKA on CPAP Sleep apnea Splenomegaly Surgical History Surgical History H/O section History of cholecystectomy Hx of tubal ligation Social History Social History Household Members: Family Housing: House Do you presently have visiting nurse or other home services: Yes ([employer]PER[employer]) Alcohol intake: never Patient Tobacco Use Status: Former Tobacco user Use of substances other than those prescribed or required for medical reasons: No Currently Displaying Signs/Symptoms of Drug Intoxication Withdrawal: No Have you been hit, kicked, punched, or otherwise hurt by someone within the past year? If so, by whom?: No Do you feel safe in your current relationship?: No Current Relationship Is there a partner from a previous relationship who is making you feel unsafe now?: No Are you made to feel afraid or neglected: No Advance Directives: No Advance Directives Information Provided: Yes Do you have thoughts of harming others: None Do you have a plan to hurt others: No Plan Recently lost weight without trying: No Nutrition Risks: No Nutritional Risk Patient : No : No Poor oral hygiene: No service: No Current occupational status: disabled Meds Allergies Allergy/AdvReac Type Severity Reaction Status Date / Time lisinopril [LISINOPRIL] Allergy Severe Dizziness Verified 02/03/21 20:20 Active Medications: Current Medications Generic Name Dose Route Start Last Admin Trade Name Freq PRN Reason Stop Dose Admin Acetaminophen 650 mg 03/15/21 16:38 Acetaminophen 325 Mg Tablet PO Q6H PRN Pain, Mild (Pain Scale 1-3) Al Hydroxide/Mg Hydroxide 30 ml 03/15/21 16:38 Magnesium Hydrox/Alum Hydrox 30 Ml Oral.Susp PO Q4H PRN Heartburn/Nausea Albuterol Sulfate 2.5 mg 03/15/21 16:44 Albuterol Sulfate (0.083%) 2.5 Mg/3 Ml Vial.Neb INHALE Q4H PRN Shortness Of Breath Albuterol Sulfate 2 puff 03/15/21 16:44 Albuterol Sulfate 90 Mcg 8 Gm Inhaler INHALE Q4H PRN Shortness Of Breath Amlodipine Besylate 10 mg 03/16/21 09:00 03/16/21 08:56 Amlodipine Besylate 10 Mg Tablet PO 10 mg DAILY DIAZ Administration Protocol Aspirin 81 mg 03/16/21 09:00 03/16/21 08:56 Aspirin Enteric Coated 81 Mg Tablet. PO 81 mg DAILY DIAZ Administration Atorvastatin Calcium 40 mg 03/16/21 21:00 Atorvastatin Calcium 40 Mg Tablet PO BEDTIME DIAZ Dextrose 25 gm 03/15/21 20:22 Dextrose 50 % 25 Gm/50 Ml Vial IVPUSH ONCE PRN Hypoglycemia Docusate Sodium 100 mg 03/15/21 16:38 Docusate Sodium 100 Mg Capsule PO BID PRN constipation Enoxaparin Sodium 40 mg 03/15/21 16:45 03/15/21 17:32 Enoxaparin Sodium 40 Mg/0.4 Ml Syringe SUBCUT 40 mg Q24H DIAZ Administration Fluticasone/Vilanterol 1 puff 03/16/21 08:00 03/16/21 09:12 Fluticasone/Vilanterol 100/25 Blst.W.Dev INHALE 1 puff RDAILY DIAZ Administration Furosemide 40 mg 03/15/21 18:00 03/16/21 08:57 Furosemide 40 Mg/4 Ml Vial IVPUSH 40 mg BID@0900,1800 DIAZ Administration Protocol Gabapentin 100 mg 03/15/21 21:00 03/16/21 08:56 Gabapentin 100 Mg Capsule PO 100 mg TID DIAZ Administration Hydralazine HCl 100 mg 03/15/21 21:00 03/16/21 08:56 Hydralazine Hcl 50 Mg Tablet PO 100 mg TID [facility] Administration Protocol Insulin Glargine 40 unit 03/16/21 21:00 Insulin Glargine,Hum.Rec.Anlog 100 Unit/Ml 10 Ml Vial SUBCUT BEDTIME DIAZ Insulin Human Lispro 0 unit 03/15/21 21:00 03/16/21 11:54 Insulin Lispro 100 Unit/Ml 3 Ml Vial SUBCUT 12 unit QIDACHS [facility] Administration Protocol Levothyroxine Sodium 100 mcg 03/16/21 06:00 03/16/21 05:20 Levothyroxine Sodium 100 Mcg Tablet PO 100 mcg DAILY@0600 [facility] Administration Non-Formulary Medication 24 mcg 03/15/21 21:00 Lubiprostone PO BID DIAZ Ondansetron HCl 4 mg 03/15/21 16:38 Ondansetron Hcl 4 Mg/2 Ml Vial IVPUSH Q8H PRN Nausea and Vomiting Oxycodone HCl 7.5 mg 03/15/21 17:01 Oxycodone Hcl Immed Release 5 Mg Tablet PO TID PRN Pain (Scale Score 4-6) Pharmacy Consult 1 each 03/15/21 10:26 Consult Rx Perform Med Rec MISCELLANE ONCE PRN Consult order Polyethylene Glycol 17 gm 03/15/21 16:44 Polyethylene Glycol 3350 17 Gm Powd.Pack PO DAILY PRN constipation Polyethylene Glycol 17 gm 03/15/21 17:15 03/16/21 09:01 Polyethylene Glycol 3350 17 Gm Powd.Pack PO 17 gm DAILY DIAZ Administration Risperidone 1 mg 03/15/21 21:00 03/15/21 20:34 Risperidone 1 Mg Tablet PO 1 mg BEDTIME DIAZ Administration Senna 17.2 mg 03/15/21 21:00 03/15/21 20:34 Sennosides 8.6 Mg Tablet PO 17.2 mg BEDTIME DIAZ Administration Sodium Chloride 3 ml 03/16/21 00:00 03/16/21 08:57 0.9 % Sodium Chloride Flush 3 Ml Syringe IVFLUSH 3 ml QSHIFT DIAZ Administration Home Medications Medication Instructions Recorded Confirmed Last Taken Type acetaminophen 325 mg PO Q8H PRN 07/08/20 03/15/21 Unknown History albuterol sulfate 2.5 mg INHALATION Q4H PRN 07/08/20 03/15/21 Unknown History albuterol sulfate [ProAir HFA] 2 puff INHALATION Q4-6H PRN 07/08/20 03/15/21 Unknown History amlodipine 10 mg PO DAILY 07/08/20 03/15/21 Unknown History aspirin 81 mg PO DAILY 07/08/20 03/15/21 Unknown History atorvastatin 40 mg PO DAILY 07/08/20 03/15/21 Unknown History fluticasone furoate-vilanterol 1 inh INHALATION DAILY 07/08/20 03/15/21 Unknown History [Breo Ellipta] fluticasone propionate [Flovent 1 puff INHALATION BID 07/08/20 03/15/21 Unknown History HFA] furosemide 40 mg PO DAILY 07/08/20 03/15/21 Unknown History hydralazine 100 mg PO TID 07/08/20 03/15/21 Unknown History insulin glargine [Lantus Solostar 30 unit SUBCUT BEDTIME 07/08/20 03/15/21 03/14/21 History U-100 Insulin] insulin lispro [Humalog KwikPen See Protocol SUBCUT TIDAC 07/08/20 03/15/21 Unknown History Insulin] levothyroxine 100 mcg PO DAILY 07/08/20 03/15/21 Unknown History lubiprostone [Amitiza] 24 mcg PO BID 07/08/20 03/15/21 Unknown History metformin 1,000 mg PO BID 07/08/20 03/15/21 Unknown History omega-3 fatty acids [Fish Oil 1,000 mg PO DAILY 07/08/20 03/15/21 Unknown History Concentrate] quetiapine 200 mg PO BEDTIME 07/08/20 03/15/21 Unknown History sumatriptan succinate 25 mg tablet 0 mg PO DIRECTED 08/11/20 03/15/21 Unknown History gabapentin 100 mg PO TID 03/15/21 03/15/21 Unknown History oxycodone-acetaminophen 1 tab PO TID PRN 03/15/21 03/15/21 Unknown History risperidone [Risperdal] 1 mg PO BEDTIME 03/15/21 03/15/21 Unknown History Physical Exam Vital Signs: Vital Signs: Last Vital Signs Temp 97.5 F 03/16/21 11:09 Pulse 73 03/16/21 11:09 Resp 22 H 03/16/21 11:09 BP 126/58 L 03/16/21 11:09 Pulse Ox 96 03/16/21 11:09 Oxygen Flow Rate 3 03/15/21 10:23 Body Mass Index 40.1 GENERAL APPEARANCE: in no acute distress, somnolent. SKIN: no suspicious lesions, warm and dry. HEART: no murmurs, regular rate and rhythm. LUNGS: clear to auscultation bilaterally. ABDOMEN: soft, nontender. EXTREMITIES: 1+ edema. PERIPHERAL PULSES: equal. NEUROLOGIC: Somnolent but arousable. Asterixis + Results Labs and Meds Result diagrams: 03/15/21 10:43 03/16/21 05:48 Lab results: Laboratory Results - last 24 hr 03/15/21 03/15/21 03/15/21 17:27 20:10 20:12 Sodium Potassium Chloride Carbon Dioxide Anion Gap BUN Creatinine Estim Creat Clear Calc Estimated GFR POC Glucose 567 H* 578 H* Random Glucose Calcium Magnesium Troponin I High Sens 10.6 B-Natriuretic Peptide Acetone, Qual 03/15/21 03/15/21 03/16/21 20:49 22:03 00:20 Sodium 135 Potassium 5.2 H Chloride 89 L Carbon Dioxide 34 H Anion Gap 17 BUN 25 H D Creatinine 1.22 Estim Creat Clear Calc 50.0 Estimated GFR 44 POC Glucose 518 H* 481 H* Random Glucose 669 H* Calcium 8.9 Magnesium Troponin I High Sens B-Natriuretic Peptide Acetone, Qual 03/16/21 03/16/21 03/16/21 02:05 02:34 05:48 Sodium 136 Potassium 4.8 Chloride 92 L Carbon Dioxide 34 H Anion Gap 15 BUN 27 H Creatinine 0.80 Estim Creat Clear Calc 76.0 Estimated GFR > 60 POC Glucose 381 H* 338 H Random Glucose 405 H* Calcium 8.8 Magnesium 1.9 Troponin I High Sens B-Natriuretic Peptide Acetone, Qual 03/16/21 03/16/21 03/16/21 05:48 07:33 08:03 Sodium Potassium Chloride Carbon Dioxide Anion Gap BUN Creatinine Estim Creat Clear Calc Estimated GFR POC Glucose 357 H* Random Glucose Calcium Magnesium Troponin I High Sens B-Natriuretic Peptide 691 H Acetone, Qual Negative 03/16/21 11:12 Sodium Potassium Chloride Carbon Dioxide Anion Gap BUN Creatinine Estim Creat Clear Calc Estimated GFR POC Glucose 298 H Random Glucose Calcium Magnesium Troponin I High Sens B-Natriuretic Peptide Acetone, Qual Imaging Radiologist's impression: Impressions Chest X-Ray 03/15/21 10:27 IMPRESSION: Cardiomegaly with mild prominence of interstitial markings question pneumonitis versus scarring. Similar findings were seen on previous exam 01/30/2021. Heart size is borderline normal. Hip X-Ray 03/15/21 17:19 IMPRESSION: 1. Healing right inferior pubic ramus fracture. 2. No acute osseous abnormality. Knee X-Ray 03/15/21 17:19 IMPRESSION: Normal right knee. Assessment and Plan (1) Acute exacerbation of CHF (congestive heart failure): Status: Acute (2) KATIUSKA on CPAP: Status: Acute (3) HTN (hypertension): Status: Acute (4) Chronic respiratory failure: Qualifiers: Respiratory failure complication: hypoxia Qualified Code(s): J96.11 - Chronic respiratory failure with hypoxia Status: Acute 71-year-old female here for shortness of breath and weight gain. Clinically she is in heart failure. Agree with IV diuretics. She has somnolence right now with some signs of encephalopathy likely due to her underlying COPD. I think she should get blood gas and get BiPAP for few hours. Please be careful with narcotic use in her. I think the likely cause for her heart failure is uncontrolled blood pressures. BP control looks better this morning but her blood pressure was significantly elevated. I think we should closely follow her blood pressure and adjust medications accordingly. Right now I agree with diuretics and current regimen of antihypertensive therapy. We will follow along with you. Thank you for allowing me to participate in the care of your patient. Please feel free to contact me if you have any questions. Procedures Date of Service Date of Service: 03/16/21
[2021-03-16 12:08] LABS: ABG HCO3 47 mmol/L (22-26); ABG pCO2 79 mmHg (32-45); ABG pCO2 TC 77 mmHg (32-45); ABG pH 7.38 (7.35-7.45); ABG pH TC 7.39 (7.35-7.45); ABG pO2 91 mmHg (83-108); ABG pO2 TC 87 (83-108)
[2021-03-16 12:51] LABS: ABG Refer to POC result
[2021-03-16] MEDS: oxyCODONE HCl Immed Release 5 MG TABLET 7.5 MG PO ×2 (12:51→22:39)
--- NOTE | 2021-03-16 15:14 | P.PNIM_ITS ---
Subjective Subjective Date of Service: 03/16/21 Interval History: History taken in Mauritanian from the pt Sleepy but readily awakens Dyspnea improved Still c/o abdominal and leg swelling Physical Exam Vital Signs: Vital Signs: Last Vital Signs Temp 98.1 F 03/16/21 15:07 Pulse 72 03/16/21 15:07 Resp 20 03/16/21 15:07 BP 116/53 L 03/16/21 15:07 Pulse Ox 95 03/16/21 15:07 Oxygen Flow Rate 3 03/15/21 10:23 Body Mass Index 40.1 Gen: in no acute distress HEENT: sclera anicteric, moist mucus membranes Neck: supple Lungs: diminished bilaterally, no wheezing present Heart: regular rate and rhythm, no murmurs, JVD present Abd: obese, edematous, mildly tender, no rebound/guarding : [place]errero draining clear urine Ext: 2+ pitting edema bilateral legs Skin: warm/well-perfused Neuro: alert and oriented x3, no focal findings Psych: appropriate affect Objective Data Current Medications Generic Name Dose Route Start Last Admin Trade Name Krystianq PRN Reason Stop Dose Admin Acetaminophen 650 mg 03/15/21 16:38 Acetaminophen 325 Mg Tablet PO Q6H PRN Pain, Mild (Pain Scale 1-3) Al Hydroxide/Mg Hydroxide 30 ml 03/15/21 16:38 Magnesium Hydrox/Alum Hydrox 30 Ml Oral.Susp PO Q4H PRN Heartburn/Nausea Albuterol Sulfate 2.5 mg 03/15/21 16:44 Albuterol Sulfate (0.083%) 2.5 Mg/3 Ml Vial.Neb INHALE Q4H PRN Shortness Of Breath Albuterol Sulfate 2 puff 03/15/21 16:44 Albuterol Sulfate 90 Mcg 8 Gm Inhaler INHALE Q4H PRN Shortness Of Breath Amlodipine Besylate 10 mg 03/16/21 09:00 03/16/21 08:56 Amlodipine Besylate 10 Mg Tablet PO 10 mg DAILY DIAZ Administration Protocol Aspirin 81 mg 03/16/21 09:00 03/16/21 08:56 Aspirin Enteric Coated 81 Mg Tablet. PO 81 mg DAILY DIAZ Administration Atorvastatin Calcium 40 mg 03/16/21 21:00 Atorvastatin Calcium 40 Mg Tablet PO BEDTIME DIAZ Dextrose 25 gm 03/15/21 20:22 Dextrose 50 % 25 Gm/50 Ml Vial IVPUSH ONCE PRN Hypoglycemia Docusate Sodium 100 mg 03/15/21 16:38 Docusate Sodium 100 Mg Capsule PO BID PRN constipation Enoxaparin Sodium 40 mg 03/15/21 16:45 03/15/21 17:32 Enoxaparin Sodium 40 Mg/0.4 Ml Syringe SUBCUT 40 mg Q24H DIAZ Administration Fluticasone/Vilanterol 1 puff 03/16/21 08:00 03/16/21 09:12 Fluticasone/Vilanterol 100/25 Blst.W.Dev INHALE 1 puff RDAILY [facility] Administration Furosemide 40 mg 03/15/21 18:00 03/16/21 08:57 Furosemide 40 Mg/4 Ml Vial IVPUSH 40 mg BID@0900,1800 [facility] Administration Protocol Gabapentin 100 mg 03/15/21 21:00 03/16/21 08:56 Gabapentin 100 Mg Capsule PO 100 mg TID [facility] Administration Hydralazine HCl 100 mg 03/15/21 21:00 03/16/21 08:56 Hydralazine Hcl 50 Mg Tablet PO 100 mg TID [facility] Administration Protocol Insulin Glargine 40 unit 03/16/21 21:00 Insulin Glargine,Hum.Rec.Anlog 100 Unit/Ml 10 Ml Vial SUBCUT BEDTIME [facility] Insulin Human Lispro 0 unit 03/15/21 21:00 03/16/21 11:54 Insulin Lispro 100 Unit/Ml 3 Ml Vial SUBCUT 12 unit QIDACHS [facility] Administration Protocol Levothyroxine Sodium 100 mcg 03/16/21 06:00 03/16/21 05:20 Levothyroxine Sodium 100 Mcg Tablet PO 100 mcg DAILY@0600 [facility] Administration Non-Formulary Medication 24 mcg 03/15/21 21:00 Lubiprostone PO BID [facility] Ondansetron HCl 4 mg 03/15/21 16:38 Ondansetron Hcl 4 Mg/2 Ml Vial IVPUSH Q8H PRN Nausea and Vomiting Oxycodone HCl 7.5 mg 03/15/21 17:01 03/16/21 12:51 Oxycodone Hcl Immed Release 5 Mg Tablet PO 7.5 mg TID PRN Administration Pain (Scale Score 4-6) Pharmacy Consult 1 each 03/15/21 10:26 Consult Rx Perform Med Rec MISCELLANE ONCE PRN Consult order Polyethylene Glycol 17 gm 03/15/21 16:44 Polyethylene Glycol 3350 17 Gm Powd.Pack PO DAILY PRN constipation Polyethylene Glycol 17 gm 03/15/21 17:15 03/16/21 09:01 Polyethylene Glycol 3350 17 Gm Powd.Pack PO 17 gm DAILY DIAZ Administration Risperidone 1 mg 03/15/21 21:00 03/15/21 20:34 Risperidone 1 Mg Tablet PO 1 mg BEDTIME DIAZ Administration Senna 17.2 mg 03/15/21 21:00 03/15/21 20:34 Sennosides 8.6 Mg Tablet PO 17.2 mg BEDTIME DIAZ Administration Sodium Chloride 3 ml 03/16/21 00:00 03/16/21 08:57 0.9 % Sodium Chloride Flush 3 Ml Syringe IVFLUSH 3 ml QSHIFT DIAZ Administration Labs CBC & Chem 7: 03/15/21 10:43 03/16/21 05:48 Labs: Laboratory Results - last 24 hr 03/15/21 03/15/21 03/15/21 17:27 20:10 20:12 O2 Saturation ABG pH at Pt Temp ABG pH (Temp Correct) ABG pCO2 at Pt Temp ABG pCO2 (Temp Corrct ABG pO2 at Pt Temp ABG pO2 (Temp Correct ABG HCO3 ABG Base Excess (Actual) Sodium Potassium Chloride Carbon Dioxide Anion Gap BUN Creatinine Estim Creat Clear Calc Estimated GFR POC Glucose 567 H* 578 H* Random Glucose Calcium Magnesium Troponin I High Sens 10.6 B-Natriuretic Peptide Acetone, Qual 03/15/21 03/15/21 03/16/21 20:49 22:03 00:20 O2 Saturation ABG pH at Pt Temp ABG pH (Temp Correct) ABG pCO2 at Pt Temp ABG pCO2 (Temp Corrct ABG pO2 at Pt Temp ABG pO2 (Temp Correct ABG HCO3 ABG Base Excess (Actual) Sodium 135 Potassium 5.2 H Chloride 89 L Carbon Dioxide 34 H Anion Gap 17 BUN 25 H D Creatinine 1.22 Estim Creat Clear Calc 50.0 Estimated GFR 44 POC Glucose 518 H* 481 H* Random Glucose 669 H* Calcium 8.9 Magnesium Troponin I High Sens B-Natriuretic Peptide Acetone, Qual 03/16/21 03/16/21 03/16/21 02:05 02:34 05:48 O2 Saturation ABG pH at Pt Temp ABG pH (Temp Correct) ABG pCO2 at Pt Temp ABG pCO2 (Temp Corrct ABG pO2 at Pt Temp ABG pO2 (Temp Correct ABG HCO3 ABG Base Excess (Actual) Sodium 136 Potassium 4.8 Chloride 92 L Carbon Dioxide 34 H Anion Gap 15 BUN 27 H Creatinine 0.80 Estim Creat Clear Calc 76.0 Estimated GFR > 60 POC Glucose 381 H* 338 H Random Glucose 405 H* Calcium 8.8 Magnesium 1.9 Troponin I High Sens B-Natriuretic Peptide Acetone, Qual 03/16/21 03/16/21 03/16/21 05:48 07:33 08:03 O2 Saturation ABG pH at Pt Temp ABG pH (Temp Correct) ABG pCO2 at Pt Temp ABG pCO2 (Temp Corrct ABG pO2 at Pt Temp ABG pO2 (Temp Correct ABG HCO3 ABG Base Excess (Actual) Sodium Potassium Chloride Carbon Dioxide Anion Gap BUN Creatinine Estim Creat Clear Calc Estimated GFR POC Glucose 357 H* Random Glucose Calcium Magnesium Troponin I High Sens B-Natriuretic Peptide 691 H Acetone, Qual Negative 03/16/21 03/16/21 11:12 12:01 O2 Saturation 97.0 ABG pH at Pt Temp 7.38 ABG pH (Temp Correct) 7.39 ABG pCO2 at Pt Temp 79 H* ABG pCO2 (Temp Corrct 77 H* ABG pO2 at Pt Temp 91 ABG pO2 (Temp Correct 87 ABG HCO3 47 H ABG Base Excess (Actual) 18.0 Sodium Potassium Chloride Carbon Dioxide Anion Gap BUN Creatinine Estim Creat Clear Calc Estimated GFR POC Glucose 298 H Random Glucose Calcium Magnesium Troponin I High Sens B-Natriuretic Peptide Acetone, Qual TTE (03/16/21) - Normal left ventricular size and systolic function. - There is a flattened septum in diastole ( D shaped left ventricle) consistent with right ventricular volume overload. - E/E prime ratio is >15, consistent with elevated filling pressures. - There is moderate to severe left ventricular wall thickness. - Moderately increased right ventricular cavity size. There is mildly decreased right ventricular systolic function. - There is moderate tricuspid valve regurgitation. Significantly elevated right atrial pressure. Severe pulmonary hypertension is present. Quality Stroke Does the patient have a stroke diagnosis?: No VTE Prior VTE?: No VTE Risk Level:: Medical - moderate - high VTE Device Contraindication: N/A - Device Ordered VTE Drug Contraindication: N/A - Med Ordered Assessment and Plan (1) Acute exacerbation of CHF (congestive heart failure): Status: Acute Assessment and Plan: hospital d#2 71yo F with HFpEF asthma/COPD and KATIUSKA with chronic hypoxia on home O2 [2L via [place]], HTN, HLD, DM2 and hypothyroidism presenting with subacute chest discomfort, exertional dyspnea, and orthopnea along with 30 lb weight gain over the last 2 months, likely due to decompensated heart failure. # acute/chronic HFpEF - continue diuresis with IV furosemide 40 mg bid; negative 4.4L so far; monitor I/O + daily weights + BNP + BMP + Mg, restrict sodium - repeat hs-Tn-I indeterminate, flat, due to CHF # R hip pain - likely due to old R inferior pubic ramus fx, nonoperative. PT eval. # HTN - continue amlodipine + hydralazine # HLD - continue atorvastatin # COPD/asthma overlap - continue ICS/LABA, prn FANTASMA # chronic hypoxic/hypercarbic respiratory failure - on home O2 2L via [place]. pCO2 79 but pH 7.39, metabolically compensated # DM2 - increase basal/bolus insulin, check A1c # hypothyroidism - continue LT4 # chronic constipation - lubiprostone, bowel regimen # VTE ppx - LMWH
[2021-03-16 15:57] LABS: Glucose, Whole Blood 145 mg/dL (60-115)
[2021-03-16] MEDS: Enoxaparin Sodium 40 MG/0.4 ML SYRINGE SUBCUT (17:02)
[2021-03-16 20:09] LABS: Glucose, Whole Blood 313 mg/dL (60-115)
[2021-03-16] MEDS: Insulin Glargine,Hum.rec.anlog 100 UNIT/ML 10 ML VIAL 40 UNIT SUBCUT (20:14)
[2021-03-16] MEDS: risperiDONE 1 MG TABLET PO (20:15)
[2021-03-16] MEDS: Atorvastatin Calcium 40 MG TABLET PO (20:15)
[2021-03-16] MEDS: Sennosides 8.6 MG TABLET 17.2 MG PO (20:15)
[2021-03-17] VITALS (8 sets, daily range): BP systolic 110–169; BP diastolic 43–71; PULSE 73–83; RESP 17–22; TEMP 36.3–37.1; O2SAT 90–94; BMI 40.8
[2021-03-17] MEDS: Levothyroxine Sodium 100 MCG TABLET PO (05:27)
[2021-03-17 07:10] LABS: Glucose, Whole Blood 190 mg/dL (60-115)
[2021-03-17 07:37] LABS: Anion Gap 12 (12-20); Blood Urea Nitrogen 38 mg/dL (9-16); Calcium 8.6 mg/dL (8.4-10.2); Carbon Dioxide 36 mmol/L (22-29); Chloride 93 mmol/L (96-108); Creatinine Clr Calc Pharmacy 72.2; Estimated Glomerular Filt Rate > 60; Glucose Random 238 mg/dL (60-115); Potassium 4.7 mmol/L (3.3-5.1); Sodium 136 mmol/L (135-145)
[2021-03-17 07:39] LABS: B Type Natriuretic Peptide 178 pg/mL (<100)
[2021-03-17] MEDS: Insulin Lispro 100 UNIT/ML 3 ML VIAL SUBCUT ×4 (07:41→20:55)
[2021-03-17] MEDS: 0.9 % Sodium Chloride Flush 3 ML SYRINGE IVFLUSH ×2 (07:42→15:44)
[2021-03-17 07:51] LABS: Estimated Average Glucose 223 mg/dL; Hemoglobin A1c % 9.4 %
[2021-03-17] MEDS: Fluticasone/Vilanterol 100/25 BLST.W.DEV 1 PUFF INHALE (07:57)
[2021-03-17] MEDS: amLODIPine Besylate 10 MG TABLET PO (08:13)
[2021-03-17] MEDS: polyethylene glycoL 3350 17 GM POWD.PACK PO (08:13)
[2021-03-17] MEDS: Aspirin Enteric Coated 81 MG TABLET.DR PO (08:14)
[2021-03-17] MEDS: Furosemide 40 MG/4 ML VIAL IVPUSH (08:14)
[2021-03-17] MEDS: Gabapentin 100 MG CAPSULE PO ×3 (08:14→20:53)
[2021-03-17] MEDS: hydrALAZINE HCl 50 MG TABLET 100 MG PO ×3 (08:14→20:53)
--- NOTE | 2021-03-17 11:13 | MHC.CM.PN ---
Per ROUNDS discussion, Patient is not yet medically cleared for dc (5L O2, Diuresing/IV Lasix).HOME/resume [employer]OUNTANT [employer]UDIT[employer] services is the goal for dc and CM will follow for possible need to adjust the dc plan.
[2021-03-17 11:43] LABS: Glucose, Whole Blood 235 mg/dL (60-115)
--- NOTE | 2021-03-17 12:02 | P.PNCA_ITS ---
Subjective Subjective Date of Service: 03/17/21 Interval history: Short of breath. Wants to go home. More awake today. Physical Exam Vital Signs: Last Vital Signs Temp 98 F 03/17/21 11:20 Pulse 77 03/17/21 11:20 Resp 20 03/17/21 11:20 BP 169/71 H 03/17/21 11:20 Pulse Ox 90 L 03/17/21 11:20 Oxygen Flow Rate 3 03/15/21 10:23 Body Mass Index 40.8 GENERAL APPEARANCE: in no acute distress SKIN: no suspicious lesions, warm and dry. HEART: no murmurs, regular rate and rhythm. LUNGS: Bilateral crackles. ABDOMEN: soft, nontender. EXTREMITIES: 1+ edema. PERIPHERAL PULSES: equal. NEUROLOGIC: Alert oriented. No focal deficits. Results Labs and Meds Result diagrams: 03/15/21 10:43 03/17/21 05:56 Lab results: Laboratory Results - last 24 hr 03/16/21 03/16/21 03/16/21 12:01 15:35 20:03 O2 Saturation 97.0 ABG pH at Pt Temp 7.38 ABG pH (Temp Correct) 7.39 ABG pCO2 at Pt Temp 79 H* ABG pCO2 (Temp Corrct 77 H* ABG pO2 at Pt Temp 91 ABG pO2 (Temp Correct 87 ABG HCO3 47 H ABG Base Excess (Actual) 18.0 Sodium Potassium Chloride Carbon Dioxide Anion Gap BUN Creatinine Estim Creat Clear Calc Estimated GFR POC Glucose 145 H 313 H Random Glucose Estimat Average Glucose Hemoglobin A1c % Calcium Magnesium B-Natriuretic Peptide 03/17/21 03/17/21 03/17/21 05:56 05:56 05:56 O2 Saturation ABG pH at Pt Temp ABG pH (Temp Correct) ABG pCO2 at Pt Temp ABG pCO2 (Temp Corrct ABG pO2 at Pt Temp ABG pO2 (Temp Correct ABG HCO3 ABG Base Excess (Actual) Sodium 136 Potassium 4.7 Chloride 93 L Carbon Dioxide 36 H Anion Gap 12 BUN 38 H Creatinine 0.85 Estim Creat Clear Calc 72.2 Estimated GFR > 60 POC Glucose Random Glucose 238 H D Estimat Average Glucose 223 Hemoglobin A1c % 9.4 Calcium 8.6 Magnesium 2.0 B-Natriuretic Peptide 178 H 03/17/21 03/17/21 06:58 10:59 O2 Saturation ABG pH at Pt Temp ABG pH (Temp Correct) ABG pCO2 at Pt Temp ABG pCO2 (Temp Corrct ABG pO2 at Pt Temp ABG pO2 (Temp Correct ABG HCO3 ABG Base Excess (Actual) Sodium Potassium Chloride Carbon Dioxide Anion Gap BUN Creatinine Estim Creat Clear Calc Estimated GFR POC Glucose 190 H 235 H Random Glucose Estimat Average Glucose Hemoglobin A1c % Calcium Magnesium B-Natriuretic Peptide Progress Note: A&P Assessment and plan (1) Acute exacerbation of CHF (congestive heart failure): Status: Acute (2) Sleep apnea: Status: Acute (3) RVF (right ventricular failure): Status: Acute (4) Pulmonary hypertension: Status: Acute Assessment and Plan: 71-year-old female with diastolic heart failure, COPD and sleep apnea presenting for congestive heart failure with significant volume overload. Echocardiography is showing moderate right ventricular dilation with at least mild dysfunction as well as severe pulmonary hypertension. I think her hypertension is multifactorial due to her COPD, sleep apnea and diastolic heart failure. she is congested on exam and I think she has further diuretics. I am increasing the the diuretics to 80 mg twice a day. She should comply with BiPAP whenever she sleeps. She was confused yesterday and her pCO2 was elevated. Adding Imdur 30 mg once a day as blood pressure control is poor and this may help her filling pressures. Thank you for allowing me to participate in the care of your patient. Please feel free to contact me if you have any questions. Fall Risk Details Current Medications: Current Medications Generic Name Dose Route Start Last Admin Trade Name Freq PRN Reason Stop Dose Admin Acetaminophen 650 mg 03/15/21 16:38 Acetaminophen 325 Mg Tablet PO Q6H PRN Pain, Mild (Pain Scale 1-3) Al Hydroxide/Mg Hydroxide 30 ml 03/15/21 16:38 Magnesium Hydrox/Alum Hydrox 30 Ml Oral.Susp PO Q4H PRN Heartburn/Nausea Albuterol Sulfate 2.5 mg 03/15/21 16:44 Albuterol Sulfate (0.083%) 2.5 Mg/3 Ml Vial.Neb INHALE Q4H PRN Shortness Of Breath Albuterol Sulfate 2 puff 03/15/21 16:44 Albuterol Sulfate 90 Mcg 8 Gm Inhaler INHALE Q4H PRN Shortness Of Breath Amlodipine Besylate 10 mg 03/16/21 09:00 03/17/21 08:13 Amlodipine Besylate 10 Mg Tablet PO 10 mg DAILY DIAZ Administration Protocol Aspirin 81 mg 03/16/21 09:00 03/17/21 08:14 Aspirin Enteric Coated 81 Mg Tablet.Dr PO 81 mg DAILY DIAZ Administration Atorvastatin Calcium 40 mg 03/16/21 21:00 03/16/21 20:15 Atorvastatin Calcium 40 Mg Tablet PO 40 mg BEDTIME DIAZ Administration Dextrose 25 gm 03/15/21 20:22 Dextrose 50 % 25 Gm/50 Ml Vial IVPUSH ONCE PRN Hypoglycemia Docusate Sodium 100 mg 03/15/21 16:38 Docusate Sodium 100 Mg Capsule PO BID PRN constipation Enoxaparin Sodium 40 mg 03/15/21 16:45 03/16/21 17:02 Enoxaparin Sodium 40 Mg/0.4 Ml Syringe SUBCUT 40 mg Q24H DIAZ Administration Fluticasone/Vilanterol 1 puff 03/16/21 08:00 03/17/21 07:57 Fluticasone/Vilanterol 100/25 Blst.W.Dev INHALE 1 puff RDAILY DIAZ Administration Furosemide 80 mg 03/17/21 16:00 Furosemide 40 Mg/4 Ml Vial IVPUSH BID@0900,1800 [facility] Protocol Gabapentin 100 mg 03/15/21 21:00 03/17/21 08:14 Gabapentin 100 Mg Capsule PO 100 mg TID DIAZ Administration Hydralazine HCl 100 mg 03/15/21 21:00 03/17/21 08:14 Hydralazine Hcl 50 Mg Tablet PO 100 mg TID [facility] Administration Protocol Insulin Glargine 40 unit 03/16/21 21:00 03/16/21 20:14 Insulin Glargine,Hum.Rec.Anlog 100 Unit/Ml 10 Ml Vial SUBCUT 40 unit BEDTIME DIAZ Administration Insulin Human Lispro 0 unit 03/15/21 21:00 03/17/21 07:41 Insulin Lispro 100 Unit/Ml 3 Ml Vial SUBCUT 5 unit QIDACHS [facility] Administration Protocol Isosorbide Mononitrate 30 mg 03/17/21 12:00 Isosorbide Mononitrate 30 Mg Tab.Er.24h PO DAILY [facility] Protocol Levothyroxine Sodium 100 mcg 03/16/21 06:00 03/17/21 05:27 Levothyroxine Sodium 100 Mcg Tablet PO 100 mcg DAILY@0600 DIAZ Administration Non-Formulary Medication 24 mcg 03/15/21 21:00 Lubiprostone PO BID DIAZ Ondansetron HCl 4 mg 03/15/21 16:38 Ondansetron Hcl 4 Mg/2 Ml Vial IVPUSH Q8H PRN Nausea and Vomiting Oxycodone HCl 7.5 mg 03/15/21 17:01 03/16/21 22:39 Oxycodone Hcl Immed Release 5 Mg Tablet PO 7.5 mg TID PRN Administration Pain (Scale Score 4-6) Pharmacy Consult 1 each 03/15/21 10:26 Consult Rx Perform Med Rec MISCELLANE ONCE PRN Consult order Polyethylene Glycol 17 gm 03/15/21 16:44 Polyethylene Glycol 3350 17 Gm Powd.Pack PO DAILY PRN constipation Polyethylene Glycol 17 gm 03/15/21 17:15 03/17/21 08:13 Polyethylene Glycol 3350 17 Gm Powd.Pack PO 17 gm DAILY DIAZ Administration Risperidone 1 mg 03/15/21 21:00 03/16/21 20:15 Risperidone 1 Mg Tablet PO 1 mg BEDTIME DIAZ Administration Senna 17.2 mg 03/15/21 21:00 03/16/21 20:15 Sennosides 8.6 Mg Tablet PO 17.2 mg BEDTIME DIAZ Administration Sodium Chloride 3 ml 03/16/21 00:00 03/17/21 07:42 0.9 % Sodium Chloride Flush 3 Ml Syringe IVFLUSH 3 ml QSHIFT DIAZ Administration Time Spent With Patient Time: Total time spent is greater than 50% in coordination of care (as documented) at patient's floor/unit and/or counseling patient: Time with patient: 15 - 24 minutes Progress Note: Quality Stroke Does the patient have a stroke diagnosis?: No Procedures Date of Service Date of Service: 03/17/21
[2021-03-17] MEDS: Isosorbide Mononitrate 30 MG TAB.ER.24H PO (12:24)
--- NOTE | 2021-03-17 14:58 | PC.NURSE ---
Skin assessment completed today. No open areas found. Patient has bilateral lower extremity edema.
[2021-03-17] MEDS: Furosemide 40 MG/4 ML VIAL 80 MG IVPUSH (15:44)
--- NOTE | 2021-03-17 15:47 | P.PNIM_ITS ---
Subjective Subjective Date of Service: 03/17/21 Interval History: hx taken in [place] from pt dyspnea improved still has leg + abd swelling eating well no chest pain Physical Exam Vital Signs: Vital Signs: Last Vital Signs Temp 98 F 03/17/21 11:20 Pulse 76 03/17/21 15:43 Resp 20 03/17/21 11:20 BP 124/43 L 03/17/21 15:43 Pulse Ox 90 L 03/17/21 11:20 Oxygen Flow Rate 3 03/15/21 10:23 Body Mass Index 40.8 Gen: in no acute distress HEENT: sclera anicteric, moist mucus membranes Neck: supple Lungs: diminished bilaterally, no wheezing present Heart: regular rate and rhythm, no murmurs, JVD present Abd: obese, edematous, mildly tender, no rebound/guarding : [place]ro draining clear urine Ext: 2+ pitting edema bilateral legs Skin: warm/well-perfused Neuro: alert and oriented x3, no focal findings Psych: appropriate affect Objective Data Current Medications Generic Name Dose Route Start Last Admin Trade Name Bakari PRN Reason Stop Dose Admin Acetaminophen 650 mg 03/15/21 16:38 Acetaminophen 325 Mg Tablet PO Q6H PRN Pain, Mild (Pain Scale 1-3) Al Hydroxide/Mg Hydroxide 30 ml 03/15/21 16:38 Magnesium Hydrox/Alum Hydrox 30 Ml Oral.Susp PO Q4H PRN Heartburn/Nausea Albuterol Sulfate 2.5 mg 03/15/21 16:44 Albuterol Sulfate (0.083%) 2.5 Mg/3 Ml Vial.Neb INHALE Q4H PRN Shortness Of Breath Albuterol Sulfate 2 puff 03/15/21 16:44 Albuterol Sulfate 90 Mcg 8 Gm Inhaler INHALE Q4H PRN Shortness Of Breath Amlodipine Besylate 10 mg 03/16/21 09:00 03/17/21 08:13 Amlodipine Besylate 10 Mg Tablet PO 10 mg DAILY DIAZ Administration Protocol Aspirin 81 mg 03/16/21 09:00 03/17/21 08:14 Aspirin Enteric Coated 81 Mg Tablet. PO 81 mg DAILY DIAZ Administration Atorvastatin Calcium 40 mg 03/16/21 21:00 03/16/21 20:15 Atorvastatin Calcium 40 Mg Tablet PO 40 mg BEDTIME DIAZ Administration Dextrose 25 gm 03/15/21 20:22 Dextrose 50 % 25 Gm/50 Ml Vial IVPUSH ONCE PRN Hypoglycemia Docusate Sodium 100 mg 03/15/21 16:38 Docusate Sodium 100 Mg Capsule PO BID PRN constipation Enoxaparin Sodium 40 mg 03/15/21 16:45 03/16/21 17:02 Enoxaparin Sodium 40 Mg/0.4 Ml Syringe SUBCUT 40 mg Q24H DIAZ Administration Fluticasone/Vilanterol 1 puff 03/16/21 08:00 03/17/21 07:57 Fluticasone/Vilanterol 100/25 Blst.W.Dev INHALE 1 puff RDAILY [facility] Administration Furosemide 80 mg 03/17/21 16:00 03/17/21 15:44 Furosemide 40 Mg/4 Ml Vial IVPUSH 80 mg BID@0900,1800 [facility] Administration Protocol Gabapentin 100 mg 03/15/21 21:00 03/17/21 15:43 Gabapentin 100 Mg Capsule PO 100 mg TID [facility] Administration Hydralazine HCl 100 mg 03/15/21 21:00 03/17/21 15:43 Hydralazine Hcl 50 Mg Tablet PO 100 mg TID [facility] Administration Protocol Insulin Glargine 40 unit 03/16/21 21:00 03/16/21 20:14 Insulin Glargine,Hum.Rec.Anlog 100 Unit/Ml 10 Ml Vial SUBCUT 40 unit BEDTIME [facility] Administration Insulin Human Lispro 0 unit 03/15/21 21:00 03/17/21 12:04 Insulin Lispro 100 Unit/Ml 3 Ml Vial SUBCUT 9 unit QIDACHS [facility] Administration Protocol Isosorbide Mononitrate 30 mg 03/17/21 12:00 03/17/21 12:24 Isosorbide Mononitrate 30 Mg Tab.Er.24h PO 30 mg DAILY [facility] Administration Protocol Levothyroxine Sodium 100 mcg 03/16/21 06:00 03/17/21 05:27 Levothyroxine Sodium 100 Mcg Tablet PO 100 mcg DAILY@0600 [facility] Administration Non-Formulary Medication 24 mcg 03/15/21 21:00 Lubiprostone PO BID [facility] Ondansetron HCl 4 mg 03/15/21 16:38 Ondansetron Hcl 4 Mg/2 Ml Vial IVPUSH Q8H PRN Nausea and Vomiting Oxycodone HCl 7.5 mg 03/15/21 17:01 03/16/21 22:39 Oxycodone Hcl Immed Release 5 Mg Tablet PO 7.5 mg TID PRN Administration Pain (Scale Score 4-6) Pharmacy Consult 1 each 03/15/21 10:26 Consult Rx Perform Med Rec MISCELLANE ONCE PRN Consult order Polyethylene Glycol 17 gm 03/15/21 16:44 Polyethylene Glycol 3350 17 Gm Powd.Pack PO DAILY PRN constipation Polyethylene Glycol 17 gm 03/15/21 17:15 03/17/21 08:13 Polyethylene Glycol 3350 17 Gm Powd.Pack PO 17 gm DAILY DIAZ Administration Risperidone 1 mg 03/15/21 21:00 03/16/21 20:15 Risperidone 1 Mg Tablet PO 1 mg BEDTIME DIAZ Administration Senna 17.2 mg 03/15/21 21:00 03/16/21 20:15 Sennosides 8.6 Mg Tablet PO 17.2 mg BEDTIME DIAZ Administration Sodium Chloride 3 ml 03/16/21 00:00 03/17/21 15:44 0.9 % Sodium Chloride Flush 3 Ml Syringe IVFLUSH 3 ml QSHIFT DIAZ Administration Labs CBC & Chem 7: 03/15/21 10:43 03/17/21 05:56 Labs: Laboratory Results - last 24 hr 03/16/21 03/16/21 03/17/21 15:35 20:03 05:56 Sodium 136 Potassium 4.7 Chloride 93 L Carbon Dioxide 36 H Anion Gap 12 BUN 38 H Creatinine 0.85 Estim Creat Clear Calc 72.2 Estimated GFR > 60 POC Glucose 145 H 313 H Random Glucose 238 H D Estimat Average Glucose Hemoglobin A1c % Calcium 8.6 Magnesium 2.0 B-Natriuretic Peptide 03/17/21 03/17/21 03/17/21 05:56 05:56 06:58 Sodium Potassium Chloride Carbon Dioxide Anion Gap BUN Creatinine Estim Creat Clear Calc Estimated GFR POC Glucose 190 H Random Glucose Estimat Average Glucose 223 Hemoglobin A1c % 9.4 Calcium Magnesium B-Natriuretic Peptide 178 H 03/17/21 10:59 Sodium Potassium Chloride Carbon Dioxide Anion Gap BUN Creatinine Estim Creat Clear Calc Estimated GFR POC Glucose 235 H Random Glucose Estimat Average Glucose Hemoglobin A1c % Calcium Magnesium B-Natriuretic Peptide TTE (03/16/21) - Normal left ventricular size and systolic function. - There is a flattened septum in diastole ( D shaped left ventricle) consistent with right ventricular volume overload. - E/E prime ratio is >15, consistent with elevated filling pressures. - There is moderate to severe left ventricular wall thickness. - Moderately increased right ventricular cavity size. There is mildly decreased right ventricular systolic function. - There is moderate tricuspid valve regurgitation. Significantly elevated right atrial pressure. Severe pulmonary hypertension is present. Quality Stroke Does the patient have a stroke diagnosis?: No VTE Prior VTE?: No VTE Risk Level:: Medical - moderate - high VTE Device Contraindication: N/A - Device Ordered VTE Drug Contraindication: N/A - Med Ordered Assessment and Plan (1) Acute exacerbation of CHF (congestive heart failure): Status: Acute Assessment and Plan: hospital d#3 71yo F with HFpEF asthma/COPD and KATIUSKA with chronic hypoxia on home O2 [2L via NC] + CPAP, HTN, HLD, DM2 and hypothyroidism presenting with subacute chest discomfort, exertional dyspnea, and orthopnea along with 30 lb weight gain over the last 2 months, likely due to decompensated heart failure. # acute/chronic HFpEF # severe pulmonary HTN - HF due to diastolic HF and pHTN from KATIUSKA/COPD - needs better control of BP as below - CPAP adherence counseled - continue diuresis with IV furosemide increased to 80 mg bid; negative 5.1L so far; monitor I/O + daily weights + BNP + BMP + Mg, restrict sodium - repeat hs-Tn-I indeterminate, flat, due to CHF # HTN - continue amlodipine + hydralazine; also started Imdur per Cardiology # R hip pain - likely due to old R inferior pubic ramus fx, nonoperative. # HLD - continue atorvastatin # COPD/asthma overlap - continue ICS/LABA, prn FANTASMA # chronic hypoxic/hypercarbic respiratory failure - on home O2 2L via NC. pCO2 79 but pH 7.39, metabolically compensated # KATIUSKA - CPAP # DM2, A1c 9.4 - continue basal/bolus insulin # hypothyroidism - continue LT4 # chronic constipation - lubiprostone, bowel regimen # VTE ppx - LMWH # dispo - pending further diuresis
[2021-03-17 16:52] LABS: Glucose, Whole Blood 286 mg/dL (60-115)
[2021-03-17] MEDS: Enoxaparin Sodium 40 MG/0.4 ML SYRINGE SUBCUT (16:54)
[2021-03-17 20:45] LABS: Glucose, Whole Blood 230 mg/dL (60-115)
[2021-03-17] MEDS: risperiDONE 1 MG TABLET PO (20:53)
[2021-03-17] MEDS: Sennosides 8.6 MG TABLET 17.2 MG PO (20:54)
[2021-03-17] MEDS: Insulin Glargine,Hum.rec.anlog 100 UNIT/ML 10 ML VIAL 40 UNIT SUBCUT (20:54)
[2021-03-17] MEDS: Atorvastatin Calcium 40 MG TABLET PO (20:54)
[2021-03-17] MEDS: oxyCODONE HCl Immed Release 5 MG TABLET 7.5 MG PO (21:55)
[2021-03-18] VITALS (25 sets, daily range): BP systolic 100–161; BP diastolic 47–68; PULSE 70–95; RESP 12–35; TEMP 36.3–37.1; O2SAT 87–94; BMI 39.6
[2021-03-18] MEDS: 0.9 % Sodium Chloride Flush 3 ML SYRINGE IVFLUSH ×3 (01:47→16:56)
[2021-03-18 05:54] LABS: ABG Base Excess 23.9 mmol/L; ABG HCO3 56 mmol/L (22-26); ABG pCO2 106 mmHg (32-45); ABG pCO2 TC 105 mmHg (32-45); ABG pH 7.33 (7.35-7.45); ABG pH TC 7.33 (7.35-7.45); ABG pO2 63 mmHg (83-108); ABG pO2 TC 62 (83-108)
[2021-03-18 05:56] LABS: ABG Refer to POC result
--- NOTE | 2021-03-18 06:15 | PM.EVENT ---
Event Note Date of Service: 03/18/21 Event Note: Hypercapnic respiratory failure: Patient has CO2 retention; patient is drowsy and lethargic. Responds to verbal stimuli. On supplemental oxygen. Spoke to RN to give the goal saturation 93%. Patient ABG showed of 7.3 CO2 retention of 106-likely causing CO2 narcosis Spoke to ICU for Rescue BiPAP. spoke daughter Nini Purdy [phone]; Who mentions that pt's psych med Risperidal is Causing her Drowsy and asking to stop it; she mentioned that she spoke to pts Psychiatrist and decided to Stop it. reports when riasperidal was started a month ago; pt became drowsy and was intubated at [facility].
[2021-03-18 06:21] LABS: Glucose, Whole Blood 69 mg/dL (60-115)
--- NOTE | 2021-03-18 06:36 | MHC.PIE ---
p - spoke with dtr via telephone who voiced her concern to this rn that asking if psych meds were on hold because at [facility] 1 mo ago after receiving psych meds requiring intubation for co2 retention. review of meds given including reisperdal 1mg po given @ 2052 as she had the previous night and at home per med rec. @ 2149. pt oob to bsc to void and is screaming in pain, nsg supv beto ku rn present. pt states she has 10/10 pain in legs and requesting pain meds. low dose roxicodone 7.5mg po given at 2152, pt sleeping on reassessment. at bedside. given roxicodone 7.5 mg po , pt sleeping on reassessment resps easy/reg. rang for assist oob to bsc to void @ 2229 with 1 assist tolerated well. vss @ 0000 & 0400. this am [address] Muller for AMS/lethargic. opens eyes to name, but then back to sleep. held levothyroid med. suspecting co2 retention, abg's drawn as ordered. high critical pc02 reported 106 r.t. & nsg supv paged for bipap, poc taken bs [address] Muller, 1 amp d50% iv 25G given as ordered. bipap placed on pt by r.t.. and purewick external catheter placed after education (pt more alert & following some commands). Dr. Muller spoke to family members & ICU aircraft navigator up to evaluate pt for icu transfer, family aware. resperidal listed as allergy. pt transferred to icu by icu team by 0700
[2021-03-18 07:45] LABS: Glucose, Whole Blood 109 mg/dL (60-115)
[2021-03-18 07:47] LABS: B Type Natriuretic Peptide 235 pg/mL (<100)
[2021-03-18 08:20] LABS: VBG Base Excess 29.9 mmol/L; VBG HCO3 59 mmol/L (22-26); VBG pCO2 78 mmHg; VBG pH 7.48 (7.32-7.43); VBG pO2 200 mmHg
[2021-03-18 08:23] LABS: Venous Blood Gas Refer to POC result
[2021-03-18 08:36] LABS: Anion Gap 9 (12-20); Blood Urea Nitrogen 31 mg/dL (9-16); Calcium 8.8 mg/dL (8.4-10.2); Carbon Dioxide 44 mmol/L (22-29); Chloride 94 mmol/L (96-108); Creatinine Clr Calc Pharmacy 85.1; Estimated Glomerular Filt Rate > 60; Glucose Random 68 mg/dL (60-115); Magnesium 2.1 mg/dL (1.6-2.6); Potassium 4.3 mmol/L (3.3-5.1); Sodium 143 mmol/L (135-145)
[2021-03-18] MEDS: acetaZOLAMIDE sodium 500 MG VIAL 375 MG IVPUSH ×2 (09:00→21:00)
[2021-03-18] MEDS: Albumin Human 25 % 100 ML IV ×3 (09:02→20:57)
[2021-03-18] MEDS: Furosemide 200 MG in 0.9 % Sodium Chloride 80 ML IVCONT (09:55)
[2021-03-18] MEDS: oxyCODONE HCl Immed Release 5 MG TABLET 7.5 MG PO (10:18)
[2021-03-18] MEDS: Isosorbide Mononitrate 30 MG TAB.ER.24H PO (10:20)
[2021-03-18] MEDS: hydrALAZINE HCl 50 MG TABLET 100 MG PO (10:21)
[2021-03-18] MEDS: amLODIPine Besylate 10 MG TABLET PO (10:21)
[2021-03-18] MEDS: Gabapentin 100 MG CAPSULE PO (10:21)
[2021-03-18] MEDS: Aspirin Enteric Coated 81 MG TABLET.DR PO (10:22)
[2021-03-18] MEDS: polyethylene glycoL 3350 17 GM POWD.PACK PO (10:22)
--- NOTE | 2021-03-18 10:29 | P.PNCC_ITS ---
Subjective Subjective Date of Service: 03/18/21 Interval History: 71-year-old lady with underlying history of chronic diastolic congestive heart failure, asthma/COPD, KATIUSKA poorly compliant with CPAP, on home supplemental oxygen 2-3 L, hypertension, diabetes mellitus hypothyroidism admitted on 03/15/2021 with progressive dyspnea and lower extremity edema. She has been treated with diuretic for exacerbation of her underlying chronic diastolic congestive heart failure. Overnight 03/17-03/18 has received opioids for back pain. She was poorly compliant with her nocturnal noninvasive positive pressure ventilation, hyperoxic, and she was noted to be lethargic early in a.m.. Her arterial blood gas demonstrated acute uncompensated hypercapnia and she was transferred to intensive care unit for rescue BiPAP therapy. Now titrated off BiPAP to baseline nasal cannula 2-3 L. Critical Care Time (minutes): 45 Physical Exam Vital Signs: Vital Signs: Last Vital Signs Temp 97.4 F 03/18/21 08:00 Pulse 71 03/18/21 10:21 Resp 12 03/18/21 08:00 BP 160/65 H 03/18/21 10:21 Pulse Ox 92 03/18/21 08:00 Oxygen Flow Rate 3 03/15/21 10:23 Body Mass Index 39.6 Const: General: no acute distress, alert and awake Nutritional Appearance: obese Eyes: Sclerae: sclerae normal EOM: EOMs intact bilaterally Neck: Neck: Yes no lymphadenopathy, Yes trachea midline and Yes supple Resp: Effort & Inspection: normal respiratory effort and no respiratory distress Auscultation: clear to auscultation bilaterally Cardio: Rate: regular rate Rhythm: regular rhythm Heart sounds: no gallops, no murmurs and no rubs GI: Palpation (GI): Soft to palpation and Other GI palpation findings present ( Nontender) Auscultation: normal bowel sounds Extrem: General: No clubbing, No cyanosis and Yes pedal edema (1+ bilateral) Objective Data Labs CBC & Chem 7: 03/15/21 10:43 03/18/21 05:51 Labs: Laboratory Results - last 24 hr 03/17/21 03/17/21 03/17/21 10:59 16:43 20:26 O2 Saturation ABG pH at Pt Temp ABG pH (Temp Correct) ABG pCO2 at Pt Temp ABG pCO2 (Temp Corrct ABG pO2 at Pt Temp ABG pO2 (Temp Correct ABG HCO3 ABG Base Excess (Actual) VBG pH VBG pCO2 VBG pO2 VBG HCO3 VBG O2 Saturation VBG Base Excess Sodium Potassium Chloride Carbon Dioxide Anion Gap BUN Creatinine Estim Creat Clear Calc Estimated GFR POC Glucose 235 H 286 H 230 H Random Glucose Calcium Magnesium B-Natriuretic Peptide 03/18/21 03/18/21 03/18/21 05:46 05:51 05:51 O2 Saturation 88.0 ABG pH at Pt Temp 7.33 L ABG pH (Temp Correct) 7.33 L ABG pCO2 at Pt Temp 106 H* ABG pCO2 (Temp Corrct 105 H* ABG pO2 at Pt Temp 63 L ABG pO2 (Temp Correct 62 L ABG HCO3 56 H ABG Base Excess (Actual) 23.9 VBG pH VBG pCO2 VBG pO2 VBG HCO3 VBG O2 Saturation VBG Base Excess Sodium 143 Potassium 4.3 Chloride 94 L Carbon Dioxide 44 H* D Anion Gap 9 L BUN 31 H Creatinine 0.71 Estim Creat Clear Calc 85.1 Estimated GFR > 60 POC Glucose Random Glucose 68 D Calcium 8.8 Magnesium 2.1 B-Natriuretic Peptide 235 H 03/18/21 03/18/21 03/18/21 06:07 07:41 08:13 O2 Saturation ABG pH at Pt Temp ABG pH (Temp Correct) ABG pCO2 at Pt Temp ABG pCO2 (Temp Corrct ABG pO2 at Pt Temp ABG pO2 (Temp Correct ABG HCO3 ABG Base Excess (Actual) VBG pH 7.48 H VBG pCO2 78 VBG pO2 200 VBG HCO3 59 H VBG O2 Saturation 100.0 VBG Base Excess 29.9 Sodium Potassium Chloride Carbon Dioxide Anion Gap BUN Creatinine Estim Creat Clear Calc Estimated GFR POC Glucose 69 109 Random Glucose Calcium Magnesium B-Natriuretic Peptide Progress Note: A&P Assessment and plan (1) Acute exacerbation of CHF (congestive heart failure): Status: Acute Assessment and Plan: Assessment: 71 year admitted exacerbation of underlying chronic diastolic congestive heart failure resulting in acute on chronic hypoxic and hypercapnic respiratory failure transferred to intensive care unit for rescue BiPAP, now titrated off Plan: Neuro: No acute issues. Cardiac: Acute on chronic diastolic congestive heart failure, chronic right- sided heart failure secondary to left-sided heart failure and chronic KATIUSKA. Improving with diuresis. Underlying hypertension. Pulmonary: Acute on chronic hypoxic and hypercapnic respiratory failure briefly requiring BiPAP, now titrated back to 2-3 L baseline supplemental oxygen. Avoid hyperoxia with O2 saturation above 93%. Underlying KATIUSKA continue with nocturnal CPAP. Underlying asthma/COPD overlap syndrome. Renal: No acute issues. Endo: No acute issues. Underlying diabetes mellitus. GI: No acute issues. ID: No acute issues Heme/Onc: No acute issues. Psych: No acute issues. Miscellaneous: No acute issues. Prophylaxis: Lovenox Diet: Cardiac Critical care time spent: 45 minutes (2) Acute on chronic respiratory failure with hypoxia and hypercapnia: Status: Acute (3) RVF (right ventricular failure): Status: Acute (4) Pulmonary hypertension: Status: Acute (5) Sleep apnea: Status: Acute (6) HTN (hypertension): Status: Acute (7) Diabetes: Status: Acute (8) COPD (chronic obstructive pulmonary disease): Status: Acute Quality Stroke Does the patient have a stroke diagnosis?: No VTE Prior VTE?: No VTE Risk Level:: Medical - moderate - high VTE Device Contraindication: N/A - Device Ordered VTE Drug Contraindication: N/A - Med Ordered
[2021-03-18 11:45] LABS: Glucose, Whole Blood 52 mg/dL (60-115)
[2021-03-18 11:45] LABS: Glucose, Whole Blood 50 mg/dL (60-115)
[2021-03-18] MEDS: Dextrose 10 % 1,000 ML 20 ML IVCONT (11:57)
--- NOTE | 2021-03-18 13:15 | PM.PNCARD ---
Subjective Subjective Date of Service: 03/18/21 <SORAYA Azul - Last Filed: 03/18/21 13:32> 03/18/21 <Alan Correia MD - Last Filed: 03/18/21 14:01> Principal diagnosis: CHF <SORAYA Azul - Last Filed: 03/18/21 13:32> Interval history: cardiology follow up for CHF. Seen at 1300. Today she is observed to be sleepy but easily arousable with verbal stimuli. She reports feeling well. O2 3liter nasal cannula with sat 90%. No reports of chest pains, palpitation, dizziness. Does report some low back discomfort. No significant leg edema. Daughter present at bedside. <SORAYA Azul - Last Filed: 03/18/21 13:32> Review of Systems Review of Systems as above <SORAYA Azul - Last Filed: 03/18/21 13:32> Yes all other systems are reviewed and are negative <SORAYA Azul - Last Filed: 03/18/21 13:32> Physical Exam Vital Signs: Last Vital Signs Temp 98.0 F 03/18/21 12:00 Pulse 83 03/18/21 12:00 Resp 18 03/18/21 12:00 BP 125/47 L 03/18/21 12:00 Pulse Ox 90 L 03/18/21 12:00 Oxygen Flow Rate 3 03/15/21 10:23 Body Mass Index 39.6 <SORAYA Azul - Last Filed: 03/18/21 13:32> Const Other: easily arousable. answers questions. short responses, oriented <SORAYA Azul - Last Filed: 03/18/21 13:32> General: cooperative <SORAYA Azul - Last Filed: 03/18/21 13:32> Orientation/consciousness: patient oriented x3 <SORAYA Azul - Last Filed: 03/18/21 13:32> Neck Other: Prominent JVD noted <SORAYA Azul - Last Filed: 03/18/21 13:32> Resp Other: rales noted lower half of lung amezcua bilaterally, no cough <CALI AzulC - Last Filed: 03/18/21 13:32> Effort & Inspection: normal respiratory effort and not labored <Niki Camara NP - Last Filed: 03/18/21 13:32> Auscultation: no rhonchi and no wheezes <Niki Camara NP - Last Filed: 03/18/21 13:32> Cardio Jugular venous distension: JVD present <Niki Camara NP - Last Filed: 03/18/21 13:32> Palpation: normal PMI <Niki Camara NP - Last Filed: 03/18/21 13:32> Rate: regular rate <Niki Camara NP - Last Filed: 03/18/21 13:32> Rhythm: regular rhythm <Niki Camara NP - Last Filed: 03/18/21 13:32> Heart sounds: S1 normal heart sound present and S2 normal heart sound present <Niki Camara NP - Last Filed: 03/18/21 13:32> Peripheral pulses: Peripheral pulses 2+ throughout <Niki Camara [facility] - Last Filed: 03/18/21 13:32> Neuro General: patient oriented x3 <Niki Camara NP - Last Filed: 03/18/21 13:32> Extrem General: Yes normal to inspection and Yes edema (trace posterior left ankle) <Niki Camara NP - Last Filed: 03/18/21 13:32> Results Labs and Meds Result diagrams: : 03/15/21 10:43 03/18/21 05:51 <Niki Camara NP - Last Filed: 03/18/21 13:32> Lab results: Laboratory Results - last 24 hr 03/17/21 03/17/21 03/18/21 16:43 20:26 05:46 O2 Saturation 88.0 ABG pH at Pt Temp 7.33 L ABG pH (Temp Correct) 7.33 L ABG pCO2 at Pt Temp 106 H* ABG pCO2 (Temp Corrct 105 H* ABG pO2 at Pt Temp 63 L ABG pO2 (Temp Correct 62 L ABG HCO3 56 H ABG Base Excess (Actual) 23.9 VBG pH VBG pCO2 VBG pO2 VBG HCO3 VBG O2 Saturation VBG Base Excess Sodium Potassium Chloride Carbon Dioxide Anion Gap BUN Creatinine Estim Creat Clear Calc Estimated GFR POC Glucose 286 H 230 H Random Glucose Calcium Magnesium B-Natriuretic Peptide 03/18/21 03/18/21 03/18/21 05:51 05:51 06:07 O2 Saturation ABG pH at Pt Temp ABG pH (Temp Correct) ABG pCO2 at Pt Temp ABG pCO2 (Temp Corrct ABG pO2 at Pt Temp ABG pO2 (Temp Correct ABG HCO3 ABG Base Excess (Actual) VBG pH VBG pCO2 VBG pO2 VBG HCO3 VBG O2 Saturation VBG Base Excess Sodium 143 Potassium 4.3 Chloride 94 L Carbon Dioxide 44 H* D Anion Gap 9 L BUN 31 H Creatinine 0.71 Estim Creat Clear Calc 85.1 Estimated GFR > 60 POC Glucose 69 Random Glucose 68 D Calcium 8.8 Magnesium 2.1 B-Natriuretic Peptide 235 H 03/18/21 03/18/21 03/18/21 07:41 08:13 11:38 O2 Saturation ABG pH at Pt Temp ABG pH (Temp Correct) ABG pCO2 at Pt Temp ABG pCO2 (Temp Corrct ABG pO2 at Pt Temp ABG pO2 (Temp Correct ABG HCO3 ABG Base Excess (Actual) VBG pH 7.48 H VBG pCO2 78 VBG pO2 200 VBG HCO3 59 H VBG O2 Saturation 100.0 VBG Base Excess 29.9 Sodium Potassium Chloride Carbon Dioxide Anion Gap BUN Creatinine Estim Creat Clear Calc Estimated GFR POC Glucose 109 52 L* Random Glucose Calcium Magnesium B-Natriuretic Peptide 03/18/21 11:41 O2 Saturation ABG pH at Pt Temp ABG pH (Temp Correct) ABG pCO2 at Pt Temp ABG pCO2 (Temp Corrct ABG pO2 at Pt Temp ABG pO2 (Temp Correct ABG HCO3 ABG Base Excess (Actual) VBG pH VBG pCO2 VBG pO2 VBG HCO3 VBG O2 Saturation VBG Base Excess Sodium Potassium Chloride Carbon Dioxide Anion Gap BUN Creatinine Estim Creat Clear Calc Estimated GFR POC Glucose 50 L* Random Glucose Calcium Magnesium B-Natriuretic Peptide <Niki Camara, STEAM HOIST OPERATOR-C - Last Filed: 03/18/21 13:32> Progress Note: A&P Assessment and plan (1) Acute exacerbation of CHF (congestive heart failure): Status: Acute <SORAYA Azul - Last Filed: 03/18/21 13:32> Assessment and Plan: Admit with increased sob, weight gain. Being tx for acute on chronic right heart failure and diastolic HF. Has underlying obesity, KATIUSKA with CPAP use. Being diuresed with IV lasix drip. Fluid balance neg 7.4 liters since admit. BNP improving. On exam she still has JVD and rales bilaterally. Cr 0.71. Continue to diurese with IV Lasix drip - currently at 10mghr. Strict I+O monitoring, close monitoring of electrolyte and kidney function. Electrolyte replacement as warranted. <SORAYA Azul - Last Filed: 03/18/21 13:32> (2) RVF (right ventricular failure): Status: Acute <SORAYA Azul - Last Filed: 03/18/21 13:32> Assessment and Plan: Echo this admit shows EF 60-65%, abnormal diastolic function, moderate RV dilation, flattened septum in diastole consistent with RV fluid overload, and severe pulm HTN. <SORAYA Azul - Last Filed: 03/18/21 13:32> (3) Pulmonary hypertension: Status: Acute <SORAYA Azul - Last Filed: 03/18/21 13:32> (4) Acute on chronic respiratory failure with hypoxia and hypercapnia: Status: Acute <SORAYA Azul - Last Filed: 03/18/21 13:32> Assessment and Plan: Transferred to ICU this am with decreased responsiveness. ABGs showed PCO2 106. On Bipap for short while, now on nasal cannula 3 liters. Avoiding sat > 93%. Being followed by Power Plant Mechanic. <SORAYA Azul - Last Filed: 03/18/21 13:32> (5) KATIUSKA on CPAP: Status: Acute <SORAYA Azul - Last Filed: 03/18/21 13:32> (6) HTN (hypertension): Status: Acute <SORAYA Azul Last Filed: 03/18/21 13:32> Assessment and Plan: Good at this time, 125/47. Initially had elevated BP and was started on Imdur. Continue Imdur and IV lasix. Continue usual home hydralazine, amlodipine. <SORAYA Azul - Last Filed: 03/18/21 13:32> Fall Risk Details Current Medications: Current Medications Generic Name Dose Route Start Last Admin Trade Name Freq PRN Reason Stop Dose Admin Acetaminophen 650 mg 03/15/21 16:38 Acetaminophen 325 Mg Tablet PO Q6H PRN Pain, Mild (Pain Scale 1-3) Acetazolamide 375 mg 03/18/21 09:00 03/18/21 09:00 Acetazolamide Sodium 500 Mg Vial IVPUSH 03/20/21 21:01 375 mg BID DIAZ Administration Al Hydroxide/Mg Hydroxide 30 ml 03/15/21 16:38 Magnesium Hydrox/Alum Hydrox 30 Ml Oral.Susp PO Q4H PRN Heartburn/Nausea Albuterol Sulfate 2.5 mg 03/15/21 16:44 Albuterol Sulfate (0.083%) 2.5 Mg/3 Ml Vial.Neb INHALE Q4H PRN Shortness Of Breath Albuterol Sulfate 2 puff 03/15/21 16:44 Albuterol Sulfate 90 Mcg 8 Gm Inhaler INHALE Q4H PRN Shortness Of Breath Amlodipine Besylate 10 mg 03/16/21 09:00 03/18/21 10:21 Amlodipine Besylate 10 Mg Tablet PO 10 mg DAILY DIAZ Administration Protocol Aspirin 81 mg 03/16/21 09:00 03/18/21 10:22 Aspirin Enteric Coated 81 Mg Tablet.Dr PO 81 mg DAILY DIAZ Administration Atorvastatin Calcium 40 mg 03/16/21 21:00 03/17/21 20:54 Atorvastatin Calcium 40 Mg Tablet PO 40 mg BEDTIME DIAZ Administration Dextrose 25 gm 03/15/21 20:22 03/18/21 06:15 Dextrose 50 % 25 Gm/50 Ml Vial IVPUSH 25 gm ONCE PRN Administration Hypoglycemia Dextrose 25 gm 03/18/21 06:14 Dextrose 50 % 25 Gm/50 Ml Vial IVPUSH ONCE PRN hypoglycemia Docusate Sodium 100 mg 03/15/21 16:38 Docusate Sodium 100 Mg Capsule PO BID PRN constipation Enoxaparin Sodium 40 mg 03/15/21 16:45 03/17/21 16:54 Enoxaparin Sodium 40 Mg/0.4 Ml Syringe SUBCUT 40 mg Q24H DIAZ Administration Fluticasone/Vilanterol 1 puff 03/16/21 08:00 03/18/21 07:20 Fluticasone/Vilanterol 100/25 Blst.W.Dev INHALE Not Given RDAILY [facility] Gabapentin 100 mg 03/15/21 21:00 03/18/21 10:21 Gabapentin 100 Mg Capsule PO 100 mg TID DIAZ Administration Hydralazine HCl 100 mg 03/15/21 21:00 03/18/21 10:21 Hydralazine Hcl 50 Mg Tablet PO 100 mg TID [facility] Administration Protocol Furosemide 200 mg/ Sodium 100 mls @ 5 mls/hr 03/18/21 08:00 03/18/21 09:55 Chloride IVCONT 10 mg/hr .Q20H DIAZ 5 mls/hr Administration 10 MG/HR Albumin Human 100 mls @ 100 mls/hr 03/18/21 08:00 03/18/21 10:14 Kedbumin 25 % IV 03/19/21 02:59 Infused Q6H [facility] Infusion Dextrose 1,000 mls @ 20 mls/hr 03/18/21 11:45 03/18/21 11:57 D10 IVCONT 20 mls/hr .Q24H DIAZ Administration Insulin Glargine 40 unit 03/16/21 21:00 03/17/21 20:54 Insulin Glargine,Hum.Rec.Anlog 100 Unit/Ml 10 Ml Vial SUBCUT 40 unit BEDTIME [facility] Administration Insulin Human Lispro 0 unit 03/15/21 21:00 03/18/21 11:58 Insulin Lispro 100 Unit/Ml 3 Ml Vial SUBCUT Not Given QIDACHS [facility] Protocol Isosorbide Mononitrate 30 mg 03/17/21 12:00 03/18/21 10:20 Isosorbide Mononitrate 30 Mg Tab.Er.24h PO 30 mg DAILY DIAZ Administration Protocol Levothyroxine Sodium 100 mcg 03/16/21 06:00 03/18/21 05:54 Levothyroxine Sodium 100 Mcg Tablet PO Not Given DAILY@0600 [facility] Non-Formulary Medication 24 mcg 03/15/21 21:00 Lubiprostone PO BID DIAZ Ondansetron HCl 4 mg 03/15/21 16:38 Ondansetron Hcl 4 Mg/2 Ml Vial IVPUSH Q8H PRN Nausea and Vomiting Oxycodone HCl 7.5 mg 03/15/21 17:01 03/18/21 10:18 Oxycodone Hcl Immed Release 5 Mg Tablet PO 7.5 mg TID PRN Administration Pain (Scale Score 4-6) Pharmacy Consult 1 each 03/15/21 10:26 Consult Rx Perform Med Rec MISCELLANE ONCE PRN Consult order Polyethylene Glycol 17 gm 03/15/21 16:44 Polyethylene Glycol 3350 17 Gm Powd.Pack PO DAILY PRN constipation Polyethylene Glycol 17 gm 03/15/21 17:15 03/18/21 10:22 Polyethylene Glycol 3350 17 Gm Powd.Pack PO 17 gm DAILY DIAZ Administration Risperidone 1 mg 03/15/21 21:00 03/17/21 20:53 Risperidone 1 Mg Tablet PO 1 mg BEDTIME DIAZ Administration Senna 17.2 mg 03/15/21 21:00 03/17/21 20:54 Sennosides 8.6 Mg Tablet PO 17.2 mg BEDTIME DIAZ Administration Sodium Chloride 3 ml 03/16/21 00:00 03/18/21 09:03 0.9 % Sodium Chloride Flush 3 Ml Syringe IVFLUSH 3 ml QSHIFT DIAZ Administration <SORAYA Azul - Last Filed: 03/18/21 13:32> Time Spent With Patient Time: Total time spent is greater than 50% in coordination of care (as documented) at patient's floor/unit and/or counseling patient: 23 <SORAYA Azul - Last Filed: 03/18/21 13:32> Time with patient: 15 - 24 minutes <SORAYA Azul - Last Filed: 03/18/21 13:32> Progress Note: Quality Stroke Does the patient have a stroke diagnosis?: No <SORAYA Azul - Last Filed: 03/18/21 13:32> Procedures Date of Service Date of Service: 03/18/21 <SORAYA Azul - Last Filed: 03/18/21 13:32>
--- NOTE | 2021-03-18 13:27 | PC.NURSE ---
Addendum entered by Shayy Dominique RN 03/18/21 15:32: Transfer to [facility] cancelled, pCO2 105. MD aware. Patient drowsy, Gabapentin held. BP low at 15:00 100/61. Lasix drip cut in half to 5mg/hr. Original Note: patient received to ICU this AM from [facility] for purpose of BiPAP after ABGs showed elevated PCO2. Quickly weaned to NC by MD. C/O back pain, PRN Oxycodone given PO with AM meds. Good relief stated form patient. Orders for Albumin, Diamox IVP and IV Lasix drip recieved and carried out; Lasix infusing at 10mg/hr. Albumin is a series. Second IV placed 20g into Right FA for more adequate access as LAC line is positional. Patient with PureWick in place for urine collection. Clear yellow urine return noted. AM blood sugar 109, no coverage required. Lunchtime sugar was 52, repeated 50. Patient consumed apple juice, a full lunch tray and was started on slow infusion D10 at 20ml/hr. Afternoon labs drawn at 13:30. Tolerating NC well with SpO2 remaining high 80s-low 90s. Resting comfortably at this time. Plan: possible transfer back to [facility]
[2021-03-18 14:04] LABS: VBG Base Excess 23.3 mmol/L; VBG HCO3 56 mmol/L (22-26); VBG pCO2 106 mmHg; VBG pH 7.32 (7.32-7.43); VBG pO2 60 mmHg
[2021-03-18 14:16] LABS: Venous Blood Gas Refer to POC result
[2021-03-18 14:31] LABS: Anion Gap 9 (12-20); Blood Urea Nitrogen 26 mg/dL (9-16); Calcium 9.1 mg/dL (8.4-10.2); Carbon Dioxide 45 mmol/L (22-29); Chloride 92 mmol/L (96-108); Creatinine Clr Calc Pharmacy 74.5; Estimated Glomerular Filt Rate > 60; Glucose Random 137 mg/dL (60-115); Potassium 3.8 mmol/L (3.3-5.1); Sodium 142 mmol/L (135-145)
[2021-03-18 16:29] LABS: Glucose, Whole Blood 147 mg/dL (60-115)
[2021-03-18] MEDS: Enoxaparin Sodium 40 MG/0.4 ML SYRINGE SUBCUT (17:03)
[2021-03-18 20:29] LABS: VBG Base Excess 21.8 mmol/L; VBG HCO3 48 mmol/L (22-26); VBG pCO2 57 mmHg; VBG pH 7.52 (7.32-7.43); VBG pO2 95 mmHg
[2021-03-18 20:39] LABS: Venous Blood Gas Refer to POC result
[2021-03-18 20:46] LABS: Glucose, Whole Blood 333 mg/dL (60-115)
[2021-03-18] MEDS: Atorvastatin Calcium 40 MG TABLET PO (20:58)
[2021-03-18] MEDS: Sennosides 8.6 MG TABLET 17.2 MG PO (20:58)
[2021-03-18] MEDS: hydrALAZINE HCl 50 MG TABLET PO (20:58)
[2021-03-18 20:59] LABS: Carbon Dioxide 40 mmol/L (22-29)
[2021-03-18] MEDS: Insulin Glargine,Hum.rec.anlog 100 UNIT/ML 10 ML VIAL 30 UNIT SUBCUT (20:59)
[2021-03-18 21:00] LABS: Blood Urea Nitrogen 27 mg/dL (9-16); Calcium 8.9 mg/dL (8.4-10.2); Creatinine Clr Calc Pharmacy 55.4; Estimated Glomerular Filt Rate 50; Glucose Random 337 mg/dL (60-115)
[2021-03-18] MEDS: Insulin Lispro 100 UNIT/ML 3 ML VIAL SUBCUT (21:00)
[2021-03-18 21:06] LABS: Anion Gap 12 (12-20); Chloride 92 mmol/L (96-108); Potassium 4.6 mmol/L (3.3-5.1); Sodium 139 mmol/L (135-145)
[2021-03-18 23:06] LABS: Glucose, Whole Blood 290 mg/dL (60-115)
[2021-03-19] VITALS (23 sets, daily range): BP systolic 122–172; BP diastolic 47–101; PULSE 74–104; RESP 12–32; TEMP 36.5–38.4; O2SAT 87–95; BMI 37.8
[2021-03-19] MEDS: traZODone HCL 25 MG HALFTAB PO (00:17)
[2021-03-19] MEDS: Albumin Human 25 % 100 ML IV (02:02)
[2021-03-19 03:04] LABS: Glucose, Whole Blood 195 mg/dL (60-115)
[2021-03-19] MEDS: Levothyroxine Sodium 100 MCG TABLET PO (05:18)
[2021-03-19 05:46] LABS: MANUAL DIFF FLAG NO
--- NOTE | 2021-03-19 05:46 | PC.NURSE ---
Addendum entered by Sophie Campos RN 03/19/21 06:31: Pt more drowsy and calm with daughter at bedside, placed on bipap 18/8/30% at 0615. Resting comfortably at this time. Original Note: Pt alert to person, restless, pulling at lines/tubes, anxious, disoriented. Placed on bipap at bedtime, constantly trying to rip off mask and get OOB. Desaturates to 70s, RR 30s, recovers slowly. Multiple attempts by STRATIGRAPHY TEACHER and RN to educate pt to comply with care plan. 25 mg PO trazodone given x1 with little effect. 1:1 sitter with little effect. Daughter called/updated, at bedside this AM with good effect. Lasix gtt stopped overnight per STRATIGRAPHY TEACHER- UOP approx 2L via purwick x12 hrs. Skin intact, air loss pump placed.
[2021-03-19 05:51] LABS: Basophils Percent Auto 0.1 % (0-2); Eosinophils Absolute Auto 0.1 X10*3/uL (0.0-0.4); Eosinophils Percent Auto 0.5 % (0-4); Hematocrit 39.3 % (37-47); Hemoglobin 11.7 g/dl (12.0-16.0); Imm Gran Abs Auto 0.06 X10*3/uL (0.00-0.03); Imm Gran Pct Auto 0.4 % (0.0-0.4); Lymphocytes Absolute Auto 0.8 X10*3/uL (1.2-4.9); Lymphocytes Percent Auto 5.7 % (20-40); Mean Corpuscular HGB Conc 29.8 g/dl (31.0-35.0); Mean Corpuscular Hemoglobin 28.7 pg (27.0-33.0); Mean Corpuscular Volume 96.6 fL (80-98); Mean Platelet Volume 11.8 fL (9.4-12.3); Monocytes Absolute Auto 1.1 X10*3/uL (0.1-1.2); Monocytes Percent Auto 8.1 % (2-11); Neutrophils Absolute Auto 11.7 X10*3/uL (2.0-8.3); Neutrophils Percent Auto 85.2 % (45-73); Platelet Count 158 X10*3/uL (160-400); Red Blood Count 4.07 X10*6/uL (4.20-5.50); Red Cell Distribution Width 15.5 % (11.0-16.0); White Blood Count 13.8 X10*3/uL (4.8-10.8)
[2021-03-19 06:22] LABS: Albumin Level 4.4 g/dL (3.5-5.0); Anion Gap 13 (12-20); Blood Urea Nitrogen 22 mg/dL (9-16); Calcium 9.5 mg/dL (8.4-10.2); Carbon Dioxide 37 mmol/L (22-29); Chloride 94 mmol/L (96-108); Creatinine Clr Calc Pharmacy 79.6; Estimated Glomerular Filt Rate > 60; Glucose Random 161 mg/dL (60-115); Magnesium 1.9 mg/dL (1.6-2.6); Phosphorus 2.3 mg/dL (2.7-4.5); Potassium 3.7 mmol/L (3.3-5.1); Sodium 140 mmol/L (135-145)
[2021-03-19 07:42] LABS: Glucose, Whole Blood 143 mg/dL (60-115)
[2021-03-19] MEDS: Potassium Phosphate 30 MMOL in 0.9 % Sodium Chloride 500 ML 85 MMOL IV (08:28)
[2021-03-19] MEDS: 0.9 % Sodium Chloride Flush 3 ML SYRINGE IVFLUSH ×2 (08:44→17:26)
[2021-03-19] MEDS: acetaZOLAMIDE sodium 500 MG VIAL 375 MG IVPUSH ×2 (09:02→21:35)
[2021-03-19] MEDS: Bumetanide 1 MG/4 ML VIAL 2 MG IVPUSH ×2 (09:02→21:45)
[2021-03-19] MEDS: Isosorbide Mononitrate 30 MG TAB.ER.24H PO (09:03)
[2021-03-19] MEDS: polyethylene glycoL 3350 17 GM POWD.PACK PO (09:03)
[2021-03-19] MEDS: amLODIPine Besylate 10 MG TABLET PO (09:03)
[2021-03-19] MEDS: hydrALAZINE HCl 50 MG TABLET PO ×3 (09:03→21:39)
[2021-03-19] MEDS: Aspirin Enteric Coated 81 MG TABLET.DR PO (09:03)
--- NOTE | 2021-03-19 09:34 | P.PNCC_ITS ---
Subjective Subjective Date of Service: 03/19/21 Interval History: 71-year-old lady with underlying history of chronic diastolic congestive heart failure, asthma/COPD, KATIUSKA poorly compliant with CPAP, on home supplemental oxygen 2-3 L, hypertension, diabetes mellitus hypothyroidism admitted on 03/15/2021 with progressive dyspnea and lower extremity edema. She has been treated with diuretic for exacerbation of her underlying chronic diastolic congestive heart failure. Overnight 03/17-03/18 has received opioids for back pain. She was poorly compliant with her nocturnal noninvasive positive pressure ventilation, hyperoxic, and she was noted to be lethargic early in a.m.. Her arterial blood gas demonstrated acute uncompensated hypercapnia and she was transferred to intensive care unit for rescue BiPAP therapy. Now titrated off BiPAP to baseline nasal cannula 2-3 L. Heart failure improving with diuresis. Critical Care Time (minutes): 0 Physical Exam Vital Signs: Vital Signs: Last Vital Signs Temp 97.7 F 03/19/21 08:00 Pulse 100 03/19/21 09:03 Resp 22 H 03/19/21 09:00 BP 160/57 H 03/19/21 09:03 Pulse Ox 88 L 03/19/21 09:00 Oxygen Flow Rate 3 03/15/21 10:23 Body Mass Index 37.8 Const: General: no acute distress, alert and awake Nutritional Appearance: obese Eyes: Sclerae: sclerae normal EOM: EOMs intact bilaterally Neck: Neck: Yes no lymphadenopathy, Yes trachea midline and Yes supple Resp: Effort & Inspection: normal respiratory effort and no respiratory distress Auscultation: clear to auscultation bilaterally Cardio: Rate: regular rate Rhythm: regular rhythm Heart sounds: no gallops, no murmurs and no rubs GI: Palpation (GI): Soft to palpation and Other GI palpation findings present ( Nontender) Auscultation: normal bowel sounds Extrem: General: No clubbing, No cyanosis and Yes pedal edema (1+ bilateral) Objective Data Labs CBC & Chem 7: 03/19/21 05:40 03/19/21 05:40 Labs: Laboratory Results - last 24 hr 03/18/21 03/18/21 03/18/21 11:38 11:41 13:56 WBC RBC Hgb Hct MCV MCH MCHC RDW Plt Count MPV Immature Gran % (Auto) Neut % (Auto) Lymph % (Auto) Beadle % (Auto) Eos % (Auto) Baso % (Auto) Lymph # (Auto) Beadle # (Auto) Eos # (Auto) Baso # (Auto) Abs Immat Gran (auto) Absolute Neuts (auto) Absolute Nucleated RBC Nucleated RBC % (auto) VBG pH 7.32 VBG pCO2 106 VBG pO2 60 VBG HCO3 56 H VBG O2 Saturation 84.0 VBG Base Excess 23.3 Sodium Potassium Chloride Carbon Dioxide Anion Gap BUN Creatinine Estim Creat Clear Calc Estimated GFR POC Glucose 52 L* 50 L* Random Glucose Calcium Phosphorus Magnesium Albumin 03/18/21 03/18/21 03/18/21 13:58 16:26 20:21 WBC RBC Hgb Hct MCV MCH MCHC RDW Plt Count MPV Immature Gran % (Auto) Neut % (Auto) Lymph % (Auto) Beadle % (Auto) Eos % (Auto) Baso % (Auto) Lymph # (Auto) Beadle # (Auto) Eos # (Auto) Baso # (Auto) Abs Immat Gran (auto) Absolute Neuts (auto) Absolute Nucleated RBC Nucleated RBC % (auto) VBG pH 7.52 H VBG pCO2 57 VBG pO2 95 VBG HCO3 48 H VBG O2 Saturation 98.0 VBG Base Excess 21.8 Sodium 142 Potassium 3.8 Chloride 92 L Carbon Dioxide 45 H* Anion Gap 9 L BUN 26 H Creatinine 0.81 Estim Creat Clear Calc 74.5 Estimated GFR > 60 POC Glucose 147 H Random Glucose 137 H D Calcium 9.1 Phosphorus Magnesium Albumin 03/18/21 03/18/21 03/18/21 20:23 20:42 23:00 WBC RBC Hgb Hct MCV MCH MCHC RDW Plt Count MPV Immature Gran % (Auto) Neut % (Auto) Lymph % (Auto) Beadle % (Auto) Eos % (Auto) Baso % (Auto) Lymph # (Auto) Beadle # (Auto) Eos # (Auto) Baso # (Auto) Abs Immat Gran (auto) Absolute Neuts (auto) Absolute Nucleated RBC Nucleated RBC % (auto) VBG pH VBG pCO2 VBG pO2 VBG HCO3 VBG O2 Saturation VBG Base Excess Sodium 139 Potassium 4.6 D Chloride 92 L Carbon Dioxide 40 H* Anion Gap 12 BUN 27 H Creatinine 1.09 Estim Creat Clear Calc 55.4 Estimated GFR 50 POC Glucose 333 H 290 H Random Glucose 337 H D Calcium 8.9 Phosphorus Magnesium Albumin 03/19/21 03/19/21 03/19/21 03:01 05:40 05:40 WBC 13.8 H RBC 4.07 L Hgb 11.7 L Hct 39.3 MCV 96.6 MCH 28.7 MCHC 29.8 L RDW 15.5 Plt Count 158 L MPV 11.8 Immature Gran % (Auto) 0.4 Neut % (Auto) 85.2 H Lymph % (Auto) 5.7 L Beadle % (Auto) 8.1 Eos % (Auto) 0.5 Baso % (Auto) 0.1 Lymph # (Auto) 0.8 L Beadle # (Auto) 1.1 Eos # (Auto) 0.1 Baso # (Auto) 0.0 Abs Immat Gran (auto) 0.06 H Absolute Neuts (auto) 11.7 H Absolute Nucleated RBC 0.000 Nucleated RBC % (auto) 0.0 VBG pH VBG pCO2 VBG pO2 VBG HCO3 VBG O2 Saturation VBG Base Excess Sodium 140 Potassium 3.7 Chloride 94 L Carbon Dioxide 37 H Anion Gap 13 BUN 22 H Creatinine 0.74 Estim Creat Clear Calc 79.6 Estimated GFR > 60 POC Glucose 195 H Random Glucose 161 H D Calcium 9.5 D Phosphorus 2.3 L Magnesium 1.9 Albumin 4.4 D 03/19/21 07:22 WBC RBC Hgb Hct MCV MCH MCHC RDW Plt Count MPV Immature Gran % (Auto) Neut % (Auto) Lymph % (Auto) Beadle % (Auto) Eos % (Auto) Baso % (Auto) Lymph # (Auto) Beadle # (Auto) Eos # (Auto) Baso # (Auto) Abs Immat Gran (auto) Absolute Neuts (auto) Absolute Nucleated RBC Nucleated RBC % (auto) VBG pH VBG pCO2 VBG pO2 VBG HCO3 VBG O2 Saturation VBG Base Excess Sodium Potassium Chloride Carbon Dioxide Anion Gap BUN Creatinine Estim Creat Clear Calc Estimated GFR POC Glucose 143 H Random Glucose Calcium Phosphorus Magnesium Albumin Progress Note: A&P Assessment and plan (1) Acute on chronic respiratory failure with hypoxia and hypercapnia: Status: Acute Assessment and Plan: Assessment: 71 year admitted exacerbation of underlying chronic diastolic congestive heart failure resulting in acute on chronic hypoxic and hypercapnic respiratory failure transferred to intensive care unit for rescue BiPAP, now titrated off Plan: Neuro: No acute issues. Cardiac: Acute on chronic diastolic congestive heart failure, chronic right- sided heart failure secondary to left-sided heart failure and chronic KATIUSKA. Improving with diuresis. Underlying hypertension. Pulmonary: Acute on chronic hypoxic and hypercapnic respiratory failure briefly requiring BiPAP, now titrated back to 2-3 L baseline supplemental oxygen. Avoid hyperoxia with O2 saturation above 93%. Underlying KATIUSKA continue with nocturnal CPAP. Underlying asthma/COPD overlap syndrome. Renal: No acute issues. Endo: No acute issues. Underlying diabetes mellitus. GI: No acute issues. ID: No acute issues Heme/Onc: No acute issues. Psych: No acute issues. Miscellaneous: No acute issues. Prophylaxis: Lovenox Diet: Cardiac (2) Pulmonary hypertension: Status: Acute (3) RVF (right ventricular failure): Status: Acute (4) Acute exacerbation of CHF (congestive heart failure): Status: Acute (5) Chronic respiratory failure: Status: Acute (6) Sleep apnea: Status: Acute (7) Hypothyroidism: Status: Acute (8) Diabetes: Status: Acute (9) HTN (hypertension): Status: Acute Quality Stroke Does the patient have a stroke diagnosis?: No VTE Prior VTE?: No VTE Risk Level:: Medical - moderate - high VTE Device Contraindication: N/A - Device Ordered VTE Drug Contraindication: N/A - Med Ordered
[2021-03-19 11:25] LABS: Glucose, Whole Blood 157 mg/dL (60-115)
[2021-03-19 12:00] LABS: Glucose Urine UA NEG (NEG); Leukocyte Esterase Urine NEG (NEG); Nitrite Urine NEG (NEG); PH 7.5 (5.0-8.0); Urine Blood TRACE (NEG); Urine Ketones NEG (NEG); Urine Protein 1+ MG/DL (NEG-TRACE)
[2021-03-19 12:01] LABS: Appearance Urine CLEAR; Color Urine YELLOW
[2021-03-19] MEDS: cefTRIAXone sodium 1 GM in 0.9 % Sodium Chloride 50 ML IV (12:13)
[2021-03-19] MEDS: Insulin Lispro 100 UNIT/ML 3 ML VIAL SUBCUT ×2 (12:14→17:24)
[2021-03-19 12:20] LABS: Bacteria Urine TRACE /LPF; Calcium Phosphate Crystals Ur TRACE /LPF; Squamous Epithelial Cell Urine TRACE /LPF; WBC Urine 0 /HPF (0-4)
--- NOTE | 2021-03-19 14:06 | MHC.CM.PN ---
Pt remains in ICU with HF exacerbation: Continues to receive IV diuresis. Original d/c plan is for a return to home with [employer] and [employer] for O2 needs. Will follow for changes in d/c plan.
[2021-03-19 14:36] LABS: VBG Base Excess 15.2 mmol/L; VBG HCO3 44 mmol/L (22-26); VBG pCO2 76 mmHg; VBG pH 7.37 (7.32-7.43); VBG pO2 51 mmHg
[2021-03-19 14:39] LABS: Venous Blood Gas Refer to POC result
[2021-03-19 16:36] LABS: Glucose, Whole Blood 135 mg/dL (60-115)
--- NOTE | 2021-03-19 16:59 | PC.NURSE ---
Pt sleepy but arousalable to voice and at baseline per daughter. VSS, tmax 101.1 , urine culture sent, abx ordered. O2 sat 87-91% on 4L NC. Goal o2 88-93%. Pure wick in place, repositioned frequently, bath given. Pt up to chair. tolerated well.
[2021-03-19] MEDS: Enoxaparin Sodium 40 MG/0.4 ML SYRINGE SUBCUT (17:24)
[2021-03-19 21:19] LABS: Glucose, Whole Blood 145 mg/dL (60-115)
[2021-03-19] MEDS: Insulin Glargine,Hum.rec.anlog 100 UNIT/ML 10 ML VIAL 30 UNIT SUBCUT (21:34)
[2021-03-19] MEDS: Atorvastatin Calcium 40 MG TABLET PO (21:39)
[2021-03-19] MEDS: Sennosides 8.6 MG TABLET 17.2 MG PO (21:40)
[2021-03-19] MEDS: Acetaminophen 325 MG TABLET 650 MG PO (21:43)
--- NOTE | 2021-03-19 22:04 | PC.NURSE ---
Pt alert and oriented to person and place. Vague to time and situation. Daughter was in to visit pt but left to go home at 2030. Pt follows commands. No resp difficulties. O2 on at 4L via NC. O2 sat 92-93%. Pt transferred to [facility] rm [id number] at this time. Report given to [employer]. Pt's daughter Nini called and informed of room change.
[2021-03-20] VITALS (12 sets, daily range): BP systolic 138–180; BP diastolic 64–74; PULSE 71–81; RESP 16–21; TEMP 36.2–37.2; O2SAT 92–99; BMI 36.8
[2021-03-20] MEDS: 0.9 % Sodium Chloride Flush 3 ML SYRINGE IVFLUSH ×4 (01:28→20:33)
[2021-03-20] MEDS: Levothyroxine Sodium 100 MCG TABLET PO (06:03)
[2021-03-20 06:53] LABS: MANUAL DIFF FLAG NO
[2021-03-20 07:10] LABS: Basophils Percent Auto 0.3 % (0-2); Eosinophils Absolute Auto 0.1 X10*3/uL (0.0-0.4); Eosinophils Percent Auto 0.8 % (0-4); Hematocrit 39.9 % (37-47); Hemoglobin 11.9 g/dl (12.0-16.0); Imm Gran Abs Auto 0.05 X10*3/uL (0.00-0.03); Imm Gran Pct Auto 0.4 % (0.0-0.4); Lymphocytes Absolute Auto 1.2 X10*3/uL (1.2-4.9); Mean Corpuscular HGB Conc 29.8 g/dl (31.0-35.0); Mean Corpuscular Hemoglobin 28.6 pg (27.0-33.0); Mean Corpuscular Volume 95.9 fL (80-98); Mean Platelet Volume 12.5 fL (9.4-12.3); Monocytes Absolute Auto 1.2 X10*3/uL (0.1-1.2); Neutrophils Absolute Auto 9.8 X10*3/uL (2.0-8.3); Neutrophils Percent Auto 78.5 % (45-73); Platelet Count 160 X10*3/uL (160-400); Red Blood Count 4.16 X10*6/uL (4.20-5.50); Red Cell Distribution Width 15.7 % (11.0-16.0); White Blood Count 12.5 X10*3/uL (4.8-10.8)
[2021-03-20 07:34] LABS: Glucose, Whole Blood 102 mg/dL (60-115)
[2021-03-20 07:37] LABS: Anion Gap 14 (12-20); Blood Urea Nitrogen 25 mg/dL (9-16); Calcium 9.2 mg/dL (8.4-10.2); Carbon Dioxide 34 mmol/L (22-29); Chloride 98 mmol/L (96-108); Creatinine Clr Calc Pharmacy 85.3; Estimated Glomerular Filt Rate > 60; Glucose Random 103 mg/dL (60-115); Phosphorus 3.9 mg/dL (2.7-4.5); Potassium 3.5 mmol/L (3.3-5.1); Sodium 142 mmol/L (135-145)
[2021-03-20] MEDS: amLODIPine Besylate 10 MG TABLET PO (08:37)
[2021-03-20] MEDS: Aspirin Enteric Coated 81 MG TABLET.DR PO (08:37)
[2021-03-20] MEDS: hydrALAZINE HCl 50 MG TABLET PO ×3 (08:39→20:50)
[2021-03-20] MEDS: Isosorbide Mononitrate 30 MG TAB.ER.24H PO (08:40)
[2021-03-20] MEDS: Bumetanide 1 MG/4 ML VIAL 2 MG IVPUSH (08:40)
[2021-03-20] MEDS: polyethylene glycoL 3350 17 GM POWD.PACK PO (08:41)
[2021-03-20] MEDS: acetaZOLAMIDE sodium 500 MG VIAL 375 MG IVPUSH ×2 (09:01→20:48)
[2021-03-20] MEDS: Fluticasone/Vilanterol 100/25 BLST.W.DEV 1 PUFF INHALE (09:54)
[2021-03-20 11:08] LABS: Glucose, Whole Blood 230 mg/dL (60-115)
[2021-03-20] MEDS: Insulin Lispro 100 UNIT/ML 3 ML VIAL SUBCUT ×3 (11:53→20:32)
[2021-03-20] MEDS: oxyCODONE HCl Immed Release 5 MG TABLET PO ×2 (12:04→20:54)
[2021-03-20] MEDS: cefTRIAXone sodium 1 GM in 0.9 % Sodium Chloride 50 ML IV (12:10)
--- NOTE | 2021-03-20 16:12 | P.PNIM_ITS ---
Subjective Subjective Date of Service: 03/20/21 Interval History: patient complaining of bilateral leg pain is on oxycodone at home as per PCP, denies shortness of breath has been compliant with BiPAP use 2- 3 L of oxygen at home and follows with Dr. Sierra, no other acute issues. 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, no dizziness CVS no chest pain, no palpitations GI no nausea, no vomiting, no diarrhea Physical Exam Vital Signs: Vital Signs: Last Vital Signs Temp 97.5 F 03/20/21 15:39 Pulse 81 03/20/21 15:39 Resp 20 03/20/21 15:39 BP 138/64 03/20/21 15:39 Pulse Ox 98 03/20/21 15:39 Oxygen Flow Rate 3 03/15/21 10:23 Body Mass Index 36.8 Gen: no acute distress Neck: supple, no JVD Lungs: diminished bilaterally, no rhonchi, no rales Heart: regular rate and rhythm, no murmurs, Abd: obese, non tender, no rebound/guarding Ext: mild pitting edema bilateral legs Skin: warm/well-perfused Neuro: alert and oriented x3, no focal findings Psych: appropriate affect Objective Data Current Medications Generic Name Dose Route Start Last Admin Trade Name Freq PRN Reason Stop Dose Admin Acetaminophen 650 mg 03/15/21 16:38 03/19/21 21:43 Acetaminophen 325 Mg Tablet PO 650 mg Q6H PRN Administration Pain, Mild (Pain Scale 1-3) Acetazolamide 375 mg 03/18/21 09:00 03/20/21 09:01 Acetazolamide Sodium 500 Mg Vial IVPUSH 03/20/21 21:01 375 mg BID DIAZ Administration Al Hydroxide/Mg Hydroxide 30 ml 03/15/21 16:38 Magnesium Hydrox/Alum Hydrox 30 Ml Oral.Susp PO Q4H PRN Heartburn/Nausea Amlodipine Besylate 10 mg 03/16/21 09:00 03/20/21 08:37 Amlodipine Besylate 10 Mg Tablet PO 10 mg DAILY DIAZ Administration Protocol Aspirin 81 mg 03/16/21 09:00 03/20/21 08:37 Aspirin Enteric Coated 81 Mg Tablet. PO 81 mg DAILY DIAZ Administration Atorvastatin Calcium 40 mg 03/16/21 21:00 03/19/21 21:39 Atorvastatin Calcium 40 Mg Tablet PO 40 mg BEDTIME DIAZ Administration Bumetanide 2 mg 03/19/21 09:00 03/20/21 08:40 Bumetanide 1 Mg/4 Ml Vial IVPUSH 2 mg BID [facility] Administration Protocol Dextrose 25 gm 03/15/21 20:22 03/18/21 06:15 Dextrose 50 % 25 Gm/50 Ml Vial IVPUSH 25 gm ONCE PRN Administration Hypoglycemia Dextrose 25 gm 03/18/21 06:14 Dextrose 50 % 25 Gm/50 Ml Vial IVPUSH ONCE PRN hypoglycemia Docusate Sodium 100 mg 03/15/21 16:38 Docusate Sodium 100 Mg Capsule PO BID PRN constipation Enoxaparin Sodium 40 mg 03/15/21 16:45 03/19/21 17:24 Enoxaparin Sodium 40 Mg/0.4 Ml Syringe SUBCUT 40 mg Q24H [facility] Administration Fluticasone/Vilanterol 1 puff 03/16/21 08:00 03/20/21 09:54 Fluticasone/Vilanterol 100/25 Blst.W.Dev INHALE 1 puff RDAILY [facility] Administration Hydralazine HCl 50 mg 03/18/21 21:00 03/20/21 08:39 Hydralazine Hcl 50 Mg Tablet PO 50 mg TID [facility] Administration Protocol Ceftriaxone Sodium 1 gm/ 50 mls @ 100 mls/hr 03/19/21 12:00 03/20/21 12:56 Sodium Chloride IV Infused Q24H [facility] Infusion Insulin Glargine 30 unit 03/18/21 21:00 03/19/21 21:34 Insulin Glargine,Hum.Rec.Anlog 100 Unit/Ml 10 Ml Vial SUBCUT 30 unit BEDTIME [facility] Administration Insulin Human Lispro 0 unit 03/15/21 21:00 03/20/21 11:53 Insulin Lispro 100 Unit/Ml 3 Ml Vial SUBCUT 2 unit QIDACHS [facility] Administration Protocol Isosorbide Mononitrate 30 mg 03/17/21 12:00 03/20/21 08:40 Isosorbide Mononitrate 30 Mg Tab.Er.24h PO 30 mg DAILY [facility] Administration Protocol Levothyroxine Sodium 100 mcg 03/16/21 06:00 03/20/21 06:03 Levothyroxine Sodium 100 Mcg Tablet PO 100 mcg DAILY@0600 [facility] Administration Non-Formulary Medication 24 mcg 03/15/21 21:00 Lubiprostone PO BID DIAZ Ondansetron HCl 4 mg 03/15/21 16:38 Ondansetron Hcl 4 Mg/2 Ml Vial IVPUSH Q8H PRN Nausea and Vomiting Oxycodone HCl 5 mg 03/20/21 10:54 03/20/21 12:04 Oxycodone Hcl Immed Release 5 Mg Tablet PO 5 mg Q6H PRN Administration Pain, Severe (Pain Scale 7-10) Pharmacy Consult 1 each 03/15/21 10:26 Consult Rx Perform Med Rec MISCELLANE ONCE PRN Consult order Polyethylene Glycol 17 gm 03/15/21 17:15 03/20/21 08:41 Polyethylene Glycol 3350 17 Gm Powd.Pack PO 17 gm DAILY DIAZ Administration Senna 17.2 mg 03/15/21 21:00 03/19/21 21:40 Sennosides 8.6 Mg Tablet PO 17.2 mg BEDTIME DIAZ Administration Sodium Chloride 3 ml 03/16/21 00:00 03/20/21 08:42 0.9 % Sodium Chloride Flush 3 Ml Syringe IVFLUSH 3 ml QSHIFT DIAZ Administration Labs CBC & Chem 7: 03/20/21 05:49 03/20/21 05:49 Labs: Laboratory Results - last 24 hr 03/19/21 03/19/21 03/20/21 16:33 21:15 05:49 WBC 12.5 H RBC 4.16 L Hgb 11.9 L Hct 39.9 MCV 95.9 MCH 28.6 MCHC 29.8 L RDW 15.7 Plt Count 160 MPV 12.5 H Immature Gran % (Auto) 0.4 Neut % (Auto) 78.5 H Lymph % (Auto) 10.0 L Sebastian % (Auto) 10.0 Eos % (Auto) 0.8 Baso % (Auto) 0.3 Lymph # (Auto) 1.2 Sebastian # (Auto) 1.2 Eos # (Auto) 0.1 Baso # (Auto) 0.0 Abs Immat Gran (auto) 0.05 H Absolute Neuts (auto) 9.8 H Absolute Nucleated RBC 0.000 Nucleated RBC % (auto) 0.0 Sodium Potassium Chloride Carbon Dioxide Anion Gap BUN Creatinine Estim Creat Clear Calc Estimated GFR POC Glucose 135 H 145 H Random Glucose Calcium Phosphorus Magnesium 03/20/21 03/20/21 03/20/21 05:49 07:31 10:59 WBC RBC Hgb Hct MCV MCH MCHC RDW Plt Count MPV Immature Gran % (Auto) Neut % (Auto) Lymph % (Auto) Sebastian % (Auto) Eos % (Auto) Baso % (Auto) Lymph # (Auto) Sebastian # (Auto) Eos # (Auto) Baso # (Auto) Abs Immat Gran (auto) Absolute Neuts (auto) Absolute Nucleated RBC Nucleated RBC % (auto) Sodium 142 Potassium 3.5 Chloride 98 Carbon Dioxide 34 H Anion Gap 14 BUN 25 H Creatinine 0.68 Estim Creat Clear Calc 85.3 Estimated GFR > 60 POC Glucose 102 230 H Random Glucose 103 D Calcium 9.2 Phosphorus 3.9 Magnesium 2.0 Quality Stroke Does the patient have a stroke diagnosis?: No VTE Prior VTE?: No VTE Risk Level:: Medical - moderate - high VTE Device Contraindication: N/A - Device Ordered VTE Drug Contraindication: N/A - Med Ordered Assessment and Plan (1) Acute on chronic respiratory failure with hypoxia and hypercapnia: Status: Acute (2) Pulmonary hypertension: Status: Acute (3) RVF (right ventricular failure): Status: Acute (4) Acute exacerbation of CHF (congestive heart failure): Status: Acute (5) Chronic respiratory failure: Status: Acute (6) KATIUSKA on CPAP: Status: Acute (7) Hypothyroidism: Status: Acute (8) Hyperlipemia: Status: Acute (9) HTN (hypertension): Status: Acute (10) COPD (chronic obstructive pulmonary disease): Status: Acute Assessment and Plan: 71yo F with HFpEF asthma/COPD and KATIUSKA with chronic hypoxia on home O2 [2L via NC] + CPAP, HTN, HLD, DM2 and hypothyroidism presenting with subacute chest discomfort, exertional dyspnea, and orthopnea along with 30 lb weight gain over the last 2 months, likely due to decompensated heart failure. # acute on chronic hypercapnic/ hypoxic respiratory failure/ acute on chronic HFpEF and severe pulmonary HTN patient was transferred to ICU for rescue BiPAP on March 18 due to acidosis and hypercapnea, patient weaned of BiPAP now doing well and transferred out of ICU yesterday this morning patient awake alert ,offers no complaints of shortness of breath appears euvolumic will transition to by mouth bumex 2 mg b.i.d. monitor I/O + daily weights + BNP + BMP + Mg, restrict sodium, BNP improved to 235 high sensitivity trop in indeterminate range, flat, due to CHF # alkalosis improving with dimox follow BMP # HTN - better blood pressure control,continue amlodipine + hydralazine and Imdur started per Cardiology # bilateral leg pain seems chronic will resume oxycodone and recommend close outpatient follow-up with primary care physician to gradually wean Oxycodone # HLD - continue atorvastatin # COPD/asthma overlap - continue ICS/LABA, prn FANTASMA, no acute exacerbation noted # KATIUSKA - spoke with patient and daughter recommend compliance with CPAP # DM2, A1c 9.4 - continue basal/bolus insulin, strongly recommend to follow diabetic diet and lose weight # hypothyroidism - continue LT4 # chronic constipation - continue lubiprostone, bowel regimen # VTE ppx - LMWH
[2021-03-20 16:16] LABS: Glucose, Whole Blood 302 mg/dL (60-115)
[2021-03-20] MEDS: Enoxaparin Sodium 40 MG/0.4 ML SYRINGE SUBCUT (16:39)
[2021-03-20] MEDS: Bumetanide 1 MG TABLET 2 MG PO (16:49)
[2021-03-20 20:15] LABS: Glucose, Whole Blood 315 mg/dL (60-115)
[2021-03-20] MEDS: Insulin Glargine,Hum.rec.anlog 100 UNIT/ML 10 ML VIAL 30 UNIT SUBCUT (20:32)
[2021-03-20] MEDS: Atorvastatin Calcium 40 MG TABLET PO (20:50)
[2021-03-20] MEDS: Sennosides 8.6 MG TABLET 17.2 MG PO (20:50)
[2021-03-21] VITALS (10 sets, daily range): BP systolic 129–166; BP diastolic 62–69; PULSE 71–83; RESP 16–24; TEMP 36.1–36.4; O2SAT 91–97; BMI 37.5
[2021-03-21] MEDS: Levothyroxine Sodium 100 MCG TABLET PO (05:26)
[2021-03-21 07:13] LABS: Glucose, Whole Blood 146 mg/dL (60-115)
[2021-03-21] MEDS: Fluticasone/Vilanterol 100/25 BLST.W.DEV 1 PUFF INHALE (07:33)
[2021-03-21] MEDS: Insulin Lispro 100 UNIT/ML 3 ML VIAL SUBCUT ×2 (07:52→11:35)
[2021-03-21] MEDS: polyethylene glycoL 3350 17 GM POWD.PACK PO (07:53)
[2021-03-21] MEDS: oxyCODONE HCl Immed Release 5 MG TABLET PO ×2 (07:53→15:54)
[2021-03-21] MEDS: Isosorbide Mononitrate 60 MG TAB.ER.24H PO (07:54)
[2021-03-21] MEDS: amLODIPine Besylate 10 MG TABLET PO (07:54)
[2021-03-21] MEDS: Bumetanide 1 MG TABLET 2 MG PO (07:54)
[2021-03-21] MEDS: 0.9 % Sodium Chloride Flush 3 ML SYRINGE IVFLUSH (07:55)
[2021-03-21] MEDS: Aspirin Enteric Coated 81 MG TABLET.DR PO (07:55)
[2021-03-21] MEDS: hydrALAZINE HCl 50 MG TABLET PO ×2 (07:55→15:53)
[2021-03-21 11:05] LABS: Glucose, Whole Blood 230 mg/dL (60-115)
--- NOTE | 2021-03-21 12:14 | PM.PNCARD ---
Subjective Subjective Date of Service: 03/21/21 Principal diagnosis: CHF Interval history: Feeling better. Physical Exam Vital Signs: Last Vital Signs Temp 97 F 03/21/21 11:07 Pulse 74 03/21/21 11:07 Resp 18 03/21/21 11:07 BP 142/69 H 03/21/21 11:07 Pulse Ox 93 03/21/21 11:07 Oxygen Flow Rate 3 03/15/21 10:23 Body Mass Index 37.5 GENERAL APPEARANCE: in no acute distress SKIN: no suspicious lesions, warm and dry. HEART: no murmurs, regular rate and rhythm. LUNGS: Bilateral crackles. ABDOMEN: soft, nontender. EXTREMITIES: No edema. PERIPHERAL PULSES: equal. NEUROLOGIC: Alert oriented. No focal deficits. Results Labs and Meds Result diagrams: 03/20/21 05:49 03/20/21 05:49 Lab results: Laboratory Results - last 24 hr 03/20/21 03/20/21 03/21/21 16:06 19:59 07:02 POC Glucose 302 H 315 H 146 H 03/21/21 10:51 POC Glucose 230 H Progress Note: A&P Assessment and plan (1) Pulmonary hypertension: Status: Acute (2) RVF (right ventricular failure): Status: Acute (3) Acute exacerbation of CHF (congestive heart failure): Status: Acute Assessment and Plan: Pleasant 71 year female who presented for congestive heart failure. She had hypercapnic respiratory failure and required rescue BiPAP in the ICU. Clinically she looks much better. I think Bumex 1 mg twice a day should be her home dose of diuretics. Blood pressure control is improving. Thank you for allowing me to participate in the care of your patient. Please feel free to contact me if you have any questions. Fall Risk Details Current Medications: Current Medications Generic Name Dose Route Start Last Admin Trade Name Freq PRN Reason Stop Dose Admin Acetaminophen 650 mg 03/15/21 16:38 03/19/21 21:43 Acetaminophen 325 Mg Tablet PO 650 mg Q6H PRN Administration Pain, Mild (Pain Scale 1-3) Al Hydroxide/Mg Hydroxide 30 ml 03/15/21 16:38 Magnesium Hydrox/Alum Hydrox 30 Ml Oral.Susp PO Q4H PRN Heartburn/Nausea Amlodipine Besylate 10 mg 03/16/21 09:00 03/21/21 07:54 Amlodipine Besylate 10 Mg Tablet PO 10 mg DAILY [facility] Administration Protocol Aspirin 81 mg 03/16/21 09:00 03/21/21 07:55 Aspirin Enteric Coated 81 Mg Tablet.Dr PO 81 mg DAILY DIAZ Administration Atorvastatin Calcium 40 mg 03/16/21 21:00 03/20/21 20:50 Atorvastatin Calcium 40 Mg Tablet PO 40 mg BEDTIME DIAZ Administration Bumetanide 2 mg 03/20/21 17:00 03/21/21 07:54 Bumetanide 1 Mg Tablet PO 2 mg BID@0800,1700 [facility] Administration Protocol Dextrose 25 gm 03/15/21 20:22 03/18/21 06:15 Dextrose 50 % 25 Gm/50 Ml Vial IVPUSH 25 gm ONCE PRN Administration Hypoglycemia Dextrose 25 gm 03/18/21 06:14 Dextrose 50 % 25 Gm/50 Ml Vial IVPUSH ONCE PRN hypoglycemia Docusate Sodium 100 mg 03/15/21 16:38 Docusate Sodium 100 Mg Capsule PO BID PRN constipation Enoxaparin Sodium 40 mg 03/15/21 16:45 03/20/21 16:39 Enoxaparin Sodium 40 Mg/0.4 Ml Syringe SUBCUT 40 mg Q24H [facility]IAZ Administration Fluticasone/Vilanterol 1 puff 03/16/21 08:00 03/21/21 07:33 Fluticasone/Vilanterol 100/25 Blst.W.Dev INHALE 1 puff RDAILY [facility] Administration Hydralazine HCl 50 mg 03/18/21 21:00 03/21/21 07:55 Hydralazine Hcl 50 Mg Tablet PO 50 mg TID [facility]IA[facility] Administration Protocol Insulin Glargine 30 unit 03/18/21 21:00 03/20/21 20:32 Insulin Glargine,Hum.Rec.Anlog 100 Unit/Ml 10 Ml Vial SUBCUT 30 unit BEDTIME [facility] Administration Insulin Human Lispro 0 unit 03/15/21 21:00 03/21/21 11:35 Insulin Lispro 100 Unit/Ml 3 Ml Vial SUBCUT 9 unit QIDACHS [facility] Administration Protocol Isosorbide Mononitrate 60 mg 03/21/21 09:00 03/21/21 07:54 Isosorbide Mononitrate 60 Mg Tab.Er.24h PO 60 mg DAILY [facility] Administration Protocol Levothyroxine Sodium 100 mcg 03/16/21 06:00 03/21/21 05:26 Levothyroxine Sodium 100 Mcg Tablet PO 100 mcg DAILY@0600 DIAZ Administration Non-Formulary Medication 24 mcg 03/15/21 21:00 Lubiprostone PO BID DIAZ Ondansetron HCl 4 mg 03/15/21 16:38 Ondansetron Hcl 4 Mg/2 Ml Vial IVPUSH Q8H PRN Nausea and Vomiting Oxycodone HCl 5 mg 03/20/21 10:54 03/21/21 07:53 Oxycodone Hcl Immed Release 5 Mg Tablet PO 5 mg Q6H PRN Administration Pain, Severe (Pain Scale 7-10) Pharmacy Consult 1 each 03/15/21 10:26 Consult Rx Perform Med Rec MISCELLANE ONCE PRN Consult order Polyethylene Glycol 17 gm 03/15/21 17:15 03/21/21 07:53 Polyethylene Glycol 3350 17 Gm Powd.Pack PO 17 gm DAILY DIAZ Administration Senna 17.2 mg 03/15/21 21:00 03/20/21 20:50 Sennosides 8.6 Mg Tablet PO 17.2 mg BEDTIME DIAZ Administration Sodium Chloride 3 ml 03/16/21 00:00 03/21/21 07:55 0.9 % Sodium Chloride Flush 3 Ml Syringe IVFLUSH 3 ml QSHIFT DIAZ Administration Time Spent With Patient Time: Total time spent is greater than 50% in coordination of care (as documented) at patient's floor/unit and/or counseling patient: Time with patient: 15 - 24 minutes Progress Note: Quality Stroke Does the patient have a stroke diagnosis?: No Procedures Date of Service Date of Service: 03/21/21
--- NOTE | 2021-03-21 13:55 | P.DS_ITS ---
DS: Providers Provider Date of Service: 03/21/21 Date of admission: 03/15/21 16:38 Primary care physician: Chucky Giles MD Consults: 03/15/21 16:38 Consult to Cardiology Routine Consulting Provider: Alan Correia Reason for consultation: ADHF 03/15/21 20:53 Consult Respiratory Therapy Routine Reason for consultation: cpap at bedtime Has provider been notified: Yes DS: Diagnosis Discharge Diagnosis (1) Pulmonary hypertension: Status: Acute (2) RVF (right ventricular failure): Status: Acute (3) Acute exacerbation of CHF (congestive heart failure): Status: Acute DS: Medications Discharge Medications Home Medications: Home Medications Medication Instructions Recorded Confirmed Breo Ellipta 1 inh INHALATION DAILY 07/08/20 03/15/21 Flovent HFA 1 puff INHALATION BID 07/08/20 03/15/21 Lantus Solostar U-100 Insulin 30 unit SUBCUT BEDTIME 07/08/20 03/15/21 acetaminophen 325 mg PO Q8H PRN 07/08/20 03/15/21 albuterol sulfate 2.5 mg INHALATION Q4H PRN 07/08/20 03/15/21 albuterol sulfate [ProAir HFA] 2 puff INHALATION Q4-6H PRN 07/08/20 03/15/21 amlodipine 10 mg PO DAILY 07/08/20 03/15/21 aspirin 81 mg PO DAILY 07/08/20 03/15/21 atorvastatin 40 mg PO DAILY 07/08/20 03/15/21 hydralazine 100 mg PO TID 07/08/20 03/15/21 insulin lispro [Humalog KwikPen See Protocol SUBCUT TIDAC 07/08/20 03/15/21 Insulin] levothyroxine 100 mcg PO DAILY 07/08/20 03/15/21 lubiprostone [Amitiza] 24 mcg PO BID 07/08/20 03/15/21 metformin 1,000 mg PO BID 07/08/20 03/15/21 omega-3 fatty acids [Fish Oil 1,000 mg PO DAILY 07/08/20 03/15/21 Concentrate] quetiapine 200 mg PO BEDTIME 07/08/20 03/15/21 sumatriptan succinate 25 mg tablet 0 mg PO DIRECTED 08/11/20 03/15/21 gabapentin 100 mg PO TID 03/15/21 03/15/21 oxycodone-acetaminophen 1 tab PO TID PRN 03/15/21 03/15/21 Previous Rx's Medication Instructions Recorded polyethylene glycol 3350 [Miralax] 17 g PO DAILY PRN #30 ea 10/22/20 bumetanide 1 mg PO BID@0800,1700 #60 tab 03/21/21 isosorbide mononitrate 30 mg PO DAILY #30 tab 03/21/21 DS: Summary Hospital Course Hospital Course: history of presenting illness Chief Complaint: dyspnea History taken in Italian from this patient, who is a 71 yo F with hx of HFpEF [grade 2 diastolic dysfunction on TTE 07/05/19], asthma/COPD and KATIUSKA with chronic hypoxia on home O2 [2L via NC], HTN, HLD, DM2, and hypothyroidism who comes in to the ED with worsening dyspnea for the past week or so. She notes vague chest discomfort. She also complaints of leg and abdominal swelling that is somewhat painful. She notes a nearly 30 pound weight gain over the last 32 months. She endorses orthopnea and exertional dyspnea. She endorses some wheezing. She denies fever, cough, or sputum production. She denies medication non-compliance or dietary indiscretions. She also notes approximately 1 week history of R lateral hip pain. In the ED, she was given 40 mg of IV furosemide and a Guerrero catheter was placed. She was also given a 2.5 mg albuterol nebulization along with 125 mg of IV methylprednisolone. CXR showed cardiomegaly with interstitial prominence. EKG showed NSR with T wave inversions that were present on prior EKG in January. Initial hs-Tn-I was 12.[address] of the abdomen and pelvis showed generalized anasarca. hospital course 71yo F with HFpEF asthma/COPD and KATIUSKA with chronic hypoxia on home O2 [2L via NC] + CPAP, HTN, HLD, DM2 and hypothyroidism presented with subacute chest discomfort, exertional dyspnea, and orthopnea along with 30 lb weight gain over the last 2 months, patient admitted to intermediate care unit with a diagnosis of acute on chronic hypercapnic/ hypoxic respiratory failure/ acute on chronic HFpEF and severe pulmonary HTN, patient was treated with IV Lasix 80 mg twice daily, due to elevated blood pressure Imdurl 30 mg was added, few days into admission on March 18 patient noted to be drowsy and lethargic, ABG showed pH 7.3 with pCO2 of 106 due to acidosis and hypercapnea, patient was transferred to intensive care unit where she was treated with BiPAP, she responded well to above treatment and was transferred back to telemetry, it was noted that patient was on multiple BENDER MACHINE depressant including risperidone and Seroquel, therefore these medications were held, after discussing with daughter risperidone has been discontinued, with above treatment patient improved significantly, therefore is being discharged on Bumex 1 mg b.i.d., she has been strongly advised to follow diet and compliance with CPAP, she is being discharged on all of her baseline m edication except Lasix and Risperidone has been discontinued, she has been recommended to follow with primary care physician and wean down dose of Seroquel to 100 mg at bedtime, patient is also on narcotics contributing to sedation. She was noted to be alkalotic therefore required treatment with Diamox in regard to hypertension she was noted to have high blood pressure therefore she has been started on Imdur by Dr. Correia from Cardiology in regard to diabetes mellitus HbA1c is 9.4 recommend to follow diabetic diet , continue all home medication and lose weight Time Spent with Patient Time attestation: Total time spent providing and/or coordinating discharge services: Discharge coordination time: Greater than 30 minutes Quality: Stroke Does the patient have a stroke diagnosis?: No Physical Exam Vital Signs: Vital Signs: Last Vital Signs Temp 97 F 03/21/21 11:07 Pulse 74 03/21/21 11:07 Resp 18 03/21/21 11:07 BP 142/69 H 03/21/21 11:07 Pulse Ox 93 03/21/21 11:07 Oxygen Flow Rate 3 03/15/21 10:23 Body Mass Index 37.5 Gen: no acute distress Neck: supple, no JVD Lungs: diminished bilaterally, no rhonchi, no rales Heart: regular rate and rhythm, no murmurs, Abd: obese, non tender, no rebound/guarding Ext: no edema bilateral legs Skin: warm/well-perfused Neuro: alert and oriented x3, no focal findings Psych: appropriate affect DS: Data Data Completed and Pending Labs on day of discharge: Laboratory Results - last 24 hr 03/20/21 03/20/21 03/21/21 16:06 19:59 07:02 POC Glucose 302 H 315 H 146 H 03/21/21 10:51 POC Glucose 230 H Discharge Plan Discharge Patient Disposition: Home, Self-Care Discharge Diagnosis: acute on chronic hypercapnic / hypoxic respiratory failure acute on chronic heart failure with preserved EF alkalosis Referrals: Name,MD Chucky [Primary Care Provider] - 1 Week Discharge Medications: New isosorbide mononitrate 30 mg Tablet Extended Release 24 Hr 30 mg PO DAILY Qty: 30 RF: 0 bumetanide 1 mg Tablet 1 mg PO BID@0800,1700 Qty: 60 RF: 0 Continued polyethylene glycol 3350 [Miralax] 17 gram powder in packet 17 g PO DAILY PRN (Reason: constipation) Qty: 30 RF: 0 oxycodone-acetaminophen 7.5-325 mg Tablet 1 tab PO TID PRN (Reason: Pain (Scale Score 4-6)) RF: 0 gabapentin 100 mg Capsule 100 mg PO TID RF: 0 atorvastatin 40 mg Tablet 40 mg PO DAILY RF: 0 acetaminophen 325 mg Tablet 325 mg PO Q8H PRN (Reason: Pain (Scale Score 1-3)) RF: 0 albuterol sulfate 2.5 mg /3 mL (0.083 %) Solution For Nebulization 2.5 mg INHALATION Q4H PRN (Reason: Shortness Of Breath) RF: 0 quetiapine 200 mg Tablet 200 mg PO BEDTIME RF: 0 aspirin 81 mg Tablet,Delayed Release (Dr/Ec) 81 mg PO DAILY RF: 0 levothyroxine 100 mcg Tablet 100 mcg PO DAILY RF: 0 amlodipine 10 mg Tablet 10 mg PO DAILY RF: 0 hydralazine 100 mg Tablet 100 mg PO TID RF: 0 metformin 1,000 mg Tablet 1,000 mg PO BID RF: 0 insulin lispro [Humalog KwikPen Insulin] 100 unit/mL Insulin Pen See Protocol unit SUBCUT TIDAC RF: 0 lubiprostone [Amitiza] 24 mcg Capsule 24 mcg PO BID RF: 0 Lantus Solostar U-100 Insulin 100 unit/mL (3 mL) Insulin Pen 30 unit SUBCUT BEDTIME RF: 0 omega-3 fatty acids [Fish Oil Concentrate] 1,000 mg Capsule 1,000 mg PO DAILY RF: 0 Flovent HFA 110 mcg/actuation Hfa Aerosol Inhaler 1 puff INHALATION BID RF: 0 albuterol sulfate [ProAir HFA] 90 mcg/actuation Hfa Aerosol Inhaler 2 puff INHALATION Q4-6H PRN (Reason: Shortness Of Breath) RF: 0 Breo Ellipta 100-25 mcg/dose Blister With Device 1 inh INHALATION DAILY RF: 0 sumatriptan succinate 25 mg tablet 0 mg PO DIRECTED RF: 0 Discontinued risperidone [Risperdal] 1 mg Tablet 1 mg PO BEDTIME RF: 0 furosemide 40 mg Tablet 40 mg PO DAILY RF: 0 Diet: low fat, low cholesterol and low salt diet Activity on Discharge: As tolerated Stand Alone Forms: Patient Portal Discharge page Care Plan Goals: acute hypercapnic and hypoxic respiratory failure resolved continue home oxygen 2-3 L continue CPAP every night, take all blood pressure medications as prescribed Health Concerns: medication compliance, take all medications as prescribed with close follow-up with cardiology and primary care physician you are on Seroquel 200 mg at bedtime, that can cause somnolence, reduce dose to 100 mg after discussing with provider, risperidone has been discontinued Plan of Treatment: outpatient follow-up with primary care physician in 1 week, cardiology in 2 weeks Assessment: as above
--- NOTE | 2021-03-21 16:44 | MHC.CM.PN ---
PT CLEARED TO DC HOME WITH RESUMPTION OF RN PALLIATIVE SERVICES
== END 2021-03-21 17:02 | disposition home or self-care (01) | DRG 292 ==
LOC: HO.ED 12:49 → HO.IMC 17:27 → HO.ICU 03-18 06:47 → HO.IMC 03-19 21:03
PROVIDERS: Hospitalist; Internal Medicine Pulmonary Disease; Registered Nurse Community Health; Admitting Provider Family Medicine; Emergency Provider Emergency Medicine; PCP Internal Medicine Geriatric Medicine; Visit Provider Hospitalist
DX: I11.0 Hypertensive heart disease with heart failure (principal); J96.11 Chronic respiratory failure with hypoxia; E78.5 Hyperlipidemia, unspecified; I50.33 Acute on chronic diastolic (congestive) heart failure; E03.9 Hypothyroidism, unspecified; J44.9 Chronic obstructive pulmonary disease, unspecified; K59.09 Other constipation; E11.9 Type 2 diabetes mellitus without complications; G47.33 Obstructive sleep apnea (adult) (pediatric); Z99.89 Dependence on other enabling machines and devices; I27.29 Other secondary pulmonary hypertension; I50.810 Right heart failure, unspecified; Z20.822 Contact with and (suspected) exposure to COVID-19; Z87.891 Personal history of nicotine dependence; Z79.4 Long term (current) use of insulin; Z79.82 Long term (current) use of aspirin; Z79.890 Hormone replacement therapy; Z79.899 Other long term (current) drug therapy
CPT/HCPCS: 36415; 36600; 71045; 73502; 73562; 74176; 80048; 80076; 81001; 82009; 82040; 82947; 83036; 83690; 83735; 83880; 84100; 84484; 85025; 85610; 85730; 87635; 93005; 93306; 94640; 94660; 97161; 99285; J0696; J1650; J1940; J2930; P9047

== ENCOUNTER 2021-04-01 13:38 | Outpatient (REF) | payer MEDICARE, MEDICAID, SELFPAY ==
[2021-04-01 14:40] LABS: ABG Refer to POC result
[2021-04-01 14:42] LABS: ABG pH 7.42 (7.35-7.45)
[2021-04-01 14:43] LABS: ABG Base Excess 12.5 mmol/L; ABG HCO3 39 mmol/L (22-26); ABG pCO2 60 mmHg (32-45); ABG pO2 123 mmHg (83-108)
== END 2021-04-01 13:39 | disposition home or self-care (01) ==
LOC: HO.LAB 13:38
PROVIDERS: PCP Internal Medicine Geriatric Medicine; Visit Provider Hospitalist
DX: J96.11 Chronic respiratory failure with hypoxia (principal); J44.9 Chronic obstructive pulmonary disease, unspecified; J96.12 Chronic respiratory failure with hypercapnia; G47.33 Obstructive sleep apnea (adult) (pediatric); K21.9 Gastro-esophageal reflux disease without esophagitis
CPT/HCPCS: 99212

== ENCOUNTER 2021-04-23 13:01 | Outpatient (REF) | payer MEDICARE, MEDICAID, SELFPAY ==
--- NOTE | ~2021-04-23 | MM_ITS ---
EXAMINATION: MM SCREENING DIGITAL BREAST TOMOSYNTHESIS, BILATERAL CLINICAL INFORMATION: Screening. Asymptomatic. The lifetime risk of breast cancer based on the Tyrer-Cuzick Model is 3%. COMPARISON: Mammography: 02/12/2019, 01/29/2018, 12/13/2016 TECHNIQUE: Digital breast tomosynthesis is performed in both the craniocaudal and mediolateral oblique views along with computer-aided detection (CAD). Synthesized 2D images are generated from the tomosynthesis. FINDINGS: There are scattered areas of fibroglandular density (ACR BI-RADS breast composition Category b). Parenchymal pattern is similar to prior exams. There are asymmetries in the bilateral outer quadrants, overlying right with adjacent biopsy clip marker and possibly related to hamartoma. Neither breast shows developing density or interval mass or architectural abnormality. The axilla and skin contours are unremarkable. There are bilateral vascular calcifications. The left breast has tightly grouped calcifications posterior 4:00 position likely coarsened since prior exam. Patient will be recalled in order to fully characterize with additional magnification views. MM/MM tomosynthesis screening BI IMPRESSION: 1. Left: Tightly grouped calcifications likely coarsening since prior exam posterior 4:00 position. 2. Right: No significant changes from prior studies. ASSESSMENT: BI-RADS 0: Incomplete - Need Additional Imaging Evaluation RECOMMENDATION: 1. Additional views of the left breast (magnification CC, magnification MLO). 2. Radiology department staff will contact the patient for additional imaging. This patient's information was entered into a reminder system with a target due date for their next mammogram.
== END 2021-04-23 13:02 | disposition home or self-care (01) ==
LOC: HO.MAMMO 13:01
PROVIDERS: PCP Family Medicine; Visit Provider Family Medicine
DX: Z12.31 Encounter for screening mammogram for malignant neoplasm of breast (principal)
CPT/HCPCS: 77063; 77067

== ENCOUNTER → 2021-04-26 12:13 | Outpatient (BNVA) | payer MEDICARE, MEDICAID, SELFPAY | PROVIDERS: PCP Family Medicine; Referring Provider Internal Medicine Geriatric Medicine; Visit Provider Internal Medicine Cardiovascular Disease | DX: R00.0 Tachycardia, unspecified (principal); R07.9 Chest pain, unspecified; I50.810 Right heart failure, unspecified; J96.92 Respiratory failure, unspecified with hypercapnia; Z88.8 Allergy status to other drugs, medicaments and biological substances; Z79.4 Long term (current) use of insulin; Z79.899 Other long term (current) drug therapy | CPT/HCPCS: 99212 ==

== ENCOUNTER 2021-04-30 11:20 | Outpatient (RCR) | payer MEDICARE, MEDICAID, SELFPAY ==
[2020-09-01 14:19] VITALS: BMI 37.3
[2020-09-01 14:20] VITALS: BP 147/87; RESP 18; TEMP 36.2; O2SAT 98
--- NOTE | 2020-09-01 14:32 | P.CNHO_ITS ---
Subjective - Subjective Chief complaint: consult for: Splenomegaly. Lymphadenopathy. Consult date: 09/01/20 Requesting Physician: Dr. Dominguez. Primary Care Provider: Chucky Dominguez MD Medical Summary: WBC 15.6 H (Dec 14, ABS NEUT COUNT (Dec 14, RBC 3.70 L (Dec 14, HGB 11.5 L (Dec 14, HCT 34.8 L (Dec 14, MCV 93.9 (Dec 14, MCH 31.2 (Dec 14, MCHC 33.2 (Dec 14, PLATELET CT 169 (Dec 14, HPI - Consult Narrative Reason for consult: splenomegaly, lymphadenopathy. Narrative: Lulu Chavez is a pleasant 70 year old lady, who has been referred on account of splenomegaly and abdominal adenopathy. However review of the CT scan from [facility] from 07/23/2020 revealed: Dependent atelectasis within the posterior lung bases. Normal liver, spot stomach, spleen, pancreas, adrenal glands, kidneys and small bowel. Nonvisualized appendix. Normal colon, bladder and adnexa. Fibroid uterus. No free air free fluid, aneurysm or bowel obstruction. Bilateral prominent inguinal lymph nodes measuring 2.3 cm on the right and 3 cm on the left. Anterior spurring of the thoracic spine. IMP: No acute intra-abdominal adenopathy. CTA of chest from 07/11: * Mild interstitial pulmonary edema without pleural effusion. * Scattered opacities of subsegmental atelectasis in middle lobe, lingula and lower lobes. * No evidence of a large, central embolus. Due to the suboptimal contrast eduar us, unable to evaluate the more peripheral pulmonary arteries. * Mild splenomegaly is stable compared to 09/05/2019. The negative test result for PE -- but suboptimal contrast bolus -- was discussed with Dr. Villalpando on 07/08/2020 and it was ascertained that the pretest probability was low, and no repeat contrast injection will be performed at this time. Review of her labs revealed: WBC 15.6 H (Dec 14, ABS NEUT COUNT (Dec 14, RBC 3.70 L (Dec 14, HGB 11.5 L (Dec 14, HCT 34.8 L (Dec 14, MCV 93.9 (Dec 14, MCH 31.2 (Dec 14, MCHC 33.2 (Dec 14, PLATELET CT 169 (Dec 14, Serial WBC in the computer: Date Time Result N Mar 22, 20 11:29 15.6 Oct 18, 19 06:21 12.2 Oct 17, 19 05:14 15.3 Oct 16, 19 06:46 15.6 Jun 15, 19 05:04 12.5 Jun 14, 19 05:30 10.2. ROS: She Review of Systems - Constitutional Reports body ache(s), Reports fatigue, Reports lack of energy, Reports malaise, Reports weakness, Reports weight gain, Denies fever(s) - Eyes Denies blurry vision - ENT Reports system reviewed and no additional complaints, except as documented - Cardiovascular Denies chest pain at rest - Respiratory Denies chest congestion - Gastrointestinal Reports abdominal pain, Reports change in bowel habits, Reports cramping - Genitourinary Denies abnormal vaginal bleeding - Musculoskeletal Reports back pain, Reports muscle weakness - Integumentary/Breasts Skin/Breast: Denies bleeding lesions - Psychiatric Reports anxiety - Endocrine Reports excessive sweating - Hematologic/Lymphatic Denies easy bruising - Allergic/Immunologic Denies GI upset with certain foods PMFSH Medical History: Medical History (Last Updated 08/11/20 @ 23:19 by Tapan Sierra MD) Asthma CHF (congestive heart failure) COPD (chronic obstructive pulmonary disease) Diabetes GERD (gastroesophageal reflux disease) HTN (hypertension) Hyperlipemia Hypothyroidism Lymphadenopathy, abdominal KATIUSKA (obstructive sleep apnea) Splenomegaly Functional capacity: independent ambulation Patient : No Surgical History: Surgical History (Last Updated 09/01/20 @ 14:24 by Jennifer Garcia RN) H/O section History of cholecystectomy Hx of tubal ligation Smoking status: Former smoker Home Medications and Allergies Home Medications Medication Instructions Recorded Confirmed Type acetaminophen 325 mg PO Q8H PRN 07/08/20 08/11/20 History albuterol sulfate 2.5 mg INHALATION Q4H PRN 07/08/20 08/11/20 History albuterol sulfate [ProAir HFA] 2 puff INHALATION Q4-6H PRN 07/08/20 08/11/20 History amlodipine 10 mg PO DAILY 07/08/20 08/11/20 History aspirin 81 mg PO DAILY 07/08/20 08/11/20 History atorvastatin 40 mg PO DAILY 07/08/20 08/11/20 History fluticasone furoate-vilanterol 1 inh INHALATION DAILY 07/08/20 08/11/20 History [Breo Ellipta] fluticasone propionate [Flovent 1 puff INHALATION BID 07/08/20 08/11/20 History HFA] furosemide 40 mg PO Q OTHER DAY 07/08/20 08/11/20 History hydralazine 100 mg PO BID 07/08/20 08/11/20 History insulin glargine [Lantus Solostar 30 unit SUBCUT BID 07/08/20 08/11/20 History U-100 Insulin] insulin lispro [Humalog KwikPen See Protocol SUBCUT TIDAC 07/08/20 08/11/20 History Insulin] levothyroxine 100 mcg PO DAILY 07/08/20 08/11/20 History losartan 50 mg PO DAILY 07/08/20 08/11/20 History lubiprostone [Amitiza] 24 mcg PO BID 07/08/20 08/11/20 History metformin 1,000 mg PO BID 07/08/20 08/11/20 History omega-3 fatty acids [Fish Oil 1,000 mg PO DAILY 07/08/20 08/11/20 History Concentrate] omeprazole 20 mg PO DAILY 07/08/20 08/11/20 History oxycodone-acetaminophen 1 tab PO Q8H PRN 07/08/20 08/11/20 History quetiapine 200 mg PO BEDTIME 07/08/20 08/11/20 History risperidone [Risperdal] 6 mg PO BEDTIME 07/08/20 08/11/20 History sumatriptan succinate 25 mg tablet 0 mg PO DIRECTED 08/11/20 08/11/20 History Allergies Allergy/AdvReac Type Severity Reaction Status Date / Time lisinopril [LISINOPRIL] Allergy Severe Dizziness Verified 08/11/20 23:11 Physical Exam Vital signs: Vital Signs Temp 97.2 F 09/01/20 14:20 Resp 18 09/01/20 14:20 BP 147/87 H 09/01/20 14:20 Pulse Ox 98 09/01/20 14:20 Intake & Output 08/31/20 09/01/20 09/01/20 18:59 06:59 18:59 Other: Weight 95.6 kg Weight 95.6 kg - Constitutional Present: moderate distress - Routine HEENT Exam Head: Present: normal inspection ENT: Present: mucous membranes moist - Routine Neck Exam Present: supple - Routine Respiratory Exam Present: CTAB - Routine Cardiovascular Exam Cardiovascular: Present: RRR, S1, S2 - Routine Abdominal Exam Absent: tenderness - Routine Rectal Exam Patient deferred: digital exam - Routine Extremities Exam Present: nontender - Routine Skin Exam Present: intact - Detailed Neurological Exam: Coma Scale Eye Opening: Spontaneous (4) Verbal Response: Oriented (5) Motor Response: Obeys commands (6) Anthony Coma Scale Total: 15 - Routine Psychiatric Exam Present: depressed Hem/Onc Consult Result - Labs CBC & Chem 7: 09/01/20 15:15 09/01/20 15:15 Assessment and Plan (1) Splenomegaly Status: Acute 70 year old lady, C/O pain in the back, and left flank. Ultrasound of the abdomen from 02/14/2018: Probable parapelvic cyst upper and lower pole right kidney. Heterogenous pancreatic echogenicity, no discrete or focal abnormality. Spleen: Normal, 9.7 cm. Cat scan of chest revealed: * Mild interstitial pulmonary edema without pleural effusion. * Scattered opacities of subsegmental atelectasis in middle lobe, lingula and lower lobes. * No evidence of a large, central embolus. Due to the suboptimal contrast bolus, unable to evaluate the more peripheral pulmonary arteries. * Mild splenomegaly is stable compared to 09/05/2019. The negative test result for PE -- but suboptimal contrast bolus -- was discussed with Dr. Villalpando at 8:07 pm on 07/08/2020 and it was ascertained that the pretest probability was low, and no repeat contrast injection will be performed at this time. (2) Inguinal adenopathy Status: Acute 70-year-old lady with left upper quadrant pain. Referred for , Splenomagaly and Abdominal adenopathy. However Cat scan of abdomen from [facility], did not reveal it. She was noted to have bilateral inguinal adenopathy on ultrasound done at [facility]. PLAN: I checked with IR and biopsy is feasible. Will proceed with ultrasound-guided biopsy of the left inguinal node for further evaluation. Will make further plans based upon the results. Thanks, CC: [facility]. DR. DOMINGUEZ.
[2020-09-01 15:40] LABS: Baso%MD 0.2 %; Eos%MD 1.9 %; Hematocrit 45.8 % (37-47); Hemoglobin 14.2 g/dl (12.0-16.0); IG%MD 0.2 %; Lymph%MD 17.8 %; Mean Corpuscular Hemoglobin 28.4 pg (27.0-33.0); Mean Corpuscular Volume 91.6 fL (80-98); Mean Platelet Volume 11.8 fL (9.4-12.3); Mono%MD 5.7 %; Neut%MD 74.2 %; Platelet Count 220 X10*3/uL (160-400); Red Cell Distribution Width 15.7 % (11.0-16.0); White Blood Count 9.3 X10*3/uL (4.8-10.8)
[2020-09-01 16:31] LABS: Alanine Aminotransferase 11 U/L (0-31); Albumin Level 3.6 g/dL (3.5-5.0); Alkaline Phosphatase 130 U/L (39-117); Anion Gap 13 (12-20); Aspartate Amino Transferase 14 U/L (5-31); Bilirubin Total 0.3 mg/dL (0.0-1.0); Blood Urea Nitrogen 14 mg/dL (9-16); Calcium 8.5 mg/dL (8.4-10.2); Carbon Dioxide 33 mmol/L (22-29); Chloride 94 mmol/L (96-108); Creatinine Clr Calc Pharmacy 75.9; Estimated Glomerular Filt Rate > 60; Glucose Random 411 mg/dL (60-115); Lactate Dehydrogenase 198 U/L (122-220); Potassium 4.6 mmol/l (3.3-5.1); Sodium 135 mmol/L (135-145)
--- NOTE | 2020-09-01 16:54 | MHC.HEMONC ---
pt here with her BUSINESS PLANNING MANAGER for Consultation for pain in left side. She had imaging done at [facility] and that was reviewed. She had labs done and her glucose was reported to Dr Taylor and we asked lab to send to PCP, Dr Giles. F/U per plan.
[2020-09-01 17:20] LABS: Band Neutrophils Percent 0 % (3-5); Lymphocytes Absolute Manual 1.4 X10*3/uL (0.6-4.8); Lymphocytes Percent Manual 15 % (20-40); Monocytes Absolute Manual 0.7 X10*3/uL (0.0-1.2); Monocytes Percent Manual 7 % (2-11); Neutrophils Absolute Manual 7.3 X10*3/uL (2.2-7.9); Neutrophils Percent Manual 78 % (45-73)
[2020-09-01 17:21] LABS: Large Platelet PRESENT; Platelet Estimate NORMAL (NORMAL); Platelet Morphology Comment NOTED; RBC Morphology NORMAL
--- NOTE | 2020-09-10 16:23 | MHC.HEMONC ---
CT GUIDED BX - LEFT INGUINAL LYMPH NODE. DX: B/L inguinal lymph node enlargement. Written order faxed to Naomi in radiology and also put in Order Clinical Transplant Coordinator w CPT and ICD codes. No PA needed per Esther Capellan - Medicare/Medicaid. Per Naomi, this will go into pending review from [facility]. Dr. Taylor has already discussed this case w Dr. Roman (CT of Abd/Pel reviewed from [facility]). The copy of this CT was given to Sharita vitale in Oncology dept to be scanned into outside imaging area of [employer].
[2020-09-14 14:27] LABS: BCR Prior Result Not Given; P190 BCR/ABL1 Not Detected; P210 BCR/ABL1 Not Detected
[2020-10-02 11:19] LABS: MANUAL DIFF FLAG NO
[2020-10-02 11:21] VITALS: BP 177/78; PULSE 84; RESP 12; TEMP 37; O2SAT 83; BMI 36.4
--- NOTE | 2020-10-02 11:34 | P.PNHO_ITS ---
Medical Summary - Medical Summary Date of Service: 10/03/20 Chief complaint: F/U for: splenomegaly. Adenopathy. Medical Summary: DIAGNOSIS: Splenomegaly. Adenopathy. CBC: WBC 15.6 H (Dec 14, ABS NEUT COUNT (Dec 14, RBC 3.70 L (Dec 14, HGB 11.5 L (Dec 14, HCT 34.8 L (Dec 14, MCV 93.9 (Dec 14, MCH 31.2 (Dec 14, MCHC 33.2 (Dec 14, PLATELET CT 169 (Dec 14, Interval History Interval history: Lulu Chavez is a pleasant 70 year old lady, who has been referred on account of splenomegaly and abdominal adenopathy. However review of the CT scan from [facility] from 07/23/2020 revealed: Dependent atelectasis within the posterior lung bases. Normal liver, spot stomach, spleen, pancreas, adrenal glands, kidneys and small bowel. Nonvisualized appendix. Normal colon, bladder and adnexa. Fibroid uterus. No free air free fluid, aneurysm or bowel obstruction. Bilateral prominent inguinal lymph nodes measuring 2.3 cm on the right and 3 cm on the left. Anterior spurring of the thoracic spine. IMP: No acute intra-abdominal adenopathy. CTA of chest from 07/11: * Mild interstitial pulmonary edema without pleural effusion. * Scattered opacities of subsegmental atelectasis in middle lobe, lingula and lower lobes. * No evidence of a large, central embolus. Due to the suboptimal contrast bolus, unable to evaluate the more peripheral pulmonary arteries. * Mild splenomegaly is stable compared to 09/05/2019. The negative test result for PE -- but suboptimal contrast bolus -- was discussed with Dr. Villalpando on 07/08/2020 and it was ascertained that the pretest probability was low, and no repeat contrast injection will be performed at this time. Review of her labs revealed: WBC 15.6 H (Dec 14, ABS NEUT COUNT (Dec 14, RBC 3.70 L (Dec 14, HGB 11.5 L (Dec 14, HCT 34.8 L (Dec 14, MCV 93.9 (Dec 14, MCH 31.2 (Dec 14, MCHC 33.2 (Dec 14, PLATELET CT 169 (Dec 14, Serial WBC in the computer: Date Time Result N Dec 14, 11:29 15.6 Jul 12, 19 06:21 12.2 Oct 17, 19 05:14 15.3 Oct 16, 19 06:46 15.6 Oct 15, 05:04 12.5 Jun 14, 05:30 10.2. ROS: She does not feel well today. She complains of pain in her left flank. She is SOB. Her blood pressure is elevated. Her O2 sat is low: 83 on 3 L/min. Blood sugar is high at 411. She is afebrile. Review of Systems - Constitutional Reports system reviewed and no additional complaints, except as documented, R eports fatigue, Reports lack of energy, Reports malaise, Reports weakness - Eyes Reports system reviewed and no additional complaints, except as documented - ENT Reports system reviewed and no additional complaints, except as documented - Cardiovascular Reports system reviewed and no additional complaints, except as documented - Respiratory Reports no additional respiratory complaints, Reports dyspnea, Reports dyspnea on exertion Comments: low O2 sat - Gastrointestinal Reports system reviewed and no additional complaints, except as documented - Genitourinary Reports no additional female genitourinary complaints - Musculoskeletal Reports system reviewed and no additional complaints, except as documented - Integumentary/Breasts Skin/Breast: Reports no additional skin complaints - Neurologic Reports weakness - Psychiatric Reports system reviewed and no additional complaints, except as documented - Endocrine Reports no additional endocrine complaints - Hematologic/Lymphatic Reports system reviewed and no additional complaints, except as documented - Allergic/Immunologic Reports system reviewed and no additional complaints, except as documented PMF Medical History: Medical History (Last Reviewed 10/02/20 @ 12:27 by Roro Rosales MD) Asthma CHF (congestive heart failure) COPD (chronic obstructive pulmonary disease) Diabetes GERD (gastroesophageal reflux disease) HTN (hypertension) Hyperlipemia Hypothyroidism Lymphadenopathy, abdominal KATIUSKA (obstructive sleep apnea) Splenomegaly Functional capacity: independent ambulation Surgical History: Surgical History (Last Updated 09/01/20 @ 14:24 by Jennifer Garcia RN) H/O section History of cholecystectomy Hx of tubal ligation Smoking status: Former smoker Home Medications and Allergies Home Medications Medication Instructions Recorded Confirmed Type acetaminophen 325 mg PO Q8H PRN 07/08/20 08/11/20 History albuterol sulfate 2.5 mg INHALATION Q4H PRN 07/08/20 08/11/20 History albuterol sulfate [ProAir HFA] 2 puff INHALATION Q4-6H PRN 07/08/20 08/11/20 History amlodipine 10 mg PO DAILY 07/08/20 08/11/20 History aspirin 81 mg PO DAILY 07/08/20 08/11/20 History atorvastatin 40 mg PO DAILY 07/08/20 08/11/20 History fluticasone furoate-vilanterol 1 inh INHALATION DAILY 07/08/20 08/11/20 History [Breo Ellipta] fluticasone propionate [Flovent 1 puff INHALATION BID 07/08/20 08/11/20 History HFA] furosemide 40 mg PO Q OTHER DAY 07/08/20 08/11/20 History hydralazine 100 mg PO BID 07/08/20 08/11/20 History insulin glargine [Lantus Solostar 30 unit SUBCUT BID 07/08/20 08/11/20 History U-100 Insulin] insulin lispro [Humalog KwikPen See Protocol SUBCUT TIDAC 07/08/20 08/11/20 History Insulin] levothyroxine 100 mcg PO DAILY 07/08/20 08/11/20 History losartan 50 mg PO DAILY 07/08/20 08/11/20 History lubiprostone [Amitiza] 24 mcg PO BID 07/08/20 08/11/20 History metformin 1,000 mg PO BID 07/08/20 08/11/20 History omega-3 fatty acids [Fish Oil 1,000 mg PO DAILY 07/08/20 08/11/20 History Concentrate] omeprazole 20 mg PO DAILY 07/08/20 08/11/20 History oxycodone-acetaminophen 1 tab PO Q8H PRN 07/08/20 08/11/20 History quetiapine 200 mg PO BEDTIME 07/08/20 08/11/20 History risperidone [Risperdal] 6 mg PO BEDTIME 07/08/20 08/11/20 History sumatriptan succinate 25 mg tablet 0 mg PO DIRECTED 08/11/20 08/11/20 History Allergies Allergy/AdvReac Type Severity Reaction Status Date / Time lisinopril [LISINOPRIL] Allergy Severe Dizziness Verified 08/11/20 23:11 Exam Vital signs: Vital Signs Temp 98.6 F 10/02/20 11:21 Pulse 84 10/02/20 11:21 Resp 12 10/02/20 11:21 BP 177/78 H 10/02/20 11:21 Pulse Ox 83 L 10/02/20 11:21 Intake & Output 10/01/20 10/02/20 10/02/20 18:59 06:59 18:59 Other: Weight 93.4 kg Weight 93.4 kg Body Mass Index 36.4 - Constitutional Present: moderate distress - Routine HEENT Exam Head: Present: normal inspection Eye: Present: normal appearance ENT: Present: mucous membranes moist - Routine Neck Exam Present: full ROM - Routine Respiratory Exam Present: CTAB - Routine Cardiovascular Exam Cardiovascular: Present: RRR, S1, S2 - Routine Abdominal Exam Absent: tenderness - Routine Rectal Exam Patient deferred: digital exam - Routine Extremities Exam Present: nontender - Routine Back/Spine/Pelvis Exam Back/Spine: Present: full ROM - Routine Skin Exam Present: intact - Routine Neurological Exam Present: alert, oriented X3 - Detailed Neurological Exam: Coma Scale Eye Opening: Spontaneous (4) - Routine Psychiatric Exam Present: normal affect Data - Labs CBC & Chem 7: 10/02/20 11:16 10/02/20 11:16 Labs: 09/01/20 15:15 BCR/ABL Trans 9,22 [place],Bl Routine Complete Blood Count Man Dif Routine Comprehensive Met. Panel Routine Lactate Dehydrogenase Routine Laboratory Last Values WBC 9.3 X10*3/uL (4.8-10.8) 09/01/20 15:15 RBC 5.00 X10*6/uL (4.20-5.50) 09/01/20 15:15 Hgb 14.2 g/dl (12.0-16.0) 09/01/20 15:15 Hct 45.8 % (37-47) 09/01/20 15:15 MCV 91.6 fL (80-98) 09/01/20 15:15 MCH 28.4 pg (27.0-33.0) 09/01/20 15:15 MCHC 31.0 g/dl (31.0-35.0) 09/01/20 15:15 RDW 15.7 % (11.0-16.0) 09/01/20 15:15 Plt Count 220 X10*3/uL (160-400) D 09/01/20 15:15 MPV 11.8 fL (9.4-12.3) 09/01/20 15:15 Absolute Nucleated RBC 0.000 X10*3/uL (0.0-0.012) 09/01/20 15:15 Nucleated RBC % (auto) 0.0 /100WBC (0.0-0.2) 09/01/20 15:15 Neutrophils % (Manual) 78 % (45-73) H 09/01/20 15:15 Band Neutrophils % 0 % (3-5) L 09/01/20 15:15 Lymphocytes % (Manual) 15 % (20-40) L 09/01/20 15:15 Monocytes % (Manual) 7 % (2-11) 09/01/20 15:15 Abs Neuts (Manual) 7.3 X10*3/uL (2.2-7.9) 09/01/20 15:15 Lymphocytes # (Manual) 1.4 X10*3/uL (0.6-4.8) 09/01/20 15:15 Monocytes # (Manual) 0.7 X10*3/uL (0.0-1.2) 09/01/20 15:15 Platelet Estimate NORMAL (NORMAL) 09/01/20 15:15 Large Platelets PRESENT 09/01/20 15:15 Plt Morphology Comment NOTED 09/01/20 15:15 RBC Morphology NORMAL 09/01/20 15:15 Sodium 135 mmol/L (135-145) 09/01/20 15:15 Potassium 4.6 mmol/l (3.3-5.1) 09/01/20 15:15 Chloride 94 mmol/L (96-108) L 09/01/20 15:15 Carbon Dioxide 33 mmol/L (22-29) H 09/01/20 15:15 Anion Gap 13 (12-20) 09/01/20 15:15 BUN 14 mg/dL (9-16) 09/01/20 15:15 Creatinine 0.78 mg/dL (0.5-1.4) 09/01/20 15:15 Estim Creat Clear Calc 75.9 09/01/20 15:15 Estimated GFR > 60 09/01/20 15:15 Random Glucose 411 mg/dL (60-115) H* 09/01/20 15:15 Calcium 8.5 mg/dL (8.4-10.2) 12/08/20 15:15 Total Bilirubin 0.3 mg/dL (0.0-1.0) 09/01/20 15:15 AST 14 U/L (5-31) 09/01/20 15:15 ALT 11 U/L (0-31) 09/01/20 15:15 Alkaline Phosphatase 130 U/L (39-117) H 09/01/20 15:15 Lactate Dehydrogenase 198 U/L (122-220) 09/01/20 15:15 Total Protein 7.0 g/dL (6.5-8.0) 09/01/20 15:15 Albumin 3.6 g/dL (3.5-5.0) 09/01/20 15:15 BCR/abl (FISH) Source Peripheral Blood 09/01/20 15:15 BCR/abl (FISH) Result 0.000 % 09/01/20 15:15 BCR/abl (FISH) Res Sum see note 09/01/20 15:15 BCR/abl Comment 0.000 % 09/01/20 15:15 BCR/abl Additionl Info Not Given 09/01/20 15:15 BCR/abl1 Mnr (p190) EER Not Detected 09/01/20 15:15 BCR/abl1 Mjr (p210) EER Not Detected 09/01/20 15:15 Progress Note: A/P (1) Splenomegaly Status: Acute Assessment and plan: 70 year old lady, C/O pain in the back, and left flank. Ultrasound of the abdomen from 02/14/2018: Probable parapelvic cyst upper and lower pole right kidney. Heterogenous pancreatic echogenicity, no discrete or focal abnormality. Spleen: Normal, 9.7 cm. Cat scan of chest revealed: * Mild interstitial pulmonary edema without pleural effusion. * Scattered opacities of subsegmental atelectasis in middle lobe, lingula and lower lobes. * No evidence of a large, central embolus. Due to the suboptimal contrast bolus, unable to evaluate the more peripheral pulmonary arteries. * Mild splenomegaly is stable compared to 09/05/2019. The negative test result for PE -- but suboptimal contrast bolus -- was discussed with Dr. Villalpando at 8:07 pm on 07/08/2020 and it was ascertained that the pretest probability was low so no repeat contrast injection will be performed at this time. However review of the CT scan from [facility] from 07/23/2020 revealed: Dependent atelectasis within the posterior lung bases. Normal liver, spot stomach, spleen, pancreas, adrenal glands, kidneys and small bowel. Nonvisualized appendix. Normal colon, bladder and adnexa. Fibroid uterus. No free air free fluid, aneurysm or bowel obstruction. Bilateral prominent inguinal lymph nodes measuring 2.3 cm on the right and 3 cm on the left. Anterior spurring of the thoracic spine. IMP: No acute intra-abdominal adenopathy. This was reassuring. Milroy does not feel well today. The patient 's initial BP was elevated>200. Manual: 177/78. She complained of a lot of pain in her left flank, area, Her O2 sat was low at 83% on 3L/min of oxygen. PLAN: She was transferred to the ER for further evaluation. D/W Dr. Rosales in the ED. Thanks, CC: [facility]. DR. DOMINGUEZ. Addendum: Work up in the ER: CTA: No P.E. Enlarged heart. Atelectasis in lingula/LLL. Interstitial pulmonary edema. Cat scan of Abdomen: No acute findings. Stool throughout colon. No splenomegaly. Prominant inguinal nodes, stable. She was treated and sent home from the ER. Will proceed with biopsy of the nodes. (2) Inguinal adenopathy Status: Acute Assessment and plan: (2) Inguinal adenopathy Status: Acute 70-year-old lady with left upper quadrant pain. Referred for , Splenomagaly and Abdominal adenopathy. However Cat scan [facility] abdomen from [facility], did not reveal it. She was noted to have bilateral inguinal adenopathy on ultrasound done at [facility]. PLAN: I checked with IR and biopsy is feasible. Will proceed with ultrasound-guided biopsy of the left inguinal node for further evaluation. Will make further plans based upon the results. - Time Spent With Patient Total time spent is greater than 50% in coordination of care (as documented) at patient's floor/unit and/or counseling patient: 25 - 35 minutes
[2020-10-02 11:35] LABS: Basophils Percent Auto 0.3 % (0-2); Eosinophils Absolute Auto 0.1 X10*3/uL (0.0-0.4); Eosinophils Percent Auto 1.8 % (0-4); Hematocrit 48.5 % (37-47); Hemoglobin 14.7 g/dl (12.0-16.0); Imm Gran Abs Auto 0.02 X10*3/uL (0.00-0.03); Imm Gran Pct Auto 0.3 % (0.0-0.4); Lymphocytes Absolute Auto 1.5 X10*3/uL (1.2-4.9); Lymphocytes Percent Auto 20.8 % (20-40); Mean Corpuscular HGB Conc 30.3 g/dl (31.0-35.0); Mean Corpuscular Hemoglobin 27.7 pg (27.0-33.0); Mean Corpuscular Volume 91.5 fL (80-98); Mean Platelet Volume 11.5 fL (9.4-12.3); Monocytes Absolute Auto 0.5 X10*3/uL (0.1-1.2); Monocytes Percent Auto 6.5 % (2-11); Neutrophils Absolute Auto 5.1 X10*3/uL (2.0-8.3); Neutrophils Percent Auto 70.3 % (45-73); Platelet Count 220 X10*3/uL (160-400); Red Cell Distribution Width 14.6 % (11.0-16.0); White Blood Count 7.2 X10*3/uL (4.8-10.8)
--- NOTE | 2020-10-02 12:14 | MHC.HEMONCMA ---
Patient came in for a follow up for splenomegaly. Patient's vitals were off, her BP was 209/104 on monitor, with 177/78 manually. Her oxygen stat was 83% on [address] Taylor asked her to go to the ER, she agreed. I brought the patient to the ER for evaluation.
[2020-10-02 12:16] LABS: Alanine Aminotransferase 11 U/L (0-31); Albumin Level 3.2 g/dL (3.5-5.0); Alkaline Phosphatase 124 U/L (39-117); Anion Gap 11 (12-20); Aspartate Amino Transferase 12 U/L (5-31); Bilirubin Total 0.3 mg/dL (0.0-1.0); Blood Urea Nitrogen 13 mg/dL (9-16); Calcium 8.8 mg/dL (8.4-10.2); Carbon Dioxide 35 mmol/L (22-29); Chloride 97 mmol/L (96-108); Creatinine Clr Calc Pharmacy 70.4; Estimated Glomerular Filt Rate > 60; Glucose Random 477 mg/dL (60-115); Potassium 5.1 mmol/l (3.3-5.1); Sodium 138 mmol/L (135-145); Total Protein 6.7 g/dL (6.5-8.0)
[2020-10-06 10:31] VITALS: BP 207/88; PULSE 84; RESP 18; TEMP 36.5; O2SAT 100; BMI 37.3
[2020-10-06 10:35] VITALS: BP 180/72
--- NOTE | 2020-10-06 10:36 | PM.HEMONCPN ---
Medical Summary - Medical Summary Date of Service: 10/06/20 Medical Summary: DIAGNOSIS: Splenomegaly. Adenopathy. CBC: WBC 15.6 H (Dec 14, ABS NEUT COUNT (Dec 14, RBC 3.70 L (Dec 14, HGB 11.5 L (Dec 14, HCT 34.8 L (Dec 14, MCV 93.9 (Dec 14, MCH 31.2 (Dec 14, MCHC 33.2 (Dec 14, PLATELET CT 169 (Dec 14, Interval History Interval history: Lulu Chavez is a pleasant 70 year old lady, who has been referred on account of splenomegaly and abdominal adenopathy. However review of the CT scan from [facility] from 07/23/2020 revealed: Dependent atelectasis within the posterior lung bases. Normal liver, spot stomach, spleen, pancreas, adrenal glands, kidneys and small bowel. Nonvisualized appendix. Normal colon, bladder and adnexa. Fibroid uterus. No free air free fluid, aneurysm or bowel obstruction. Bilateral prominent inguinal lymph nodes measuring 2.3 cm on the right and 3 cm on the left. Anterior spurring of the thoracic spine. IMP: No acute intra-abdominal adenopathy. CTA of chest from 07/11: * Mild interstitial pulmonary edema without pleural effusion. * Scattered opacities of subsegmental atelectasis in middle lobe, lingula and lower lobes. * No evidence of a large, central embolus. Due to the suboptimal contrast bolus, unable to evaluate the more peripheral pulmonary arteries. * Mild splenomegaly is stable compared to 09/05/2019. The negative test result for PE -- but suboptimal contrast bolus -- was discussed with Dr. Villalpando on 07/08/2020 and it was ascertained that the pretest probability was low, and no repeat contrast injection will be performed at this time. Review of her labs revealed: WBC 15.6 H (Dec 14, ABS NEUT COUNT (Dec 14, RBC 3.70 L (Dec 14, HGB 11.5 L (Dec 14, HCT 34.8 L (Dec 14, MCV 93.9 (Dec 14, MCH 31.2 (Dec 14, MCHC 33.2 (Dec 14, PLATELET CT 169 (Dec 14, Serial WBC in the computer: Date Time Result N Dec 14 11:29 15.6 Jul 12, 06:21 12.2 Jun 17, 19 05:14 15.3 Jul 10 06:46 15.6 Jul 09 05:04 12.5 Jul 08 05:30 10.2. Last week when she was here, she did not feel well. She complained of pain in her left flank. She was SOB. Her blood pressure was elevated. Her O2 sat ow: 83 on 3 L/min. Blood sugar was high at 411. She was afebrile. She was referred to the emergency room for further management. CT scan of the chest and abdomen were done: There was no PE. Nothing new in the belly except for constipation. She does not feel well even now. She continues to have left flank pain. She has nausea but not vomiting. A bowels are rather constipated however she says she is taking Amitiza, with good results. She has an appointment with GI but that is not until November 22. She would like to see somebody now. Her blood pressure is elevated as well. Review of Systems - Constitutional Reports system reviewed and no additional complaints, except as documented, Reports anorexia, Reports excessive sweating, Reports lack of energy, Reports malaise - Eyes Reports system reviewed and no additional complaints, except as documented, Denies blurry vision - ENT Reports system reviewed and no additional complaints, except as documented - Cardiovascular Reports system reviewed and no additional complaints, except as documented, Denies chest pain at rest - Respiratory Reports no additional respiratory complaints, Denies chest congestion - Gastrointestinal Reports system reviewed and no additional complaints, except as documented, Reports abdominal pain, Reports change in bowel habits, Reports constipation - Genitourinary Reports no additional female genitourinary complaints, Denies abnormal vaginal bleeding - Musculoskeletal Reports system reviewed and no additional complaints, except as documented, Reports back pain - Integumentary/Breasts Skin/Breast: Reports no additional skin complaints, Denies bleeding lesions - Neurologic Reports weakness - Psychiatric Reports system reviewed and no additional complaints, except as documented, Reports anxiety - Endocrine Reports no additional endocrine complaints, Denies excessive sweating - Hematologic/Lymphatic Reports system reviewed and no additional complaints, except as documented, Denies easy bruising - Allergic/Immunologic Reports system reviewed and no additional complaints, except as documented, Reports GI upset with certain foods PMFSH Medical History: Medical History (Last Reviewed 10/02/20 @ 12:27 by Roro Rosales MD) Asthma CHF (congestive heart failure) COPD (chronic obstructive pulmonary disease) Diabetes GERD (gastroesophageal reflux disease) HTN (hypertension) Hyperlipemia Hypothyroidism Lymphadenopathy, abdominal KATIUSKA (obstructive sleep apnea) Splenomegaly Functional capacity: independent ambulation Patient : No Surgical History: Surgical History (Last Updated 09/01/20 @ 14:24 by Jennifer Garcia RN) H/O section History of cholecystectomy Hx of tubal ligation Smoking status: Former smoker Home Medications and Allergies Home Medications Medication Instructions Recorded Confirmed Type acetaminophen 325 mg PO Q8H PRN 07/08/20 10/06/20 History albuterol sulfate 2.5 mg INHALATION Q4H PRN 07/08/20 10/06/20 History albuterol sulfate [ProAir HFA] 2 puff INHALATION Q4-6H PRN 07/08/20 10/06/20 History amlodipine 10 mg PO DAILY 07/08/20 10/06/20 History aspirin 81 mg PO DAILY 07/08/20 10/06/20 History atorvastatin 40 mg PO DAILY 07/08/20 10/06/20 History fluticasone furoate-vilanterol 1 inh INHALATION DAILY 07/08/20 10/06/20 History [Breo Ellipta] fluticasone propionate [Flovent 1 puff INHALATION BID 07/08/20 10/06/20 History HFA] furosemide 40 mg PO Q OTHER DAY 07/08/20 10/06/20 History hydralazine 100 mg PO BID 07/08/20 10/06/20 History insulin glargine [Lantus Solostar 30 unit SUBCUT BID 07/08/20 10/06/20 History U-100 Insulin] insulin lispro [Humalog KwikPen See Protocol SUBCUT TIDAC 07/08/20 10/06/20 History Insulin] levothyroxine 100 mcg PO DAILY 07/08/20 10/06/20 History losartan 50 mg PO DAILY 07/08/20 10/06/20 History lubiprostone [Amitiza] 24 mcg PO BID 07/08/20 10/06/20 History metformin 1,000 mg PO BID 07/08/20 10/06/20 History omega-3 fatty acids [Fish Oil 1,000 mg PO DAILY 07/08/20 10/06/20 History Concentrate] omeprazole 20 mg PO DAILY 07/08/20 10/06/20 History oxycodone-acetaminophen 1 tab PO Q8H PRN 07/08/20 10/06/20 History quetiapine 200 mg PO BEDTIME 07/08/20 10/06/20 History risperidone [Risperdal] 6 mg PO BEDTIME 07/08/20 10/06/20 History sumatriptan succinate 25 mg tablet 0 mg PO DIRECTED 08/11/20 08/11/20 History Allergies Allergy/AdvReac Type Severity Reaction Status Date / Time lisinopril [LISINOPRIL] Allergy Severe Dizziness Verified 08/11/20 23:11 Exam Vital signs: Vital Signs Temp 97.7 F 10/06/20 10:31 Pulse 84 10/06/20 10:31 Resp 18 10/06/20 10:31 BP 180/72 H 10/06/20 10:35 Pulse Ox 100 10/06/20 10:31 Intake & Output 10/05/20 10/06/20 10/06/20 18:59 06:59 18:59 Other: Weight 95.7 kg Weight 95.7 kg Body Mass Index 37.3 - Constitutional Present: moderate distress - Routine HEENT Exam Head: Present: normal inspection Eye: Present: normal appearance ENT: Present: mucous membranes moist - Routine Neck Exam Present: full ROM - Routine Respiratory Exam Present: CTAB - Routine Cardiovascular Exam Cardiovascular: Present: RRR, S1, S2 - Routine Abdominal Exam Absent: tenderness - Routine Rectal Exam Patient deferred: digital exam - Routine Extremities Exam Present: nontender - Routine Back/Spine/Pelvis Exam Back/Spine: Present: full ROM - Routine Skin Exam Present: intact - Routine Neurological Exam Present: alert, oriented X3 - Detailed Neurological Exam: Coma Scale Eye Opening: Spontaneous (4) - Routine Psychiatric Exam Present: normal affect Data - Labs CBC & Chem 7: 10/02/20 11:16 10/02/20 11:16 Labs: 09/01/20 15:15 BCR/ABL Trans 9,22 [place],Bl Routine Complete Blood Count Man Dif Routine Comprehensive Met. Panel Routine Lactate Dehydrogenase Routine Laboratory Last Values WBC 9.3 X10*3/uL (4.8-10.8) 09/01/20 15:15 RBC 5.00 X10*6/uL (4.20-5.50) 09/01/20 15:15 Hgb 14.2 g/dl (12.0-16.0) 09/01/20 15:15 Hct 45.8 % (37-47) 09/01/20 15:15 MCV 91.6 fL (80-98) 09/01/20 15:15 MCH 28.4 pg (27.0-33.0) 09/01/20 15:15 MCHC 31.0 g/dl (31.0-35.0) 09/01/20 15:15 RDW 15.7 % (11.0-16.0) 09/01/20 15:15 Plt Count 220 X10*3/uL (160-400) D 09/01/20 15:15 MPV 11.8 fL (9.4-12.3) 09/01/20 15:15 Absolute Nucleated RBC 0.000 X10*3/uL (0.0-0.012) 09/01/20 15:15 Nucleated RBC % (auto) 0.0 /100WBC (0.0-0.2) 09/01/20 15:15 Neutrophils % (Manual) 78 % (45-73) H 09/01/20 15:15 Band Neutrophils % 0 % (3-5) L 09/01/20 15:15 Lymphocytes % (Manual) 15 % (20-40) L 09/01/20 15:15 Monocytes % (Manual) 7 % (2-11) 09/01/20 15:15 Abs Neuts (Manual) 7.3 X10*3/uL (2.2-7.9) 09/01/20 15:15 Lymphocytes # (Manual) 1.4 X10*3/uL (0.6-4.8) 09/01/20 15:15 Monocytes # (Manual) 0.7 X10*3/uL (0.0-1.2) 09/01/20 15:15 Platelet Estimate NORMAL (NORMAL) 09/01/20 15:15 Large Platelets PRESENT 09/01/20 15:15 Plt Morphology Comment NOTED 09/01/20 15:15 RBC Morphology NORMAL 09/01/20 15:15 Sodium 135 mmol/L (135-145) 09/01/20 15:15 Potassium 4.6 mmol/l (3.3-5.1) 09/01/20 15:15 Chloride 94 mmol/L (96-108) L 09/01/20 15:15 Carbon Dioxide 33 mmol/L (22-29) H 09/01/20 15:15 Anion Gap 13 (12-20) 09/01/20 15:15 BUN 14 mg/dL (9-16) 09/01/20 15:15 Creatinine 0.78 mg/dL (0.5-1.4) 09/01/20 15:15 Estim Creat Clear Calc 75.9 09/01/20 15:15 Estimated GFR > 60 09/01/20 15:15 Random Glucose 411 mg/dL (60-115) H* 09/01/20 15:15 Calcium 8.5 mg/dL (8.4-10.2) 09/01/20 15:15 Total Bilirubin 0.3 mg/dL (0.0-1.0) 09/01/20 15:15 AST 14 U/L (5-31) 09/01/20 15:15 ALT 11 U/L (0-31) 09/01/20 15:15 Alkaline Phosphatase 130 U/L (39-117) H 09/01/20 15:15 Lactate Dehydrogenase 198 U/L (122-220) 09/01/20 15:15 Total Protein 7.0 g/dL (6.5-8.0) 09/01/20 15:15 Albumin 3.6 g/dL (3.5-5.0) 09/01/20 15:15 BCR/abl (FISH) Source Peripheral Blood 09/01/20 15:15 BCR/abl (FISH) Result 0.000 % 09/01/20 15:15 BCR/abl (FISH) Res Sum see note 09/01/20 15:15 BCR/abl Comment 0.000 % 09/01/20 15:15 BCR/abl Additionl Info Not Given 09/01/20 15:15 BCR/abl1 Mnr (p190) EER Not Detected 09/01/20 15:15 BCR/abl1 Mjr (p210) EER Not Detected 09/01/20 15:15 Progress Note: A/P (1) Splenomegaly Status: Acute Assessment and plan: 70 year old lady, C/O pain in the back, and left flank. Ultrasound of the abdomen from 02/14/2018: Probable parapelvic cyst upper and lower pole right kidney. Heterogenous pancreatic echogenicity, no discrete or focal abnormality. Spleen: Normal, 9.7 cm. Cat scan of chest revealed: * Mild interstitial pulmonary edema without pleural effusion. * Scattered opacities of subsegmental atelectasis in middle lobe, lingula and lower lobes. * No evidence of a large, central embolus. Due to the suboptimal contrast bolus, unable to evaluate the more peripheral pulmonary arteries. * Mild splenomegaly is stable compared to 09/05/2019. The negative test result for PE -- but suboptimal contrast bolus -- was discussed with Dr. Villalpando at 8:07 pm on 07/08/2020 and it was ascertained that the pretest probability was low so no repeat contrast injection will be performed at this time. However review of the CT scan from [facility] from 07/23/2020 revealed: Dependent atelectasis within the posterior lung bases. Normal liver, spot stomach, spleen, pancreas, adrenal glands, kidneys and small bowel. Nonvisualized appendix. Normal colon, bladder and adnexa. Fibroid uterus. No free air free fluid, aneurysm or bowel obstruction. Bilateral prominent inguinal lymph nodes measuring 2.3 cm on the right and 3 cm on the left. Anterior spurring of the thoracic spine. IMP: No acute intra-abdominal adenopathy. This was reassuring. Lulu does not feel well today. The patient 's initial BP was elevated>200. Manual: 177/78. She complained of a lot of pain in her left flank, area, Her O2 sat was low at 83% on 3L/min of oxygen. She was transferred to the ER for further evaluation. D/W Dr. Rosales in the ED. Work up in the ER: CTA: No P.E. Enlarged heart. Atelectasis in lingula/LLL. Interstitial pulmonary edema. Cat scan of Abdomen: No acute findings. Stool throughout colon. No splenomegaly. Prominant inguinal nodes, stable. She was treated and sent home from the ER. She still does not feel well. Continues to have pain in her side. PLAN: I will refer her for further GI evaluation. Appointment is with Lluvia for October 22. Thanks, CC: Lluvia Beard. DR. DOMINGUEZ. (2) Inguinal adenopathy Status: Acute Assessment and plan: (2) Inguinal adenopathy Status: Acute 70-year-old lady with left upper quadrant pain. Referred for , Splenomagaly and Abdominal adenopathy. She was noted to have bilateral inguinal adenopathy on ultrasound done at [facility]. However Cat scan of abdomen from [facility], did not reveal it. She was here last week. At that time her blood pressure was very elevated and she had pain in her left flank. She was sent to the emergency room. Her CTA of the chest and CT abdomen were done. These revealed: No evidence of pulmonary embolism. Enlarged heart. Subsegmental atelectasis or scarring in the lingula and left lower lobe. Abdomen and pelvis: No acute findings. Stool throughout the colon questionable for constipation. Atherosclerotic disease. Prominent bilateral pelvic retroperitoneal lymph nodes and inguinal lymph nodes similar to previous exam. PLAN: I checked with IR regarding biopsy of left inguinal lymph nodes. However Dr. White felt these were benign appearing nodes. Will continue to follow. If they change, will proceed with ultrasound-guided biopsy of the left inguinal node for further evaluation. Thanks, CC: Dr. Name. Lluvia Beard. - Time Spent With Patient Total time spent is greater than 50% in coordination of care (as documented) at patient's floor/unit and/or counseling patient: 25 - 35 minutes
--- NOTE | 2020-10-06 11:08 | MHC.HEMONC ---
Patient here for follow-up. No labs drawn today. Patient clinical summary updated with nurse. Provider aware of blood pressures. Provider seen patient. Follow-up mailed.
[2020-11-10 10:49] VITALS: PULSE 78; RESP 18; TEMP 37; O2SAT 98; BMI 36.6
--- NOTE | 2020-11-10 10:54 | P.PNHO_ITS ---
Medical Summary - Medical Summary Date of Service: 11/11/20 Chief complaint: Follow-up for: Abdominal Adenopathy. Medical Summary: DIAGNOSIS: Splenomegaly. Adenopathy. CBC: WBC 15.6 H (Nov. ABS NEUT COUNT (Dec 14, RBC 3.70 L (Dec 14, HGB 11.5 L (Dec 14, HCT 34.8 L (Dec 14, MCV 93.9 (Dec 14, MCH 31.2 (Dec 14, MCHC 33.2 (Dec 14, PLATELET CT 169 (Dec 14, Interval History Interval history: Lulu Chavez is a pleasant 70 year old lady, here for a follow-up visit. She does not feel too well. She has ongoing chronic left upper abdominal pain. She complains of gas. She complains of constipation. She does follow with GI, Dr. Santiago. She has tried Amitiza, but that did not help. She is under the care of Dr. Dominguez. She gets pain medications through him. She was referred to Pain Management but she just went there for 1 visit. They did not help her. She continues to feel heartburn dyspepsia and gas. Denies chest pain or trouble breathing. Her blood pressure was noted to be high today. She denies headaches. She denies dizziness. She was advised to go to the ER but she declined. She was advised to follow up with her primary doctor. Her spirits are down. Rest of the review of systems is unremarkable. Previous history: She was referred on account of splenomegaly and abdominal adenopathy. However review of the CT scan from [facility] from 07/23/2020 revealed: Dependent atelectasis within the posterior lung bases. Normal liver, spot stomach, spleen, pancreas, adrenal glands, kidneys and small bowel. Nonvisualized appendix. Normal colon, bladder and adnexa. Fibroid uterus. No free air free fluid, aneurysm or bowel obstruction. Bilateral prominent inguinal lymph nodes measuring 2.3 cm on the right and 3 cm on the left. Anterior spurring of the thoracic spine. IMP: No acute intra-abdominal adenopathy. CTA of chest from 07/11: * Mild interstitial pulmonary edema without pleural effusion. * Scattered opacities of subsegmental atelectasis in middle lobe, lingula and lower lobes. * No evidence of a large, central embolus. Due to the suboptimal contrast bolus, unable to evaluate the more peripheral pulmonary arteries. * Mild splenomegaly is stable compared to 09/05/2019. The negative test result for PE -- but suboptimal contrast bolus -- was discussed with Dr. Villalpando on 07/08/2020 and it was ascertained that the pretest probability was low, and no repeat contrast injection will be performed at this time. Review of her labs revealed: WBC 15.6 (Dec 14, ABS NEUT COUNT (Dec 14, RBC 3.70 L (Dec 14, HGB 11.5 L (Dec 14, HCT 34.8 L (Dec 14, MCV 93.9 (Dec 14, MCH 31.2 (Dec 14, MCHC 33.2 (Dec 14, PLATELET CT 169 (Dec 14, Serial WBC in the computer: Date Time Result N Dec 14 11:29 15.6 Jun 18, 19 06:21 12.2 Jun 17, 19 05:14 15.3 Oct 16, 19 06:46 15.6 Oct 15, 19 05:04 12.5 Jun 14, 19 05:30 10.2. Last time, when she was here, she did not feel well. She complained of pain in her left flank. She was SOB. Her blood pressure was elevated. Her O2 sat ow: 83 on 3 L/min. Blood sugar was high at 411. She was afebrile. She was referred to the emergency room for further management. CT scan of the chest and abdomen were done: There was no PE. Nothing new in the belly except for constipation. She does not feel well even now. She continues to have left flank pain. She has nausea but not vomiting. A bowels are rather constipated however she says she is taking Amitiza, with good results. She has an appointment with GI but that is not until November 22. She would like to see somebody now. Her blood pressure is elevated as well. Review of Systems - Constitutional Reports system reviewed and no additional complaints, except as documented, Reports body ache(s), Reports lack of energy, Reports malaise, Reports weight gain, Denies night sweats - Eyes Reports system reviewed and no additional complaints, except as documented, Denies blurry vision - ENT Reports system reviewed and no additional complaints, except as documented - Cardiovascular Reports system reviewed and no additional complaints, except as documented - Respiratory Reports no additional respiratory complaints - Gastrointestinal Reports system reviewed and no additional complaints, except as documented, Reports abdominal pain, Reports bloating, Reports change in bowel habits, Reports excessive passing of gas - Genitourinary Reports no additional female genitourinary complaints - Musculoskeletal Reports system reviewed and no additional complaints, except as documented - Integumentary/Breasts Skin/Breast: Reports no additional skin complaints - Neurologic Reports weakness - Psychiatric Reports system reviewed and no additional complaints, except as documented - Endocrine Reports no additional endocrine complaints - Hematologic/Lymphatic Reports system reviewed and no additional complaints, except as documented - Allergic/Immunologic Reports system reviewed and no additional complaints, except as documented [facility] Medical History: Medical History (Last Updated 10/28/20 @ 12:40 by Anjali Macias PA-C) Asthma CHF (congestive heart failure) Chronic constipation COPD (chronic obstructive pulmonary disease) Diabetes GERD (gastroesophageal reflux disease) HTN (hypertension) Hyperlipemia Hypothyroidism Lymphadenopathy, abdominal KATIUSKA (obstructive sleep apnea) Splenomegaly Functional capacity: independent ambulation Patient : No Surgical History: Surgical History (Last Reviewed 10/22/20 @ 11:33 by Watson Joseph) H/O section History of cholecystectomy Hx of tubal ligation Social History: Social History (Last Updated 10/27/20 @ 14:28 by Bell Fong) Living Situation History: Household Members: None Alcohol History: Alcohol intake: never Tobacco History: Smoking Status: Former smoker Nutrition Assessment: Patient : No Occupation Assessmet: Current occupational status: disabled Smoking status: Former smoker Oncology Screenings - ECOG Performance Status ECOG Performance Status: 1 Home Medications and Allergies Home Medications Medication Instructions Recorded Confirmed Type acetaminophen 325 mg PO Q8H PRN 07/08/20 10/06/20 History albuterol sulfate 2.5 mg INHALATION Q4H PRN 07/08/20 10/06/20 History albuterol sulfate [ProAir HFA] 2 puff INHALATION Q4-6H PRN 07/08/20 10/27/20 History amlodipine 10 mg PO DAILY 07/08/20 10/27/20 History aspirin 81 mg PO DAILY 07/08/20 10/27/20 History atorvastatin 40 mg PO DAILY 07/08/20 10/27/20 History fluticasone furoate-vilanterol 1 inh INHALATION DAILY 07/08/20 10/27/20 History [Breo Ellipta] fluticasone propionate [Flovent 1 puff INHALATION BID 07/08/20 10/27/20 History HFA] furosemide 40 mg PO Q OTHER DAY 07/08/20 10/06/20 History hydralazine 100 mg PO BID 07/08/20 10/06/20 History insulin glargine [Lantus Solostar 30 unit SUBCUT BID 07/08/20 10/06/20 History U-100 Insulin] insulin lispro [Humalog KwikPen See Protocol SUBCUT TIDAC 07/08/20 10/06/20 History Insulin] levothyroxine 100 mcg PO DAILY 07/08/20 10/06/20 History losartan 50 mg PO DAILY 07/08/20 10/06/20 History lubiprostone [Amitiza] 24 mcg PO BID 07/08/20 10/06/20 History metformin 1,000 mg PO BID 07/08/20 10/06/20 History omega-3 fatty acids [Fish Oil 1,000 mg PO DAILY 07/08/20 10/06/20 History Concentrate] omeprazole 20 mg PO DAILY 07/08/20 10/06/20 History oxycodone-acetaminophen 1 tab PO Q8H PRN 07/08/20 10/06/20 History quetiapine 200 mg PO BEDTIME 07/08/20 10/06/20 History risperidone [Risperdal] 6 mg PO BEDTIME 07/08/20 10/06/20 History sumatriptan succinate 25 mg tablet 0 mg PO DIRECTED 08/11/20 08/11/20 History Allergies Allergy/AdvReac Type Severity Reaction Status Date / Time lisinopril [LISINOPRIL] Allergy Severe Dizziness Verified 08/11/20 23:11 Exam Vital signs: Vital Signs Temp 98.6 F 11/10/20 10:49 Pulse 78 11/10/20 10:49 Resp 18 11/10/20 10:49 BP 180/72 H 10/06/20 10:35 Pulse Ox 98 11/10/20 10:49 Intake & Output 11/09/20 11/10/20 11/10/20 18:59 06:59 18:59 Other: Weight 93.8 kg Weight in Grams [id number] Weight 93.8 kg Body Mass Index 36.6 - Constitutional Present: moderate distress - Routine HEENT Exam Head: Present: normal inspection Eye: Present: normal appearance ENT: Present: mucous membranes moist - Routine Neck Exam Present: full ROM - Routine Respiratory Exam Present: CTAB - Routine Cardiovascular Exam Cardiovascular: Present: RRR, S1, S2 - Routine Abdominal Exam Absent: tenderness - Routine Rectal Exam Patient deferred: digital exam - Routine Extremities Exam Present: nontender - Routine Back/Spine/Pelvis Exam Back/Spine: Present: full ROM - Routine Skin Exam Present: intact - Routine Neurological Exam Present: alert, oriented X3 - Detailed Neurological Exam: Coma Scale Eye Opening: Spontaneous (4) - Routine Psychiatric Exam Present: normal affect Data - Labs CBC & Chem 7: 11/10/20 10:42 11/10/20 10:42 Labs: 09/01/20 15:15 BCR/ABL Trans 9,22 [place],Bl Routine Complete Blood Count Man Dif Routine Comprehensive Met. Panel Routine Lactate Dehydrogenase Routine Laboratory Last Values WBC 9.3 X10*3/uL (4.8-10.8) 09/01/20 15:15 RBC 5.00 X10*6/uL (4.20-5.50) 09/01/20 15:15 Hgb 14.2 g/dl (12.0-16.0) 09/01/20 15:15 Hct 45.8 % (37-47) 09/01/20 15:15 MCV 91.6 fL (80-98) 09/01/20 15:15 MCH 28.4 pg (27.0-33.0) 09/01/20 15:15 MCHC 31.0 g/dl (31.0-35.0) 09/01/20 15:15 RDW 15.7 % (11.0-16.0) 09/01/20 15:15 Plt Count 220 X10*3/uL (160-400) D 09/01/20 15:15 MPV 11.8 fL (9.4-12.3) 09/01/20 15:15 Absolute Nucleated RBC 0.000 X10*3/uL (0.0-0.012) 09/01/20 15:15 Nucleated RBC % (auto) 0.0 /100WBC (0.0-0.2) 09/01/20 15:15 Neutrophils % (Manual) 78 % (45-73) H 09/01/20 15:15 Band Neutrophils % 0 % (3-5) L 09/01/20 15:15 Lymphocytes % (Manual) 15 % (20-40) L 09/01/20 15:15 Monocytes % (Manual) 7 % (2-11) 09/01/20 15:15 Abs Neuts (Manual) 7.3 X10*3/uL (2.2-7.9) 09/01/20 15:15 Lymphocytes # (Manual) 1.4 X10*3/uL (0.6-4.8) 09/01/20 15:15 Monocytes # (Manual) 0.7 X10*3/uL (0.0-1.2) 09/01/20 15:15 Platelet Estimate NORMAL (NORMAL) 09/01/20 15:15 Large Platelets PRESENT 09/01/20 15:15 Plt Morphology Comment NOTED 09/01/20 15:15 RBC Morphology NORMAL 09/01/20 15:15 Sodium 135 mmol/L (135-145) 09/01/20 15:15 Potassium 4.6 mmol/l (3.3-5.1) 09/01/20 15:15 Chloride 94 mmol/L (96-108) L 09/01/20 15:15 Carbon Dioxide 33 mmol/L (22-29) H 09/01/20 15:15 Anion Gap 13 (-20) 09/01/20 15:15 BUN 14 mg/dL (9-16) 09/01/20 15:15 Creatinine 0.78 mg/dL (0.5-1.4) 09/01/20 15:15 Estim Creat Clear Calc 75.9 09/01/20 15:15 Estimated GFR > 60 09/01/20 15:15 Random Glucose 411 mg/dL (60-115) H* 09/01/20 15:15 Calcium 8.5 mg/dL (8.4-10.2) 09/01/20 15:15 Total Bilirubin 0.3 mg/dL (0.0-1.0) 09/01/20 15:15 AST 14 U/L (5-31) 09/01/20 15:15 ALT 11 U/L (0-31) 09/01/20 15:15 Alkaline Phosphatase 130 U/L (39-117) H 09/01/20 15:15 Lactate Dehydrogenase 198 U/L (122-220) 09/01/20 15:15 Total Protein 7.0 g/dL (6.5-8.0) 09/01/20 15:15 Albumin 3.6 g/dL (3.5-5.0) 09/01/20 15:15 BCR/abl (FISH) Source Peripheral Blood 09/01/20 15:15 BCR/abl (FISH) Result 0.000 % 09/01/20 15:15 BCR/abl (FISH) Res Sum see note 09/01/20 15:15 BCR/abl Comment 0.000 % 09/01/20 15:15 BCR/abl Additionl Info Not Given 09/01/20 15:15 BCR/abl1 Mnr (p190) EER Not Detected 09/01/20 15:15 BCR/abl1 Mjr (p210) EER Not Detected 09/01/20 15:15 Progress Note: A/P (1) Splenomegaly Status: Acute Assessment and plan: 70 year old lady, C/O pain in the back, and left flank. Ultrasound of the abdomen from 02/14/2018: Probable parapelvic cyst upper and lower pole right kidney. Heterogenous pancreatic echogenicity, no discrete or focal abnormality. Spleen: Normal, 9.7 cm. Cat scan of chest revealed: * Mild interstitial pulmonary edema without pleural effusion. * Scattered opacities of subsegmental atelectasis in middle lobe, lingula and lower lobes. * No evidence of a large, central embolus. Due to the suboptimal contrast bolus, unable to evaluate the more peripheral pulmonary arteries. * Mild splenomegaly is stable compared to 09/05/2019. The negative test result for PE -- but suboptimal contrast bolus -- was discussed with Dr. Villalpando at 8:07 pm on 07/08/2020 and it was ascertained that the pretest probability was low so no repeat contrast injection will be performed at this time. However review of the CT scan from [facility] from 07/23/2020 revealed: Dependent atelectasis within the posterior lung bases. Normal liver, spot stomach, spleen, pancreas, adrenal glands, kidneys and small bowel. Nonvisualized appendix. Normal colon, bladder and adnexa. Fibroid uterus. No free air free fluid, aneurysm or bowel obstruction. Bilateral prominent inguinal lymph nodes measuring 2.3 cm on the right and 3 cm on the left. Anterior spurring of the thoracic spine. IMP: No acute intra-abdominal adenopathy. This was reassuring. Lulu does not feel well today. The patient 's initial BP was elevated>200. Manual: 177/78. She complained of a lot of pain in her left flank, area, Her O2 sat was low at 83% on 3L/min of oxygen. She was transferred to the ER for further evaluation. D/W Dr. Rosales in the ED. Work up in the ER: CTA: No P.E. Enlarged heart. Atelectasis in lingula/LLL. Interstitial pulmonary edema. Cat scan of Abdomen: No acute findings. Stool throughout colon. No splenomegaly. Prominant inguinal nodes, stable. She was treated and sent home from the ER. She still does not feel well. Continues to have pain in her side. PLAN: I will refer her for further GI evaluation. Appointment is with Lluvia for October 22. Thanks, CC: Lluvia Beard. DR. DOMINGUEZ. (2) Inguinal adenopathy Status: Acute Assessment and plan: (2) Inguinal adenopathy Status: Acute 70-year-old lady with left upper quadrant pain. Referred for , Splenomagaly and Abdominal adenopathy. She was noted to have bilateral inguinal adenopathy, and some retroperitoneal adenopathy, not seen on ultrasound done at [facility]. However Cat scan of abdomen from [facility], did not reveal it. She was here a few weeks ago. At that time her blood pressure was very elevated and she had pain in her left flank. She was sent to the emergency room. Her CTA of the chest and CT abdomen were done. These revealed: No evidence of pulmonary embolism. Enlarged heart. Subsegmental atelectasis or scarring in the lingula and left lower lobe. Abdomen and pelvis: No acute findings. Stool throughout the colon questionable for constipation. Atherosclerotic disease. Prominent bilateral pelvic retroperitoneal lymph nodes and inguinal lymph nodes similar to previous exam. PLAN: I checked with IR regarding biopsy of left inguinal lymph nodes. However Dr. White felt these were benign appearing nodes. I shared the information with the patient and her son. Offered close monitoring versus biopsy. They are inclined to words proceeding with the biopsy. I will proceed with ultrasound-guided biopsy of the left inguinal node for further evaluation. She will return in a month for a follow-up visit. Thanks, CC: Dr. Dominguez. Lluvia Santiago. - Time Spent With Patient Total time spent is greater than 50% in coordination of care (as documented) at patient's floor/unit and/or counseling patient: 25 - 35 minutes
[2020-11-10 11:13] VITALS: BP 188/90
[2020-11-10 11:14] LABS: MANUAL DIFF FLAG NO
[2020-11-10 11:18] LABS: Basophils Percent Auto 0.4 % (0-2); Eosinophils Absolute Auto 0.1 X10*3/uL (0.0-0.4); Eosinophils Percent Auto 1.9 % (0-4); Hematocrit 45.2 % (37-47); Hemoglobin 14.1 g/dl (12.0-16.0); Imm Gran Abs Auto 0.02 X10*3/uL (0.00-0.03); Imm Gran Pct Auto 0.3 % (0.0-0.4); Lymphocytes Percent Auto 28.4 % (20-40); Mean Corpuscular HGB Conc 31.2 g/dl (31.0-35.0); Mean Corpuscular Hemoglobin 28.2 pg (27.0-33.0); Mean Corpuscular Volume 90.4 fL (80-98); Mean Platelet Volume 11.9 fL (9.4-12.3); Monocytes Absolute Auto 0.7 X10*3/uL (0.1-1.2); Neutrophils Absolute Auto 4.1 X10*3/uL (2.0-8.3); Platelet Count 180 X10*3/uL (160-400); Red Cell Distribution Width 14.6 % (11.0-16.0); White Blood Count 6.9 X10*3/uL (4.8-10.8)
[2020-11-10 11:52] LABS: Alanine Aminotransferase 15 U/L (0-31); Albumin Level 3.2 g/dL (3.5-5.0); Alkaline Phosphatase 114 U/L (39-117); Anion Gap 11 (12-20); Aspartate Amino Transferase 16 U/L (5-31); Bilirubin Total 0.5 mg/dL (0.0-1.0); Blood Urea Nitrogen 11 mg/dL (9-16); Calcium 8.3 mg/dL (8.4-10.2); Carbon Dioxide 32 mmol/L (22-29); Chloride 97 mmol/L (96-108); Creatinine Clr Calc Pharmacy 87.5; Estimated Glomerular Filt Rate > 60; Glucose Random 267 mg/dL (60-115); Lactate Dehydrogenase 207 U/L (122-220); Potassium 4.4 mmol/L (3.3-5.1); Sodium 136 mmol/L (135-145); Total Protein 6.7 g/dL (6.5-8.0)
--- NOTE | 2020-11-10 13:12 | MHC.HEMONC ---
Exam, B/p elevated 200's systol[address] Taylor made aware, patient declining going to ER. Patient states will take her blood pressure medication when she get home. Manual b/p 188/90 pcp to be notified of elevated blood pressure.
--- NOTE | 2020-11-10 13:16 | MHC.HEMONCMA ---
Called Mouna from Radiology, the patient was cancelled by the radiologist back in August and she is not sure why. The patient is placed in pending right now to reschedule the biopsy.
[2020-12-11 11:22] VITALS: BP 185/78; PULSE 80; RESP 12; TEMP 36.9; O2SAT 99; BMI 35.9
[2020-12-11 11:26] LABS: MANUAL DIFF FLAG NO
[2020-12-11 11:35] LABS: Basophils Percent Auto 0.3 % (0-2); Eosinophils Absolute Auto 0.1 X10*3/uL (0.0-0.4); Eosinophils Percent Auto 1.6 % (0-4); Hematocrit 47.7 % (37-47); Hemoglobin 14.3 g/dl (12.0-16.0); Imm Gran Abs Auto 0.02 X10*3/uL (0.00-0.03); Imm Gran Pct Auto 0.3 % (0.0-0.4); Lymphocytes Absolute Auto 1.4 X10*3/uL (1.2-4.9); Lymphocytes Percent Auto 18.9 % (20-40); Mean Corpuscular Hemoglobin 27.6 pg (27.0-33.0); Mean Corpuscular Volume 92.1 fL (80-98); Mean Platelet Volume 11.4 fL (9.4-12.3); Monocytes Absolute Auto 0.5 X10*3/uL (0.1-1.2); Monocytes Percent Auto 6.2 % (2-11); Neutrophils Absolute Auto 5.6 X10*3/uL (2.0-8.3); Neutrophils Percent Auto 72.7 % (45-73); Platelet Count 178 X10*3/uL (160-400); Red Blood Count 5.18 X10*6/uL (4.20-5.50); Red Cell Distribution Width 15.2 % (11.0-16.0); White Blood Count 7.6 X10*3/uL (4.8-10.8)
--- NOTE | 2020-12-11 11:35 | PM.HEMONCPN ---
Medical Summary - Medical Summary Date of Service: 12/11/20 Chief complaint: Follow-up for inguinal lymphadenopathy. Medical Summary: DIAGNOSIS: Splenomegaly. Adenopathy. CBC: WBC 15.6 H (Nov. ABS NEUT COUNT (Dec 14, RBC 3.70 L (Dec 14, HGB 11.5 L (Dec 14, HCT 34.8 L (Dec 14, MCV 93.9 (Dec 14, MCH 31.2 (Dec 14, MCHC 33.2 (Dec 14, PLATELET CT 169 (Dec 14, Interval History Interval history: Lulu Chavez is a pleasant 70 year old lady, here for a follow-up visit. She does not feel too well. She has ongoing chronic left upper abdominal pain. She complains of gas. She continues to feel heartburn dyspepsia and gas. She complains of constipation. She does follow with GI, Dr. Santiago/ Javed Willis. She has tried Amitiza, but that did not help. She is under the care of Dr. Dominguez. She gets pain medications through him. She was referred to Pain Management but she just went there for one visit. They did not help her. Denies chest pain or trouble breathing. Her blood pressure was noted to be high today, 180 systolic. She denies headaches. She denies dizziness. She was advised to follow up with her primary doctor. Her spirits are down. Rest of the review of systems is unremarkable. Previous history: She was referred on account of splenomegaly and abdominal adenopathy. However review of the CT scan from [facility] from 07/23/2020 revealed: Dependent atelectasis within the posterior lung bases. Normal liver, spot stomach, spleen, pancreas, adrenal glands, kidneys and small bowel. Nonvisualized appendix. Normal colon, bladder and adnexa. Fibroid uterus. No free air free fluid, aneurysm or bowel obstruction. Bilateral prominent inguinal lymph nodes measuring 2.3 cm on the right and 3 cm on the left. Anterior spurring of the thoracic spine. IMP: No acute intra-abdominal adenopathy. CTA of chest from 07/11: * Mild interstitial pulmonary edema without pleural effusion. * Scattered opacities of subsegmental atelectasis in middle lobe, lingula and lower lobes. * No evidence of a large, central embolus. Due to the suboptimal contrast bolus, unable to evaluate the more peripheral pulmonary arteries. * Mild splenomegaly is stable compared to 09/05/2019. The negative test result for PE -- but suboptimal contrast bolus -- was discussed with Dr. Villalpando on 07/08/2020 and it was ascertained that the pretest probability was low, and no repeat contrast injection will be performed at this time. Review of her labs revealed: WBC 15.6 (Dec 14, ABS NEUT COUNT (Dec 14, RBC 3.70 L (Dec 14, HGB 11.5 L (Dec 14, HCT 34.8 L (Dec 14, MCV 93.9 (Dec 14, MCH 31.2 (Dec 14, MCHC 33.2 (Dec 14, PLATELET CT 169 (Dec 14, Serial WBC in the computer: Date Time Result N Dec 14 11:29 15.6 Jun 18, 19 06:21 12.2 Jun 17, 19 05:14 15.3 Oct 16, 19 06:46 15.6 Jun 15, 19 05:04 12.5 Jun 14, 19 05:30 10.2. Last time, when she was here, she did not feel well. She complained of pain in her left flank. She was SOB. Her blood pressure was elevated. Her O2 sat ow: 83 on 3 L/min. Blood sugar was high at 411. She was afebrile. She was referred to the emergency room for further management. CT scan of the chest and abdomen were done: There was no PE. Nothing new in the belly except for constipation. She does not feel well even now. She continues to have left flank pain. She has nausea but not vomiting. A bowels are rather constipated however she says she is taking Amitiza, with good results. She has an appointment with GI but that is not until November 22. She would like to see somebody now. Her blood pressure is elevated as well. Review of Systems - Constitutional Reports no additional constitutional complaints - Eyes Reports no additional eye complaints - ENT Reports no additional ear, nose, mouth, and throat complaints - Cardiovascular Reports no additional cardiovascular complaints - Respiratory Reports no additional respiratory complaints - Gastrointestinal Reports no additional gastrointestinal complaints - Genitourinary Reports no additional female genitourinary complaints - Musculoskeletal Reports no additional musculoskeletal complaints - Integumentary/Breasts Skin/Breast: Reports no additional skin complaints - Neurologic Reports weakness - Psychiatric Reports no additional psychiatric complaints - Endocrine Reports no additional endocrine complaints - Hematologic/Lymphatic Reports no additional hematologic/lymphatic complaints - Allergic/Immunologic Reports no additional allergic/immunologic complaints COUNT INCLUDES THE [facility] Medical History: Medical History (Last Updated 11/23/20 @ 21:42 by Tapan Sierra MD) Asthma CHF (congestive heart failure) Chronic constipation COPD (chronic obstructive pulmonary disease) Diabetes GERD (gastroesophageal reflux disease) HTN (hypertension) Hyperlipemia Hypothyroidism Lymphadenopathy, abdominal KATIUSKA (obstructive sleep apnea) Splenomegaly Functional capacity: independent ambulation Surgical History: Surgical History (Last Reviewed 10/22/20 @ 11:33 by Watson Joseph) H/O section History of cholecystectomy Hx of tubal ligation Social History: Social History (Last Updated 10/27/20 @ 14:28 by Bell Fong CMA) Living Situation History: Household Members: None Alcohol History: Alcohol intake: never Tobacco History: Smoking Status: Former smoker Nutrition Assessment: Patient : No Occupation Assessmet: Current occupational status: disabled Smoking status: Former smoker Oncology Screenings - ECOG Performance Status ECOG Performance Status: 0 Home Medications and Allergies Home Medications Medication Instructions Recorded Confirmed Type acetaminophen 325 mg PO Q8H PRN 07/08/20 11/23/20 History albuterol sulfate 2.5 mg INHALATION Q4H PRN 07/08/20 11/23/20 History albuterol sulfate [ProAir HFA] 2 puff INHALATION Q4-6H PRN 07/08/20 11/23/20 History amlodipine 10 mg PO DAILY 07/08/20 11/23/20 History aspirin 81 mg PO DAILY 07/08/20 11/23/20 History atorvastatin 40 mg PO DAILY 07/08/20 11/23/20 History fluticasone furoate-vilanterol 1 inh INHALATION DAILY 07/08/20 11/23/20 History [Breo Ellipta] fluticasone propionate [Flovent 1 puff INHALATION BID 07/08/20 11/23/20 History HFA] furosemide 40 mg PO Q OTHER DAY 07/08/20 11/23/20 History hydralazine 100 mg PO BID 07/08/20 11/23/20 History insulin glargine [Lantus Solostar 30 unit SUBCUT BID 07/08/20 11/23/20 History U-100 Insulin] insulin lispro [Humalog KwikPen See Protocol SUBCUT TIDAC 07/08/20 11/23/20 History Insulin] levothyroxine 100 mcg PO DAILY 07/08/20 11/23/20 History losartan 50 mg PO DAILY 07/08/20 11/23/20 History lubiprostone [Amitiza] 24 mcg PO BID 07/08/20 11/23/20 History metformin 1,000 mg PO BID 07/08/20 11/23/20 History omega-3 fatty acids [Fish Oil 1,000 mg PO DAILY 07/08/20 11/23/20 History Concentrate] omeprazole 20 mg PO DAILY 07/08/20 11/23/20 History oxycodone-acetaminophen 1 tab PO Q8H PRN 07/08/20 11/23/20 History quetiapine 200 mg PO BEDTIME 07/08/20 11/23/20 History risperidone [Risperdal] 6 mg PO BEDTIME 07/08/20 11/23/20 History sumatriptan succinate 25 mg tablet 0 mg PO DIRECTED 08/11/20 11/23/20 History Allergies Allergy/AdvReac Type Severity Reaction Status Date / Time lisinopril [LISINOPRIL] Allergy Severe Dizziness Verified 11/23/20 16:59 Exam Vital signs: Vital Signs Temp 98.5 F 12/11/20 11:22 Pulse 80 12/11/20 11:22 Resp 12 12/11/20 11:22 BP 185/78 H 12/11/20 11:22 Pulse Ox 99 12/11/20 11:22 Intake & Output 12/10/20 12/11/20 12/11/20 18:59 06:59 18:59 Other: Weight 91.9 kg [place] Weight in Grams 95883 Weight 91.9 kg Body Mass Index 35.9 - Constitutional Present: moderate distress - Routine HEENT Exam Head: Present: normal inspection Eye: Present: normal appearance ENT: Present: mucous membranes moist - Routine Neck Exam Present: full ROM - Routine Respiratory Exam Present: CTAB - Routine Cardiovascular Exam Cardiovascular: Present: RRR, S1, S2 - Routine Abdominal Exam Absent: tenderness - Routine Rectal Exam Patient deferred: digital exam - Routine Extremities Exam Present: nontender - Routine Back/Spine/Pelvis Exam Back/Spine: Present: full ROM - Routine Skin Exam Present: intact - Routine Neurological Exam Present: alert, oriented X3 - Detailed Neurological Exam: Coma Scale Eye Opening: Spontaneous (4) - Routine Psychiatric Exam Present: normal affect Data - Labs CBC & Chem 7: 12/11/20 11:23 12/11/20 11:23 Labs: 09/01/20 15:15 BCR/ABL Trans 9,22 [place],Bl Routine Complete Blood Count Man Dif Routine Comprehensive Met. Panel Routine Lactate Dehydrogenase Routine Laboratory Last Values WBC 9.3 X10*3/uL (4.8-10.8) 09/01/20 15:15 RBC 5.00 X10*6/uL (4.20-5.50) 09/01/20 15:15 Hgb 14.2 g/dl (12.0-16.0) 09/01/20 15:15 Hct 45.8 % (37-47) 09/01/20 15:15 MCV 91.6 fL (80-98) 09/01/20 15:15 MCH 28.4 pg (27.0-33.0) 09/01/20 15:15 MCHC 31.0 g/dl (31.0-35.0) 09/01/20 15:15 RDW 15.7 % (11.0-16.0) 09/01/20 15:15 Plt Count 220 X10*3/uL (160-400) D 09/01/20 15:15 MPV 11.8 fL (9.4-12.3) 09/01/20 15:15 Absolute Nucleated RBC 0.000 X10*3/uL (0.0-0.012) 09/01/20 15:15 Nucleated RBC % (auto) 0.0 /100WBC (0.0-0.2) 09/01/20 15:15 Neutrophils % (Manual) 78 % (45-73) H 09/01/20 15:15 Band Neutrophils % 0 % (3-5) L 09/01/20 15:15 Lymphocytes % (Manual) 15 % (20-40) L 09/01/20 15:15 Monocytes % (Manual) 7 % (2-11) 09/01/20 15:15 Abs Neuts (Manual) 7.3 X10*3/uL (2.2-7.9) 09/01/20 15:15 Lymphocytes # (Manual) 1.4 X10*3/uL (0.6-4.8) 09/01/20 15:15 Monocytes # (Manual) 0.7 X10*3/uL (0.0-1.2) 09/01/20 15:15 Platelet Estimate NORMAL (NORMAL) 09/01/20 15:15 Large Platelets PRESENT 09/01/20 15:15 Plt Morphology Comment NOTED 09/01/20 15:15 RBC Morphology NORMAL 09/01/20 15:15 Sodium 135 mmol/L (135-145) 09/01/20 15:15 Potassium 4.6 mmol/l (3.3-5.1) 09/01/20 15:15 Chloride 94 mmol/L (96-108) L 09/01/20 15:15 Carbon Dioxide 33 mmol/L (22-29) H 09/01/20 15:15 Anion Gap 13 (-20) 09/01/20 15:15 BUN 14 mg/dL (9-16) 09/01/20 15:15 Creatinine 0.78 mg/dL (0.5-1.4) 09/01/20 15:15 Estim Creat Clear Calc 75.9 09/01/20 15:15 Estimated GFR > 60 09/01/20 15:15 Random Glucose 411 mg/dL (60-115) H* 09/01/20 15:15 Calcium 8.5 mg/dL (8.4-10.2) 09/01/20 15:15 Total Bilirubin 0.3 mg/dL (0.0-1.0) 09/01/20 15:15 AST 14 U/L (5-31) 09/01/20 15:15 ALT 11 U/L (0-31) 09/01/20 15:15 Alkaline Phosphatase 130 U/L (39-117) H 09/01/20 15:15 Lactate Dehydrogenase 198 U/L (122-220) 09/01/20 15:15 Total Protein 7.0 g/dL (6.5-8.0) 09/01/20 15:15 Albumin 3.6 g/dL (3.5-5.0) 09/01/20 15:15 BCR/abl (FISH) Source Peripheral Blood 09/01/20 15:15 BCR/abl (FISH) Result 0.000 % 09/01/20 15:15 BCR/abl (FISH) Res Sum see note 09/01/20 15:15 BCR/abl Comment 0.000 % 09/01/20 15:15 BCR/abl Additionl Info Not Given 09/01/20 15:15 BCR/abl1 Mnr (p190) EER Not Detected 09/01/20 15:15 BCR/abl1 Mjr (p210) EER Not Detected 09/01/20 15:15 Progress Note: A/P (1) Splenomegaly Status: Acute Assessment and plan: 70 year old lady, C/O pain in the back, and left flank. Ultrasound of the abdomen from 02/14/2018: Probable parapelvic cyst upper and lower pole right kidney. Heterogenous pancreatic echogenicity, no discrete or focal abnormality. Spleen: Normal, 9.7 cm. Cat scan of chest revealed: * Mild interstitial pulmonary edema without pleural effusion. * Scattered opacities of subsegmental atelectasis in middle lobe, lingula and lower lobes. * No evidence of a large, central embolus. Due to the suboptimal contrast bolus, unable to evaluate the more peripheral pulmonary arteries. * Mild splenomegaly is stable compared to 09/05/2019. The negative test result for PE -- but suboptimal contrast bolus -- was discussed with Dr. Villalpando at 8:07 pm on 07/08/2020 and it was ascertained that the pretest probability was low so no repeat contrast injection will be performed at this time. However review of the CT scan from [facility] from 07/23/2020 revealed: Dependent atelectasis within the posterior lung bases. Normal liver, spot stomach, spleen, pancreas, adrenal glands, kidneys and small bowel. Nonvisualized appendix. Normal colon, bladder and adnexa. Fibroid uterus. No free air free fluid, aneurysm or bowel obstruction. Bilateral prominent inguinal lymph nodes measuring 2.3 cm on the right and 3 cm on the left. Anterior spurring of the thoracic spine. IMP: No acute intra-abdominal adenopathy. This was reassuring. Lulu does not feel well today. The patient 's initial BP was elevated>200. Manual: 177/78. She complained of a lot of pain in her left flank, area, Her O2 sat was low at 83% on 3L/min of oxygen. She was transferred to the ER for further evaluation. D/W Dr. Rosales in the ED. Work up in the ER: CTA: No P.E. Enlarged heart. Atelectasis in lingula/LLL. Interstitial pulmonary edema. Cat scan of Abdomen: No acute findings. Stool throughout colon. No splenomegaly. Prominant inguinal nodes, stable. She was treated and sent home from the ER. She still does not feel well. Continues to have pain in her side. PLAN: I will refer her for further GI evaluation. Appointment is with December for October 22. Thanks, CC: Lluvia Beard. DR. DOMINGUEZ. (2) Inguinal adenopathy Status: Acute Assessment and plan: (2) Inguinal adenopathy Status: Acute 70-year-old lady with left upper quadrant pain. Referred for , Splenomagaly and Abdominal adenopathy. She was noted to have bilateral inguinal adenopathy, and some retroperitoneal adenopathy, not seen on ultrasound done at [facility]. However Cat scan of abdomen from [facility], did not reveal it. She was here a few months ago. At that time her blood pressure was very elevated and she had pain in her left flank. She was sent to the emergency room. Her CTA of the chest and CT abdomen were done. These revealed: No evidence of pulmonary embolism. Enlarged heart. Subsegmental atelectasis or scarring in the lingula and left lower lobe. Abdomen and pelvis: No acute findings. Stool throughout the colon questionable for constipation. Atherosclerotic disease. Prominent bilateral pelvic retroperitoneal lymph nodes and inguinal lymph nodes similar to previous exam. PLAN: I checked with IR regarding biopsy of left inguinal lymph nodes. However Dr. White felt these were benign appearing nodes. I shared the information with the patient and her son. Offered close monitoring versus biopsy. She wanted to proceed with the biopsy. Apparently, it was scheduled. However she did not show up. I will arrange for ultrasound-guided biopsy of the left inguinal node for further evaluation. I discussed her case with Javed Willis: [phone]. He was concerned about her recurring abdominal pain. She had constipation. Previously she had biliary stones for which she had ERCP in 2014. Colonoscopy in 2015 was negative. He arrange for a CT scan for Monday. However I told him she recently had one in September. Will fax the results over. She will return in a month for a follow-up visit. Thanks, CC: Dr. Dominguez. Lluvia Beard. Shanellellravi. - Time Spent With Patient Total time spent is greater than 50% in coordination of care (as documented) at patient's floor/unit and/or counseling patient: 25 - 35 minutes
[2020-12-11 11:57] LABS: Alanine Aminotransferase 18 U/L (0-31); Albumin Level 3.4 g/dL (3.5-5.0); Alkaline Phosphatase 138 U/L (39-117); Anion Gap 10 (12-20); Aspartate Amino Transferase 17 U/L (5-31); Bilirubin Total 0.6 mg/dL (0.0-1.0); Blood Urea Nitrogen 13 mg/dL (9-16); Carbon Dioxide 37 mmol/L (22-29); Chloride 98 mmol/L (96-108); Estimated Glomerular Filt Rate > 60; Glucose Random 138 mg/dL (60-115); Lactate Dehydrogenase 197 U/L (122-220); Potassium 4.7 mmol/L (3.3-5.1); Sodium 140 mmol/L (135-145); Total Protein 7.1 g/dL (6.5-8.0)
--- NOTE | 2020-12-11 13:48 | MHC.HEMONCMA ---
Pt present to f/u on enlarged lymph nodes. History reviewed, labs drawn and electric plater was used for this visit. Pt to return in a month.
[2021-01-05 11:01] VITALS: BP 223/95; PULSE 82; RESP 14; TEMP 36.9; O2SAT 84; BMI 39.2
--- NOTE | 2021-01-05 11:08 | P.PNHO_ITS ---
Medical Summary - Medical Summary Date of Service: 01/05/21 Chief complaint: F/U for Inguinal adenopathy. Medical Summary: DIAGNOSIS: Splenomegaly. Adenopathy. CBC: WBC 15.6 H (Nov. ABS NEUT COUNT (Dec 14, RBC 3.70 L (Dec 14, HGB 11.5 L (Dec 14, HCT 34.8 L (Dec 14, MCV 93.9 (Dec 14, MCH 31.2 (Dec 14, MCHC 33.2 (Dec 14, PLATELET CT 169 (Dec 14, Interval History Interval history: Lulu Chavez is a pleasant 70 year old lady, here for a follow-up visit. She feels okay, she says. Sometimes, she has left upper abdominal pain. It is more of a throbbing in nature. She complains of gas. She continues to feel heartburn dyspepsia and gas. She complains of constipation. She does follow with GI, Dr. Santiago/ Javed Willis. She has tried Amitiza, but that did not help. She is under the care of Dr. Dominguez. She gets pain medications through him. She was referred to Pain Management but she just went there for one visit. They did not help her. Denies chest pain or trouble breathing. Her blood pressure was noted to be high today, 180 systolic. She denies headaches. She denies dizziness. Her appetite is good. Her weight is gone up. Her spirits are down. Rest of the review of systems is unremarkable. Previous history: She was referred on account of splenomegaly and abdominal adenopathy. However review of the CT scan from [facility] from 07/23/2020 revealed: Dependent atelectasis within the posterior lung bases. Normal liver, spot stomach, spleen, pancreas, adrenal glands, kidneys and small bowel. Nonvisualized appendix. Normal colon, bladder and adnexa. Fibroid uterus. No free air free fluid, aneurysm or bowel obstruction. Bilateral prominent inguinal lymph nodes measuring 2.3 cm on the right and 3 cm on the left. Anterior spurring of the thoracic spine. IMP: No acute intra-abdominal adenopathy. CTA of chest from 07/11: * Mild interstitial pulmonary edema without pleural effusion. * Scattered opacities of subsegmental atelectasis in middle lobe, lingula and lower lobes. * No evidence of a large, central embolus. Due to the suboptimal contrast bolus, unable to evaluate the more peripheral pulmonary arteries. * Mild splenomegaly is stable compared to 09/05/2019. The negative test result for PE -- but suboptimal contrast bolus -- was discussed with Dr. Villalpando on 07/08/2020 and it was ascertained that the pretest probability was low, and no repeat contrast injection will be performed at this time. Review of her labs revealed: WBC 15.6 (Dec 14, ABS NEUT COUNT (Dec 14, RBC 3.70 L (Dec 14, HGB 11.5 L (Dec 14, HCT 34.8 L (Dec 14, MCV 93.9 (Dec 14, MCH 31.2 (Dec 14, MCHC 33.2 (Dec 14, PLATELET CT 169 (Dec 14, Serial WBC in the computer: Date Time Result N Dec 14 11:29 15.6 Jun 18, 19 06:21 12.2 Jun 17, 19 05:14 15.3 Oct 16, 19 06:46 15.6 Oct 15, 19 05:04 12.5 Jun 14, 19 05:30 10.2. Last time, when she was here, she did not feel well. She complained of pain in her left flank. She was SOB. Her blood pressure was elevated. Her O2 sat ow: 83 on 3 L/min. Blood sugar was high at 411. She was afebrile. She was referred to the emergency room for further management. CT scan of the chest and abdomen were done: There was no PE. Nothing new in the belly except for constipation. She does not feel well even now. She continues to have left flank pain. She has nausea but not vomiting. A bowels are rather constipated however she says she is taking Amitiza, with good results. She has an appointment with GI but that is not until November 22. She would like to see somebody now. Her blood pressure is elevated as well. Review of Systems - Constitutional Reports no additional constitutional complaints - Eyes Reports no additional eye complaints - ENT Reports no additional ear, nose, mouth, and throat complaints - Cardiovascular Reports no additional cardiovascular complaints - Respiratory Reports no additional respiratory complaints - Gastrointestinal Reports no additional gastrointestinal complaints - Genitourinary Reports no additional female genitourinary complaints - Musculoskeletal Reports no additional musculoskeletal complaints - Integumentary/Breasts Skin/Breast: Reports no additional skin complaints - Neurologic Reports weakness - Psychiatric Reports no additional psychiatric complaints - Endocrine Reports no additional endocrine complaints - Hematologic/Lymphatic Reports no additional hematologic/lymphatic complaints - Allergic/Immunologic Reports no additional allergic/immunologic complaints [facility] Medical History: Medical History (Last Reviewed 01/05/21 @ 11:04 by Genesis Ledezma) Asthma CHF (congestive heart failure) Chronic constipation COPD (chronic obstructive pulmonary disease) Diabetes GERD (gastroesophageal reflux disease) HTN (hypertension) Hyperlipemia Hypothyroidism Lymphadenopathy, abdominal KATIUSKA (obstructive sleep apnea) Splenomegaly Functional capacity: uses cane/walker Patient : No Surgical History: Surgical History (Last Reviewed 01/05/21 @ 11:04 by Genesis Ledezma) H/O section History of cholecystectomy Hx of tubal ligation Social History: Social History (Last Reviewed 01/05/21 @ 11:04 by Genesis Ledezma) Living Situation History: Household Members: None Alcohol History: Alcohol intake: never Tobacco History: Smoking Status: Former smoker Nutrition Assessment: Patient : No Occupation Assessmet: Current occupational status: disabled Smoking status: Former smoker Oncology Screenings - ECOG Performance Status ECOG Performance Status: 1 Home Medications and Allergies Home Medications Medication Instructions Recorded Confirmed Type acetaminophen 325 mg PO Q8H PRN 07/08/20 11/23/20 History albuterol sulfate 2.5 mg INHALATION Q4H PRN 07/08/20 11/23/20 History albuterol sulfate [ProAir HFA] 2 puff INHALATION Q4-6H PRN 07/08/20 11/23/20 Hi story amlodipine 10 mg PO DAILY 07/08/20 11/23/20 History aspirin 81 mg PO DAILY 07/08/20 11/23/20 History atorvastatin 40 mg PO DAILY 07/08/20 11/23/20 History fluticasone furoate-vilanterol 1 inh INHALATION DAILY 07/08/20 11/23/20 History [Breo Ellipta] fluticasone propionate [Flovent 1 puff INHALATION BID 07/08/20 11/23/20 History HFA] furosemide 40 mg PO Q OTHER DAY 07/08/20 11/23/20 History hydralazine 100 mg PO BID 07/08/20 11/23/20 History insulin glargine [Lantus Solostar 30 unit SUBCUT BID 07/08/20 11/23/20 History U-100 Insulin] insulin lispro [Humalog KwikPen See Protocol SUBCUT TIDAC 07/08/20 11/23/20 History Insulin] levothyroxine 100 mcg PO DAILY 07/08/20 11/23/20 History losartan 50 mg PO DAILY 07/08/20 11/23/20 History lubiprostone [Amitiza] 24 mcg PO BID 07/08/20 11/23/20 History metformin 1,000 mg PO BID 07/08/20 11/23/20 History omega-3 fatty acids [Fish Oil 1,000 mg PO DAILY 07/08/20 11/23/20 History Concentrate] omeprazole 20 mg PO DAILY 07/08/20 11/23/20 History oxycodone-acetaminophen 1 tab PO Q8H PRN 07/08/20 11/23/20 History quetiapine 200 mg PO BEDTIME 07/08/20 11/23/20 History risperidone [Risperdal] 6 mg PO BEDTIME 07/08/20 11/23/20 History sumatriptan succinate 25 mg tablet 0 mg PO DIRECTED 08/11/20 11/23/20 History Allergies Allergy/AdvReac Type Severity Reaction Status Date / Time lisinopril [LISINOPRIL] Allergy Severe Dizziness Verified 11/23/20 16:59 Exam Vital signs: Vital Signs Temp 98.4 F 01/05/21 11:01 Pulse 82 01/05/21 11:01 Resp 14 01/05/21 11:01 BP 223/95 H 01/05/21 11:01 Pulse Ox 84 L 01/05/21 11:01 Intake & Output 01/04/21 01/05/21 01/05/21 18:59 06:59 18:59 Other: Weight 100.6 kg [place] Weight in Grams 442998 Weight 100.6 kg Body Mass Index 39.2 - Constitutional Present: moderate distress - Routine HEENT Exam Head: Present: normal inspection Eye: Present: normal appearance ENT: Present: mucous membranes moist - Routine Neck Exam Present: full ROM - Routine Respiratory Exam Present: CTAB - Routine Cardiovascular Exam Cardiovascular: Present: RRR, S1, S2 - Routine Abdominal Exam Absent: tenderness - Routine Rectal Exam Patient deferred: digital exam - Routine Extremities Exam Present: nontender - Routine Back/Spine/Pelvis Exam Back/Spine: Present: full ROM - Routine Skin Exam Present: intact - Routine Neurological Exam Present: alert, oriented X3 - Detailed Neurological Exam: Coma Scale Eye Opening: Spontaneous (4) - Routine Psychiatric Exam Present: normal affect Data - Labs CBC & Chem 7: 01/05/21 11:05 01/05/21 11:05 Labs: 09/01/20 15:15 BCR/ABL Trans 9,22 [place],Bl Routine Complete Blood Count Man Dif Routine Comprehensive Met. Panel Routine Lactate Dehydrogenase Routine Laboratory Last Values WBC 9.3 X10*3/uL (4.8-10.8) 09/01/20 15:15 RBC 5.00 X10*6/uL (4.20-5.50) 09/01/20 15:15 Hgb 14.2 g/dl (12.0-16.0) 09/01/20 15:15 Hct 45.8 % (37-47) 09/01/20 15:15 MCV 91.6 fL (80-98) 09/01/20 15:15 MCH 28.4 pg (27.0-33.0) 09/01/20 15:15 MCHC 31.0 g/dl (31.0-35.0) 09/01/20 15:15 RDW 15.7 % (11.0-16.0) 09/01/20 15:15 Plt Count 220 X10*3/uL (160-400) D 09/01/20 15:15 MPV 11.8 fL (9.4-12.3) 09/01/20 15:15 Absolute Nucleated RBC 0.000 X10*3/uL (0.0-0.012) 09/01/20 15:15 Nucleated RBC % (auto) 0.0 /100WBC (0.0-0.2) 09/01/20 15:15 Neutrophils % (Manual) 78 % (45-73) H 09/01/20 15:15 Band Neutrophils % 0 % (3-5) L 09/01/20 15:15 Lymphocytes % (Manual) 15 % (20-40) L 09/01/20 15:15 Monocytes % (Manual) 7 % (2-11) 09/01/20 15:15 Abs Neuts (Manual) 7.3 X10*3/uL (2.2-7.9) 09/01/20 15:15 Lymphocytes # (Manual) 1.4 X10*3/uL (0.6-4.8) 09/01/20 15:15 Monocytes # (Manual) 0.7 X10*3/uL (0.0-1.2) 09/01/20 15:15 Platelet Estimate NORMAL (NORMAL) 09/01/20 15:15 Large Platelets PRESENT 09/01/20 15:15 Plt Morphology Comment NOTED 09/01/20 15:15 RBC Morphology NORMAL 09/01/20 15:15 Sodium 135 mmol/L (135-145) 09/01/20 15:15 Potassium 4.6 mmol/l (3.3-5.1) 09/01/20 15:15 Chloride 94 mmol/L (96-108) L 09/01/20 15:15 Carbon Dioxide 33 mmol/L (22-29) H 09/01/20 15:15 Anion Gap 13 (12-20) 09/01/20 15:15 BUN 14 mg/dL (9-16) 09/01/20 15:15 Creatinine 0.78 mg/dL (0.5-1.4) 09/01/20 15:15 Estim Creat Clear Calc 75.9 09/01/20 15:15 Estimated GFR > 60 09/01/20 15:15 Random Glucose 411 mg/dL (60-115) H* 09/01/20 15:15 Calcium 8.5 mg/dL (8.4-10.2) 09/01/20 15:15 Total Bilirubin 0.3 mg/dL (0.0-1.0) 09/01/20 15:15 AST 14 U/L (5-31) 09/01/20 15:15 ALT 11 U/L (0-31) 09/01/20 15:15 Alkaline Phosphatase 130 U/L (39-117) H 09/01/20 15:15 Lactate Dehydrogenase 198 U/L (122-220) 09/01/20 15:15 Total Protein 7.0 g/dL (6.5-8.0) 09/01/20 15:15 Albumin 3.6 g/dL (3.5-5.0) 09/01/20 15:15 BCR/abl (FISH) Source Peripheral Blood 09/01/20 15:15 BCR/abl (FISH) Result 0.000 % 09/01/20 15:15 BCR/abl (FISH) Res Sum see note 09/01/20 15:15 BCR/abl Comment 0.000 % 09/01/20 15:15 BCR/abl Additionl Info Not Given 09/01/20 15:15 BCR/abl1 Mnr (p190) EER Not Detected 09/01/20 15:15 BCR/abl1 Mjr (p210) EER Not Detected 09/01/20 15:15 Progress Note: A/P (1) Splenomegaly Status: Acute Assessment and plan: 70 year old lady, C/O pain in the back, and left flank. Ultrasound of the abdomen from 02/14/2018: Probable parapelvic cyst upper and lower pole right kidney. Heterogenous pancreatic echogenicity, no discrete or focal abnormality. Spleen: Normal, 9.7 cm. Cat scan of chest revealed: * Mild interstitial pulmonary edema without pleural effusion. * Scattered opacities of subsegmental atelectasis in middle lobe, lingula and lower lobes. * No evidence of a large, central embolus. Due to the suboptimal contrast bolus, unable to evaluate the more peripheral pulmonary arteries. * Mild splenomegaly is stable compared to 09/05/2019. The negative test result for PE -- but suboptimal contrast bolus -- was discussed with Dr. Villalpando at 8:07 pm on 07/08/2020 and it was ascertained that the pretest probability was low so no repeat contrast injection will be performed at this time. However review of the CT scan from [facility] from 07/23/2020 revealed: Dependent atelectasis within the posterior lung bases. Normal liver, spot stomach, spleen, pancreas, adrenal glands, kidneys and small bowel. Nonvisualized appendix. Normal colon, bladder and adnexa. Fibroid uterus. No free air free fluid, aneurysm or bowel obstruction. Bilateral prominent inguinal lymph nodes measuring 2.3 cm on the right and 3 cm on the left. Anterior spurring of the thoracic spine. IMP: No acute intra-abdominal adenopathy. This was reassuring. Lulu does not feel well today. The patient 's initial BP was elevated>200. Manual: 177/78. She complained of a lot of pain in her left flank, area, Her O2 sat was low at 83% on 3L/min of oxygen. She was transferred to the ER for further evaluation. D/W Dr. Rosales in the ED. Work up in the ER: CTA: No P.E. Enlarged heart. Atelectasis in lingula/LLL. Interstitial pulmonary edema. Cat scan of Abdomen: No acute findings. Stool throughout colon. No splenomegaly. Prominant inguinal nodes, stable. She was treated and sent home from the ER. She still does not feel well. Continues to have pain in her side. PLAN: I will refer her for further GI evaluation. Appointment is with December for October 22. Thanks, CC: Lluvia Beard. DR. DOMINGUEZ. (2) Inguinal adenopathy Status: Acute Assessment and plan: (2) Inguinal adenopathy Status: Acute 70-year-old lady with left upper quadrant pain. Referred for , Splenomagaly and Abdominal adenopathy. She was noted to have bilateral inguinal adenopathy, and some retroperitoneal adenopathy, not seen on ultrasound done at [facility]. However Cat scan of abdomen from [facility], did not reveal it. About a month ago, I discussed her case with Javed Willis: [phone]. Shabbir P.A. He was concerned about her recurring abdominal pain. She had constipation. Previously she had biliary stones for which she had ERCP in 2014. Colonoscopy in 2015 was negative. He arrange for a CT scan for Monday. However I told him she recently had one in September. I faxed over the results to him. She was here a few months ago. At that time her blood pressure was very elevated and she had pain in her left flank. She was sent to the emergency room. Her CTA of the chest and CT abdomen were done. These revealed: No evidence of pulmonary embolism. Enlarged heart. Subsegmental atelectasis or scarring in the lingula and left lower lobe. Abdomen and pelvis: No acute findings. Stool throughout the colon questionable for constipation. Atherosclerotic disease. Prominent bilateral pelvic retroperitoneal lymph nodes and inguinal lymph nodes similar to previous exam. I checked with IR regarding biopsy of left inguinal lymph nodes. However Dr. White felt these were benign appearing nodes. I shared the information with the patient and her son. Offered close monitoring versus biopsy. She wanted to proceed with the biopsy. Apparently, it was scheduled. However she did not show up. She was here on 12/11. I again tried to arrange for ultrasound-guided biopsy of the left inguinal node for further evaluation. However there was some confusion about her name, on the insurance card. There was some discrepancy there, so the procedure was not scheduled. PLAN: I will resubmit the rec for the ultrasound-guided biopsy. Will review the results and take it from there. She will return in a month for a follow-up visit. Thanks, CC: Dr. Dominguez. Lluvia Beard. Pamela. - Time Spent With Patient Total time spent is greater than 50% in coordination of care (as documented) at patient's floor/unit and/or counseling patient: 25 - 35 minutes
[2021-01-05 11:18] LABS: MANUAL DIFF FLAG NO
[2021-01-05 11:26] LABS: Basophils Percent Auto 0.2 % (0-2); Eosinophils Absolute Auto 0.2 X10*3/uL (0.0-0.4); Hematocrit 43.1 % (37-47); Hemoglobin 12.9 g/dl (12.0-16.0); Imm Gran Abs Auto 0.03 X10*3/uL (0.00-0.03); Imm Gran Pct Auto 0.4 % (0.0-0.4); Lymphocytes Absolute Auto 1.7 X10*3/uL (1.2-4.9); Lymphocytes Percent Auto 21.1 % (20-40); Mean Corpuscular HGB Conc 29.9 g/dl (31.0-35.0); Mean Corpuscular Hemoglobin 28.4 pg (27.0-33.0); Mean Corpuscular Volume 94.7 fL (80-98); Mean Platelet Volume 11.5 fL (9.4-12.3); Monocytes Absolute Auto 0.6 X10*3/uL (0.1-1.2); Monocytes Percent Auto 7.6 % (2-11); Neutrophils Absolute Auto 5.6 X10*3/uL (2.0-8.3); Neutrophils Percent Auto 68.7 % (45-73); Platelet Count 202 X10*3/uL (160-400); Red Blood Count 4.55 X10*6/uL (4.20-5.50); Red Cell Distribution Width 16.4 % (11.0-16.0); White Blood Count 8.2 X10*3/uL (4.8-10.8)
[2021-01-05 11:51] LABS: Alanine Aminotransferase 17 U/L (0-31); Albumin Level 3.5 g/dL (3.5-5.0); Alkaline Phosphatase 135 U/L (39-117); Anion Gap 12 (12-20); Aspartate Amino Transferase 18 U/L (5-31); Bilirubin Total 0.5 mg/dL (0.0-1.0); Blood Urea Nitrogen 21 mg/dL (9-16); Calcium 9.1 mg/dL (8.4-10.2); Carbon Dioxide 33 mmol/L (22-29); Chloride 99 mmol/L (96-108); Creatinine Clr Calc Pharmacy 81.2; Estimated Glomerular Filt Rate > 60; Glucose Random 228 mg/dL (60-115); Lactate Dehydrogenase 189 U/L (122-220); Potassium 4.9 mmol/L (3.3-5.1); Sodium 139 mmol/L (135-145); Total Protein 6.7 g/dL (6.5-8.0)
--- NOTE | 2021-01-05 12:50 | MHC.HEMONCMA ---
Pt present to f/u on splenomegaly and localized enlarged lymph nodes. History reviewed, labs drawn and pt to return in a month. Unfortunately, we have not been able to schedule pt for a biopsy. I will be working on this with Tanesha from radiology to schedule for pt. There has been an issue in regards to the patients last name on her insurance card.
--- NOTE | 2021-01-06 14:12 | MHC.HEMONCMA ---
Patient is scheduled for her inguinal lymph node biopsy for 01/13/2021 at 9am, with an 8:45am arrival. She needs to be NPO for 3 hours before hand and has to be off the aspirin 3 days before. I had Iris call her with me to make sure all the patient's questions were answered and she understood the time and date of appt.
--- NOTE | 2021-01-13 09:57 | MHC.HEMONC ---
MALU FROM IR CALLED AT 9:50PM. PT DID NOT SHOW UP FOR HER BIOPSY APPT.
--- NOTE | 2021-01-14 15:44 | MHC.HEMONCMA ---
Spoke with pt who is currently admitted at [facility] with pneumonia.
[2021-02-05 15:26] VITALS: BP 221/85; PULSE 86; RESP 12; TEMP 36.8; O2SAT 98; BMI 36.5
--- NOTE | 2021-02-05 15:51 | P.PNHO_ITS ---
Medical Summary - Medical Summary Date of Service: 02/05/21 Chief complaint: Follow-up: Inguinal adenopathy. Medical Summary: DIAGNOSIS: Splenomegaly. Adenopathy. CBC: WBC 15.6 H (Nov. ABS NEUT COUNT (Dec 14, RBC 3.70 L (Dec 14, HGB 11.5 L (Dec 14, HCT 34.8 L (Dec 14, MCV 93.9 (Dec 14, MCH 31.2 (Dec 14, MCHC 33.2 (Dec 14, PLATELET CT 169 (Dec 14, Interval History Interval history: Lulu Chavez is a pleasant 70 year old lady, here for a follow-up visit. She feels okay, she says. She was scheduled for an inguinal node biopsy. However she got admitted at [facility] for pneumonia. She was then brought here to our hospital. Narrative: She was recently admitted at [facility] on 01/12/2021 for pneumonia/sepsis/UTI then left against medical advice and was seen here and her and the family decided they wanted to be discharged and continue antibiotics while at home presenting to the ED with complaints of a lump to the back of her head that is painful that she noticed approximately 3 days with associated dizziness. Reports she does not remember injuring her head where she has the lump. She denies any falls. She also reports that she has has had bilious nausea/vomiting with associated abdominal pain. Also reports anterior chest wall discomfort for the past 3 days as well. Denies any falls, fevers, headaches, changes in vision, black or bloody emesis, worsening shortness of breath from her baseline, needing to increase her nasal cannula oxygen, back pain, constipat ion, diarrhea, black or bloody stools, hematuria, abnormal vaginal discharge, dysuria, palpitations or any other symptoms at this time. CT head revealed: There is a small suspected hematoma involving the left parietal scalp near the vertex. This finding is new when compared to recent prior CT imaging from 09/04/2020. Chronic changes a right parietal craniectomy are noted. There is a small focus of cortical encephalomalacia underneath the craniotomy site. Otherwise no acute intracranial finding. No evidence of acute territorial infarct or hemorrhage. Sometimes, she has left upper abdominal pain. It is more of a throbbing in nature. She complains of gas. She continues to feel heartburn dyspepsia and gas. She complains of constipation. She does follow with GI, Dr. Santiago/ Javed Willis. She has tried Amitiza, but that did not help. She is under the care of Dr. Dominguez. She gets pain medications through him. She was referred to Pain Management but she just went there for one visit. They did not help her. Denies chest pain or trouble breathing. Her blood pressure was noted to be high recently, 172 180 systolic. She denies headaches. She denies dizziness. Her appetite is good. Her weight is gone up. She is in good spirits. Rest of the review of systems is unremarkable. Previous history: She was referred on account of splenomegaly and abdominal adenopathy. However review of the CT scan from [facility] from 07/23/2020 revealed: Dependent atelectasis within the posterior lung bases. Normal liver, spot stomach, spleen, pancreas, adrenal glands, kidneys and small bowel. Nonvisualized appendix. Normal colon, bladder and adnexa. Fibroid uterus. No free air free fluid, aneurysm or bowel obstruction. Bilateral prominent inguinal lymph nodes measuring 2.3 cm on the right and 3 cm on the left. Anterior spurring of the thoracic spine. IMP: No acute intra-abdominal adenopathy. CTA of chest from 07/11: * Mild interstitial pulmonary edema without pleural effusion. * Scattered opacities of subsegmental atelectasis in middle lobe, lingula and lower lobes. * No evidence of a large, central embolus. Due to the suboptimal contrast bolus, unable to evaluate the more peripheral pulmonary arteries. * Mild splenomegaly is stable compared to 09/05/2019. The negative test result for PE -- but suboptimal contrast bolus -- was discussed with Dr. Villalpando on 07/08/2020 and it was ascertained that the pretest probability was low, and no repeat contrast injection will be performed at this time. Review of her labs revealed: WBC 15.6 (Dec 14, ABS NEUT COUNT (Dec 14, RBC 3.70 L (Dec 14, HGB 11.5 L (Dec 14, HCT 34.8 L (Dec 14, MCV 93.9 (Dec 14, MCH 31.2 (Dec 14, MCHC 33.2 (Dec 14, PLATELET CT 169 (Dec 14, Serial WBC in the computer: Date Time Result N Dec 14 11:29 15.6 Oct 18, 19 06:21 12.2 Oct 17, 19 05:14 15.3 Oct 16, 19 06:46 15.6 Oct 15, 19 05:04 12.5 Oct 14, 19 05:30 10.2. Last time, when she was here, she did not feel well. She complained of pain in her left flank. She was SOB. Her blood pressure was elevated. Her O2 sat ow: 83 on 3 L/min. Blood sugar was high at 411. She was afebrile. She was referred to the emergency room for further management. CT scan of the chest and abdomen were done: There was no PE. Nothing new in the belly except for constipation. She does not feel well even now. She continues to have left flank pain. She has nausea but not vomiting. A bowels are rather constipated however she says she is taking Amitiza, with good results. She has an appointment with GI but that is not until November 22. She would like to see somebody now. Her blood pressure is elevated as well. Review of Systems - Constitutional Reports system reviewed and no additional complaints, except as documented, Reports lack of energy - Eyes Reports system reviewed and no additional complaints, except as documented - ENT Reports system reviewed and no additional complaints, except as documented - Cardiovascular Reports system reviewed and no additional complaints, except as documented - Respiratory Reports no additional respiratory complaints - Gastrointestinal Reports system reviewed and no additional complaints, except as documented - Genitourinary Reports no additional female genitourinary complaints - Musculoskeletal Reports system reviewed and no additional complaints, except as documented - Integumentary/Breasts Skin/Breast: Reports no additional skin complaints - Neurologic Reports weakness - Psychiatric Reports system reviewed and no additional complaints, except as documented - Endocrine Reports no additional endocrine complaints - Hematologic/Lymphatic Reports system reviewed and no additional complaints, except as documented - Allergic/Immunologic Reports system reviewed and no additional complaints, except as documented [facility] Medical History: Medical History (Last Reviewed 02/05/21 @ 15:28 by Genesis Ledezma) Asthma CHF (congestive heart failure) Chronic constipation Chronic respiratory failure COPD (chronic obstructive pulmonary disease) Diabetes GERD (gastroesophageal reflux disease) HTN (hypertension) Hyperlipemia Hypothyroidism Lymphadenopathy, abdominal KATIUSKA (obstructive sleep apnea) KATIUSKA on CPAP Sleep apnea Splenomegaly Functional capacity: uses cane/walker Patient : No Surgical History: Surgical History (Last Reviewed 02/05/21 @ 15:28 by Genesis Ledezma) H/O section History of cholecystectomy Hx of tubal ligation Social History: Social History (Last Reviewed 02/05/21 @ 15:28 by Genesis Ledezma) Living Situation History: Household Members: None Alcohol History: Alcohol intake: never Tobacco History: Smoking Status: Never smoker Nutrition Assessment: Patient : No Occupation Assessmet: Current occupational status: disabled Smoking status: Never smoker Oncology Screenings - ECOG Performance Status ECOG Performance Status: 1 Home Medications and Allergies Home Medications Medication Instructions Recorded Confirmed Type acetaminophen 325 mg PO Q8H PRN 07/08/20 02/03/21 History albuterol sulfate 2.5 mg INHALATION Q4H PRN 07/08/20 02/03/21 History albuterol sulfate [ProAir HFA] 2 puff INHALATION Q4-6H PRN 07/08/20 02/03/21 History amlodipine 10 mg PO DAILY 07/08/20 02/03/21 History aspirin 81 mg PO DAILY 07/08/20 02/03/21 History atorvastatin 40 mg PO DAILY 07/08/20 02/03/21 History fluticasone furoate-vilanterol 1 inh INHALATION DAILY 07/08/20 02/03/21 History [Breo Ellipta] fluticasone propionate [Flovent 1 puff INHALATION BID 07/08/20 02/03/21 History HFA] furosemide 40 mg PO Q OTHER DAY 07/08/20 02/03/21 History hydralazine 100 mg PO BID 07/08/20 02/03/21 History insulin glargine [Lantus Solostar 30 unit SUBCUT BID 07/08/20 02/03/21 History U-100 Insulin] insulin lispro [Humalog KwikPen See Protocol SUBCUT TIDAC 07/08/20 02/03/21 History Insulin] levothyroxine 100 mcg PO DAILY 07/08/20 02/03/21 History losartan 50 mg PO DAILY 07/08/20 02/03/21 History lubiprostone [Amitiza] 24 mcg PO BID 07/08/20 02/03/21 History metformin 1,000 mg PO BID 07/08/20 02/03/21 History omega-3 fatty acids [Fish Oil 1,000 mg PO DAILY 07/08/20 02/03/21 History Concentrate] omeprazole 20 mg PO DAILY 07/08/20 02/03/21 History oxycodone-acetaminophen 1 tab PO Q8H PRN 07/08/20 02/03/21 History quetiapine 200 mg PO BEDTIME 07/08/20 02/03/21 History risperidone [Risperdal] 6 mg PO BEDTIME 07/08/20 02/03/21 History sumatriptan succinate 25 mg tablet 0 mg PO DIRECTED 08/11/20 02/05/21 History prednisone 20 mg PO BID 02/05/21 02/05/21 History Allergies Allergy/AdvReac Type Severity Reaction Status Date / Time lisinopril [LISINOPRIL] Allergy Severe Dizziness Verified 02/03/21 20:20 Exam Vital signs: Vital Signs Temp 98.2 F 02/05/21 15:26 Pulse 86 02/05/21 15:26 Resp 12 02/05/21 15:26 BP 221/85 H 02/05/21 15:26 Pulse Ox 98 02/05/21 15:26 Intake & Output 02/04/21 02/05/21 02/05/21 18:59 06:59 18:59 Other: Weight 93.5 kg [place] Weight in Grams 40057 Weight 93.5 kg Body Mass Index 36.5 - Constitutional Present: moderate distress - Routine HEENT Exam Head: Present: normal inspection Eye: Present: normal appearance ENT: Present: mucous membranes moist - Routine Neck Exam Present: full ROM - Routine Respiratory Exam Present: CTAB - Routine Cardiovascular Exam Cardiovascular: Present: RRR, S1, S2 - Routine Abdominal Exam Absent: tenderness - Routine Rectal Exam Patient deferred: digital exam - Routine Extremities Exam Present: nontender - Routine Back/Spine/Pelvis Exam Back/Spine: Present: full ROM - Routine Skin Exam Present: intact - Routine Neurological Exam Present: alert, oriented X3 - Detailed Neurological Exam: Coma Scale Eye Opening: Spontaneous (4) - Routine Psychiatric Exam Present: normal affect Data - Labs CBC & Chem 7: 02/05/21 15:45 02/05/21 15:45 Labs: 09/01/20 15:15 BCR/ABL Trans 9,22 [place],Bl Routine Complete Blood Count Man Dif Routine Comprehensive Met. Panel Routine Lactate Dehydrogenase Routine Laboratory Last Values WBC 9.3 X10*3/uL (4.8-10.8) 09/01/20 15:15 RBC 5.00 X10*6/uL (4.20-5.50) 09/01/20 15:15 Hgb 14.2 g/dl (12.0-16.0) 09/01/20 15:15 Hct 45.8 % (37-47) 09/01/20 15:15 MCV 91.6 fL (80-98) 09/01/20 15:15 MCH 28.4 pg (27.0-33.0) 09/01/20 15:15 MCHC 31.0 g/dl (31.0-35.0) 09/01/20 15:15 RDW 15.7 % (11.0-16.0) 09/01/20 15:15 Plt Count 220 X10*3/uL (160-400) D 09/01/20 15:15 MPV 11.8 fL (9.4-12.3) 09/01/20 15:15 Absolute Nucleated RBC 0.000 X10*3/uL (0.0-0.012) 09/01/20 15:15 Nucleated RBC % (auto) 0.0 /100WBC (0.0-0.2) 09/01/20 15:15 Neutrophils % (Manual) 78 % (45-73) H 09/01/20 15:15 Band Neutrophils % 0 % (3-5) L 09/01/20 15:15 Lymphocytes % (Manual) 15 % (20-40) L 09/01/20 15:15 Monocytes % (Manual) 7 % (2-11) 09/01/20 15:15 Abs Neuts (Manual) 7.3 X10*3/uL (2.2-7.9) 09/01/20 15:15 Lymphocytes # (Manual) 1.4 X10*3/uL (0.6-4.8) 09/01/20 15:15 Monocytes # (Manual) 0.7 X10*3/uL (0.0-1.2) 09/01/20 15:15 Platelet Estimate NORMAL (NORMAL) 09/01/20 15:15 Large Platelets PRESENT 09/01/20 15:15 Plt Morphology Comment NOTED 09/01/20 15:15 RBC Morphology NORMAL 09/01/20 15:15 Sodium 135 mmol/L (135-145) 09/01/20 15:15 Potassium 4.6 mmol/l (3.3-5.1) 09/01/20 15:15 Chloride 94 mmol/L (96-108) L 09/01/20 15:15 Carbon Dioxide 33 mmol/L (22-29) H 09/01/20 15:15 Anion Gap 13 (12-20) 09/01/20 15:15 BUN 14 mg/dL (9-16) 09/01/20 15:15 Creatinine 0.78 mg/dL (0.5-1.4) 09/01/20 15:15 Estim Creat Clear Calc 75.9 09/01/20 15:15 Estimated GFR > 60 09/01/20 15:15 Random Glucose 411 mg/dL (60-115) H* 09/01/20 15:15 Calcium 8.5 mg/dL (8.4-10.2) 09/01/20 15:15 Total Bilirubin 0.3 mg/dL (0.0-1.0) 09/01/20 15:15 AST 14 U/L (5-31) 09/01/20 15:15 ALT 11 U/L (0-31) 09/01/20 15:15 Alkaline Phosphatase 130 U/L (39-117) H 09/01/20 15:15 Lactate Dehydrogenase 198 U/L (122-220) 09/01/20 15:15 Total Protein 7.0 g/dL (6.5-8.0) 09/01/20 15:15 Albumin 3.6 g/dL (3.5-5.0) 09/01/20 15:15 BCR/abl (FISH) Source Peripheral Blood 09/01/20 15:15 BCR/abl (FISH) Result 0.000 % 09/01/20 15:15 BCR/abl (FISH) Res Sum see note 09/01/20 15:15 BCR/abl Comment 0.000 % 09/01/20 15:15 BCR/abl Additionl Info Not Given 09/01/20 15:15 BCR/abl1 Mnr (p190) EER Not Detected 09/01/20 15:15 BCR/abl1 Mjr (p210) EER Not Detected 09/01/20 15:15 Progress Note: A/P (1) Splenomegaly Status: Acute Assessment and plan: 70 year old lady, C/O pain in the back, and left flank. Ultrasound of the abdomen from 02/14/2018: Probable parapelvic cyst upper and lower pole right kidney. Heterogenous pancreatic echogenicity, no discrete or focal abnormality. Spleen: Normal, 9.7 cm. Cat scan of chest revealed: * Mild interstitial pulmonary edema without pleural effusion. * Scattered opacities of subsegmental atelectasis in middle lobe, lingula and lower lobes. * No evidence of a large, central embolus. Due to the suboptimal contrast bolus, unable to evaluate the more peripheral pulmonary arteries. * Mild splenomegaly is stable compared to 09/05/2019. The negative test result for PE -- but suboptimal contrast bolus -- was discussed with Dr. Villalpando at 8:07 pm on 07/08/2020 and it was ascertained that the pretest probability was low so no repeat contrast injection will be performed at this time. However review of the CT scan from [facility] from 07/23/2020 revealed: Dependent atelectasis within the posterior lung bases. Normal liver, spot stomach, spleen, pancreas, adrenal glands, kidneys and small bowel. Nonvisualized appendix. Normal colon, bladder and adnexa. Fibroid uterus. No free air free fluid, aneurysm or bowel obstruction. Bilateral prominent inguinal lymph nodes measuring 2.3 cm on the right and 3 cm on the left. Anterior spurring of the thoracic spine. IMP: No acute intra-abdominal adenopathy. CTA few months ago: No P.E. Enlarged heart. Atelectasis in lingula/LLL. Interstitial pulmonary edema. Cat scan of Abdomen: No acute findings. Stool throughout colon. No splenomegaly. Prominant inguinal nodes, stable. She feels reasonably well. CT abdomen from 01/30: No acute intra-abdominal process seen. Mild constipation. The gallbladder is not visualized likely contracted or removed. The appendix has been surgically removed. Small umbilical hernia containing fat. PLAN: I will arrange for a inguinal lymph node biopsy, for next week. Will make further plans based upon the results. Thanks, CC: Lluvia Beard. DR. DOMINGUEZ. (2) Inguinal adenopathy Status: Acute Assessment and plan: (2) Inguinal adenopathy Status: Acute 70-year-old lady with left upper quadrant pain. Referred for , Splenomagaly and Abdominal adenopathy. She was noted to have bilateral inguinal adenopathy, and some retroperitoneal adenopathy, not seen on ultrasound done at [facility]. However Cat scan of abdomen from [facility], did not reveal it. About a month ago, I discussed her case with Javed Willis: [phone]. Alice Shea. He was concerned about her recurring abdominal pain. She had constipation. Previously she had biliary stones for which she had ERCP in 2014. Colonoscopy in 2015 was negative. He arrange for a CT scan. However I told him she recently had one in September. I faxed over the results to him. She was here a few months ago. At that time her blood pressure was very elevated and she had pain in her left flank. She was sent to the emergency room. Her CTA of the chest and CT abdomen were done. These revealed: No evidence of pulmonary embolism. Enlarged heart. Subsegmental atelectasis or scarring in the lingula and left lower lobe. Abdomen and pelvis: No acute findings. Stool throughout the colon questionable for constipation. Atherosclerotic disease. Prominent bilateral pelvic retroperitoneal lymph nodes and inguinal lymph nodes similar to previous exam. I checked with IR regarding biopsy of left inguinal lymph nodes. However Dr. White felt these were benign appearing nodes. I shared the information with the patient and her son. Offered close monitoring versus biopsy. She wanted to proceed with the biopsy. Apparently, it was scheduled. However she did not show up. She was here on 12/11. I again tried to arrange for ultrasound-guided biopsy of the left inguinal node for further evaluation. However there was some confusion about her name, on the insurance card. There was some discrepancy there, so the procedure was not scheduled. The in: Biopsy had been scheduled however she ended up getting admitted to [facility] for pneumonia so had to be postponed. PLAN: I will resubmit the rec for the ultrasound-guided biopsy. Will review the results and take it from there. She will return in a month for a follow-up visit. Thanks, CC: Dr. Dominguez. Lluvia Beard. Pamela. - Time Spent With Patient Total time spent is greater than 50% in coordination of care (as documented) at patient's floor/unit and/or counseling patient: 25 - 35 minutes
[2021-02-05 15:55] LABS: MANUAL DIFF FLAG NO
--- NOTE | 2021-02-05 15:56 | MHC.HEMONCMA ---
Pt present to f/u on splenomegaly. History reviewed and labs drawn. Pt to return after we reschedule BX.
[2021-02-05 16:00] LABS: Basophils Percent Auto 0.4 % (0-2); Eosinophils Absolute Auto 0.2 X10*3/uL (0.0-0.4); Eosinophils Percent Auto 2.6 % (0-4); Hematocrit 40.9 % (37-47); Hemoglobin 12.8 g/dl (12.0-16.0); Imm Gran Abs Auto 0.03 X10*3/uL (0.00-0.03); Imm Gran Pct Auto 0.4 % (0.0-0.4); Lymphocytes Absolute Auto 1.6 X10*3/uL (1.2-4.9); Lymphocytes Percent Auto 19.7 % (20-40); Mean Corpuscular HGB Conc 31.3 g/dl (31.0-35.0); Mean Corpuscular Hemoglobin 28.3 pg (27.0-33.0); Mean Corpuscular Volume 90.3 fL (80-98); Mean Platelet Volume 11.3 fL (9.4-12.3); Monocytes Absolute Auto 0.7 X10*3/uL (0.1-1.2); Monocytes Percent Auto 8.5 % (2-11); Neutrophils Absolute Auto 5.6 X10*3/uL (2.0-8.3); Neutrophils Percent Auto 68.4 % (45-73); Platelet Count 206 X10*3/uL (160-400); Red Blood Count 4.53 X10*6/uL (4.20-5.50); Red Cell Distribution Width 16.1 % (11.0-16.0); White Blood Count 8.2 X10*3/uL (4.8-10.8)
[2021-02-05 16:45] LABS: Alanine Aminotransferase 26 U/L (0-31); Albumin Level 3.1 g/dL (3.5-5.0); Alkaline Phosphatase 139 U/L (39-117); Anion Gap 13 (12-20); Aspartate Amino Transferase 19 U/L (5-31); Bilirubin Total 0.3 mg/dL (0.0-1.0); Blood Urea Nitrogen 17 mg/dL (9-16); Calcium 9.2 mg/dL (8.4-10.2); Carbon Dioxide 32 mmol/L (22-29); Chloride 94 mmol/L (96-108); Creatinine Clr Calc Pharmacy 81.3; Estimated Glomerular Filt Rate > 60; Glucose Random 294 mg/dL (60-115); Lactate Dehydrogenase 246 U/L (122-220); Potassium 4.7 mmol/L (3.3-5.1); Sodium 134 mmol/L (135-145); Total Protein 7.1 g/dL (6.5-8.0)
--- NOTE | 2021-02-12 11:25 | MHC.HEMONCMA ---
Pt rescheduled for bx on 02/24/21 @11am. Msg left on vm and advised to call me back to confirm.
--- NOTE | 2021-02-16 10:20 | MHC.HEMONCMA ---
Pt notified of US biopsy of abdomen scheduled for 03/16/21 @ 9 am.
[2021-04-30 11:43] VITALS: BP 152/65; PULSE 80; RESP 14; TEMP 36.7; O2SAT 93; BMI 36.1
--- NOTE | 2021-04-30 11:58 | P.PNHO_ITS ---
Medical Summary - Medical Summary Date of Service: 04/30/21 Chief complaint: Follow-up for: Inguinal adenopathy. Medical Summary: DIAGNOSIS: Splenomegaly. Adenopathy. CBC: WBC 15.6 H (Nov. ABS NEUT COUNT (Dec 14, RBC 3.70 L (Dec 14, HGB 11.5 L (Dec 14, HCT 34.8 L (Dec 14, MCV 93.9 (Dec 14, MCH 31.2 (Dec 14, MCHC 33.2 (Dec 14, PLATELET CT 169 (Dec 14, Interval History Interval history: Lulu Chavez is a pleasant 70 year old lady, here for a follow-up visit. She feels, regular, , she says. She is not too well. She complains of pain suprapubically on going to the bathroom. She denies dysu jordyn or hematuria. No flank pain fever nor chills. She gets occasional pain under the left breast. She does have shortness of breath on exertion. She is on 3 L of O2. Previous history: 1. She was scheduled for an inguinal node biopsy. However she got admitted at [facility] for pneumonia. She was then brought here to our hospital. Narrative: She was recently admitted at [facility] on 01/12/2021 for pneumonia/sepsis/UTI then left against medical advice and was seen here and her and the family decided they wanted to be discharged and continue antibiotics while at home presenting to the ED with complaints of a lump to the back of her head that is painful that she noticed approximately 3 days with associated dizziness. Reports she does not remember injuring her head where she has the lump. She denies any falls. She also reports that she has has had bilious nausea/vomiting with associated abdominal pain. Also reports anterior chest wall discomfort for the past 3 days as well. Denies any falls, fevers, headaches, changes in vision, black or bloody emesis, worsening shortness of breath from her baseline, needing to increase her nasal cannula oxygen, back pain, const ipation, diarrhea, black or bloody stools, hematuria, abnormal vaginal discharge, dysuria, palpitations or any other symptoms at this time. CT head revealed: There is a small suspected hematoma involving the left parietal scalp near the vertex. This finding is new when compared to recent prior CT imaging from 09/04/2020. Chronic changes a right parietal craniectomy are noted. There is a small focus of cortical encephalomalacia underneath the craniotomy site. Otherwise no acute intracranial finding. No evidence of acute territorial infarct or hemorrhage. 2. Sometimes, she has left upper abdominal pain. It is more of a throbbing in nature. She complains of gas. She continues to feel heartburn dyspepsia and gas. She complains of constipation. She does follow with GI, Dr. Santiago/ Javed Willis. She has tried Amitiza, but that did not help. She is under the care of Dr. Dominguez. She gets pain medications through him. She was referred to Pain Management but she just went there for one visit. They did not help her. Denies chest pain or trouble breathing. Her blood pressure was noted to be high recently, 172 180 systolic. She denies headaches. She denies dizziness. Her appetite is good. Her weight is gone up. She is in good spirits. Rest of the review of systems is unremarkable. 3. She was referred on account of splenomegaly and abdominal adenopathy. However review of the CT scan from [facility] from 07/23/2020 revealed: Dependent atelectasis within the posterior lung bases. Normal liver, spot stomach, spleen, pancreas, adrenal glands, kidneys and small bowel. Nonvisualized appendix. Normal colon, bladder and adnexa. Fibroid uterus. No free air free fluid, aneurysm or bowel obstruction. Bilateral prominent inguinal lymph nodes measuring 2.3 cm on the right and 3 cm on the left. Anterior spurring of the thoracic spine. IMP: No acute intra-abdominal adenopathy. CTA of chest from 07/11: * Mild interstitial pulmonary edema without pleural effusion. * Scattered opacities of subsegmental atelectasis in middle lobe, lingula and lower lobes. * No evidence of a large, central embolus. Due to the suboptimal contrast bolus, unable to evaluate the more peripheral pulmonary arteries. * Mild splenomegaly is stable compared to 09/05/2019. The negative test result for PE -- but suboptimal contrast bolus -- was discussed with Dr. Villalpando on 07/08/2020 and it was ascertained that the pretest probability was low, and no repeat contrast injection will be performed at this time. Review of her labs revealed: WBC 15.6 (Dec 14, ABS NEUT COUNT (Dec 14, RBC 3.70 L (Dec 14, HGB 11.5 L (Dec 14, HCT 34.8 L (Dec 14, MCV 93.9 (Dec 14, MCH 31.2 (Dec 14, MCHC 33.2 (Dec 14, PLATELET CT 169 (Dec 14, Serial WBC in the computer: Date Time Result N Dec 14 11:29 15.6 Oct 18, 19 06:21 12.2 Jun 17, 19 05:14 15.3 Jun 16, 19 06:46 15.6 Jun 15, 19 05:04 12.5 Jun 14, 19 05:30 10.2. Last time, when she was here, she did not feel well. She complained of pain in her left flank. She was SOB. Her blood pressure was elevated. Her O2 sat ow: 83 on 3 L/min. Blood sugar was high at 411. She was afebrile. She was referred to the emergency room for further management. CT scan of the chest and abdomen were done: There was no PE. Nothing new in the belly except for constipation. She does not feel well even now. She continues to have left flank pain. She has nausea but not vomiting. A bowels are rather constipated however she says she is taking Amitiza, with good results. She has an appointment with GI but that is not until November 22. She would like to see somebody now. Her blood pressure is elevated as well. Review of Systems - Constitutional Reports no additional constitutional complaints, Reports lack of energy, Reports malaise, Reports weight gain - Eyes Reports no additional eye complaints - ENT Reports no additional ear, nose, mouth, and throat complaints - Cardiovascular Reports no additional cardiovascular complaints - Respiratory Reports no additional respiratory complaints - Gastrointestinal Reports no additional gastrointestinal complaints - Genitourinary Reports no additional female genitourinary complaints - Musculoskeletal Reports no additional musculoskeletal complaints - Integumentary/Breasts Skin/Breast: Reports no additional skin complaints - Neurologic Reports weakness - Psychiatric Reports no additional psychiatric complaints - Endocrine Reports no additional endocrine complaints - Hematologic/Lymphatic Reports no additional hematologic/lymphatic complaints - Allergic/Immunologic Reports no additional allergic/immunologic complaints [facility] Medical History: Medical History (Last Reviewed 04/30/21 @ 11:45 by Jacque Roberson) Asthma Asthma-COPD overlap syndrome CHF (congestive heart failure) Chronic constipation Chronic respiratory failure Chronic respiratory failure COPD (chronic obstructive pulmonary disease) Diabetes GERD (gastroesophageal reflux disease) HTN (hypertension) Hyperlipemia Hypothyroidism Lymphadenopathy, abdominal KATIUSKA (obstructive sleep apnea) KATIUSKA on CPAP Pulmonary hypertension RVF (right ventricular failure) Sleep apnea Splenomegaly Functional capacity: wheelchair bound Patient : No Surgical History: Surgical History (Last Reviewed 04/30/21 @ 11:45 by Jacque Roberson) H/O section History of cholecystectomy Hx of tubal ligation Social History: Social History (Last Reviewed 04/30/21 @ 11:45 by Jacque Roberson) Living Situation History: Household Members: Family Housing: House Do you presently have visiting nurse or other home services: Yes Do you presently have visiting nurse or other home services comment: [employer] Alcohol History: Alcohol intake: never Tobacco History: Patient Tobacco Use Status: Former Tobacco user Nutrition Assessment: Patient : No Occupation Assessmet: service: No Current occupational status: disabled Oncology Screenings - ECOG Performance Status ECOG Performance Status: 2 Home Medications and Allergies Home Medications Medication Instructions Recorded Confirmed Type acetaminophen 325 mg tablet 325 mg PO Q8H PRN 07/08/20 04/30/21 History albuterol sulfate 2.5 mg INHALATION Q4H PRN 07/08/20 04/30/21 History albuterol sulfate 90 mcg/actuation 2 puff INHALATION Q4-6H PRN 07/08/20 04/30/21 History aerosol inhaler (ProAir HFA) amlodipine 10 mg tablet 10 mg PO DAILY 07/08/20 04/30/21 History atorvastatin 40 mg tablet 40 mg PO DAILY 07/08/20 04/30/21 History fluticasone furoate 100 1 inh INHALATION DAILY 07/08/20 04/30/21 History mcg-vilanterol 25 mcg/dose inhalation powder (Breo Ellipta) fluticasone propionate 110 1 puff INHALATION BID 07/08/20 04/30/21 History mcg/actuation HFA aerosol inhaler (Flovent HFA) hydralazine 100 mg tablet 100 mg PO TID 07/08/20 04/30/21 History insulin glargine 100 unit/mL (3 30 unit SUBCUT BEDTIME 07/08/20 04/30/21 History mL) subcutaneous pen (Lantus Solostar U-100 Insulin) insulin lispro 100 unit/mL See Protocol SUBCUT TIDAC 07/08/20 04/30/21 History subcutaneous pen (Humalog KwikPen (U-100) Insulin) levothyroxine 100 mcg tablet 100 mcg PO DAILY 07/08/20 04/30/21 History lubiprostone 24 mcg capsule 24 mcg PO BID 07/08/20 04/30/21 History (Amitiza) metformin 1,000 mg tablet 1,000 mg PO BID 07/08/20 04/30/21 History omega-3 fatty acids 1,000 mg 1,000 mg PO DAILY 07/08/20 04/30/21 History capsule (Fish Oil Concentrate) quetiapine 200 mg tablet 200 mg PO BEDTIME 07/08/20 04/30/21 History sumatriptan succinate 25 mg tablet 0 mg PO DIRECTED 08/11/20 04/30/21 History gabapentin 100 mg capsule 100 mg PO TID 03/15/21 04/30/21 History oxycodone-acetaminophen 7.5 mg-325 1 tab PO TID PRN 03/15/21 04/30/21 History mg tablet aspirin 81 mg tablet,delayed 81 mg PO DAILY 04/26/21 04/30/21 History release (Adult Aspirin Regimen) Allergies Allergy/AdvReac Type Severity Reaction Status Date / Time lisinopril [LISINOPRIL] Allergy Severe Dizziness Verified 04/01/21 22:46 risperidone Allergy Confusion Verified 04/01/21 22:46 Exam Vital signs: Vital Signs Temp 98.0 F 04/30/21 11:43 Pulse 80 04/30/21 11:43 Resp 14 04/30/21 11:43 BP 152/65 H 04/30/21 11:43 Pulse Ox 93 04/30/21 11:43 Intake & Output 04/29/21 04/30/21 04/30/21 18:59 06:59 18:59 Other: Weight 92.6 kg Weight in Grams [id number] Weight 92.6 kg Body Mass Index 36.1 - Constitutional Present: moderate distress - Routine HEENT Exam Head: Present: normal inspection Eye: Present: normal appearance ENT: Present: mucous membranes moist - Routine Neck Exam Present: full ROM - Routine Respiratory Exam Present: CTAB - Routine Cardiovascular Exam Cardiovascular: Present: RRR, S1, S2 - Routine Abdominal Exam Absent: tenderness - Routine Rectal Exam Patient deferred: digital exam - Routine Extremities Exam Present: nontender - Routine Back/Spine/Pelvis Exam Back/Spine: Present: full ROM - Routine Skin Exam Present: intact - Routine Neurological Exam Present: alert, oriented X3 - Detailed Neurological Exam: Coma Scale Eye Opening: Spontaneous (4) - Routine Psychiatric Exam Present: normal affect Data - Labs CBC & Chem 7: 04/30/21 12:19 04/30/21 12:19 Labs: 09/01/20 15:15 BCR/ABL Trans 9,22 [place],Bl Routine Complete Blood Count Man Dif Routine Comprehensive Met. Panel Routine Lactate Dehydrogenase Routine Laboratory Last Values WBC 9.3 X10*3/uL (4.8-10.8) 09/01/20 15:15 RBC 5.00 X10*6/uL (4.20-5.50) 09/01/20 15:15 Hgb 14.2 g/dl (12.0-16.0) 09/01/20 15:15 Hct 45.8 % (37-47) 09/01/20 15:15 MCV 91.6 fL (80-98) 09/01/20 15:15 MCH 28.4 pg (27.0-33.0) 09/01/20 15:15 MCHC 31.0 g/dl (31.0-35.0) 09/01/20 15:15 RDW 15.7 % (11.0-16.0) 09/01/20 15:15 Plt Count 220 X10*3/uL (160-400) D 09/01/20 15:15 MPV 11.8 fL (9.4-12.3) 09/01/20 15:15 Absolute Nucleated RBC 0.000 X10*3/uL (0.0-0.012) 09/01/20 15:15 Nucleated RBC % (auto) 0.0 /100WBC (0.0-0.2) 09/01/20 15:15 Neutrophils % (Manual) 78 % (45-73) H 09/01/20 15:15 Band Neutrophils % 0 % (3-5) L 09/01/20 15:15 Lymphocytes % (Manual) 15 % (20-40) L 09/01/20 15:15 Monocytes % (Manual) 7 % (2-11) 09/01/20 15:15 Abs Neuts (Manual) 7.3 X10*3/uL (2.2-7.9) 09/01/20 15:15 Lymphocytes # (Manual) 1.4 X10*3/uL (0.6-4.8) 09/01/20 15:15 Monocytes # (Manual) 0.7 X10*3/uL (0.0-1.2) 09/01/20 15:15 Platelet Estimate NORMAL (NORMAL) 09/01/20 15:15 Large Platelets PRESENT 09/01/20 15:15 Plt Morphology Comment NOTED 09/01/20 15:15 RBC Morphology NORMAL 09/01/20 15:15 Sodium 135 mmol/L (135-145) 09/01/20 15:15 Potassium 4.6 mmol/l (3.3-5.1) 09/01/20 15:15 Chloride 94 mmol/L (96-108) L 09/01/20 15:15 Carbon Dioxide 33 mmol/L (22-29) H 09/01/20 15:15 Anion Gap 13 (-20) 09/01/20 15:15 BUN 14 mg/dL (9-16) 09/01/20 15:15 Creatinine 0.78 mg/dL (0.5-1.4) 09/01/20 15:15 Estim Creat Clear Calc 75.9 09/01/20 15:15 Estimated GFR > 60 09/01/20 15:15 Random Glucose 411 mg/dL (60-115) H* 09/01/20 15:15 Calcium 8.5 mg/dL (8.4-10.2) 09/01/20 15:15 Total Bilirubin 0.3 mg/dL (0.0-1.0) 09/01/20 15:15 AST 14 U/L (5-31) 09/01/20 15:15 ALT 11 U/L (0-31) 09/01/20 15:15 Alkaline Phosphatase 130 U/L (39-117) H 09/01/20 15:15 Lactate Dehydrogenase 198 U/L (122-220) 09/01/20 15:15 Total Protein 7.0 g/dL (6.5-8.0) 09/01/20 15:15 Albumin 3.6 g/dL (3.5-5.0) 09/01/20 15:15 BCR/abl (FISH) Source Peripheral Blood 12/08/20 15:15 BCR/abl (FISH) Result 0.000 % 09/01/20 15:15 BCR/abl (FISH) Res Sum see note 09/01/20 15:15 BCR/abl Comment 0.000 % 09/01/20 15:15 BCR/abl Additionl Info Not Given 09/01/20 15:15 BCR/abl1 Mnr (p190) EER Not Detected 09/01/20 15:15 BCR/abl1 Mjr (p210) EER Not Detected 09/01/20 15:15 Progress Note: A/P (1) Splenomegaly Status: Acute Assessment and plan: 70 year old lady, C/O pain in the back, and left flank. Ultrasound of the abdomen from 02/14/2018: Probable parapelvic cyst upper and lower pole right kidney. Heterogenous pancreatic echogenicity, no discrete or focal abnormality. Spleen: Normal, 9.7 cm. Cat scan of chest revealed: * Mild interstitial pulmonary edema without pleural effusion. * Scattered opacities of subsegmental atelectasis in middle lobe, lingula and lower lobes. * No evidence of a large, central embolus. Due to the suboptimal contrast bolus, unable to evaluate the more peripheral pulmonary arteries. * Mild splenomegaly is stable compared to 09/05/2019. The negative test result for PE -- but suboptimal contrast bolus -- was discussed with Dr. Villalpando at 8:07 pm on 07/08/2020 and it was ascertained that the pretest probability was low so no repeat contrast injection will be performed at this time. However review of the CT scan from [facility] from 07/23/2020 revealed: Dependent atelectasis within the posterior lung bases. Normal liver, spot stomach, spleen, pancreas, adrenal glands, kidneys and small bowel. Nonvisualized appendix. Normal colon, bladder and adnexa. Fibroid uterus. No free air free fluid, aneurysm or bowel obstruction. Bilateral prominent inguinal lymph nodes measuring 2.3 cm on the right and 3 cm on the left. Anterior spurring of the thoracic spine. IMP: No acute intra-abdominal adenopathy. CTA few months ago: No P.E. Enlarged heart. Atelectasis in lingula/LLL. Interstitial pulmonary edema. Cat scan of Abdomen: No acute findings. Stool throughout colon. No splenomegaly. Prominant inguinal nodes, stable. She feels reasonably well. CT abdomen from 01/30: No acute intra-abdominal process seen. Mild constipation. The gallbladder is not visualized likely contracted or removed. The appendix has been surgically removed. Small umbilical hernia containing fat. She was noted to have inguinal adenopathy on imaging. She finally made it for the inguinal lymph node biopsy. However the radiologist was reassured that the brain architecture is benign a ppearing. No cause for concern about malignancy. So biopsy did not need to be done. That is reassuring. PLAN: The patient will be referred back to her primary for her other concerns. I will be happy to see her again if there is any questions or concerns in future. I wish her the best of luck. Thanks, CC: Lluvia Beard. DR. DOMINGUEZ. (2) Inguinal adenopathy Status: Acute Assessment and plan: (2) Inguinal adenopathy Status: Acute 70-year-old lady with left upper quadrant pain. Referred for , Splenomagaly and Abdominal adenopathy. She was noted to have bilateral inguinal adenopathy, and some retroperitoneal adenopathy, not seen on ultrasound done at [facility]. However Cat scan of abdomen from [facility], did not reveal it. About a month ago, I discussed her case with Javed Willis: [phone]. Shabbir P.A. He was concerned about her recurring abdominal pain. She had constipation. Previously she had biliary stones for which she had ERCP in 2014. Colonoscopy in 2016 was negative. He arrange for a CT scan. However I told him she recently had one in September. I faxed over the results to him. She was here a few months ago. At that time her blood pressure was very elevated and she had pain in her left flank. She was sent to the emergency room. Her CTA of the chest and CT abdomen were done. These revealed: No evidence of pulmonary embolism. Enlarged heart. Subsegmental atelectasis or scarring in the lingula and left lower lobe. Abdomen and pelvis: No acute findings. Stool throughout the colon questionable for constipation. Atherosclerotic disease. Prominent bilateral pelvic retroperitoneal lymph nodes and inguinal lymph nodes similar to previous exam. I checked with IR regarding biopsy of left inguinal lymph nodes. However Dr. White felt these were benign appearing nodes. I shared the information with the patient and her son. Offered close monitoring versus biopsy. She wanted to proceed with the biopsy. Apparently, it was scheduled. However she did not show up. She was here on 12/11. I again tried to arrange for ultrasound-guided biopsy of the left inguinal node for further evaluation. However there was some confusion about her name, on the insurance card. There was some discrepancy there, so the procedure was not scheduled. The in: Biopsy had been scheduled however she ended up getting admitted to [facility] for pneumonia so had to be postponed. PLAN: I will resubmit the rec for the ultrasound-guided biopsy. Will review the results and take it from there. She will return in a month for a follow-up visit. Thanks, CC: Dr. Dominguez. Lluvia Santiago. - Time Spent With Patient Time Spent with Patient (in minutes): 30
[2021-04-30 12:19] LABS: MANUAL DIFF FLAG NO
[2021-04-30 12:47] LABS: Basophils Percent Auto 0.4 % (0-2); Eosinophils Absolute Auto 0.2 X10*3/uL (0.0-0.4); Hemoglobin 13.4 g/dl (12.0-16.0); Imm Gran Abs Auto 0.03 X10*3/uL (0.00-0.03); Imm Gran Pct Auto 0.3 % (0.0-0.4); Lymphocytes Absolute Auto 1.9 X10*3/uL (1.2-4.9); Mean Corpuscular HGB Conc 31.9 g/dl (31.0-35.0); Mean Corpuscular Hemoglobin 29.5 pg (27.0-33.0); Mean Corpuscular Volume 92.3 fL (80-98); Mean Platelet Volume 11.4 fL (9.4-12.3); Monocytes Absolute Auto 0.7 X10*3/uL (0.1-1.2); Monocytes Percent Auto 6.6 % (2-11); Neutrophils Absolute Auto 7.6 X10*3/uL (2.0-8.3); Neutrophils Percent Auto 72.7 % (45-73); Platelet Count 207 X10*3/uL (160-400); Red Blood Count 4.55 X10*6/uL (4.20-5.50); Red Cell Distribution Width 13.7 % (11.0-16.0); White Blood Count 10.5 X10*3/uL (4.8-10.8)
[2021-04-30 13:15] LABS: Alanine Aminotransferase 21 U/L (0-31); Albumin Level 3.5 g/dL (3.5-5.0); Alkaline Phosphatase 162 U/L (39-117); Anion Gap 14 (12-20); Aspartate Amino Transferase 20 U/L (5-31); Bilirubin Total 0.4 mg/dL (0.0-1.0); Blood Urea Nitrogen 20 mg/dL (9-16); Calcium 9.4 mg/dL (8.4-10.2); Carbon Dioxide 35 mmol/L (22-29); Chloride 95 mmol/L (96-108); Creatinine Clr Calc Pharmacy 64.4; Estimated Glomerular Filt Rate > 60; Glucose Random 316 mg/dL (60-115); Potassium 5.1 mmol/L (3.3-5.1); Sodium 139 mmol/L (135-145); Total Protein 7.1 g/dL (6.5-8.0)
--- NOTE | 2021-04-30 16:08 | MHC.HEMONCMA ---
Patient came in for a follow up, states she is doing okay. Clinical summary was reviewed and updated. Mechelle was present for interpretation. Patient had labs and will return in 1 month for a follow up.
== END 2021-06-30 | disposition home or self-care (01) ==
LOC: HO.ONC 11:20
PROVIDERS: PCP Internal Medicine Geriatric Medicine; Referring Provider Hospitalist; Visit Provider Internal Medicine Medical Oncology
DX: R59.0 Localized enlarged lymph nodes (principal); R10.9 Unspecified abdominal pain; R16.1 Splenomegaly, not elsewhere classified
CPT/HCPCS: 36415; 80053; 81206; 81207; 83615; 85007; 85025; 85027; 99204; 99214

== ENCOUNTER 2021-05-07 13:39 | Outpatient (REF) | payer MEDICARE, MEDICAID, SELFPAY ==
--- NOTE | ~2021-05-07 | MM_ITS ---
EXAMINATION: MM DIAGNOSTIC DIGITAL MAMMOGRAPHY, LEFT CLINICAL INFORMATION: Recall from screening for tightly grouped calcifications posterior 4:00 left breast likely coarsening since prior imaging. COMPARISON: Mammography: 04/23/2021, 02/12/2019 TECHNIQUE: Digital mammography is performed in the following views: Magnification CC, magnification ML x2 FINDINGS: There are scattered areas of fibroglandular density (ACR BI-RADS breast composition Category b). The tightly grouped calcifications posterior 4:00 position are coarse and benign-appearing. There are some vascular calcifications near this area as well. Results are discussed with the patient at time of visit. Calcifications will be reassessed again in 6 months. MM/MM added views LT IMPRESSION: The tightly grouped calcifications posterior outer left breast are benign-appearing, relatively coarse. ASSESSMENT: BI-RADS 3: Probably Benign RECOMMENDATION: Diagnostic left mammography in 6 months. This patient's information was entered into a reminder system with a target due date for their next mammogram.
== END 2021-05-07 13:40 | disposition home or self-care (01) ==
LOC: HO.MAMMO 13:39
PROVIDERS: PCP Internal Medicine Geriatric Medicine; Visit Provider Family Medicine
DX: R92.1 Mammographic calcification found on diagnostic imaging of breast (principal)
CPT/HCPCS: 77065

== ENCOUNTER → 2021-05-18 09:54 | Outpatient (REF) | payer MEDICARE, MEDICAID, SELFPAY ==
--- NOTE | ~2021-05-18 | NM_ITS ---
Myocardial perfusion study Indication: Chest pain to evaluate for myocardial ischemia Technique: The patient was brought in for a Lexiscan perfusion study on 05/18/2021. Patient performed low-level exercise and was injected 0.4 mg of Lexiscan intravenously. Within a minute of injection, 30 mCi of sestamibi was given intravenously. Images were obtained using the SPECT gamma camera interlaced with the gating device. Images were obtained in supine position. Resting perfusion study was performed on 05/19/2021. Patient was administered 30 mCi of sestamibi intravenously at rest. Images were then obtained in supine position. Images obtained with and without CT attenuation. Total DLP 153 mGy-cm. Images were processed with the software and compared side to side in short axis, horizontal long axis and vertical long axis views. Findings: The stress perfusion study showed nonattenuated images show mildly reduced uptake in the distal lateral as well as distal anterior and apex of the LV myocardium. Attenuation corrected images show moderately reduced uptake in the apex of the LV myocardium.. The gated study shows low normal LV systolic function with calculated LVEF of 49%. LV cavity is mildly dilated size. The gated study shows normal wall thickening and contraction of segments. Resting study shows both attenuated corrected images as well as nonattenuated images show improved uptake in the apex of the LV myocardium. Gating at rest reveals normal systolic wall motion with ejection fraction at 48%. The findings are consistent with reversible apical defect suggestive of ischemia.. NM/NM cardiolite stress test Impression: 1. Myocardial perfusion imaging study shows apical ischemia 2. Gated LVEF is 49% 3. Transient ischemic dilatation present EKG is nondiagnostic for ischemia
--- NOTE | 2021-05-18 10:20 | CA_ITS ---
Acquisition Time: 2021-05-18 10:19:16 Total Exercise Time: 00:02:00 Test Indications: CP Medications: SEE CHART Protocol: LEXISCAN Max HR: 102 BPM 67% of Pred: 151 BPM Max BP: 142/064 mmHG Max Work Load: 1.0 METS Pharmacological stress test with Lexiscan injection, without anginal symptoms, without arrythmia, with normotensive response to injection, with nondiagnostic EKG for ischemia. Nuclear images pending. Test reviewed with Dr Mckeon. Referred By: Alan Correia Overread By: WAN LAY
== END ==
LOC: HO.CARD 09:54
PROVIDERS: Visit Provider Internal Medicine Cardiovascular Disease
DX: R07.9 Chest pain, unspecified (principal)
CPT/HCPCS: 78452; 93017; A9500; J0280; J2785

== ENCOUNTER 2021-05-21 15:46 | Outpatient (REF) | payer MEDICARE, MEDICAID, SELFPAY ==
[2021-05-21 17:30] LABS: Hematocrit 41.7 % (37-47); Hemoglobin 13.1 g/dl (12.0-16.0); Mean Corpuscular HGB Conc 31.4 g/dl (31.0-35.0); Mean Corpuscular Hemoglobin 29.5 pg (27.0-33.0); Mean Corpuscular Volume 93.9 fL (80-98); Platelet Count 204 X10*3/uL (160-400); Red Blood Count 4.44 X10*6/uL (4.20-5.50); Red Cell Distribution Width 13.6 % (11.0-16.0); White Blood Count 11.5 X10*3/uL (4.8-10.8)
[2021-05-21 17:45] LABS: Prothrombin Time 11.8 SEC (9.9-13.0)
[2021-05-21 17:47] LABS: Anion Gap 12 (12-20); Blood Urea Nitrogen 19 mg/dL (9-16); Calcium 9.2 mg/dL (8.4-10.2); Carbon Dioxide 33 mmol/L (22-29); Chloride 99 mmol/L (96-108); Estimated Glomerular Filt Rate 51; Glucose Random 133 mg/dL (60-115); Potassium 4.5 mmol/L (3.3-5.1); Sodium 139 mmol/L (135-145)
== END 2021-05-21 15:47 | disposition home or self-care (01) ==
LOC: HO.LAB 15:46
PROVIDERS: PCP Internal Medicine Geriatric Medicine; Visit Provider Internal Medicine Cardiovascular Disease
DX: R94.39 Abnormal result of other cardiovascular function study (principal)
CPT/HCPCS: 36415; 80048; 85027; 85610

== ENCOUNTER 2021-06-02 10:54 | Outpatient (REF) | payer MEDICARE, MEDICAID, SELFPAY ==
[2021-06-02 13:29] LABS: B Type Natriuretic Peptide 150 pg/mL (<100)
[2021-06-02 13:54] LABS: Erythrocyte Sedimentation Rate 49 MM/HR (0-20)
[2021-06-04 13:16] LABS: Anti Nuclear Antibody Screen NEGATIVE (NEGATIVE)
[2021-06-04 16:22] LABS: Cyclic Citrullinated Peptide <16 UNITS
== END 2021-06-02 10:55 | disposition home or self-care (01) ==
LOC: HO.LAB 10:54
PROVIDERS: Internal Medicine Pulmonary Disease; PCP Internal Medicine Geriatric Medicine; Visit Provider Hospitalist
DX: I50.9 Heart failure, unspecified (principal); J18.9 Pneumonia, unspecified organism; J96.11 Chronic respiratory failure with hypoxia; J96.12 Chronic respiratory failure with hypercapnia; K21.9 Gastro-esophageal reflux disease without esophagitis; J44.9 Chronic obstructive pulmonary disease, unspecified; G47.33 Obstructive sleep apnea (adult) (pediatric)
CPT/HCPCS: 36415; 82785; 83880; 85652; 86003; 86038; 86039; 86200; 99212